=== PATIENT | female | born 1960 | race Caucasian/White ===

== ENCOUNTER 2017-02-07 18:35 | Observation (INO) ==
[2017-02-07] MEDS ORDERED: *HR* HYDROmorphone (PF) 1 MG/ML SYRINGE IVP ONE ×2 (19:56→20:21)
[2017-02-07] MEDS ORDERED: Ondansetron 4 MG/2 ML VIAL IVP ONE (19:56)
[2017-02-07] MEDS ORDERED: Lidocaine/EPI 1:100k 1% 20 ML VIAL INFILT ONE (19:56)
--- NOTE | 2017-02-07 20:22 | Emergency Department Note ---
Disposition Clinical Impression: Abscess of labia majora, Cellulitis of labia majora Disposition: Admitted As Inpatient Condition: Good Referrals: Angela Truong MD [Primary Care Provider] - Forms: ED Satisfaction Letter Skin/Abscess/FB HPI Chief complaint: ED Skin/Abscess/Foreign Body Stated complaint: "Cyst on my privates" Time Seen by Provider: 02/07/17 18:47 Source: patient Limitations: no limitations Nursing Notes Reviewed: Yes Vital Signs Reviewed: Yes Pt Subjective Complaint: abscess/boil Onset (ago): day(s) (3) Location: genitals (right labia) Severity: severe Quality: dull Consistency: constant Improves with: none Worsens with: palpation, movement Context: none Associated symptoms: Reports: denies other symptoms Treatments prior to arrival: none Home Medications Medication Instructions Recorded Confirmed Albuterol Sulfate [Proair Hfa] 2 puff IH Q4H PRN 05/20/15 09/28/16 Atorvastatin [Lipitor] 40 mg PO HS 05/20/15 09/28/16 CloNIDine HCl 0.2 mg PO QPM 05/20/15 09/28/16 Ergocalciferol (VITAMIN D2) 50,000 unit PO TU 05/20/15 09/28/16 [Drisdol (50,000 Unit)] Furosemide [Lasix] 40 mg PO BID 05/20/15 09/28/16 Insulin ASPART [NovoLOG] 18 - 22 units SQ TID 05/20/15 09/28/16 Insulin Glargine,Hum.rec.anlog 90 units SQ QPM 05/20/15 09/28/16 [Lantus Solostar] Loratadine [Claritin] 10 mg PO QPM 05/20/15 09/28/16 Pregabalin [Lyrica] 150 mg PO TID 05/20/15 09/28/16 Sodium Bicarbonate 325 mg PO QID 05/20/15 09/28/16 TraMADol [Ultram] 100 mg PO QID PRN 05/20/15 09/28/16 Docusate [Colace] 100 mg PO QID PRN 11/09/15 09/28/16 Omeprazole [PriLOSEC] 20 mg PO DAILY 04/28/16 09/28/16 Beclomethasone Diprop 80mcg [QVAR 2 puff IH BID 07/13/16 09/28/16 80 mcg] Previous Rx's Medication Instructions Recorded Albuterol Sulfate [Albuterol 2 puff IH Q6HR #1 inhaler 07/18/16 Inhaler] Ciprofloxacin [Cipro] 500 mg PO BID 21 Days 09/28/16 Ciprofloxacin HCl/Dexameth 4 drop BOTH EARS BID 7 Days 11/20/16 [Ciprodex Otic Suspension] Allergies Allergy/AdvReac Type Severity Reaction Status Date / Time iodine Allergy See Verified 09/23/16 16:51 Comments latex Allergy See Verified 09/23/16 16:51 Comments povidone-iodine Allergy See Verified 09/23/16 16:51 [From Betadine] Comments soap [From Betadine] Allergy See Verified 09/23/16 16:51 Comments trimethoprim [From Bactrim] Allergy Difficulty Verified 09/23/16 16:51 Breathing Benzonatate AdvReac Blurry Verified 09/23/16 16:51 Vision sulfacetamide AdvReac Palpitation Verified 09/23/16 16:51 s sulfamethoxazole AdvReac Palpitation Verified 09/23/16 16:51 s terbinafine [From Lamisil] AdvReac Itching Verified 09/23/16 16:51 shrimp AdvReac Vomiting Uncoded 09/23/16 16:51 All systems ED: reviewed and negative except as stated. Constitutional: Denies: fever, chills Past Medical History - Past Medical History Source: patient, old records reviewed, nursing notes reviewed Medical history: Reports: asthma, diabetes, GERD, hyperlipidemia, renal disease Surgical history: Reports: cholecystectomy, other Psychiatric history: Reports: no psych history, other BEHAVIORAL HEALTH COUNSELOR history: Reports: no BEHAVIORAL HEALTH COUNSELOR history - Social History Smoking Status: Current every day smoker Smokeless Tobacco Status: No Alcohol use: Reports: none Drug use: Reports: none Physical Exam - General Limitations: no limitations General appearance: alert, in no apparent distress - Head Head exam: atraumatic, normocephalic, normal inspection - Eye Eye exam: Present: normal appearance, PERRL, EOMI - ENT ENT exam: normal exam, normal oropharynx, mucous membranes moist - Neck Neck exam: Present: normal inspection, full ROM, trachea midline - Chest Chest inspection: Present: normal inspection, symmetric chest wall rise - Respiratory Respiratory exam: Present: normal lung sounds bilaterally - Cardiovascular Cardiovascular exam: Present: regular rate, normal rhythm, normal heart sounds - Abdominal Exam Abdominal exam: Present: soft, Non-Tender. Absent: tenderness, distention, guarding, rebound, rigidity - Female External Exam: Present: other (abscess right labia majora) - Neurological Exam Neurological exam: Present: alert, oriented X3 - Psychiatric Psychiatric exam: Present: normal affect, normal mood Course Vital Signs Temperature 98.7 F 02/07/17 18:38 Pulse Rate 105 02/07/17 18:38 Respiratory Rate 18 02/07/17 18:38 Blood Pressure 122/70 02/07/17 18:38 O2 Sat by Pulse Oximetry 97 02/07/17 18:38 Temperature 98.7 F 02/07/17 18:38 Pulse Rate 100 02/07/17 19:22 Respiratory Rate 18 02/07/17 19:22 Blood Pressure 135/69 02/07/17 19:22 O2 Sat by Pulse Oximetry 94 02/07/17 19:22 Oxygen Delivery Oxygen Delivery Room Air Procedures - Abscess I/D Consent obtained: verbal consent Site: other (labia) Side (if applicable): right Sedation/analgesia: other (dilaudid 2mg IV) Local Anesthetic: lidocaine 1%, with epi Technique: incised with #11 blade Amount of fluid: 3 (blood no pus) Irrigation: No Complications: bleeding Skin/Abscess/Foreign Body - MDM Narrative Medical decision making narrative: I spoke with the patient daughter and the hospitalist with her risk factors including - Differential Diagnosis Likely: cellulitis, contact dermatitis - Medical Records Medical records reviewed: Yes I reviewed the patient's medical records. - Lab Data Lab results reviewed: Yes I reviewed the patient's lab results. Result diagrams: 02/07/17 20:37 02/07/17 20:37 Lab Results 02/07/17 02/07/17 Range/Units 20:37 20:37 WBC 10.7 (4.3-11.1) K/mcL RBC 4.49 (3.82-4.97) M/mcL Hgb 11.1 L (11.5-15.4) g/dL Hct 34.6 L (35.3-44.9) % MCV 77.1 L (83.0-100.0) fL MCH 24.7 L (28.0-33.3) pg MCHC 32.1 (31.6-35.5) g/dL RDW 18.8 H (11.5-14.5) % Plt Count 234 (140-400) K/mcL MPV 11.2 (9.4-12.4) fL Immature Gran % 0.8 (0-4) % Seg Neutrophils % 75.4 % Lymphocytes % 12.0 % Monocytes % 7.4 % Eosinophils % 3.8 % Basophils % 0.6 % Neutrophils # 8.0 (1.6-8.9) K/mcL Lymphocytes # 1.3 (0.6-4.6) K/mcL Monocytes # 0.8 (0.0-1.3) K/mcL Eosinophils # 0.4 (0.0-0.6) K/mcL Basophils # 0.1 (0.0-0.2) K/mcL Sodium 139 (136-145) mEq/L Potassium 4.1 (3.5-4.5) mEq/L Chloride 109 (98-109) mEq/L Carbon Dioxide 19 (19-29) mEq/L BUN 44 H (7-20) mg/dL Creatinine 3.84 H (0.57-1.11) mg/dL Est GFR ( Amer) 15 L (> 60) Est GFR (Non-Af Amer) 12 L (> 60) BUN/Creatinine Ratio 11 (6-26) Glucose 70 (70-99) mg/dL Calculated Osmolality 298 (280-300) Calcium 10.3 (8.6-10.8) mg/dL
[2017-02-07 20:44] LABS: Basophils # 0.1 K/mcL (0.0-0.2); Basophils % 0.6 %; Eosinophils # 0.4 K/mcL (0.0-0.6); Eosinophils % 3.8 %; Hematocrit 34.6 % (35.3-44.9); Hemoglobin 11.1 g/dL (11.5-15.4); Immature Granulocytes % 0.8 % (0-4); Lymphocytes # 1.3 K/mcL (0.6-4.6); Mean Corpuscular HGB Conc 32.1 g/dL (31.6-35.5); Mean Corpuscular Hemoglobin 24.7 pg (28.0-33.3); Mean Corpuscular Volume 77.1 fL (83.0-100.0); Mean Platelet Volume 11.2 fL (9.4-12.4); Monocytes # 0.8 K/mcL (0.0-1.3); Monocytes % 7.4 %; Platelet Count 234 K/mcL (140-400); Red Blood Count 4.49 M/mcL (3.82-4.97); Red Cell Distribution Width 18.8 % (11.5-14.5); Segmented Neutrophils % 75.4 %
[2017-02-07] MEDS ORDERED: Piperacillin/Tazobactam 3.375 GM in D5% in Water (Mini-Bag+) 100 ML IVPB ONE (20:48)
[2017-02-07] MEDS ORDERED: Vancomycin 1,250 MG in D5% in Water 250 ML IVPB ONE (20:49)
[2017-02-07 20:57] LABS: Calcium 10.3 mg/dL (8.6-10.8); Potassium 4.1 mEq/L (3.5-4.5)
[2017-02-07] MEDS ORDERED: *HR* Meperidine 50 MG/ML SYRINGE IVP ONE (21:28)
[2017-02-07] MEDS ORDERED: *HR* OxyCODONE Immed Rel 5 MG TABLET PO PRN (23:29)
[2017-02-07] MEDS ORDERED: Naloxone 0.4 MG/ML INJ IVP PRN (23:29)
[2017-02-07] MEDS ORDERED: *HR* Dextrose 50 % in Water (Syg) 50 ML SYRINGE IVP PRN (23:31)
[2017-02-07] MEDS ORDERED: Dextrose Gel 15 GM PO PRN ×2 (23:31)
[2017-02-07] MEDS ORDERED: D5% in Water 1,000 ML IVC PRN (23:31)
[2017-02-08] MEDS: Meropenem 1,000 MG in 0.9 % Sodium Chloride Mini Bag 100 ML IVPB SCH ×4 (00:38→23:48)
[2017-02-08] MEDS: Pregabalin 75 MG CAPSULE PO SCH ×3 (00:39→20:15)
[2017-02-08] MEDS: *HR* Morphine 2 MG/ML SYRINGE IVP PRN ×3 (00:40→21:35)
[2017-02-08] MEDS ORDERED: Ipratropium/Albuterol Neb 3 ML IH PRN (00:46)
[2017-02-08] MEDS: traMADol 50 MG TABLET PO PRN ×4 (00:52→23:48)
[2017-02-08 01:28] LABS: Basophils # 0.1 K/mcL (0.0-0.2); Basophils % 0.5 %; Eosinophils # 0.5 K/mcL (0.0-0.6); Eosinophils % 4.6 %; Hematocrit 32.5 % (35.3-44.9); Hemoglobin 10.3 g/dL (11.5-15.4); Immature Granulocytes % 0.7 % (0-4); Lymphocytes # 1.4 K/mcL (0.6-4.6); Lymphocytes % 13.9 %; Mean Corpuscular HGB Conc 31.7 g/dL (31.6-35.5); Mean Corpuscular Hemoglobin 24.8 pg (28.0-33.3); Mean Corpuscular Volume 78.1 fL (83.0-100.0); Mean Platelet Volume 11.7 fL (9.4-12.4); Monocytes # 0.7 K/mcL (0.0-1.3); Monocytes % 6.8 %; Neutrophils # 7.6 K/mcL (1.6-8.9); Platelet Count 219 K/mcL (140-400); Red Blood Count 4.16 M/mcL (3.82-4.97); Red Cell Distribution Width 18.9 % (11.5-14.5); Segmented Neutrophils % 73.5 %
[2017-02-08] MEDS ORDERED: Albuterol 2.5 MG/3 ML NEBULIZER IH PRN (01:35)
[2017-02-08 01:39] LABS: Hemoglobin A1C 8.2 %
[2017-02-08 01:42] LABS: Calcium 9.9 mg/dL (8.6-10.8); Potassium 4.5 mEq/L (3.5-4.5)
--- NOTE | 2017-02-08 01:44 | Internal Med History&Physical ---
Date of Encounter: 02/08/17 Time of Encounter: 01:00 Assessment and Plan (1) Cellulitis of labia majora Current visit: Yes Status: Acute h/o- multiple and recurrent skin infections and abscesses, h/o- MRSA and MDR- Pseudomonas abscess; start IV Meropenem and Zyvox for now; failed attempt at I& D in the ER, aspirated only sanguineous fluid, could not send it for culture; will consult Surgery for complete incision and drainage, possibly in OR; pain control with PRN Tramadol and IV Morphine; (2) Abscess of skin or subcutaneous tissue Current visit: Yes Status: Acute plan as above; Qualifiers: Site of cutaneous abscess: other site Qualified Code(s): L02.818 - Cutaneous abscess of other sites (3) Diabetes Current visit: Yes Status: Chronic Blood glucose on BMP noted to be 70. Accucheck blood glucose monitoring with basal bolus insulin regimen; will decrease home dose of long acting insulin for now, given her borderline low blood sugar in ER; diabetic diet; check HbA1C; Qualifiers: Diabetes mellitus type: type 2 Diabetes mellitus complication status: with kidney complications Diabetes mellitus complication detail: with chronic kidney disease Diabetes mellitus care home insulin use: with assistant terminal manager use Chronic kidney disease stage: stage 5, not on chronic dialysis Qualified Code( s): E11.22 - Type 2 diabetes mellitus with diabetic chronic kidney disease; N18.5 - Chronic kidney disease, stage 5; Z79.4 - custodial (current) use of insulin (4) Asthma Current visit: Yes Status: Chronic Not in acute exacerbation. Continue when necessary albuterol along with inhaled steroids. Supplemental oxygen as needed. Qualifiers: Asthma severity: mild intermittent Asthma complication type: uncomplicated Qualified Code(s): J45.20 - Mild intermittent asthma, uncomplicated (5) Tobacco abuse Current visit: Yes Status: Chronic Patient is trying to quit at this time. Refuses nicotine transdermal patch. (6) Chronic kidney disease (CKD), stage V Current visit: Yes Status: Chronic Serum creatinine noted to be at baseline. Follows with nephrology as outpatient. (7) Secondary hyperparathyroidism (of renal origin) Current visit: Yes Status: Chronic (8) Anemia in CKD (chronic kidney disease) Current visit: Yes Status: Chronic Internal Medicine - H&P: HPI Chief complaint: Right groin pain Admitted From: Emergency Dept Plans for Post Hospital Care: Home History of present illness: Ms. Oseguera is a 56 year old female with h/o- DM and multiple skin infections and abscesses requiring drainage, several amputations, presents with c/o- right- sided groin and labial pain for 5-6 days. She denies any trauma or falls. Patient noticed 3 cyst-like swellings on her right labia, which have been progressively increasing in size associated with extreme pain and tenderness, surrounding redness and warmth, subjective fevers and nausea. Pain is 10/10, excruciating, constant at rest and with movement. She did have multiple abscesses requiring incision and drainage in the past, that grew resistant bacteria. No chest pain, shortness of breath, diarrhea. Past Med Surg Social Fam HX - Past Medical History Medical history: asthma, diabetes, GERD, hyperlipidemia, renal disease Psychiatric history: no psych history, other - Past Surgical History Surgical History: (3), cholecystectomy, orthopedic, other (right BKA, left foot correction surgeries for Charcot foot), other (B/L oophorectomy) - Social History Smoking Status: Current every day smoker (intermittent cessation; currently smokes 1/2 PPD) Smokeless Tobacco Status: No Alcohol use: none Drug use: none Occupational status: disabled Current living situation: Home, With Family Activity Level: Uses cane/walker Recent Out of Country Travel Within the Last 8 Weeks: No Exposure or Possible Exposure to Illness During Travel: No - Family History Father Living Status: Hx Family Cardiac Disorders: Yes Hx Family Cancer: Yes (pancreatic) Hx Family Endocrine Disorder: Yes Mother Living Status: Hx Family Cardiac Disorders: Yes Hx Family Endocrine Disorder: Yes Hx Family Neuromuscular Disorders: Yes (stroke) Hx Family Neurologic Disorders: Yes Internal Medicine - H&P: Meds Albuterol Sulfate [Proair Hfa] 2 puff IH Q4H PRN 05/20/15 [History] Atorvastatin [Lipitor] 40 mg PO HS 05/20/15 [History] Ergocalciferol (VITAMIN D2) [Drisdol (50,000 Unit)] 50,000 unit PO TU 05/20/15 [ History] Furosemide [Lasix] 40 mg PO BID 05/20/15 [History] Insulin ASPART [NovoLOG] 18 - 22 units SQ TID 05/20/15 [History] Insulin Glargine,Hum.rec.anlog [Lantus Solostar] 90 units SQ QPM 05/20/15 [ History] Loratadine [Claritin] 10 mg PO QPM 05/20/15 [History] Pregabalin [Lyrica] 150 mg PO TID 05/20/15 [History] Sodium Bicarbonate 325 mg PO QID 05/20/15 [History] TraMADol [Ultram] 100 mg PO QID PRN 05/20/15 [History] Docusate [Colace] 100 mg PO QID PRN 11/09/15 [History] Omeprazole [PriLOSEC] 20 mg PO DAILY 04/28/16 [History] Beclomethasone Diprop 80mcg [QVAR 80 mcg] 2 puff IH BID 07/13/16 [History] cloNIDine HCl [Clonidine HCl] 0.2 mg PO QPM 02/07/17 [History] Allergies iodine Allergy (Verified 09/23/16 16:51) See Comments Patient states this peels her skin. latex Allergy (Verified 09/23/16 16:51) See Comments Patient states this peels her skin. povidone-iodine [From Betadine] Allergy (Verified 09/23/16 16:51) See Comments Patient states this peels her skin. soap [From Betadine] Allergy (Verified 09/23/16 16:51) See Comments Patient states this peels her skin. trimethoprim [From Bactrim] Allergy (Verified 09/23/16 16:51) Difficulty Breathing Benzonatate Adverse Reaction (Verified 09/23/16 16:51) Blurry Vision sulfacetamide Adverse Reaction (Verified 09/23/16 16:51) Palpitations sulfamethoxazole Adverse Reaction (Verified 09/23/16 16:51) Palpitations terbinafine [From Lamisil] Adverse Reaction (Verified 09/23/16 16:51) Itching shrimp Adverse Reaction (Uncoded 09/23/16 16:51) Vomiting All Systems PM: A 10-system review of systems was performed and is negative for pertinent findings except as documented above in the HPI. - Constitutional Constitutional: fever(s) - EENT Eyes: no change in vision, no discharge, no pain, no photophobia Ears: no ear discharge, no ear pain, no tinnitus Nose, mouth and throat: no dysphagia, no nasal discharge, no neck pain, no sore throat - Cardiovascular Cardiovascular ROS IM: no chest pain, no diaphoresis, no dyspnea, no lightheadedness, no palpitations, no syncope - Respiratory Respiratory: no cough, no dyspnea, no wheezing, no excessive phlegm production - Gastrointestinal Gastrointestinal: nausea - Genitourinary Genitourinary: genital lesions (Pain, redness, swelling), no change in urinary stream, no dysuria, no flank pain, no hematuria - Musculoskeletal Musculoskeletal ROS IM: no numbness, no tingling - Integumentary Integumentary IM: new lesions, sores, no rash, no unusual bruising - Neurological Neurological ROS: no confusion, no convulsions, no focal weakness, no numbness, no tingling, no tremor(s) - Hematologic/Lymphatic Hematologic/Lymphatic: no easy bruising - Constitutional Vitals: Temp Pulse Resp BP Pulse Ox 98.2 F 104 16 149/73 94 02/07/17 23:11 02/07/17 23:11 02/08/17 01:27 02/07/17 23:11 02/08/17 01:27 General appearance: Present: mild distress, A&O X 3, answers questions appropriately - Respiratory Respiratory exam: Present: CTAB. Absent: accessory muscle use, rales, rhonchi, wheezes - Cardiovascular Cardiovascular exam: Present: RRR, +S1, +S2, tachycardia. Absent: diastolic murmur, gallop, rubs, systolic murmur - GI/Abdominal GI/Abdominal exam: Present: normal bowel sounds, soft, no peritoneal signs. Absent: distended, tenderness - External exam: Present: swelling (right-sided labial erythema, extreme tenderness, induration) Specululm exam: Present: erythema - Extremities Exam Extremities exam: Present: warm, radial pulses palpable and symetrical. Absent : calf tenderness, cyanotic, pedal edema Additional comments: s/p right BKA - Neurological Exam Neurological exam: Present: CN II-XII intact, oriented X3, no focal deficits. Absent: pronater drift, facial droop, speech deficit Internal Med - H&P Results - Labs CBC & Chem 7: 02/08/17 01:16 02/07/17 20:37 Labs: Short CBC 02/08/17 Range/Units 01:16 WBC 10.3 (4.3-11.1) K/mcL Hgb 10.3 L (11.5-15.4) g/dL Hct 32.5 L (35.3-44.9) % Plt Count 219 (140-400) K/mcL Neutrophils # 7.6 (1.6-8.9) K/mcL
[2017-02-08] MEDS ORDERED: Insulin DETEMIR 100 UNIT/ML X5UNITS SQ SCH ×2 (09:00→11:11)
[2017-02-08] MEDS: Furosemide 40 MG TABLET PO SCH ×2 (09:43→20:15)
--- NOTE | 2017-02-08 10:10 | Nephrology Consult Note ---
Date of Encounter: 02/08/17 Time of Encounter: 09:55 Assessment and Plan (1) Chronic kidney disease (CKD), stage V Current Visit: Yes Status: Chronic CKD stage V based upon the estimated GFR, and slightly worse than previously measured. GFR trending down to 10 from 11 and 12. Fortunately she did not affirm uremic complaints and biochemically, she does not have severe hyperkalemia, metabolic acidosis, fluid overload. Therefore I do not recommend starting HD at this time. However, if her renal function declines further and/or uremic symptoms develop, then would initiate HD. Renal dosing of the Lyrica is recommended: will start the weaning process bid decreasing to BID. Would not recommend any higher dosing of 75mg total per day. Follow a renal protective/conservative strategy: no urgent HD indicications ( she did not affirm any uremic symptoms). Will follow with you. (2) Abscess of skin or subcutaneous tissue Current Visit: Yes Status: Acute As per primary Qualifiers: Site of cutaneous abscess: other site Qualified Code(s): L02.818 - Cutaneous abscess of other sites (3) Secondary hyperparathyroidism (of renal origin) Current Visit: Yes Status: Chronic Continue home Rx (4) Anemia in CKD (chronic kidney disease) Current Visit: Yes Status: Chronic Goal Hgb is 10-11. Will consider adding DEAN if indicated (5) Hyponatremia Current Visit: Yes Status: Acute Minimal at about 135. Will monitor (6) Renal cysts, acquired, bilateral Current Visit: Yes Status: Chronic recommend outpt follow up. Perhaps after she starts HD someday, then would use IV contrast to ensure that the hyperdense renal cysts are not consistent [facility] History of Present Illness - Reason for Consult Consult date: 02/08/17 Chronic Kidney Disease, hyponatremia Requesting physician: Deb Marquez - Chief Complaint CKD stage V - History of Present Illness phani Oseguera is a very pleasant 56 y/o WF lady with a pmh of CKD stage V (not yet on dialysis), T2DM, frequent wounds s/p multiple amputations, obesity, HTN, neuropathy and et al who presented with a new labile skin abscess. She is followed by my colleague Dr. Farr for her CKD. She was accompanied by her daughter who provided the majority of the history. The developed this wound and sought medical attention. The pt did not affirm N/V/D/F/C, dysuria, diminished appetite, confusion, but did affirm fatigue. We talked about her high dose of Lyrica. She does not take NSAIDs. Past Med Surg Social Fam HX - Past Medical History Medical history: asthma, diabetes, GERD, hyperlipidemia, renal disease Psychiatric history: no psych history, other - Past Surgical History Surgical History: (3), cholecystectomy, orthopedic, other (right BKA, left foot correction surgeries for Charcot foot), other (B/L oophorectomy) - Social History Smoking Status: Current every day smoker (intermittent cessation; currently smokes 1/2 PPD) Smokeless Tobacco Status: No Alcohol use: none Drug use: none - Family History Father Living Status: Hx Family Cardiac Disorders: Yes Hx Family Cancer: Yes (pancreatic) Hx Family Endocrine Disorder: Yes Mother Living Status: Hx Family Cardiac Disorders: Yes Hx Family Endocrine Disorder: Yes Hx Family Neuromuscular Disorders: Yes (stroke) Hx Family Neurologic Disorders: Yes Medications and Allergies Albuterol Sulfate [Proair Hfa] 2 puff IH Q4H PRN 05/20/15 [History] Atorvastatin [Lipitor] 40 mg PO HS 05/20/15 [History] Ergocalciferol (VITAMIN D2) [Drisdol (50,000 Unit)] 50,000 unit PO TU 05/20/15 [ History] Furosemide [Lasix] 40 mg PO BID 05/20/15 [History] Insulin ASPART [NovoLOG] 18 - 22 units SQ TID 05/20/15 [History] Insulin Glargine,Hum.rec.anlog [Lantus Solostar] 90 units SQ QPM 05/20/15 [ History] Loratadine [Claritin] 10 mg PO QPM 05/20/15 [History] Pregabalin [Lyrica] 150 mg PO TID 05/20/15 [History] Sodium Bicarbonate 325 mg PO QID 05/20/15 [History] TraMADol [Ultram] 100 mg PO QID PRN 05/20/15 [History] Docusate [Colace] 100 mg PO QID PRN 11/09/15 [History] Omeprazole [PriLOSEC] 20 mg PO DAILY 04/28/16 [History] Beclomethasone Diprop 80mcg [QVAR 80 mcg] 2 puff IH BID 07/13/16 [History] cloNIDine HCl [Clonidine HCl] 0.2 mg PO QPM 02/07/17 [History] Allergies iodine Allergy (Verified 09/23/16 16:51) See Comments Patient states this peels her skin. latex Allergy (Verified 09/23/16 16:51) See Comments Patient states this peels her skin. povidone-iodine [From Betadine] Allergy (Verified 09/23/16 16:51) See Comments Patient states this peels her skin. soap [From Betadine] Allergy (Verified 09/23/16 16:51) See Comments Patient states this peels her skin. trimethoprim [From Bactrim] Allergy (Verified 09/23/16 16:51) Difficulty Breathing Benzonatate Adverse Reaction (Verified 09/23/16 16:51) Blurry Vision sulfacetamide Adverse Reaction (Verified 09/23/16 16:51) Palpitations sulfamethoxazole Adverse Reaction (Verified 09/23/16 16:51) Palpitations terbinafine [From Lamisil] Adverse Reaction (Verified 09/23/16 16:51) Itching shrimp Adverse Reaction (Uncoded 09/23/16 16:51) Vomiting Review of Systems All Systems: reviewed and no additional remarkable complaints except as stated Exam - Vital Signs Vital signs: Initial Vital Signs Temp Pulse Resp BP Pulse Ox 98.7 F 105 18 122/70 97 02/07/17 18:38 02/07/17 18:38 02/07/17 18:38 02/07/17 18:38 02/07/17 18:38 Vital Signs - Last 8 Hours Temp Pulse Resp BP Pulse Ox 02/08/17 07:30 99.0 F 95 16 111/69 95 02/08/17 03:12 98.2 F 96 24 105/67 94 Intake and Output 02/07/17 02/08/17 02/08/17 23:59 07:59 15:59 Intake Total 400 / 400 Balance 400 / 400 Intake: IV Fluids 400 / 400 Zyvox Premix 600mg/300mL 300 / 300 600 mg In 300 ml @ 150 mls/hr IVPB Q12HR [facility] Rx# :[id number] Merrem 1,000 MG In 0.9 % 100 / 100 Sodium Chloride (Mini-Bag +) 100 ML @ 200 mls/hr IVPB Q8HR [facility] Rx#: [id number] Other: Blood Glucose* 262 - General Appearance General appearance: well-developed, well-nourished, chronically ill EENT: ATNC, PERRL, mucous membranes moist Neck: supple Respiratory: clear Cardiology: regular rate, regular rhythm, normal S1, normal S2 - Dialysis Access Dialysis Vascular Access: Arteriovenous Fistula (left forearm) thrill: Yes bruit: Yes Gastrointestinal: normoactive bowel sounds, no tenderness Integumentary: warm and dry Neurologic: no focal deficit, no asterixis Additional Comments: multiple finger amputations and BKA Psychiatric: cooperative Results - Lab Results 02/08/17 01:16 02/08/17 13:43 Most recent lab results Calcium 9.9 mg/dL (8.6-10.8) 02/08/17 01:16 I reviewed the above auto generated data Consult Discharge Plan - Plan Referrals: Angela Truong MD [Primary Care Provider] - 02/17/17 10:45 am (Please address February 21 appointment at this appointment )
[2017-02-08] MEDS: Insulin LISPRO 300 UNITS/3 ML VIAL SQ SCH ×4 (10:25→21:39)
[2017-02-08] MEDS: Beclomethasone 80mcg MDI IH SCH ×2 (11:58→21:25)
--- NOTE | 2017-02-08 13:22 | OB/GYN Consult Note ---
Date of Encounter: 02/08/17 Time of Encounter: 13:20 Assessment and Plan (1) Cellulitis of labia majora Current Visit: Yes Status: Acute IV antibiotic per hospitalist. History of Present Illness Consult date: 02/08/17 Requesting physician: Cassidy Diaz Reason for consult: other (labial infection) Chief complaint: Complains of cyst on labia History of present illness: Pt states she has a history of cysts in her groin (MRSA). States last she started to have discomfort in her right groin labia area where she noticed swelling. Swelling and pain increased to the point she required an evaluation in ED today. ED lanced right labia with only serosanginous fluid returned Past Med Surg Social Fam HX - Past Medical History Medical history: asthma, diabetes, GERD, hyperlipidemia, renal disease Psychiatric history: no psych history, other - Past Surgical History Surgical History: (3), cholecystectomy, orthopedic, other (right BKA, left foot correction surgeries for Charcot foot), other (B/L oophorectomy) - Social History Smoking Status: Current every day smoker (intermittent cessation; currently smokes 1/2 PPD) Smokeless Tobacco Status: No Alcohol use: none Drug use: none - Family History Father Living Status: Hx Family Cardiac Disorders: Yes Hx Family Cancer: Yes (pancreatic) Hx Family Endocrine Disorder: Yes Mother Living Status: Hx Family Cardiac Disorders: Yes Hx Family Endocrine Disorder: Yes Hx Family Neuromuscular Disorders: Yes (stroke) Hx Family Neurologic Disorders: Yes Medications and Allergies Albuterol Sulfate [Proair Hfa] 2 puff IH Q4H PRN 05/20/15 [History] Atorvastatin [Lipitor] 40 mg PO HS 05/20/15 [History] Ergocalciferol (VITAMIN D2) [Drisdol (50,000 Unit)] 50,000 unit PO TU 05/20/15 [ History] Furosemide [Lasix] 40 mg PO BID 05/20/15 [History] Insulin ASPART [NovoLOG] 18 - 22 units SQ TID 05/20/15 [History] Insulin Glargine,Hum.rec.anlog [Lantus Solostar] 90 units SQ QPM 05/20/15 [ History] Loratadine [Claritin] 10 mg PO QPM 05/20/15 [History] Pregabalin [Lyrica] 150 mg PO TID 05/20/15 [History] Sodium Bicarbonate 325 mg PO QID 05/20/15 [History] TraMADol [Ultram] 100 mg PO QID PRN 05/20/15 [History] Docusate [Colace] 100 mg PO QID PRN 11/09/15 [History] Omeprazole [PriLOSEC] 20 mg PO DAILY 04/28/16 [History] Beclomethasone Diprop 80mcg [QVAR 80 mcg] 2 puff IH BID 07/13/16 [History] cloNIDine HCl [Clonidine HCl] 0.2 mg PO QPM 02/07/17 [History] Allergies iodine Allergy (Verified 09/23/16 16:51) See Comments Patient states this peels her skin. latex Allergy (Verified 09/23/16 16:51) See Comments Patient states this peels her skin. povidone-iodine [From Betadine] Allergy (Verified 09/23/16 16:51) See Comments Patient states this peels her skin. soap [From Betadine] Allergy (Verified 09/23/16 16:51) See Comments Patient states this peels her skin. trimethoprim [From Bactrim] Allergy (Verified 09/23/16 16:51) Difficulty Breathing Benzonatate Adverse Reaction (Verified 09/23/16 16:51) Blurry Vision sulfacetamide Adverse Reaction (Verified 09/23/16 16:51) Palpitations sulfamethoxazole Adverse Reaction (Verified 09/23/16 16:51) Palpitations terbinafine [From Lamisil] Adverse Reaction (Verified 09/23/16 16:51) Itching shrimp Adverse Reaction (Uncoded 09/23/16 16:51) Vomiting Review of Systems Genitourinary Female: genital lesions (Cyst on right labia), no difficulty urinating, no difficulty voiding, no dysuria, no vaginal discharge Menstruation: amenorrhea (has mirena, placed 2.5 years ago (Dr Jonelle ROSENBERG)) Integumentary: other (swelling and pain to right labia) Exam - Vital Signs Vital signs: Initial Vital Signs Temp Pulse Resp BP Pulse Ox 98.7 F 105 18 122/70 97 02/07/17 18:38 02/07/17 18:38 02/07/17 18:38 02/07/17 18:38 02/07/17 18:38 - Constitutional Constitutional: no acute distress, obese - Cardiovascular Cardiovascular exam: RRR, +S1, +S2 - Comments Comments: RIght labia and right side of mons with swelling noted, pink in color, very firm , painful and warm to touch. Cellulitic in appearance Results Result Diagrams: 02/08/17 01:16 02/08/17 13:43 Abnormal lab results Hgb 10.3 g/dL (11.5-15.4) L 02/08/17 01:16 Hct 32.5 % (35.3-44.9) L 02/08/17 01:16 MCV 78.1 fL (83.0-100.0) L 02/08/17 01:16 MCH 24.8 pg (28.0-33.3) L 02/08/17 01:16 RDW 18.9 % (11.5-14.5) H 02/08/17 01:16 Sodium 135 mEq/L (136-145) L 02/08/17 01:16 BUN 44 mg/dL (7-20) H 02/08/17 01:16 Creatinine 4.17 mg/dL (0.57-1.11) H 02/08/17 01:16 Est GFR ( Amer) 13 (> 60) L 02/08/17 01:16 Est GFR (Non-Af Amer) 11 (> 60) L 02/08/17 01:16 Glucose 298 mg/dL (70-99) H 02/08/17 01:16 Hemoglobin A1c 8.2 % (-5.6) H 02/08/17 01:16 Calculated Osmolality 302 (280-300) H 02/08/17 01:16 All other labs normal. Consult Discharge Plan - Plan Referrals: Angela Truong MD [Primary Care Provider] - 02/17/17 10:45 am (Please address February 21 appointment at this appointment )
[2017-02-08 14:09] LABS: Calcium 9.7 mg/dL (8.6-10.8); Potassium 4.8 mEq/L (3.5-4.5)
[2017-02-08] MEDS: Loratadine 10 MG TABLET PO SCH (17:48)
[2017-02-08] MEDS ORDERED: cloNIDine HCl 0.1 MG TABLET PO SCH (18:00)
[2017-02-08] MEDS: Insulin DETEMIR 100 UNIT/ML X5UNITS SQ SCH (21:38)
[2017-02-08] MEDS: Nystatin Cream 15 GM TUBE TP SCH (21:46)
[2017-02-09] MEDS: *HR* Morphine 2 MG/ML SYRINGE IVP PRN (05:41)
[2017-02-09] MEDS: Acetaminophen 325 MG TABLET PO PRN ×3 (06:28→20:40)
[2017-02-09 06:46] LABS: Immature Granulocytes % 1.1 % (0-4)
[2017-02-09 06:48] LABS: Basophils % 0.5 %; Eosinophils # 0.3 K/mcL (0.0-0.6); Eosinophils % 4.6 %; Hematocrit 36.4 % (35.3-44.9); Hemoglobin 11.4 g/dL (11.5-15.4); Immature Platelets 8.2 % (1.1-6.1); Lymphocytes % 8.7 %; Mean Corpuscular HGB Conc 31.3 g/dL (31.6-35.5); Mean Corpuscular Hemoglobin 24.2 pg (28.0-33.3); Mean Corpuscular Volume 77.1 fL (83.0-100.0); Mean Platelet Volume 11.9 fL (9.4-12.4); Monocytes # 0.5 K/mcL (0.0-1.3); Monocytes % 6.9 %; Neutrophils # 5.8 K/mcL (1.6-8.9); Platelet Count 217 K/mcL (140-400); Red Blood Count 4.72 M/mcL (3.82-4.97); Red Cell Distribution Width 19.1 % (11.5-14.5); Segmented Neutrophils % 78.2 %
[2017-02-09 07:18] LABS: Lymphocytes # 0.6 K/mcL (0.6-4.6)
[2017-02-09 07:20] LABS: Platelet Estimate Normal (Normal)
[2017-02-09 07:26] LABS: Calcium 10.2 mg/dL (8.6-10.8); Phosphorous 6.8 mg/dL (2.3-4.7); Potassium 4.4 mEq/L (3.5-4.5)
--- NOTE | 2017-02-09 08:16 | Nephrology Progress Note ---
Date of Encounter: 02/09/17 Time of Encounter: 08:16 - Assessment and Plan (1) Chronic kidney disease (CKD), stage V Current Visit: Yes Status: Chronic Patient with known history fo CKD stage V based on estimated GFR. GFR trending downwards from previous labs at 12. BUN 43, Cr 4.51, GFR 10 this morning. Patient on home dose of Lyrica 150mg tid. Decreased to Lyrica 150mg bid yesterday. Continue with Lyrica 150mg bid for the next couple days. Ultimately to decrease to max dose of Lyrica for her CKD at 75mg qd per delivery director recommendations. Continue following renal protective strategy. Avoid nephrotoxic agents, if needed, dose renally. No urgent hemodialysis at this time. No uremic symptoms. Continue to monitor labs. May need to initiate dialysis if patients renal fucntion continues to decline and patient develops uremic symptoms. (2) Abscess of skin or subcutaneous tissue Current Visit: Yes Status: Acute Right labial abscess. On Linezolid 600mg q12h and meropenem 1000mg q8h. GFR 10, estimated body loss 3.5% with right bka. Known history of CKD stage 5. Recommend renal dosing of meropenem, spoke to hospitalist after holding AM dose. CrCl 10-25, decrease dosing by 50% and dose q12h. If CrCl <10, decrease dosing 50% and dose q24h. Recommend caution with Linezolid, though no dosing changes unless requiring hemodialysis Qualifiers: Site of cutaneous abscess: other site Qualified Code(s): L02.818 - Cutaneous abscess of other sites (3) Secondary hyperparathyroidism (of renal origin) Current Visit: Yes Status: Chronic Continue home medication for chronic disease management. (4) Anemia in CKD (chronic kidney disease) Current Visit: Yes Status: Chronic Goal Hb 10-11 for this patient. Consider adding DEAN if indicated. (5) Hyponatremia Current Visit: Yes Status: Acute Sodium 140 this morning. Resolved. (6) Renal cysts, acquired, bilateral Current Visit: Yes Status: Chronic CT abdomen/pelvis revealed bilateral symmetric perinephric stranding, multiple hyper and hypodense masses throughout the iain cortices bilaterally representing cyst and proteinacious cysts. Recommend outpatient follow up. If patient requires dialysis, may consider IV contrast to ensure hyperdense renal cysts are not consistent with RCC. Subjective Principal diagnosis: CKD Stage 5 Interval history: Ms. Ana Rosa is a 56 year old female with history of CKD stage 5, diabetes on intermediate frame tender insulin and neuropathy, multipla amputations including right below knee amputation, multiple skin infections and abscessess, hyperlipidemia, asthma , and gerd who presented to the ED with complaint of groin pain and was admitted for Right labial pain and abscess. Patient's gfr baseline is about 11- 12, has left forearm AV fistula that is deep. Patient reports doing "okay" overnight. Reports increased upper extremity swelling and continued groin pain. Patient denies fevers, chills, sweats, changes in vision or hearing, lightheadedness, dizziness, confusion, headaches, nausea, vomiting, chest pain, palpitations, shortness of breath, abdominal pain , changes in bowels or bladder, dysuria, hematuria, decreased urine output, weakness, or loss of sensation. Upon entering room, asked nurse to hold 1000mg meropenem prior to order changes. Objective - Vital Signs Vital signs: Vital Signs Temp Pulse Resp BP Pulse Ox 02/09/17 03:05 98.9 F 98 15 138/81 95 02/08/17 22:45 98.0 F 101 17 165/77 93 02/08/17 21:25 16 95 02/08/17 19:10 97 02/08/17 18:55 97.7 F 91 18 136/70 97 02/08/17 15:52 98.4 F 93 18 123/73 98 02/08/17 11:58 18 99 02/08/17 11:40 98.0 F 78 18 135/79 100 Intake and Output 02/08/17 02/09/17 02/09/17 23:59 07:59 15:59 Intake Total 400 / 400 Balance 400 / 400 Intake: IV Fluids 400 / 400 Zyvox Premix 600mg/300mL 300 / 300 600 mg In 300 ml @ 150 mls/hr IVPB Q12HR [facility] Rx# :[id number] Merrem 1,000 MG In 0.9 % 100 / 100 Sodium Chloride (Mini-Bag +) 100 ML @ 200 mls/hr IVPB Q8HR [facility] Rx#: [id number] Other: Blood Glucose* 251 - General Appearance General appearance: Present: well-developed, well-nourished, obese, chronically ill EENT: Present: PERRL, mucous membranes moist Neck: Present: no JVD, no thyromegaly, no carotid bruit, supple Respiratory: Present: wheezing Cardiology: Present: no murmurs, no edema, regular rate, regular rhythm, normal S1, normal S2 Dialysis Vascular Access: Arteriovenous Fistula (left forearm) thrill: Yes bruit: Yes Gastrointestinal: Present: normoactive bowel sounds, no tenderness, no guarding Integumentary: Present: no rash, warm and dry Neurologic: Present: no focal deficit, alert and oriented x3, strength 5/5, CN 3 -12 intact Musculoskeletal: Present: no deformities, no erythema, no cyanosis, no clubbing Additional Comments: 1+ edema bilateral upper extremities, Right below the knee amputation, multiple distal segments of digits amputation Psychiatric: Present: mood/affect appropriate, cooperative - Lab 02/09/17 06:11 02/09/17 06:11 Most recent lab results Calcium 10.2 mg/dL (8.6-10.8) 02/09/17 06:11 Phosphorus 6.8 mg/dL (2.3-4.7) H 02/09/17 06:11 Magnesium 2.0 mg/dL (1.6-2.6) 02/09/17 06:11 Consult Discharge Plan - Plan Referrals: Angela Truong MD [Primary Care Provider] - 02/17/17 10:45 am (Please address February 21 appointment at this appointment )
[2017-02-09] MEDS: Pregabalin 75 MG CAPSULE PO SCH ×2 (08:52→20:40)
[2017-02-09] MEDS: traMADol 50 MG TABLET PO PRN ×2 (08:52→18:19)
[2017-02-09] MEDS: Furosemide 40 MG TABLET PO SCH ×2 (08:52→20:41)
[2017-02-09] MEDS: Insulin LISPRO 300 UNITS/3 ML VIAL SQ SCH ×4 (08:56→20:47)
[2017-02-09] MEDS: Meropenem 1,000 MG in 0.9 % Sodium Chloride Mini Bag 100 ML IVPB SCH (08:56)
[2017-02-09] MEDS: Insulin DETEMIR 100 UNIT/ML X5UNITS SQ SCH ×2 (08:57→21:37)
[2017-02-09] MEDS: Nystatin Cream 15 GM TUBE TP SCH ×2 (08:59→21:38)
[2017-02-09] MEDS: Beclomethasone 80mcg MDI IH SCH ×2 (10:16→21:14)
[2017-02-09] MEDS ORDERED: Insulin DETEMIR 100 UNIT/ML X5UNITS SQ ONE (10:56)
--- NOTE | 2017-02-09 17:26 | Internal Med Progress Note ---
Date of Encounter: 02/09/17 Time of Encounter: 13:30 - Assessment and plan (1) Cellulitis of labia majora Current Visit: Yes Status: Acute Assessment and plan: Patient with history of MRSA and MDR pseudomonas skin infection in the past. Now presents with swelling and associated pain in the pubic area. CT of the abdomen and pelvis shows subcutaneous edema/inflammation of the mons pubis with relative asymmetric thickening of the right labia majora compared to the left. There is no formed fluid collection or abscess. Given history of MRSA and MDR pseudomonas, patient is at high risk for these infections. Continue IV Zyvox and meropenem, renally dose. Clinically slowly improving. (2) Chronic kidney disease (CKD), stage V Current Visit: Yes Status: Chronic Assessment and plan: Appreciate nephrology input. Avoid nephrotoxic agents as possible. Continue to monitor. (3) Diabetes Current Visit: Yes Status: Chronic Assessment and plan: Patient uses Lantus 90 units at bedtime. Accu-Cheks in the 200s. We will increase Levemir to 70 twice a day. Qualifiers: Diabetes mellitus type: type 2 Diabetes mellitus complication status: with kidney complications Diabetes mellitus complication detail: with chronic kidney disease Diabetes mellitus halfway insulin use: with halfway use Chronic kidney disease stage: stage 5, not on chronic dialysis Qualified Code( s): E11.22 - Type 2 diabetes mellitus with diabetic chronic kidney disease; N18.5 - Chronic kidney disease, stage 5; Z79.4 - USP (current) use of insulin (4) S/P BKA (below knee amputation) Current Visit: No Status: Chronic Qualifiers: Laterality: right Qualified Code(s): Z89.511 - Acquired absence of right leg below knee - Subjective Interval history: Patient complains of moderate to severe pain in pelvic area but pain is well- controlled with medications. - Constitutional Vitals: Temp Pulse Resp BP Pulse Ox 97.9 F 94 20 145/84 97 02/09/17 15:23 02/09/17 15:23 02/09/17 15:23 02/09/17 15:23 02/09/17 15:23 General appearance: Present: cooperative, A&O X 3, pleasant, no acute distress, answers questions appropriately - Neck Neck exam general surgery: Present: supple, trachea midline. Absent: lymphadenopathy - Respiratory Respiratory exam: Present: CTAB - Cardiovascular Cardiovascular exam: Present: RRR - GI/Abdominal GI/Abdominal exam: Present: normal bowel sounds, soft. Absent: distended, tenderness - Extremities Exam Extremities exam: Present: pedal edema Additional comments: RBKA - Neurological Exam Neurological exam: Present: alert, oriented X3. Absent: facial droop, speech deficit Internal Medicine: Result - Labs CBC & Chem 7: 02/09/17 06:11 02/09/17 06:11 Labs: Short CBC 02/09/17 Range/Units 06:11 WBC 7.4 (4.3-11.1) K/mcL Hgb 11.4 L (11.5-15.4) g/dL Hct 36.4 (35.3-44.9) % Plt Count 217 (140-400) K/mcL Neutrophils # 5.8 (1.6-8.9) K/mcL BMP 02/09/17 06:11 Sodium 140 Potassium 4.4 Chloride 110 H Carbon Dioxide 19 BUN 43 H Creatinine 4.51 H Glucose 147 H Calcium 10.2 Consult Discharge Plan - Plan Referrals: Angela Truong MD [Primary Care Provider] - 02/17/17 10:45 am (Please address February 21 appointment at this appointment )
[2017-02-09] MEDS: Loratadine 10 MG TABLET PO SCH (17:45)
[2017-02-09] MEDS: Meropenem 500 MG in 0.9 % Sodium Chloride Mini Bag 100 ML IVPB SCH (21:35)
[2017-02-10] MEDS: traMADol 50 MG TABLET PO PRN ×2 (01:44→22:04)
[2017-02-10 06:13] LABS: Basophils % 0.8 %; Eosinophils # 0.4 K/mcL (0.0-0.6); Eosinophils % 6.9 %; Hematocrit 35.5 % (35.3-44.9); Immature Granulocytes % 1.4 % (0-4); Lymphocytes # 0.9 K/mcL (0.6-4.6); Lymphocytes % 17.5 %; Mean Corpuscular Hemoglobin 24.2 pg (28.0-33.3); Mean Platelet Volume 11.8 fL (9.4-12.4); Monocytes # 0.5 K/mcL (0.0-1.3); Monocytes % 9.8 %; Neutrophils # 3.3 K/mcL (1.6-8.9); Platelet Count 212 K/mcL (140-400); Red Blood Count 4.55 M/mcL (3.82-4.97); Red Cell Distribution Width 18.8 % (11.5-14.5); Segmented Neutrophils % 63.6 %
[2017-02-10 06:32] LABS: Calcium 10.4 mg/dL (8.6-10.8); Magnesium 1.6 mg/dL (1.6-2.6)
--- NOTE | 2017-02-10 06:55 | Nephrology Progress Note ---
Date of Encounter: 02/10/17 Time of Encounter: 06:55 - Assessment and Plan (1) Chronic kidney disease (CKD), stage V Current Visit: Yes Status: Chronic Patient with known history fo CKD stage V based on estimated GFR. GFR trending downwards from previous labs at 12. BUN 42, Cr 4.21, GFR 11 this morning. Back to baseline from yesterday. Patient on home dose of Lyrica 150mg tid. Decreased to Lyrica 150mg bid yesterday. Continue with Lyrica 150mg bid through tomorrow then decreased to once a day dosing. Ultimately to decrease to max dose of Lyrica for her CKD at 75mg qd per cable puller recommendations. Continue following renal protective strategy. Avoid nephrotoxic agents, if needed, dose renally. No urgent hemodialysis at this time. No uremic symptoms. Continue to monitor labs. May need to initiate dialysis if patients renal function declines and patient develops uremic symptoms. (2) Abscess of skin or subcutaneous tissue Current Visit: Yes Status: Acute Right labial abscess. On Linezolid 600mg q12h and meropenem 500mg q12h GFR 11, estimated body loss 3.5% with right bka. Known history of CKD stage 5. Continue following renal dosing of medications Continue renal protective strategy, avoid nephrotoxins. Continue monitoring labs. Qualifiers: Site of cutaneous abscess: other site Qualified Code(s): L02.818 - Cutaneous abscess of other sites (3) Secondary hyperparathyroidism (of renal origin) Current Visit: Yes Status: Chronic Continue home medication for chronic disease management. (4) Anemia in CKD (chronic kidney disease) Current Visit: Yes Status: Chronic Goal Hb 10-11 for this patient. Consider adding DEAN if indicated. (5) Hyponatremia Current Visit: Yes Status: Resolved Sodium 141 this morning. Resolved. (6) Renal cysts, acquired, bilateral Current Visit: Yes Status: Chronic CT abdomen/pelvis revealed bilateral symmetric perinephric stranding, multiple hyper and hypodense masses throughout the iain cortices bilaterally representing cyst and proteinacious cysts. Recommend outpatient follow up. If patient requires dialysis, may consider IV contrast to ensure hyperdense renal cysts are not consistent with RCC. Subjective Principal diagnosis: CKD Stage 5 Interval history: Ms. Oseguera is a 56 year old female with history of CKD stage 5, diabetes on correction insulin and neuropathy, multiple amputations including right below the knee amputation, multiple skin infections and abcessess, hyperlipidemia, asthma, and gerd who presented to the ED with complaint of groin pain and was admitted for right labial pain and abscess. Patient's gft baseline is about 11- 12, has left forearm AV fistulat that is deep. Patient reports doing well overnight without new complaints. Reports decreased upper extremity swelling from yesterday and decreased groin pain. Patient denies fevers, chills, sweats, changes in bowels or bladder, dysuria, hematuria , decreased urine output, weakness, or loss of sensation. GFR up to 11 from 10 yesterday. Objective - Vital Signs Vital signs: Vital Signs Temp Pulse Resp BP Pulse Ox 02/10/17 04:31 97.9 F 82 16 143/83 99 02/09/17 23:35 98.4 F 94 15 163/89 95 02/09/17 21:15 16 98 02/09/17 21:05 98 02/09/17 18:37 98.6 F 96 15 177/94 98 02/09/17 15:23 97.9 F 94 20 145/84 97 02/09/17 11:43 97.8 F 96 18 164/82 95 02/09/17 10:16 18 96 02/09/17 09:08 96 02/09/17 08:03 98.4 F 96 20 165/91 96 Intake and Output 02/09/17 02/09/17 02/10/17 15:59 23:59 07:59 Intake Total 1000 / 1000 700 / 700 400 / 400 Output Total 900 / 900 350 / 350 Balance 1000 / 1000 -200 / -200 50 / 50 Intake: IV Fluids 400 / 400 300 / 300 Zyvox Premix 600mg/300mL 300 / 300 300 / 300 600 mg In 300 ml @ 150 mls/hr IVPB Q12HR [facility] Rx# :[id number] Merrem 1,000 MG In 0.9 % 100 / 100 Sodium Chloride (Mini-Bag +) 100 ML @ 200 mls/hr IVPB Q8HR [facility] Rx#: [id number] Oral 600 / 600 400 / 400 400 / 400 Output: Urine 900 / 900 350 / 350 Other: Meal Lunch Percent of Meal Consumed 100% # Voids 1 Weight 89 kg Blood Glucose* 177 324 Patient Weight 02/10/17 23:59 Weight 89 kg - General Appearance General appearance: Present: well-developed, well-nourished, obese, chronically ill EENT: Present: PERRL, mucous membranes moist Neck: Present: no JVD, no carotid bruit, supple Respiratory: Present: wheezing Cardiology: Present: no murmurs, no rub, regular rate, regular rhythm, normal S1 , normal S2 Additional Comments: minimal bilateral upper extremity pitting edema, improved. Dialysis Vascular Access: Arteriovenous Fistula (left forearm) thrill: Yes bruit: Yes Gastrointestinal: Present: normoactive bowel sounds, no tenderness, no guarding Integumentary: Present: no rash, warm and dry Neurologic: Present: no focal deficit, no asterixis, alert and oriented x3, strength 5/5, CN 3-12 intact Musculoskeletal: Present: no deformities, no erythema, no cyanosis, no clubbing Additional Comments: minimal upper extremity edema bilaterally, improved. Right below the knee amputations, multiple distal segments of digits amputation Psychiatric: Present: mood/affect appropriate, cooperative - Lab 02/10/17 05:25 02/10/17 05:25 Most recent lab results Calcium 10.4 mg/dL (8.6-10.8) 02/10/17 05:25 Phosphorus 6.8 mg/dL (2.3-4.7) H 02/09/17 06:11 Magnesium 1.6 mg/dL (1.6-2.6) 02/10/17 05:25 Consult Discharge Plan - Plan Referrals: Angela Truong MD [Primary Care Provider] - 02/17/17 10:45 am (Please address February 21 appointment at this appointment )
[2017-02-10] MEDS: Insulin LISPRO 300 UNITS/3 ML VIAL SQ SCH ×4 (08:03→22:05)
[2017-02-10] MEDS: Furosemide 40 MG TABLET PO SCH ×2 (08:15→21:51)
[2017-02-10] MEDS: Pregabalin 75 MG CAPSULE PO SCH ×2 (08:15→21:51)
[2017-02-10] MEDS: Meropenem 500 MG in 0.9 % Sodium Chloride Mini Bag 100 ML IVPB SCH ×2 (08:15→20:41)
[2017-02-10] MEDS: Nystatin Cream 15 GM TUBE TP SCH ×2 (08:17→21:51)
[2017-02-10] MEDS: Insulin DETEMIR 100 UNIT/ML X5UNITS SQ SCH ×2 (08:29→21:51)
[2017-02-10] MEDS: Beclomethasone 80mcg MDI IH SCH ×2 (11:26→20:24)
[2017-02-10] MEDS: Loratadine 10 MG TABLET PO SCH (17:25)
--- NOTE | 2017-02-10 18:38 | Internal Med Progress Note ---
Date of Encounter: 02/10/17 Time of Encounter: 18:37 - Assessment and plan (1) Cellulitis of labia majora Current Visit: Yes Status: Acute Assessment and plan: Patient with history of MRSA and MDR pseudomonas skin infection in the past. Now presents with swelling and associated pain in the pubic area. CT of the abdomen and pelvis shows subcutaneous edema/inflammation of the mons pubis with relative asymmetric thickening of the right labia majora compared to the left. There is no formed fluid collection or abscess. Given history of MRSA and MDR pseudomonas, patient is at high risk for these infections. Continue IV Zyvox and meropenem, renally dose. Clinically slowly improving. (2) Chronic kidney disease (CKD), stage V Current Visit: Yes Status: Chronic Assessment and plan: Appreciate nephrology input. Avoid nephrotoxic agents as possible. Continue to monitor. (3) Diabetes Current Visit: Yes Status: Chronic Assessment and plan: Patient uses Lantus 90 units at bedtime. fasting glucose is 147. continue Levemir to 70 twice a day. sliding scale insulin. diabetic diet. Qualifiers: Diabetes mellitus type: type 2 Diabetes mellitus complication status: with kidney complications Diabetes mellitus complication detail: with chronic kidney disease Diabetes mellitus long term care administrator insulin use: with residential use Chronic kidney disease stage: stage 5, not on chronic dialysis Qualified Code( s): E11.22 - Type 2 diabetes mellitus with diabetic chronic kidney disease; N18.5 - Chronic kidney disease, stage 5; Z79.4 - joint terminal attack controller (current) use of insulin (4) S/P BKA (below knee amputation) Current Visit: No Status: Chronic Qualifiers: Laterality: right Qualified Code(s): Z89.511 - Acquired absence of right leg below knee - Subjective Interval history: Patient complains of pain at pubic area that is well-controlled with medications. - Constitutional Vitals: Temp Pulse Resp BP Pulse Ox 99.3 F 88 16 162/86 97 02/10/17 15:24 02/10/17 15:24 02/10/17 15:24 02/10/17 15:54 02/10/17 15:24 General appearance: Present: cooperative, A&O X 3, pleasant, no acute distress, answers questions appropriately - Respiratory Respiratory exam: Present: CTAB - Cardiovascular Cardiovascular exam: Present: RRR - GI/Abdominal GI/Abdominal exam: Present: normal bowel sounds, soft. Absent: distended, tenderness - Extremities Exam Extremities exam: Present: pedal edema - Neurological Exam Neurological exam: Present: alert, oriented X3. Absent: facial droop, speech deficit - Skin Skin exam: Present: rash (erythema and swelling at pubic area) Internal Medicine: Result - Labs CBC & Chem 7: 02/10/17 05:25 02/10/17 05:25 Labs: Short CBC 02/10/17 Range/Units 05:25 WBC 5.1 (4.3-11.1) K/mcL Hgb 11.0 L (11.5-15.4) g/dL Hct 35.5 (35.3-44.9) % Plt Count 212 (140-400) K/mcL Neutrophils # 3.3 (1.6-8.9) K/mcL BMP 02/10/17 05:25 Sodium 141 Potassium 4.0 Chloride 109 Carbon Dioxide 21 BUN 42 H Creatinine 4.21 H Glucose 122 H Calcium 10.4 Consult Discharge Plan - Plan Referrals: Angela Truong MD [Primary Care Provider] - 02/17/17 10:45 am (Please address February 21 appointment at this appointment )
[2017-02-10] MEDS ORDERED: Ondansetron 4 MG/2 ML VIAL IVP ONE (20:20)
[2017-02-11] MEDS: *HR* OxyCODONE Immed Rel 5 MG TABLET PO PRN ×2 (00:55→23:17)
[2017-02-11] MEDS: Beclomethasone 80mcg MDI IH SCH ×2 (08:21→20:11)
[2017-02-11] MEDS: Insulin LISPRO 300 UNITS/3 ML VIAL SQ SCH ×4 (09:01→20:46)
[2017-02-11] MEDS: Insulin DETEMIR 100 UNIT/ML X5UNITS SQ SCH ×2 (09:01→20:46)
[2017-02-11] MEDS: Furosemide 40 MG TABLET PO SCH ×2 (09:02→20:45)
[2017-02-11] MEDS: Pregabalin 75 MG CAPSULE PO SCH (09:02)
[2017-02-11] MEDS: Meropenem 500 MG in 0.9 % Sodium Chloride Mini Bag 100 ML IVPB SCH ×2 (09:02→20:44)
[2017-02-11] MEDS: Nystatin Cream 15 GM TUBE TP SCH ×2 (09:02→20:45)
[2017-02-11] MEDS: traMADol 50 MG TABLET PO PRN (09:28)
--- NOTE | 2017-02-11 11:34 | Nephrology Progress Note ---
Date of Encounter: 02/11/17 Time of Encounter: 11:32 - Assessment and Plan (1) Cellulitis of labia majora Current Visit: Yes Status: Acute On antibiotics. Per primary team. (2) Anemia in CKD (chronic kidney disease) Current Visit: Yes Status: Chronic Follow hemoglobin. (3) Chronic kidney disease (CKD), stage V Current Visit: Yes Status: Chronic Creatinine stable. Not on dialysis. Monitor for uremia. Fistula in place. (4) Diabetes Current Visit: Yes Status: Chronic Per primary team. 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 Subjective Principal diagnosis: CKD Stage 5 Interval history: Patient without new complaint. Objective - Vital Signs Vital signs: Vital Signs Temp Pulse Resp BP Pulse Ox 02/11/17 08:26 16 91 02/11/17 06:57 97.6 F 91 18 176/78 93 02/11/17 02:00 130/86 02/11/17 01:11 98.4 F 87 16 96 02/10/17 23:30 132/62 02/10/17 20:24 16 96 02/10/17 20:15 98.2 F 85 16 96 02/10/17 19:15 98.1 F 66 14 189/88 100 02/10/17 15:54 162/86 02/10/17 15:24 99.3 F 88 16 97 Intake and Output 02/10/17 02/11/17 02/11/17 23:59 07:59 15:59 Intake Total 640 / 640 120 / 120 Balance 640 / 640 120 / 120 Intake: IV Fluids 400 / 400 Zyvox Premix 600mg/300mL 300 / 300 600 mg In 300 ml @ 150 mls/hr IVPB Q12HR [facility] Rx# :[id number] Merrem 500 MG In 0.9 % 100 / 100 Sodium Chloride (Mini-Bag +) 100 ML @ 200 mls/hr IVPB Q12H [facility] Rx#: [id number] Oral 240 / 240 120 / 120 Other: Meal Dinner Breakfast Percent of Meal Consumed 100% 75% Blood Glucose* 233 155 - General Appearance General appearance: Present: well-developed, well-nourished, obese EENT: Present: ATNC Neck: Present: supple Cardiology: Present: regular rate Neurologic: Present: alert and oriented x3 Psychiatric: Present: mood/affect appropriate - Lab 02/10/17 05:25 02/10/17 05:25 Most recent lab results Calcium 10.4 mg/dL (8.6-10.8) 02/10/17 05:25 Phosphorus 6.8 mg/dL (2.3-4.7) H 02/09/17 06:11 Magnesium 1.6 mg/dL (1.6-2.6) 02/10/17 05:25 Consult Discharge Plan - Plan Referrals: Angela Truong MD [Primary Care Provider] - 02/17/17 10:45 am (Please address February 21 appointment at this appointment )
--- NOTE | 2017-02-11 12:22 | Internal Med Progress Note ---
Date of Encounter: 02/11/17 Time of Encounter: 11:45 - Assessment and plan (1) Cellulitis of labia majora Current Visit: Yes Status: Acute Assessment and plan: Patient with history of MRSA and MDR pseudomonas skin infection in the past. Now presents with swelling and associated pain in the pubic area. CT of the abdomen and pelvis shows subcutaneous edema/inflammation of the mons pubis with relative asymmetric thickening of the right labia majora compared to the left. There is no formed fluid collection or abscess. Given history of MRSA and MDR pseudomonas, patient is at high risk for these infections. Continue IV Zyvox and meropenem, renally dose. Clinically slowly improving. (2) Chronic kidney disease (CKD), stage V Current Visit: Yes Status: Chronic Assessment and plan: Appreciate nephrology input. Avoid nephrotoxic agents as possible. Continue to monitor. (3) Diabetes Current Visit: Yes Status: Chronic Assessment and plan: Patient uses Lantus 90 units at bedtime. fasting glucose is 147. continue Levemir to 70 twice a day. sliding scale insulin. diabetic diet. 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 - Constitutional Vitals: Temp Pulse Resp BP Pulse Ox 98.1 F 85 16 125/60 95 02/11/17 12:08 02/11/17 12:08 02/11/17 12:08 02/11/17 12:08 02/11/17 12:08 General appearance: Present: cooperative, A&O X 3, pleasant, no acute distress, answers questions appropriately - Respiratory Respiratory exam: Present: CTAB - Cardiovascular Cardiovascular exam: Present: RRR - GI/Abdominal GI/Abdominal exam: Present: normal bowel sounds, soft. Absent: distended, tenderness - Extremities Exam Extremities exam: Present: pedal edema Additional comments: R BKA. - Neurological Exam Neurological exam: Present: alert, oriented X3. Absent: facial droop, speech deficit - Skin Skin exam: Present: erythema (Fading erythema with minimal swelling at right labial majora.) Internal Medicine: Result - Labs CBC & Chem 7: 02/10/17 05:25 02/10/17 05:25 - Impressions Impressions Foot X-Ray 02/10/17 19:41 IMPRESSION: 1. No acute osseous abnormality. 2. Midfoot changes compatible Charcot arthropathy. Midfoot postsurgical changes stable from 09/23/2016. D/ / Lloyd Negro MD / Lloyd Negro MD Interpreting Provider: Lloyd Negro MD Consult Discharge Plan - Plan Referrals: Angela Truong MD [Primary Care Provider] - 02/17/17 10:45 am (Please address February 21 appointment at this appointment )
[2017-02-11] MEDS: Pregabalin 50 MG CAPSULE PO SCH ×2 (13:54→20:45)
[2017-02-11] MEDS: Linezolid 600 MG TABLET PO SCH (17:17)
[2017-02-11] MEDS: Loratadine 10 MG TABLET PO SCH (17:17)
[2017-02-11] MEDS ORDERED: Ondansetron 4 MG/2 ML VIAL IVP PRN (17:40)
[2017-02-11] MEDS: Ondansetron 4 MG/2 ML VIAL IVP PRN (20:44)
[2017-02-12] MEDS: Ondansetron 4 MG/2 ML VIAL IVP PRN (03:12)
[2017-02-12] MEDS: traMADol 50 MG TABLET PO PRN ×4 (03:13→21:20)
[2017-02-12] MEDS: Linezolid 600 MG TABLET PO SCH ×2 (06:25→17:24)
[2017-02-12] MEDS: Insulin LISPRO 300 UNITS/3 ML VIAL SQ SCH ×4 (07:37→21:03)
[2017-02-12] MEDS: Beclomethasone 80mcg MDI IH SCH ×2 (08:05→19:53)
[2017-02-12] MEDS: Meropenem 500 MG in 0.9 % Sodium Chloride Mini Bag 100 ML IVPB SCH ×2 (08:27→21:01)
[2017-02-12] MEDS: Insulin DETEMIR 100 UNIT/ML X5UNITS SQ SCH ×2 (08:28→21:03)
[2017-02-12] MEDS: Pregabalin 50 MG CAPSULE PO SCH ×3 (08:28→21:02)
[2017-02-12] MEDS: Furosemide 40 MG TABLET PO SCH ×2 (08:28→21:03)
[2017-02-12] MEDS: Nystatin Cream 15 GM TUBE TP SCH ×2 (08:40→21:02)
[2017-02-12 10:20] LABS: Basophils # 0.1 K/mcL (0.0-0.2); Basophils % 0.6 %; Eosinophils # 0.5 K/mcL (0.0-0.6); Eosinophils % 5.3 %; Hematocrit 35.9 % (35.3-44.9); Hemoglobin 11.3 g/dL (11.5-15.4); Immature Granulocytes % 1.2 % (0-4); Lymphocytes # 1.1 K/mcL (0.6-4.6); Lymphocytes % 12.9 %; Mean Corpuscular HGB Conc 31.5 g/dL (31.6-35.5); Mean Corpuscular Hemoglobin 24.3 pg (28.0-33.3); Mean Corpuscular Volume 77.2 fL (83.0-100.0); Monocytes # 0.6 K/mcL (0.0-1.3); Monocytes % 6.9 %; Neutrophils # 6.1 K/mcL (1.6-8.9); Platelet Count 204 K/mcL (140-400); Red Blood Count 4.65 M/mcL (3.82-4.97); Red Cell Distribution Width 18.5 % (11.5-14.5); Segmented Neutrophils % 73.1 %
[2017-02-12 10:32] LABS: Calcium 9.9 mg/dL (8.6-10.8); Potassium 3.8 mEq/L (3.5-4.5)
--- NOTE | 2017-02-12 14:09 | Nephrology Progress Note ---
Date of Encounter: 02/12/17 Time of Encounter: 14:06 - Assessment and Plan (1) Cellulitis of labia majora Current Visit: Yes Status: Acute On antibiotics. Per primary team. (2) Anemia in CKD (chronic kidney disease) Current Visit: Yes Status: Chronic Follow hemoglobin. Hemoglobin is stable. (3) Chronic kidney disease (CKD), stage V Current Visit: Yes Status: Chronic Creatinine stable. Not on dialysis. Monitor for uremia. Fistula in place. (4) Diabetes Current Visit: Yes Status: Chronic Per primary team. Qualifiers: Diabetes mellitus type: type 2 Diabetes mellitus complication status: with kidney complications Diabetes mellitus complication detail: with chronic kidney disease Diabetes mellitus snf insulin use: with snf use Chronic kidney disease stage: stage 5, not on chronic dialysis Qualified Code( s): E11.22 - Type 2 diabetes mellitus with diabetic chronic kidney disease; N18.5 - Chronic kidney disease, stage 5; Z79.4 - residential (current) use of insulin (5) Neuropathy Current Visit: Yes Status: Acute Continue lyrica. Changed to tid dosing yesterday with symptomatic improvement per patient. Subjective Principal diagnosis: CKD Stage 5 Interval history: Patient without new complaint. She feels better now that her lyrica is dosed three times a day. She anticipates discharge Monday. Review of systems is otherwise stable. Objective - Vital Signs Vital signs: Vital Signs Temp Pulse Resp BP Pulse Ox 02/12/17 11:11 98.0 F 87 18 155/81 94 02/12/17 08:06 16 94 02/12/17 06:39 97.7 F 94 16 149/80 94 02/11/17 22:59 98.2 F 85 16 131/67 96 02/11/17 20:11 16 95 02/11/17 18:36 98.3 F 80 16 140/60 96 02/11/17 15:39 98.0 F 83 18 160/63 94 Intake and Output 02/11/17 02/12/17 02/12/17 23:59 07:59 15:59 Intake Total 340 / 340 480 / 480 Balance 340 / 340 480 / 480 Intake: IV Fluids 100 / 100 Merrem 500 MG In 0.9 % 100 / 100 Sodium Chloride (Mini-Bag +) 100 ML @ 200 mls/hr IVPB Q12H [facility] Rx#: [id number] Oral 240 / 240 480 / 480 Other: Meal Dinner Lunch Percent of Meal Consumed 100% 100% Blood Glucose* 269 112 147 - General Appearance General appearance: Present: well-developed, well-nourished EENT: Present: ATNC Neck: Present: supple Additional Comments: respirations are unlabored. Cardiology: Present: regular rate Integumentary: Present: warm and dry Neurologic: Present: alert and oriented x3 Psychiatric: Present: mood/affect appropriate - Lab 02/12/17 10:07 02/12/17 10:07 Most recent lab results Calcium 9.9 mg/dL (8.6-10.8) 02/12/17 10:07 Phosphorus 6.8 mg/dL (2.3-4.7) H 02/09/17 06:11 Magnesium 1.6 mg/dL (1.6-2.6) 02/10/17 05:25 Consult Discharge Plan - Plan Referrals: Angela Truong MD [Primary Care Provider] - 02/17/17 10:45 am (Please address February 21 appointment at this appointment )
[2017-02-12] MEDS: Loratadine 10 MG TABLET PO SCH (17:24)
--- NOTE | 2017-02-12 17:45 | Internal Med Progress Note ---
Date of Encounter: 02/12/17 Time of Encounter: 12:00 - Assessment and plan (1) Cellulitis of labia majora Current Visit: Yes Status: Acute Assessment and plan: Patient with history of MRSA and MDR pseudomonas skin infection in the past. Now presents with swelling and associated pain in the pubic area. CT of the abdomen and pelvis shows subcutaneous edema/inflammation of the mons pubis with relative asymmetric thickening of the right labia majora compared to the left. There is no formed fluid collection or abscess. Given history of MRSA and MDR pseudomonas, patient is at high risk for these infections. Continue IV Zyvox and meropenem, renally dose. Clinically slowly improving. may discharge home tomorrow after arranging IV antibiotics at home. (2) Chronic kidney disease (CKD), stage V Current Visit: Yes Status: Chronic Assessment and plan: Appreciate nephrology input. Avoid nephrotoxic agents as possible. Continue to monitor. (3) Diabetes Current Visit: Yes Status: Chronic Assessment and plan: Patient uses Lantus 90 units at bedtime. fasting glucose is 112. continue Levemir to 70 twice a day. sliding scale insulin. diabetic diet. 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 - Constitutional Vitals: Temp Pulse Resp BP Pulse Ox 98.0 F 85 18 161/64 95 02/12/17 15:41 02/12/17 15:41 02/12/17 15:41 02/12/17 15:41 02/12/17 15:41 General appearance: Present: cooperative, A&O X 3, pleasant, no acute distress, answers questions appropriately - Respiratory Respiratory exam: Present: CTAB - Cardiovascular Cardiovascular exam: Present: RRR - GI/Abdominal GI/Abdominal exam: Present: normal bowel sounds, soft. Absent: distended, tenderness - External exam: Present: erythema (pubic and right labial majora induration and erythema has decreased in size ) - Extremities Exam Additional comments: R BKA - Neurological Exam Neurological exam: Present: alert, oriented X3. Absent: facial droop, speech deficit Internal Medicine: Result - Labs CBC & Chem 7: 02/12/17 10:07 02/12/17 10:07 Labs: Short CBC 02/12/17 Range/Units 10:07 WBC 8.4 D (4.3-11.1) K/mcL Hgb 11.3 L (11.5-15.4) g/dL Hct 35.9 (35.3-44.9) % Plt Count 204 (140-400) K/mcL Neutrophils # 6.1 (1.6-8.9) K/mcL BMP 02/12/17 10:07 Sodium 141 Potassium 3.8 Chloride 108 Carbon Dioxide 23 BUN 41 H Creatinine 3.92 H Glucose 168 H Calcium 9.9 Consult Discharge Plan - Plan Referrals: Angela Truong MD [Primary Care Provider] - 02/17/17 10:45 am (Please address February 21 appointment at this appointment )
[2017-02-13] MEDS: Ondansetron 4 MG/2 ML VIAL IVP PRN (04:36)
[2017-02-13] MEDS: Linezolid 600 MG TABLET PO SCH ×2 (05:33→16:50)
[2017-02-13 06:29] LABS: Basophils # 0.1 K/mcL (0.0-0.2); Basophils % 0.7 %; Eosinophils # 0.4 K/mcL (0.0-0.6); Hematocrit 33.6 % (35.3-44.9); Hemoglobin 10.6 g/dL (11.5-15.4); Lymphocytes # 1.2 K/mcL (0.6-4.6); Mean Corpuscular HGB Conc 31.5 g/dL (31.6-35.5); Mean Corpuscular Hemoglobin 24.7 pg (28.0-33.3); Mean Corpuscular Volume 78.1 fL (83.0-100.0); Mean Platelet Volume 11.2 fL (9.4-12.4); Monocytes # 0.7 K/mcL (0.0-1.3); Monocytes % 7.3 %; Neutrophils # 6.4 K/mcL (1.6-8.9); Platelet Count 193 K/mcL (140-400); Red Cell Distribution Width 18.6 % (11.5-14.5)
[2017-02-13 06:42] LABS: Calcium 10.2 mg/dL (8.6-10.8); Potassium 3.7 mEq/L (3.5-4.5)
[2017-02-13] MEDS: Pregabalin 50 MG CAPSULE PO SCH ×2 (08:05→16:00)
[2017-02-13] MEDS: Furosemide 40 MG TABLET PO SCH (08:06)
[2017-02-13] MEDS: Insulin LISPRO 300 UNITS/3 ML VIAL SQ SCH ×3 (08:14→16:15)
[2017-02-13] MEDS: Nystatin Cream 15 GM TUBE TP SCH (08:16)
--- NOTE | 2017-02-13 08:40 | Nephrology Progress Note ---
Date of Encounter: 02/13/17 Time of Encounter: 08:40 - Assessment and Plan (1) Cellulitis of labia majora Current Visit: Yes Status: Acute Continue per Hospitalist plan. On Linezolid and Meropenem, appropriately dosed with CKD stage 5. (2) Anemia in CKD (chronic kidney disease) Current Visit: Yes Status: Chronic Hb 10.6, within goal of 10-11. Continue to monitor. (3) Chronic kidney disease (CKD), stage V Current Visit: Yes Status: Chronic Patient with known history fo CKD stage V based on estimated GFR. GFR trending downwards from previous labs at 12. BUN 44, Cr 3.67, GFR 13. Back to baseline/improving Patient on home dose of Lyrica 150mg tid. Continue to wean down Lyrica, currently at 100mg tid. Ultimately to decrease to max dose of Lyrica for her CKD at 75mg qd per tractor trailer mechanic recommendations. Continue following renal protective strategy. Avoid nephrotoxic agents, if needed, dose renally. No urgent hemodialysis at this time. No uremic symptoms. Continue to monitor labs. May need to initiate dialysis if patients renal function declines and patient develops uremic symptoms. Left forearm av fistula in place. (4) Diabetes Current Visit: Yes Status: Chronic Continue to monitor. Continue per Hospitalist plan. Qualifiers: Diabetes mellitus type: type 2 Diabetes mellitus complication status: with kidney complications Diabetes mellitus complication detail: with chronic kidney disease Diabetes mellitus penitentiary insulin use: with penitentiary use Chronic kidney disease stage: stage 5, not on chronic dialysis Qualified Code( s): E11.22 - Type 2 diabetes mellitus with diabetic chronic kidney disease; N18.5 - Chronic kidney disease, stage 5; Z79.4 - watermelon inspector (current) use of insulin (5) Neuropathy Current Visit: Yes Status: Acute History of neuropathy secondary to long standing uncontrolled diabetes prior. Continue with Lyrica 100mg tid, ultimately to decrease to 75mg qd per tractor trailer mechanic recommendations. (6) Renal cysts, acquired, bilateral Current Visit: Yes Status: Chronic CT abdomen/pelvis revealed bilateral symmetric perinephric stranding, multiple hyper and hypodense masses throughout the iain cortices bilaterally representing cyst and proteinacious cysts. Recommend outpatient follow up. If patient requires dialysis, may consider IV contrast to ensure hyperdense renal cysts are not consistent with RCC. (7) Hyperphosphatemia Current Visit: Yes Status: Acute Hyperphosphatemia in the context of CKD stage 5. Start Renvela tid with meals. Subjective Principal diagnosis: CKD Stage 5 Interval history: Ms. 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 Patient's gft baseline is about 11- 12, has left forearm AV fistula that is deep. Patient reports doing well overnight without new complaints. Reports decreased groin pain. Patient denies fevers, chills, sweats, changes in bowels or bladder , dysuria, hematuria, decreased urine output, weakness, or loss of sensation. GFR 13 from 12 yesterday. Objective - Vital Signs Vital signs: Vital Signs Temp Pulse Resp BP Pulse Ox 02/13/17 08:15 97.7 F 83 16 158/98 95 02/13/17 03:32 97.5 F L 77 14 120/82 95 02/12/17 23:20 98.0 F 83 12 122/82 96 02/12/17 19:59 16 95 02/12/17 18:38 98.0 F 83 15 138/58 95 02/12/17 15:41 98.0 F 85 18 161/64 95 02/12/17 14:34 94 02/12/17 11:11 98.0 F 87 18 155/81 94 Intake and Output 02/12/17 02/13/17 02/13/17 23:59 07:59 15:59 Intake Total 240 / 240 0 / 0 Output Total 450 / 450 Balance -210 / -210 0 / 0 Intake: Oral 240 / 240 0 / 0 Output: Urine 450 / 450 Other: Meal Dinner Percent of Meal Consumed 100% Stool Size Moderate Smear Stool Consistency loose loose soft Stool Characteristics Normal for Patient Stool Color Brown Brown # Voids 1 1 # Bowel Movements 1 1 Blood Glucose* 316 176 - General Appearance General appearance: Present: well-developed, well-nourished, appears started age , obese, chronically ill EENT: Present: PERRL, mucous membranes moist Neck: Present: no JVD, no carotid bruit, supple Respiratory: Present: course breath sounds Cardiology: Present: no murmurs, no rub, no edema, regular rate, regular rhythm , normal S1, normal S2 Dialysis Vascular Access: Arteriovenous Fistula (left forearm) thrill: Yes bruit: Yes Gastrointestinal: Present: normoactive bowel sounds, no tenderness, no guarding Integumentary: Present: no rash, warm and dry Neurologic: Present: no focal deficit, no asterixis, alert and oriented x3, strength 5/5, CN 3-12 intact Musculoskeletal: Present: no deformities, no erythema, no cyanosis, no clubbing Additional Comments: Right below the knee amputations, multiple distal segments of digits amputation. Minimal upper extremity edema left forearm. Psychiatric: Present: mood/affect appropriate, cooperative - Lab 02/13/17 06:14 02/13/17 06:14 Most recent lab results Calcium 10.2 mg/dL (8.6-10.8) 02/13/17 06:14 Phosphorus 6.8 mg/dL (2.3-4.7) H 02/09/17 06:11 Magnesium 1.6 mg/dL (1.6-2.6) 02/10/17 05:25 Consult Discharge Plan - Plan Referrals: Angela Truong MD [Primary Care Provider] - 02/17/17 10:45 am (Please address February 21 appointment at this appointment )
[2017-02-13] MEDS: Meropenem 500 MG in 0.9 % Sodium Chloride Mini Bag 100 ML IVPB SCH ×2 (09:16→18:54)
[2017-02-13] MEDS: traMADol 50 MG TABLET PO PRN (09:16)
[2017-02-13] MEDS: Insulin DETEMIR 100 UNIT/ML X5UNITS SQ SCH (09:31)
[2017-02-13] MEDS: Beclomethasone 80mcg MDI IH SCH (11:33)
[2017-02-13] MEDS: *HR* OxyCODONE Immed Rel 5 MG TABLET PO PRN (16:51)
[2017-02-13] MEDS: Loratadine 10 MG TABLET PO SCH (16:51)
--- NOTE | 2017-02-13 16:54 | Discharge Summary ---
Date of Encounter: 02/13/17 Time of Encounter: 16:52 - Discharge Diagnosis (1) Cellulitis of labia majora Priority: Primary Status: Acute (2) Chronic kidney disease (CKD), stage V Priority: Secondary Status: Chronic (3) Diabetes Priority: Secondary Status: Chronic Qualifiers: Diabetes mellitus type: type 2 Diabetes mellitus complication status: with kidney complications Diabetes mellitus complication detail: with chronic kidney disease Diabetes mellitus intermission coordinator insulin use: with intermission coordinator use Chronic kidney disease stage: stage 5, not on chronic dialysis Qualified Code( s): E11.22 - Type 2 diabetes mellitus with diabetic chronic kidney disease; N18.5 - Chronic kidney disease, stage 5; Z79.4 - oil 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 (current) use of insulin (4) S/P BKA (below knee amputation) Priority: Secondary Status: Chronic Qualifiers: Laterality: right Qualified Code(s): Z89.511 - Acquired absence of right leg below knee - Discharge Medications Prescriptions: Meropenem [Merrem] 500 mg IV Q12HR #9 vial Linezolid [Zyvox] 600 mg PO BID #9 tablet OxyCODONE Immed Rel [Roxicodone 5 MG] 5 mg PO BID PRN #14 tablet PRN Reason: moderate to severe pain Pregabalin [Lyrica] 100 mg PO TID #120 capsule Sevelamer [Renvela] 800 mg PO TIDWM #90 tablet Home Medications: Albuterol Sulfate [Proair Hfa] 2 puff IH Q4H PRN 05/20/15 [History] Atorvastatin [Lipitor] 40 mg PO HS 05/20/15 [History] Ergocalciferol (VITAMIN D2) [Drisdol (50,000 Unit)] 50,000 unit PO TU 05/20/15 [ History] Furosemide [Lasix] 40 mg PO BID 05/20/15 [History] Insulin ASPART [NovoLOG] 18 - 22 units SQ TID 05/20/15 [History] Insulin Glargine,Hum.rec.anlog [Lantus Solostar] 90 units SQ QPM 05/20/15 [ History] Loratadine [Claritin] 10 mg PO QPM 05/20/15 [History] Sodium Bicarbonate 325 mg PO QID 05/20/15 [History] Docusate [Colace] 100 mg PO QID PRN 11/09/15 [History] Omeprazole [PriLOSEC] 20 mg PO DAILY 04/28/16 [History] Beclomethasone Diprop 80mcg [QVAR 80 mcg] 2 puff IH BID 07/13/16 [History] cloNIDine HCl [Clonidine HCl] 0.2 mg PO QPM 02/07/17 [History] Linezolid [Zyvox] 600 mg PO BID #9 tablet 02/13/17 [Rx] Meropenem [Merrem] 500 mg IV Q12HR #9 vial 02/13/17 [Rx] Nystatin Cream [Mycostatin Cream] 1 appl TP BID tube 02/13/17 [Rx] OxyCODONE Immed Rel [Roxicodone 5 MG] 5 mg PO BID PRN #14 tablet 02/13/17 [Rx] Pregabalin [Lyrica] 100 mg PO TID #120 capsule 02/13/17 [Rx] Sevelamer [Renvela] 800 mg PO TIDWM #90 tablet 02/13/17 [Rx] Allergies/Adverse Reactions: Allergies iodine Allergy (Verified 09/23/16 16:51) See Comments Patient states this peels her skin. latex Allergy (Verified 09/23/16 16:51) See Comments Patient states this peels her skin. povidone-iodine [From Betadine] Allergy (Verified 09/23/16 16:51) See Comments Patient states this peels her skin. soap [From Betadine] Allergy (Verified 09/23/16 16:51) See Comments Patient states this peels her skin. trimethoprim [From Bactrim] Allergy (Verified 09/23/16 16:51) Difficulty Breathing Benzonatate Adverse Reaction (Verified 09/23/16 16:51) Blurry Vision sulfacetamide Adverse Reaction (Verified 09/23/16 16:51) Palpitations sulfamethoxazole Adverse Reaction (Verified 09/23/16 16:51) Palpitations terbinafine [From Lamisil] Adverse Reaction (Verified 09/23/16 16:51) Itching shrimp Adverse Reaction (Uncoded 09/23/16 16:51) Vomiting Date of admission: 02/07/17 21:28 Primary care physician: Angela Truong Consults: 02/08/17 07:11 Consult to AIRFRAME AND POWER PLANT MECHANIC [CONS] Routine Consulting Provider: ROCK CLIMBING INSTRUCTOR [place] Reason for Consult: Right labial abscess Call Completed: Yes 02/08/17 09:51 Consult to Nephrology [CONS] Routine Consulting Provider: Kidney Yamini/ALTON/WILFRID/MAYRA Reason for Consult: acute on CKD 4 Call Completed: Yes 02/10/17 11:56 Consult to PICC team [Consult to Invasive Line Access Team] [CONS] Routine Reason for Consult: Will need IV ATB x ~ 7 days after discharge. Patient states she is a hard stick Line Type: EPIV 02/10/17 13:16 Consult to Operations Support Analyst [CONS] Routine Reason for SW Consult: Patient to go home on 7 days of IV ATB - Patient Status Disposition: Home Health Service Condition: Good Functional capacity at discharge: wheelchair bound Overall status at discharge: patient is progressing back to baseline - Discharge Instructions Instructions: Cellulitis (DC), Diabetes Mellitus Type 2 in Adults (DC) Follow Up With: Angela Truong MD [Primary Care Provider] - 02/17/17 10:45 am (Please address February 21 appointment at this appointment ) Additional Instructions: check blood sugars before meals and at bedtime check blood sugars daily. follow up with your primary care doctor for diabetes and weight loss program - Diet and Activity Activity: resume usual activities as tolerated Diet: diabetic diet, low fat, low cholesterol, low salt diet Interval History: patient has no complains. she is eager to go home. Hospital course: Ms. Oseguera is a 56 year old female with past medical history of CKD V, DM, R BKA and prior MRSA and MDR pseudomonas skin infections. Now, she presents with swelling and associated pain in the pubic and right labia majora area. CT of the abdomen and pelvis shows subcutaneous edema/inflammation of the mons pubis with relative asymmetric thickening of the right labia majora compared to the left. There is no formed fluid collection or abscess. Given history of MRSA and MDR pseudomonas in skin infection, she was started on IV Zyvox and meropenem to treat her cellulitis. She improved clinically and IV meropenem and oral Zyvox were arranged at home to complete a 10-day course. PLAN: follow up in the nephrology clinic. f/u with primary care doctor as scheduled. - Time Spent with Patient Total time spent providing and/or coordinating discharge services: - Constitutional Vitals: Temp Pulse Resp BP Pulse Ox 98.1 F 89 18 183/76 95 02/13/17 12:09 02/13/17 12:09 02/13/17 12:09 02/13/17 12:09 02/13/17 12:09 General appearance: Present: cooperative, A&O X 3, pleasant, no acute distress, answers questions appropriately - Respiratory Respiratory exam: Present: CTAB - Cardiovascular Cardiovascular exam: Present: RRR - GI/Abdominal GI/Abdominal exam: Present: normal bowel sounds, soft. Absent: distended, tenderness - External exam: Present: swelling (no erythema. minimal swelling and induration at labia majora.) - Neurological Exam Neurological exam: Present: alert, oriented X3. Absent: facial droop, speech deficit
--- NOTE | 2017-02-13 17:01 | Physician Discharge Referral ---
Home Health/Hosp Referral Info Transfer to: Home Health Attending Provider: cee Provider in Charge Post Discharge: PCP - Diagnosis (1) Cellulitis of labia majora Status: Acute (2) Chronic kidney disease (CKD), stage V Status: Chronic (3) Diabetes Status: Chronic (4) S/P BKA (below knee amputation) Status: Chronic - Respiratory Orders Smoking Cessation: Smoking cessation has been advised. For more information, call the [place] Tobacco Quit Line at 8-949-IMRE-NOW. - Diet/Nutrition Diet/Nutrition Orders: No Added Salt (CHRIS), Cardiac, No Concentrated Sweets - Activity Activity Orders: Chair - Services Needed Following services are medically necessary services: Nursing, Home Infusion - Transfer Medications Prescriptions: Meropenem [Merrem] 500 mg IV Q12HR #9 vial Linezolid [Zyvox] 600 mg PO BID #9 tablet OxyCODONE Immed Rel [Roxicodone 5 MG] 5 mg PO BID PRN #14 tablet PRN Reason: moderate to severe pain Pregabalin [Lyrica] 100 mg PO TID #120 capsule Sevelamer [Renvela] 800 mg PO TIDWM #90 tablet Home Medications: Albuterol Sulfate [Proair Hfa] 2 puff IH Q4H PRN 05/20/15 [History] Atorvastatin [Lipitor] 40 mg PO HS 05/20/15 [History] Ergocalciferol (VITAMIN D2) [Drisdol (50,000 Unit)] 50,000 unit PO TU 05/20/15 [ History] Furosemide [Lasix] 40 mg PO BID 05/20/15 [History] Insulin ASPART [NovoLOG] 18 - 22 units SQ TID 05/20/15 [History] Insulin Glargine,Hum.rec.anlog [Lantus Solostar] 90 units SQ QPM 05/20/15 [ History] Loratadine [Claritin] 10 mg PO QPM 05/20/15 [History] Sodium Bicarbonate 325 mg PO QID 05/20/15 [History] Docusate [Colace] 100 mg PO QID PRN 11/09/15 [History] Omeprazole [PriLOSEC] 20 mg PO DAILY 04/28/16 [History] Beclomethasone Diprop 80mcg [QVAR 80 mcg] 2 puff IH BID 07/13/16 [History] cloNIDine HCl [Clonidine HCl] 0.2 mg PO QPM 02/07/17 [History] Linezolid [Zyvox] 600 mg PO BID #9 tablet 02/13/17 [Rx] Meropenem [Merrem] 500 mg IV Q12HR #9 vial 02/13/17 [Rx] Nystatin Cream [Mycostatin Cream] 1 appl TP BID tube 02/13/17 [Rx] OxyCODONE Immed Rel [Roxicodone 5 MG] 5 mg PO BID PRN #14 tablet 02/13/17 [Rx] Pregabalin [Lyrica] 100 mg PO TID #120 capsule 02/13/17 [Rx] Sevelamer [Renvela] 800 mg PO TIDWM #90 tablet 02/13/17 [Rx] Allergies/Adverse Reactions: Allergies iodine Allergy (Verified 09/23/16 16:51) See Comments Patient states this peels her skin. latex Allergy (Verified 09/23/16 16:51) See Comments Patient states this peels her skin. povidone-iodine [From Betadine] Allergy (Verified 09/23/16 16:51) See Comments Patient states this peels her skin. soap [From Betadine] Allergy (Verified 09/23/16 16:51) See Comments Patient states this peels her skin. trimethoprim [From Bactrim] Allergy (Verified 09/23/16 16:51) Difficulty Breathing Benzonatate Adverse Reaction (Verified 09/23/16 16:51) Blurry Vision sulfacetamide Adverse Reaction (Verified 09/23/16 16:51) Palpitations sulfamethoxazole Adverse Reaction (Verified 09/23/16 16:51) Palpitations terbinafine [From Lamisil] Adverse Reaction (Verified 09/23/16 16:51) Itching shrimp Adverse Reaction (Uncoded 09/23/16 16:51) Vomiting Certification: Further, I certify that my clinical findings support that this patient is homebound (i.e. absences from home require considerable and taxing effort and are for medical reasons or amish services or infrequently or short duration when for other reasons) because: Homebound Reason: Patient requires assistance of a person or device to safely leave home, Leaving home requires considerable and taxing effort due to condition Attestation: My signature below is to certify that this patient is under my care and that I, or nurse practitioner, or a physician's anesthesiologist assistant working with me, has a face-to -face encounter with this patient.
[2017-02-13] MEDS: cloNIDine HCl 0.1 MG TABLET PO SCH ×2 (19:09→19:17)
[2017-02-13 19:32] VITALS: BP 160/80
== END 2017-02-13 21:00 | disposition home health service (06) ==
LOC: EMEROO 18:35 → 3BNU 18:35 → SUATTDRO 23:29
PROVIDERS: ADMIT Internal Medicine; ATTEND Internal Medicine

== ENCOUNTER 2018-02-22 07:05 | Inpatient (IN) ==
[2018-02-22] MEDS ORDERED: *HR* FentaNYL (PF) 100 MCG/2 ML VIAL IVP ONE (07:13)
[2018-02-22] MEDS ORDERED: Aspirin 325 MG TABLET PO ONE (07:13)
[2018-02-22] MEDS ORDERED: methylPREDNISolone 125 MG/2 ML VIAL IVP ONE (07:13)
[2018-02-22] MEDS ORDERED: Ipratropium/Albuterol Neb 3 ML IH ONE (07:13)
--- NOTE | 2018-02-22 07:14 | Emergency Department Note ---
Disposition Clinical Impression: Chest pain Qualifiers: Chest pain type: unspecified Qualified Code(s): R07.9 - Chest pain, unspecified Dyspnea Qualifiers: Dyspnea type: unspecified Qualified Code(s): R06.00 - Dyspnea, unspecified Disposition: Admitted As Inpatient Condition: Good Referrals: Angela Truong MD [Primary Care Provider] - Forms: ED Satisfaction Letter Time of Disposition: 08:42 Chest Pain HPI - General Chief Complaint: ED Chest Pain Stated Complaint: chest pain Time Seen by Provider: 02/22/18 07:12 Source: patient Mode of arrival: ambulatory Limitations: no limitations Vital Signs Reviewed: Yes Nursing Notes Reviewed: Yes - History of Present Illness HPI Narrative: Patient is a 57-year-old female with past medical history of diabetes, smoking history, COPD. She presents today due to chest discomfort. She states that she usually wears oxygen as needed, she did not realize that her oxygen machine quit working. Last night, she started having chest discomfort midsternal that radiates up to her neck, described as a pressure, rated 10 out of 10. No radiation anywhere else. Associated with dyspnea. Denies any associated nausea, vomiting, fevers, productive cough, abdominal pain, dysuria, hematuria. She does state that the pain gets worse when she moves, worse with deep inspiration. Denies any previous history of MS or cardiac stents. No recent stress test or heart. She did not take any aspirin or nitroglycerin prior to arrival. Severity scale (1-10): 9 - Related Data Home Medications Medication Instructions Recorded Confirmed Albuterol Sulfate [Proair Hfa] 2 puff IH Q4H PRN 05/20/15 02/22/18 Atorvastatin [Lipitor] 40 mg PO HS 05/20/15 02/22/18 Insulin Glargine,Hum.rec.anlog 90 units SQ QPM 05/20/15 02/22/18 [Lantus Solostar] Sodium Bicarbonate 325 mg PO QID 05/20/15 02/22/18 Docusate [Colace] 100 mg PO QID PRN 11/09/15 02/22/18 Omeprazole [PriLOSEC] 20 mg PO DAILY 04/28/16 02/22/18 Beclomethasone Diprop 80mcg [QVAR 2 puff IH BID 07/13/16 02/22/18 80 mcg] cloNIDine HCl [Clonidine HCl] 0.2 mg PO QPM 02/07/17 02/22/18 Acetaminophen [Tylenol] 650 mg PO DAILY PRN 02/22/18 02/22/18 Ergocalciferol (VITAMIN D2) 50,000 unit PO TU 02/22/18 02/22/18 [Vitamin D2] Furosemide [Lasix] 40 mg PO BID 02/22/18 02/22/18 Insulin ASPART [Novolog] 18 - 22 unit SQ TIDWM 02/22/18 02/22/18 Tramadol HCl [Ultram] 100 mg PO QID PRN 02/22/18 02/22/18 Previous Rx's Medication Instructions Recorded Pregabalin [Lyrica] 100 mg PO TID #120 capsule 02/13/17 Sevelamer [Renvela] 800 mg PO TIDWM #90 tablet 02/13/17 Allergies Allergy/AdvReac Type Severity Reaction Status Date / Time iodine Allergy See Verified 02/22/18 09:06 Comments latex Allergy See Verified 02/22/18 09:06 Comments povidone-iodine Allergy See Verified 02/22/18 09:06 [From Betadine] Comments soap [From Betadine] Allergy See Verified 02/22/18 09:06 Comments trimethoprim [From Bactrim] Allergy Difficulty Verified 02/22/18 09:06 Breathing Benzonatate AdvReac Blurry Verified 02/22/18 09:06 Vision sulfacetamide AdvReac Palpitation Verified 02/22/18 09:06 s sulfamethoxazole AdvReac Palpitation Verified 02/22/18 09:06 s terbinafine [From Lamisil] AdvReac Itching Verified 02/22/18 09:06 shrimp AdvReac Vomiting Uncoded 02/22/18 09:06 All systems ED: reviewed and negative except as stated. Constitutional: Denies: fever Cardiovascular: Reports: chest pain. Denies: palpitations Respiratory: Reports: dyspnea. Denies: cough Gastrointestinal: Denies: abdominal pain, nausea, vomiting, diarrhea Genitourinary: Denies: urgency, dysuria Neurological: Denies: headache, weakness, numbness, paresthesias Chest Pain PMH - Past Medical History Medical history: Reports: asthma, diabetes, GERD, hyperlipidemia, renal disease Surgical history: Reports: , cholecystectomy, orthopedic, other, other Psychiatric history: Reports: no psych history, other BAKERY ASSOCIATE history: Reports: no BAKERY ASSOCIATE history - Social History Smoking Status: Current every day smoker Alcohol use: Reports: none Drug use: Reports: none Physical Exam - General Limitations: no limitations General appearance: alert, in no apparent distress - Head Head exam: atraumatic, normocephalic, normal inspection - Eye Eye exam: Present: normal appearance, PERRL, EOMI - ENT ENT exam: normal exam, normal oropharynx, mucous membranes moist - Neck Neck exam: Present: normal inspection, full ROM, trachea midline - Chest Chest inspection: Present: normal inspection, symmetric chest wall rise. Absent : tenderness - Respiratory Respiratory exam: Present: wheezes (wheezes bilateral LL) - Cardiovascular Cardiovascular exam: Present: regular rate, normal rhythm, normal heart sounds - Abdominal Exam Abdominal exam: Present: soft, Non-Tender. Absent: tenderness, distention, guarding, rebound, rigidity - Extremities Exam Extremities exam: Present: full ROM, other (Multiple amputations of digits of bilateral hands, right [id number] amputation.). Absent: tenderness, pedal edema - Neurological Exam Neurological exam: Present: alert, oriented X3 - Psychiatric Psychiatric exam: Present: normal affect, normal mood - Skin Skin exam: Present: warm, dry, intact, normal color Course Course Narrative: Patient mildly hypertensive on presentation, likely secondary to pain. Otherwise, patient satting 97% on room air. The rest of the physical exam showed heart regular rate and rhythm, abdomen soft and nontender, lung exam shows wheezes in bilateral lower lobes. Currently concern for ACS versus COPD exacerbation. We will give the patient aspirin, nitroglycerin trial. Also obtain basic blood work, troponin, chest x-ray. We will give the patient Solu- Medrol and DuoNeb as well. EKG shows mild ST depression in V2, V3, V4, V5. No acute ST elevation. T-wave inversion in lead 3. These are new from previous EKG on 12/22/2014. 08:40 patient was reassessed. She is still having some mild chest discomfort. She did have some improvement after nitroglycerin but states that her pain is returning. Troponin negative. EKG did show some nonspecific ST changes that are new from previous EKGs. Chest x-ray showed atelectasis. Patient satting 92- 93% on usual 2L NC after breathing treatments, increased to 3L and now in mid to upper 90s. Will consult cardiology and admitted for further chest pain workup and increased oxygen requirements. Creatinine is also elevated above her usual baseline. The patient will need nephrology consult once admitted. 09:10 patient has early been accepted by Dr. Negro, hospitalist. Cardiology has called me back, I spoke with Dr. Whalen, discussed case, presentation, lab results, mild continued chest discomfort. He did recommend that if patient had no other contraindications to starting heparin. Hospitalist has already started heparin at this time. Will place official cardio consult. Vital Signs Temperature 98.3 F 02/22/18 07:10 Pulse Rate 98 02/22/18 07:10 Respiratory Rate 20 02/22/18 07:10 Blood Pressure 161/70 02/22/18 07:10 O2 Sat by Pulse Oximetry 97 02/22/18 07:10 Temperature 98.3 F 02/22/18 07:10 Pulse Rate 110 02/22/18 08:42 Respiratory Rate 94 02/22/18 08:42 Blood Pressure 134/68 02/22/18 08:42 O2 Sat by Pulse Oximetry 95 02/22/18 08:42 Oxygen Delivery Oxygen Delivery Nasal Cannula Chest Pain - MDM Narrative Medical decision making narrative: Patient mildly hypertensive on presentation, likely secondary to pain. Otherwise, patient satting 97% on room air. The rest of the physical exam showed heart regular rate and rhythm, abdomen soft and nontender, lung exam shows wheezes in bilateral lower lobes. Currently concern for ACS versus COPD exacerbation. We will give the patient aspirin, nitroglycerin trial. Also obtain basic blood work, troponin, chest x-ray. We will give the patient Solu- Medrol and DuoNeb as well. EKG shows mild ST depression in V2, V3, V4, V5. No acute ST elevation. T-wave inversion in lead 3. These are new from previous EKG on 12/22/2014. 08:40 patient was reassessed. She is still having some mild chest discomfort. She did have some improvement after nitroglycerin but states that her pain is returning. Troponin negative. EKG did show some nonspecific ST changes that are new from previous EKGs. Chest x-ray showed atelectasis. Patient satting 92- 93% on usual 2L NC after breathing treatments, increased to 3L and now in mid to upper 90s. Will consult cardiology and admitted for further chest pain workup and increased oxygen requirements. Creatinine is also elevated above her usual baseline. The patient will need nephrology consult once admitted. 09:10 patient has early been accepted by Dr. Negro, hospitalist. Cardiology has called me back, I spoke with Dr. Whalen, discussed case, presentation, lab results, mild continued chest discomfort. He did recommend that if patient had no other contraindications to starting heparin. Hospitalist has already started heparin at this time. Will place official cardio consult. - Medical Records Medical records reviewed: Yes I reviewed the patient's medical records. - Lab Data Lab results reviewed: Yes I reviewed the patient's lab results. Result diagrams: 02/22/18 07:33 02/22/18 07:33 Lab Results 02/22/18 02/22/18 02/22/18 Range/Units 07:33 07:33 07:33 WBC 11.2 H (4.3-11.1) K/mcL RBC 3.98 (3.82-4.97) M/mcL Hgb 11.1 L (11.5-15.4) g/dL Hct 34.3 L (35.3-44.9) % MCV 86.2 (83.0-100.0) fL MCH 27.9 L (28.0-33.3) pg MCHC 32.4 (31.6-35.5) g/dL RDW 16.0 H (11.5-14.5) % Plt Count 214 (140-400) K/mcL MPV 11.6 (9.4-12.4) fL Immature Gran % 0.8 (0-4) % Seg Neutrophils % 79.4 % Lymphocytes % 9.0 % Monocytes % 6.2 % Eosinophils % 4.0 % Basophils % 0.6 % Neutrophils # 8.9 (1.6-8.9) K/mcL Lymphocytes # 1.0 (0.6-4.6) K/mcL Monocytes # 0.7 (0.0-1.3) K/mcL Eosinophils # 0.5 (0.0-0.6) K/mcL Basophils # 0.1 (0.0-0.2) K/mcL Sodium 138 (136-145) mEq/L Potassium 4.1 (3.5-5.1) mEq/L Chloride 107 (98-107) mEq/L Carbon Dioxide 18 L (23-29) mEq/L BUN 58 H (6-20) mg/dL Creatinine 5.30 H (0.60-1.20) mg/dL Est GFR ( Amer) 10 L (> 60) Est GFR (Non-Af Amer) 8 L (> 60) BUN/Creatinine Ratio 11 (6-26) Glucose 299 H (70-105) mg/dL Calculated Osmolality 313 H (280-300) Lactic Acid (0.5-2.2) mmol/L Calcium 9.0 (8.6-10.3) mg/dL Troponin I 0.03 (< 0.04) ng/mL B-Natriuretic Peptide 63 (Less than 100) pg/mL 02/22/18 Range/Units 07:38 WBC (4.3-11.1) K/mcL RBC (3.82-4.97) M/mcL Hgb (11.5-15.4) g/dL Hct (35.3-44.9) % MCV (83.0-100.0) fL MCH (28.0-33.3) pg MCHC (31.6-35.5) g/dL RDW (11.5-14.5) % Plt Count (140-400) K/mcL MPV (9.4-12.4) fL Immature Gran % (0-4) % Seg Neutrophils % % Lymphocytes % % Monocytes % % Eosinophils % % Basophils % % Neutrophils # (1.6-8.9) K/mcL Lymphocytes # (0.6-4.6) K/mcL Monocytes # (0.0-1.3) K/mcL Eosinophils # (0.0-0.6) K/mcL Basophils # (0.0-0.2) K/mcL Sodium (136-145) mEq/L Potassium (3.5-5.1) mEq/L Chloride (98-107) mEq/L Carbon Dioxide (23-29) mEq/L BUN (6-20) mg/dL Creatinine (0.60-1.20) mg/dL Est GFR ( Amer) (> 60) Est GFR (Non-Af Amer) (> 60) BUN/Creatinine Ratio (6-26) Glucose (70-105) mg/dL Calculated Osmolality (280-300) Lactic Acid 1.9 (0.5-2.2) mmol/L Calcium (8.6-10.3) mg/dL Troponin I (< 0.04) ng/mL B-Natriuretic Peptide (Less than 100) pg/mL - Radiology Data Radiology results reviewed: Yes I reviewed the patient's radiology results. Chest X-Ray 02/22/18 07:12 IMPRESSION: 1. No lines or tubes. 2. Mild pulmonary edema. 3. Left base opacity, favor atelectasis over infection. D/ / 02/22/2018 07:42:03 Marry Mendez MD / Gisell Greene Interpreting Provider: Marry Mendez MD - EKG Data EKG attestation: Yes I reviewed and interpreted this EKG. EKG results narrative: 02/22/18 at 17:12. NSR. Rate 96. AK 170. QRS 135. QTC 455. Normal axis. EKG shows mild ST depression in V2, V3, V4, V5. No acute ST elevation. T-wave inversion in lead 3. Heart Score - Score History: Moderately Suspicious EKG: Non Specific repolarisation Disturbance Age: 45-65 Risk Factors: 1-2 risk factors Troponin: Less than normal limit HEART Score Total: 4 S.B.A.R. - S.B.A.R. Situation: Demographics, MOA Background: Presenting Complaint, Relevant PMH, Meds, & Allergies Assessment: Vital Signs, Course and respsone to treatment, Exam Concerns, Patient/Family Expectation, Pertinant Lab Results Recommendation: Barrier(s) to disposition, Recommendation based on pending studies, treatments, or consults S.B.A.R. Report Given to: Dr. Negro
[2018-02-22] MEDS ORDERED: Nitroglycerin 0.4 MG TAB.SUBL SL PRN (07:23)
--- NOTE | 2018-02-22 07:23 | Emergency Department Note ---
Disposition Clinical Impression: Chest pain, Dyspnea Disposition: Admitted As Inpatient Condition: Good General Adult HPI - General Chief complaint: ED Chest Pain Stated complaint: chest pain Time Seen by Provider: 02/22/18 07:12 Source: patient Mode of arrival: ambulatory Limitations: no limitations Nursing Notes Reviewed: Yes Vital Signs Reviewed: Yes - History of Present Illness HPI Narrative: This documentation is done with the assistance of Dragon dictation. Despite efforts made to ensure accuracy, there may be inaccuracies in construction trades teacher or spelling and typographical errors. I examined this patient and my medical decision-making was reviewed with the Resident Physician. I agree with the documented findings, disposition and treatment plan as described except to the extent set forth below. Patient seen and evaluated on arrival with EMS and Dr. CHAUDHRY, I agree with his evaluation and management plan, supervise care the patient's stay. Pain Scale: 9 - Related Data Home Medications Medication Instructions Recorded Confirmed Albuterol Sulfate [Proair Hfa] 2 puff IH Q4H PRN 05/20/15 02/22/18 Atorvastatin [Lipitor] 40 mg PO HS 05/20/15 02/22/18 Insulin Glargine,Hum.rec.anlog 90 units SQ QPM 05/20/15 02/22/18 [Lantus Solostar] Sodium Bicarbonate 325 mg PO QID 05/20/15 02/22/18 Docusate [Colace] 100 mg PO QID PRN 11/09/15 02/22/18 Omeprazole [PriLOSEC] 20 mg PO DAILY 04/28/16 02/22/18 Beclomethasone Diprop 80mcg [QVAR 2 puff IH BID 07/13/16 02/22/18 80 mcg] cloNIDine HCl [Clonidine HCl] 0.2 mg PO QPM 02/07/17 02/22/18 Acetaminophen [Tylenol] 650 mg PO DAILY PRN 02/22/18 02/22/18 Ergocalciferol (VITAMIN D2) 50,000 unit PO TU 02/22/18 02/22/18 [Vitamin D2] Furosemide [Lasix] 40 mg PO BID 02/22/18 02/22/18 Insulin ASPART [Novolog] 18 - 22 unit SQ TIDWM 02/22/18 02/22/18 Tramadol HCl [Ultram] 100 mg PO QID PRN 02/22/18 02/22/18 Previous Rx's Medication Instructions Recorded Pregabalin [Lyrica] 100 mg PO TID #120 capsule 02/13/17 Sevelamer [Renvela] 800 mg PO TIDWM #90 tablet 02/13/17 Allergies Allergy/AdvReac Type Severity Reaction Status Date / Time iodine Allergy See Verified 02/22/18 09:06 Comments latex Allergy See Verified 02/22/18 09:06 Comments povidone-iodine Allergy See Verified 02/22/18 09:06 [From Betadine] Comments soap [From Betadine] Allergy See Verified 02/22/18 09:06 Comments trimethoprim [From Bactrim] Allergy Difficulty Verified 02/22/18 09:06 Breathing Benzonatate AdvReac Blurry Verified 02/22/18 09:06 Vision sulfacetamide AdvReac Palpitation Verified 02/22/18 09:06 s sulfamethoxazole AdvReac Palpitation Verified 02/22/18 09:06 s terbinafine [From Lamisil] AdvReac Itching Verified 02/22/18 09:06 shrimp AdvReac Vomiting Uncoded 02/22/18 09:06 Past Medical History - Past Medical History Medical history: Reports: asthma, diabetes, GERD, hyperlipidemia, renal disease Surgical history: Reports: , cholecystectomy, orthopedic, other, other Psychiatric history: Reports: no psych history, other SLASHER RUNNER history: Reports: no SLASHER RUNNER history - Social History Smoking Status: Current every day smoker Smokeless Tobacco Status: No Alcohol use: Reports: none Drug use: Reports: none Physical Exam - General Limitations: no limitations General appearance: alert, in no apparent distress Course Vital Signs Temperature 98.3 F 02/22/18 07:10 Pulse Rate 98 02/22/18 07:10 Respiratory Rate 20 02/22/18 07:10 Blood Pressure 161/70 02/22/18 07:10 O2 Sat by Pulse Oximetry 97 02/22/18 07:10 Temperature 98.3 F 02/22/18 07:10 Pulse Rate 101 02/22/18 10:00 Respiratory Rate 19 02/22/18 10:00 Blood Pressure 102/54 02/22/18 10:00 O2 Sat by Pulse Oximetry 92 02/22/18 10:00 Oxygen Delivery Oxygen Delivery Nasal Cannula Medical Decision Making - [facility] Narrative Medical decision making narrative: Patient presents with EMS today and having some chest discomfort that has been going on since chest or she seems to think continuous. Attention in the center of the chest going up to her neck. She denies any cardiac history is in the past. She has been out of her oxygen has history of COPD. She does have some wheezing. We will give her breathing treatments EKG she did not get nitroglycerin or aspirin by medics so we will administer a trial and then cardiac workup and reassess. Most likely she will need admission. Chest X-Ray 02/22/18 07:12 IMPRESSION: 1. No lines or tubes. 2. Mild pulmonary edema. 3. Left base opacity, favor atelectasis over infection. D/ / 02/22/2018 07:42:03 Marry Mendez MD / Gisell Greene Interpreting Provider: Marry Mendez MD - Lab Data Result diagrams: 02/22/18 07:33 02/22/18 07:33 Lab Results 02/22/18 02/22/18 02/22/18 Range/Units 07:33 07:33 07:33 WBC 11.2 H (4.3-11.1) K/mcL RBC 3.98 (3.82-4.97) M/mcL Hgb 11.1 L (11.5-15.4) g/dL Hct 34.3 L (35.3-44.9) % MCV 86.2 (83.0-100.0) fL MCH 27.9 L (28.0-33.3) pg MCHC 32.4 (31.6-35.5) g/dL RDW 16.0 H (11.5-14.5) % Plt Count 214 (140-400) K/mcL MPV 11.6 (9.4-12.4) fL Immature Gran % 0.8 (0-4) % Seg Neutrophils % 79.4 % Lymphocytes % 9.0 % Monocytes % 6.2 % Eosinophils % 4.0 % Basophils % 0.6 % Neutrophils # 8.9 (1.6-8.9) K/mcL Lymphocytes # 1.0 (0.6-4.6) K/mcL Monocytes # 0.7 (0.0-1.3) K/mcL Eosinophils # 0.5 (0.0-0.6) K/mcL Basophils # 0.1 (0.0-0.2) K/mcL Sodium 138 (136-145) mEq/L Potassium 4.1 (3.5-5.1) mEq/L Chloride 107 (98-107) mEq/L Carbon Dioxide 18 L (23-29) mEq/L BUN 58 H (6-20) mg/dL Creatinine 5.30 H (0.60-1.20) mg/dL Est GFR ( Amer) 10 L (> 60) Est GFR (Non-Af Amer) 8 L (> 60) BUN/Creatinine Ratio 11 (6-26) Glucose 299 H (70-105) mg/dL Calculated Osmolality 313 H (280-300) Lactic Acid (0.5-2.2) mmol/L Calcium 9.0 (8.6-10.3) mg/dL Troponin I 0.03 (< 0.04) ng/mL B-Natriuretic Peptide 63 (Less than 100) pg/mL 02/22/18 Range/Units 07:38 WBC (4.3-11.1) K/mcL RBC (3.82-4.97) M/mcL Hgb (11.5-15.4) g/dL Hct (35.3-44.9) % MCV (83.0-100.0) fL MCH (28.0-33.3) pg MCHC (31.6-35.5) g/dL RDW (11.5-14.5) % Plt Count (140-400) K/mcL MPV (9.4-12.4) fL Immature Gran % (0-4) % Seg Neutrophils % % Lymphocytes % % Monocytes % % Eosinophils % % Basophils % % Neutrophils # (1.6-8.9) K/mcL Lymphocytes # (0.6-4.6) K/mcL Monocytes # (0.0-1.3) K/mcL Eosinophils # (0.0-0.6) K/mcL Basophils # (0.0-0.2) K/mcL Sodium (136-145) mEq/L Potassium (3.5-5.1) mEq/L Chloride (98-107) mEq/L Carbon Dioxide (23-29) mEq/L BUN (6-20) mg/dL Creatinine (0.60-1.20) mg/dL Est GFR ( Amer) (> 60) Est GFR (Non-Af Amer) (> 60) BUN/Creatinine Ratio (6-26) Glucose (70-105) mg/dL Calculated Osmolality (280-300) Lactic Acid 1.9 (0.5-2.2) mmol/L Calcium (8.6-10.3) mg/dL Troponin I (< 0.04) ng/mL B-Natriuretic Peptide (Less than 100) pg/mL
[2018-02-22 08:05] LABS: Basophils # 0.1 K/mcL (0.0-0.2); Basophils % 0.6 %; Eosinophils # 0.5 K/mcL (0.0-0.6); Hematocrit 34.3 % (35.3-44.9); Hemoglobin 11.1 g/dL (11.5-15.4); Immature Granulocytes % 0.8 % (0-4); Mean Corpuscular HGB Conc 32.4 g/dL (31.6-35.5); Mean Corpuscular Hemoglobin 27.9 pg (28.0-33.3); Mean Corpuscular Volume 86.2 fL (83.0-100.0); Mean Platelet Volume 11.6 fL (9.4-12.4); Monocytes # 0.7 K/mcL (0.0-1.3); Monocytes % 6.2 %; Neutrophils # 8.9 K/mcL (1.6-8.9); Platelet Count 214 K/mcL (140-400); Red Blood Count 3.98 M/mcL (3.82-4.97); Segmented Neutrophils % 79.4 %
[2018-02-22 08:19] LABS: Potassium 4.1 mEq/L (3.5-5.1)
[2018-02-22 08:20] LABS: Troponin I 0.03 ng/mL (< 0.04)
[2018-02-22] MEDS ORDERED: Acetaminophen 325 MG TABLET PO PRN (08:59)
[2018-02-22] MEDS ORDERED: *HR* Promethazine 25 MG/ML VIAL IVP PRN (08:59)
[2018-02-22] MEDS ORDERED: Ondansetron 4 MG/2 ML VIAL IVP PRN (08:59)
[2018-02-22] MEDS ORDERED: Naloxone 0.4 MG/ML INJ IVP PRN (08:59)
[2018-02-22] MEDS ORDERED: Furosemide 40 MG/4 ML VIAL IVP ONE (09:41)
[2018-02-22] MEDS ORDERED: 0.9 % Sodium Chloride 250 ML IVC PRN (10:55)
[2018-02-22] MEDS ORDERED: 0.9 % Sodium Chloride 1,000 ML PRIME SCH (11:00)
[2018-02-22 11:18] LABS: Hepatitis B Surface Antigen Nonreactive (Nonreactive)
[2018-02-22] MEDS: Ipratropium/Albuterol Neb 3 ML IH SCH ×3 (11:33→20:37)
[2018-02-22] MEDS ORDERED: Dextrose Gel 15 GM/37.5 ML TUBE PO PRN ×2 (11:40)
[2018-02-22] MEDS ORDERED: *HR* Dextrose 50 % in Water (Syg) 50 ML SYRINGE IVP PRN (11:40)
[2018-02-22] MEDS ORDERED: D5% in Water 1,000 ML IVC PRN (11:40)
--- NOTE | 2018-02-22 12:06 | Internal Med History&Physical ---
Date of Encounter: 02/22/18 Time of Encounter: 09:00 Internal Medicine - H&P: HPI Chief complaint: Chest discomfort and SOB Admitted From: Emergency Dept Plans for Post Hospital Care: Home History of present illness: Ms. 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 She does feel some chest discomfort at sub sternal region and non- radiating. She denied of a chest pain however she just feels like tightness in the chest. Patient does mention that for CK D stage fishes following with Dr. Farr sql developer hose planning on doing outpatient hemodialysis soon. Patient does have AV fistula placed in already. She denied of any fever, chills, cough and N/V. Past Med Surg Social Fam HX - Past Medical History Medical history: asthma, diabetes, GERD, hyperlipidemia, renal disease Additional medical history: chronic back pain. neuropathy Psychiatric history: no psych history, other - Past Surgical History Surgical History: , cholecystectomy, orthopedic, other, other Additional surgical history: aputation to r leg. mass removed from ovaries. bilateral oophrectomy - Social History Smoking Status: Current every day smoker Smokeless Tobacco Status: No Alcohol use: none Drug use: none - Family History Father Living Status: Hx Family Cardiac Disorders: Yes Hx Family Cancer: Yes (pancreatic) Hx Family Endocrine Disorder: Yes Mother Living Status: Hx Family Cardiac Disorders: Yes Hx Family Endocrine Disorder: Yes Hx Family Neuromuscular Disorders: Yes (stroke) Hx Family Neurologic Disorders: Yes Internal Medicine - H&P: Meds Albuterol Sulfate [Proair Hfa] 2 puff IH Q4H PRN 05/20/15 [History] Atorvastatin [Lipitor] 40 mg PO HS 05/20/15 [History] Insulin Glargine,Hum.rec.anlog [Lantus Solostar] 90 units SQ QPM 05/20/15 [ History] Sodium Bicarbonate 325 mg PO QID 05/20/15 [History] Docusate [Colace] 100 mg PO QID PRN 11/09/15 [History] Omeprazole [PriLOSEC] 20 mg PO DAILY 04/28/16 [History] Beclomethasone Diprop 80mcg [QVAR 80 mcg] 2 puff IH BID 07/13/16 [History] cloNIDine HCl [Clonidine HCl] 0.2 mg PO QPM 02/07/17 [History] Pregabalin [Lyrica] 100 mg PO TID #120 capsule 02/13/17 [Rx] Sevelamer [Renvela] 800 mg PO TIDWM #90 tablet 02/13/17 [Rx] Acetaminophen [Tylenol] 650 mg PO DAILY PRN 02/22/18 [History] Ergocalciferol (VITAMIN D2) [Vitamin D2] 50,000 unit PO TU 02/22/18 [History] Furosemide [Lasix] 40 mg PO BID 02/22/18 [History] Insulin ASPART [Novolog] 18 - 22 unit SQ TIDWM 02/22/18 [History] Tramadol HCl [Ultram] 100 mg PO QID PRN 02/22/18 [History] 3 Allergy/AdvReac Type Severity Reaction Status Date / Time iodine Allergy See Verified 02/22/18 09:06 Comments latex Allergy See Verified 02/22/18 09:06 Comments povidone-iodine Allergy See Verified 02/22/18 09:06 [From Betadine] Comments soap [From Betadine] Allergy See Verified 02/22/18 09:06 Comments trimethoprim [From Bactrim] Allergy Difficulty Verified 02/22/18 09:06 Breathing Benzonatate AdvReac Blurry Verified 02/22/18 09:06 Vision sulfacetamide AdvReac Palpitation Verified 02/22/18 09:06 s sulfamethoxazole AdvReac Palpitation Verified 02/22/18 09:06 s terbinafine [From Lamisil] AdvReac Itching Verified 02/22/18 09:06 shrimp AdvReac Vomiting Uncoded 02/22/18 09:06 All Systems PM: A 10-system review of systems was performed and is negative for pertinent findings except as documented above in the HPI. Review of systems: All the systems are reviewed everything is benign except the systems and symptoms I mentioned in the history of present illness - Constitutional Vitals: Temp Pulse Resp BP Pulse Ox 97.4 F L 106 16 130/67 99 02/22/18 11:15 02/22/18 11:15 02/22/18 11:33 02/22/18 11:15 02/22/18 11:33 General appearance: Present: A&O X 3, no acute distress, answers questions appropriately - Head Head exam: Present: atraumatic, normal inspection - Neck Neck exam general surgery: Present: supple - Respiratory Respiratory exam: Present: decreased breath sounds, rales (++), wheezes (mild). Absent: respiratory distress, rhonchi - Cardiovascular Cardiovascular exam: Present: RRR, +S1, +S2. Absent: tachycardia - GI/Abdominal GI/Abdominal exam: Present: normal bowel sounds, soft. Absent: rebound, rigid, tenderness - Extremities Exam Extremities exam: Present: pedal edema (1+). Absent: calf tenderness, tenderness Additional comments: Rt AKA Mild erythema over Left leg noticed with few scratch lewis - Back Exam Back exam: Absent: CVA tenderness (L), CVA tenderness (R) - Neurological Exam Neurological exam: Present: alert, oriented X3 - Psychiatric Psychiatric exam: Present: normal affect, normal mood - Skin Skin exam: Present: rash Internal Med - H&P Results - Labs CBC & Chem 7: 02/22/18 07:33 02/22/18 07:33 - Assessment and plan (1) Chest pain Current Visit: Yes Status: Acute Assessment and plan: Admit the patient into tele atypical chest pain.. more like volume overload chest pressure However her EKG showed non specific ST changes no ST elevation so will place pt on night monitor ER already consulted cardiology Does not look like she need heparin gtt will defer this decision to Card started on ASA and Nitro PRN will get 2 D Echo possible stress test in AM Qualifiers: Chest pain type: unspecified Qualified Code(s): R07.9 - Chest pain, unspecified (2) Volume overload Current Visit: Yes Status: Acute Assessment and plan: Her chest discomfort mostly due to volume overload reviewed her CXR showed mild pulmonary edema to due to volume overload Gave Lasix 40mg IV x 1 dose Nephro consulted for HD Qualifiers: Hypervolemia type: unspecified Qualified Code(s): E87.70 - Fluid overload, unspecified (3) SAVANNAH (acute kidney injury) Current Visit: Yes Status: Acute Assessment and plan: Possible HD today Nephro on board (4) CKD (chronic kidney disease) stage 5, GFR less than 15 ml/min Current Visit: Yes Status: Acute Assessment and plan: Does need HD Nephro consulted (5) COPD (chronic obstructive pulmonary disease) Current Visit: Yes Status: Acute Assessment and plan: Mild exacerbation due to Volume overload cont Duoneb Cont INH steroids No need of systemic steroids Does use 2 lit O2 at home, now requiring 3 lit Qualifiers: COPD type: COPD with acute exacerbation Qualified Code(s): J44.1 - Chronic obstructive pulmonary disease with (acute) exacerbation (6) Acute and chronic respiratory failure with hypoxia Current Visit: Yes Status: Acute (7) Left leg cellulitis Current Visit: Yes Status: Acute Assessment and plan: She does have mild cellulites of left leg had h/o MRSA in the past will start her on Vanco for now (8) Tobacco abuse Current Visit: No Status: Chronic Assessment and plan: Counseled to quit smoking placed on nicotine patch - Time Spent With Patient Total time spent is greater than 50% in coordination of care (as documented) at patient's floor/unit and/or counseling patient:
[2018-02-22] MEDS: Insulin LISPRO 300 UNITS/3 ML VIAL SQ SCH ×4 (12:23→21:37)
--- NOTE | 2018-02-22 12:37 | Nephrology Consult Note ---
Date of Encounter: 02/22/18 Time of Encounter: 12:35 Assessment and Plan (1) CKD (chronic kidney disease) stage 5, GFR less than 15 ml/min Current Visit: Yes Status: Acute Patient has chronic kidney disease stage V with slight worsening. She does not have uremic symptoms, but she does have dyspnea of unclear etiology. The original plan was to perform ultrafiltration to see if there is truly a volume component. Unfortunately the dialysis nurses were unable to cannulate her fistula. We will hold on dialysis until tomorrow after her fistulogram. She will be reevaluated tomorrow to see if she needs dialysis or ultrafiltration. Avoid nephrotoxic agents and adjust medications for renal function. (2) Chest pain Current Visit: Yes Status: Acute Unclear etiology. Agree with cardiology evaluation. She is at high risk of coronary events. Qualifiers: Chest pain type: unspecified Qualified Code(s): R07.9 - Chest pain, unspecified (3) Dyspnea Current Visit: Yes Status: Acute She has very minimal edema and mild pulmonary edema. This could possibly be a anginal equivalent. We will reevaluate tomorrow to see if she needs volume removal. Qualifiers: Dyspnea type: unspecified Qualified Code(s): R06.00 - Dyspnea, unspecified History of Present Illness - Reason for Consult Consult date: 02/22/18 Chronic Kidney Disease - Chief Complaint CKD - History of Present Illness Ms. Oseguera is a 57 yo woman with a history of CKD Stage 4/[address] Stephen of [facility]. The patient has been in her usual state of health until the day prior to admission when she began to experience episodes of chest discomfort and shortness of breath. She states that this morning she notes her blood pressure was high and had worsening of her chest discomfort and shortness of breath that lasted until she came into the ER. At the time my evaluation she is feeling a little bit better with less dyspnea and less chest pain. The patient denies uremic symptoms prior to hospitalization and she denies uremic symptoms at this time. She has not noticed increased swelling. Other than the day prior to admission she has not noticed any shortness of breath. Past Med Surg Social Fam HX - Past Medical History Medical history: asthma, diabetes, GERD, hyperlipidemia, renal disease Additional medical history: chronic back pain. neuropathy Psychiatric history: no psych history, other - Past Surgical History Surgical History: , cholecystectomy, orthopedic, other, other Additional surgical history: aputation to r leg. mass removed from ovaries. bilateral oophrectomy - Social History Smoking Status: Current every day smoker Smokeless Tobacco Status: No Alcohol use: none Drug use: none - Family History Father Living Status: Hx Family Cardiac Disorders: Yes Hx Family Cancer: Yes (pancreatic) Hx Family Endocrine Disorder: Yes Mother Living Status: Hx Family Cardiac Disorders: Yes Hx Family Endocrine Disorder: Yes Hx Family Neuromuscular Disorders: Yes (stroke) Hx Family Neurologic Disorders: Yes Medications and Allergies Albuterol Sulfate [Proair Hfa] 2 puff IH Q4H PRN 05/20/15 [History] Atorvastatin [Lipitor] 40 mg PO HS 05/20/15 [History] Insulin Glargine,Hum.rec.anlog [Lantus Solostar] 90 units SQ QPM 05/20/15 [ History] Sodium Bicarbonate 325 mg PO QID 05/20/15 [History] Docusate [Colace] 100 mg PO QID PRN 11/09/15 [History] Omeprazole [PriLOSEC] 20 mg PO DAILY 04/28/16 [History] Beclomethasone Diprop 80mcg [QVAR 80 mcg] 2 puff IH BID 07/13/16 [History] cloNIDine HCl [Clonidine HCl] 0.2 mg PO QPM 02/07/17 [History] Pregabalin [Lyrica] 100 mg PO TID #120 capsule 02/13/17 [Rx] Sevelamer [Renvela] 800 mg PO TIDWM #90 tablet 02/13/17 [Rx] Acetaminophen [Tylenol] 650 mg PO DAILY PRN 02/22/18 [History] Ergocalciferol (VITAMIN D2) [Vitamin D2] 50,000 unit PO TU 02/22/18 [History] Furosemide [Lasix] 40 mg PO BID 02/22/18 [History] Insulin ASPART [Novolog] 18 - 22 unit SQ TIDWM 02/22/18 [History] Tramadol HCl [Ultram] 100 mg PO QID PRN 02/22/18 [History] 3 Allergy/AdvReac Type Severity Reaction Status Date / Time iodine Allergy See Verified 02/22/18 09:06 Comments latex Allergy See Verified 02/22/18 09:06 Comments povidone-iodine Allergy See Verified 02/22/18 09:06 [From Betadine] Comments soap [From Betadine] Allergy See Verified 02/22/18 09:06 Comments trimethoprim [From Bactrim] Allergy Difficulty Verified 02/22/18 09:06 Breathing Benzonatate AdvReac Blurry Verified 02/22/18 09:06 Vision sulfacetamide AdvReac Palpitation Verified 02/22/18 09:06 s sulfamethoxazole AdvReac Palpitation Verified 02/22/18 09:06 s terbinafine [From Lamisil] AdvReac Itching Verified 02/22/18 09:06 shrimp AdvReac Vomiting Uncoded 02/22/18 09:06 Review of Systems All Systems: reviewed and no additional remarkable complaints except as stated ( as per hpi) Exam - Vital Signs Vital signs: Initial Vital Signs Temp Pulse Resp BP Pulse Ox 98.3 F 98 20 161/70 97 02/22/18 07:10 02/22/18 07:10 02/22/18 07:10 02/22/18 07:10 02/22/18 07:10 Vital Signs - Last 8 Hours Temp Pulse Resp BP Pulse Ox 02/22/18 11:33 16 99 02/22/18 11:15 97.4 F L 106 18 130/67 93 Intake and Output 02/21/18 02/22/18 02/22/18 23:59 07:59 15:59 Output Total 1000 / 1000 Balance -1000 / -1000 Output: Urine 1000 / 1000 Other: Blood Glucose* 521 - General Appearance General appearance: well-developed, well-nourished, chronically ill EENT: ATNC Neck: supple Respiratory: rales (faint rales in bases. ) Cardiology: edema (trace edema in left leg.) Additional Comments: tachycardic - Dialysis Access Dialysis Vascular Access: Arteriovenous Fistula thrill: Yes bruit: Yes Gastrointestinal: no tenderness Integumentary: warm and dry Neurologic: alert and oriented x3 Musculoskeletal: no cyanosis Psychiatric: mood/affect appropriate Results - Lab Results 02/22/18 07:33 02/22/18 07:33 Most recent lab results Calcium 9.0 mg/dL (8.6-10.3) 02/22/18 07:33 Consult Discharge Plan - Plan Referrals: Angela Truong MD [Primary Care Provider] -
[2018-02-22 12:42] LABS: Estimated Average Glucose 169 mg/dl; Hemoglobin A1C 7.5 %
[2018-02-22] MEDS ORDERED: 0.9 % Sodium Chloride 2,000 ML ONE (14:31)
[2018-02-22 15:41] LABS: INR 1.1; Prothrombin Time 11.6 Seconds (9.4-12.1)
[2018-02-22] MEDS: Nicotine 21 MG PATCH.TD24 TD SCH (16:27)
[2018-02-22] MEDS: Pregabalin 50 MG CAPSULE PO SCH ×2 (16:29→21:36)
[2018-02-22] MEDS: cloNIDine HCl 0.1 MG TABLET PO SCH (16:29)
[2018-02-22] MEDS: *HR* Heparin 5,000 UNIT/ML VIAL SQ SCH (16:30)
[2018-02-22] MEDS: *HR* HYDROcodone/Acet 5/325 mg TABLET PO PRN (16:41)
[2018-02-22] MEDS ORDERED: methylPREDNISolone 4 MG TABLET PO ONE (19:00)
[2018-02-22] MEDS ORDERED: Beclomethasone 80mcg MDI IH SCH (21:00)
[2018-02-22] MEDS: Insulin DETEMIR 100 UNIT/ML X5UNITS SQ SCH (21:36)
[2018-02-23] MEDS: Ipratropium/Albuterol Neb 3 ML IH SCH ×7 (00:49→23:44)
[2018-02-23] MEDS: *HR* HYDROcodone/Acet 5/325 mg TABLET PO PRN ×3 (04:38→18:35)
[2018-02-23] MEDS ORDERED: methylPREDNISolone 4 MG TABLET PO ONE ×2 (05:00→18:18)
[2018-02-23 05:04] LABS: Basophils % 0.1 %; Hematocrit 33.8 % (35.3-44.9); Hemoglobin 10.5 g/dL (11.5-15.4); Immature Granulocytes % 0.9 % (0-4); Lymphocytes # 0.6 K/mcL (0.6-4.6); Lymphocytes % 3.9 %; Mean Corpuscular HGB Conc 31.1 g/dL (31.6-35.5); Mean Corpuscular Hemoglobin 26.9 pg (28.0-33.3); Mean Corpuscular Volume 86.7 fL (83.0-100.0); Mean Platelet Volume 11.9 fL (9.4-12.4); Monocytes # 0.5 K/mcL (0.0-1.3); Monocytes % 3.3 %; Neutrophils # 13.3 K/mcL (1.6-8.9); Platelet Count 230 K/mcL (140-400); Red Cell Distribution Width 16.1 % (11.5-14.5); Segmented Neutrophils % 91.8 %
[2018-02-23 05:24] LABS: Calcium 9.1 mg/dL (8.6-10.3); Chol/HDL Ratio 3.9 (0-4.9); Magnesium 2.1 mg/dL (1.6-2.6); Potassium 4.8 mEq/L (3.5-5.1)
[2018-02-23] MEDS: *HR* Heparin 5,000 UNIT/ML VIAL SQ SCH ×2 (06:08→18:36)
[2018-02-23] MEDS ORDERED: Regadenoson 0.4 MG/5 ML SYRINGE IVP ONE (06:14)
[2018-02-23] MEDS ORDERED: 0.9 % Sodium Chloride 500 ML ONE ×2 (07:12→07:38)
[2018-02-23] MEDS ORDERED: Heparin 1,000 UNITS/500 mL 500 ML ONE (07:12)
[2018-02-23] MEDS ORDERED: *HR* Midazolam HCl 2 MG/2 ML VIAL IVP ONE ×2 (07:21→08:22)
[2018-02-23] MEDS ORDERED: *HR* FentaNYL (PF) 100 MCG/2 ML VIAL IVP ONE ×2 (07:21→08:21)
[2018-02-23] MEDS ORDERED: *HR* Midazolam HCl 2 MG/2 ML VIAL ONE (08:21)
[2018-02-23] MEDS ORDERED: *HR* FentaNYL (PF) 100 MCG/2 ML VIAL ONE (08:22)
--- NOTE | 2018-02-23 08:58 | IR Procedure Note ---
Date of procedure: 02/23/18 Consent Obtained: Written consent Timeout: Correct patient and procedure verified, Correct site verified, Time out performed, Skin prep completed Local anesthetic: Lidocaine 1% Indications: Renal insuffiency, poorly functioning fistula Procedure Performed: Fistulagram, angioplasty Was there an wardrobe assistant present: No Site/Technique: Several juxta-renal anastomotic stenoses. Results/Findings: Angioplasty with 6mm balloon. Improved flow. Estimated blood loss (cc): 10 Complications: None; Tolerated procedure well Post Procedure Treatment Plan: Monitoring in pts room. Ok to use fistula. Specimen: N/a
[2018-02-23] MEDS ORDERED: 0.9 % Sodium Chloride 250 ML IVC PRN (09:46)
[2018-02-23] MEDS ORDERED: 0.9 % Sodium Chloride 1,000 ML PRIME SCH (10:00)
[2018-02-23] MEDS: Insulin LISPRO 300 UNITS/3 ML VIAL SQ SCH ×7 (10:33→21:12)
[2018-02-23] MEDS: Nicotine 21 MG PATCH.TD24 TD SCH (10:35)
[2018-02-23] MEDS: Beclomethasone 80mcg MDI IH SCH ×2 (11:14→20:07)
[2018-02-23] MEDS: Pregabalin 50 MG CAPSULE PO SCH ×3 (11:49→21:12)
[2018-02-23] MEDS: Insulin DETEMIR 100 UNIT/ML X5UNITS SQ SCH ×2 (11:57→21:12)
--- NOTE | 2018-02-23 11:59 | Internal Med Progress Note ---
<Wilder Bender - Last Filed: 02/23/18 13:16> Date of Encounter: 02/23/18 Time of Encounter: 11:58 - Assessment and plan (1) Acute and chronic respiratory failure with hypoxia Current Visit: Yes Status: Acute Assessment and plan: Acute on chronic respiratory failure secondary to COPD and Volume overload. Presented with complaint of dyspnea and chest discomfort. Patient has had to use 5L nasal cannula rather than her usual 2-3 L. CXR revealed mild pulmonary edema, and left base opacity -1400mL past 24 hours Continue with lasix and dialysis as scheduled. (2) Volume overload Current Visit: Yes Status: Acute Assessment and plan: CXR revealed mild pulmonary edema likely due to volume overload. Continue with lasix and dialysis scheduled. -1400mL past 24 hours Nephrology on board for dialysis. Qualifiers: Hypervolemia type: unspecified Qualified Code(s): E87.70 - Fluid overload, unspecified (3) Left leg cellulitis Current Visit: Yes Status: Acute Assessment and plan: Mild left leg cellulitis Previously MRSA positive. Contact precautions -Continue Vancomycin d2. (4) CKD (chronic kidney disease) stage 5, GFR less than 15 ml/min Current Visit: Yes Status: Acute Assessment and plan: Known history of CKD stage 5, see plan in assesments above. (5) COPD (chronic obstructive pulmonary disease) Current Visit: Yes Status: Acute Assessment and plan: Know history of COPD Worsening shortness of breath may be secondary mild COPD exacerbation vs fluid overload Continue with Duonebs Continue with inhaled steroid Baseline 2-3L oxygen at home. Qualifiers: COPD type: COPD with acute exacerbation Qualified Code(s): J44.1 - Chronic obstructive pulmonary disease with (acute) exacerbation (6) Chest pain Current Visit: Yes Status: Acute Assessment and plan: Complaint of chest pain without radiation. EKG with nonspecific ST changes, no ST elevations Heparin drip was not needed. -Continue with asprin -Continue with nitro as needed -Continue with tele. Echo pending. Stress Test revealed: pharmacologic stress ekg was non-diagnostic for ischemia due to submaximal hr. EF 66%. Small sized, moderate intensity, reversible apical lateral defect consistent with ischemia. Cardio on board, continue following recommendations. Qualifiers: Chest pain type: unspecified Qualified Code(s): R07.9 - Chest pain, unspecified (7) Tobacco abuse Current Visit: No Status: Chronic Assessment and plan: Counseled to quit smoking Nicotine patch available. (8) Acute renal failure Current Visit: Yes Status: Acute Assessment and plan: Acute on CKD stage 5, on dialysis. Nephrology on board for dialysis. Qualifiers: Acute renal failure type: unspecified Qualified Code(s): N17.9 - Acute kidney failure, unspecified - Time Spent With Patient Total time spent is greater than 50% in coordination of care (as documented) at patient's floor/unit and/or counseling patient: - Subjective Interval history: Patient reports still feeling short of breath and labored. Also has some mild midsternal chest pain without radiation. Patient will undergo dialysis later today. Patient denies fevers, chills, sweats, nausea, vomiting, abdominal pain , changes in bowels or bladder, or weakness. - Constitutional Vitals: Temp Pulse Resp BP Pulse Ox 97.6 F 100 18 132/74 96 02/23/18 11:40 02/23/18 11:40 02/23/18 11:40 02/23/18 11:40 02/23/18 11:40 General appearance: Present: A&O X 3, no acute distress, answers questions appropriately - Head Head exam: Present: atraumatic, normal inspection, normocephalic - Eye Eye exam: Present: EOMI, normal appearance - ENT ENT exam: Present: mucous membranes moist, normal exam - Neck Neck exam general surgery: Present: full ROM, normal inspection, supple, trachea midline - Respiratory Respiratory exam: Present: wheezes (throughout, minimally labored.). Absent: rales, respiratory distress, rhonchi - Cardiovascular Cardiovascular exam: Present: RRR, +S1, +S2 - GI/Abdominal GI/Abdominal exam: Present: normal bowel sounds, soft. Absent: distended, tenderness - Extremities Exam Extremities exam: Present: full ROM, pedal edema (1+ pitting), warm, radial pulses palpable and symmetrical. Absent: tenderness Additional comments: Right above the knee amputation Mild erythema of left lower leg. AV fistula with good bruit. - Skin Skin exam: Present: dry, intact, normal color, warm Additional comments: except as noted above for Left lower leg erythema Internal Medicine: Result - Labs CBC & Chem 7: 02/23/18 04:36 02/23/18 04:36 Labs: Short CBC 02/23/18 Range/Units 04:36 WBC 14.5 H (4.3-11.1) K/mcL Hgb 10.5 L (11.5-15.4) g/dL Hct 33.8 L (35.3-44.9) % Plt Count 230 (140-400) K/mcL Neutrophils # 13.3 H (1.6-8.9) K/mcL BMP 02/23/18 04:36 Sodium 135 L Potassium 4.8 Chloride 104 Carbon Dioxide 15 L BUN 72 H Creatinine 6.54 H Glucose 416 H Calcium 9.1 Cardiac Enzymes 02/22/18 02/22/18 Range/Units 13:16 19:33 Troponin I < 0.03 < 0.03 (< 0.04) ng/mL - ABG Interpretation ABG results: PT/INR, D-dimer PT 11.6 Seconds (9.4-12.1) 02/22/18 15:10 Consult Discharge Plan - Plan Referrals: Angela Truong MD [Primary Care Provider] - <Giovanny Moran - Last Filed: 02/23/18 18:27> Date of Encounter: 02/23/18 - Assessment and plan (1) Acute and chronic respiratory failure with hypoxia Current Visit: Yes Status: Acute (2) Volume overload Current Visit: Yes Status: Acute Qualifiers: Hypervolemia type: unspecified Qualified Code(s): E87.70 - Fluid overload, unspecified (3) Tobacco abuse Current Visit: No Status: Chronic (4) Chest pain Current Visit: Yes Status: Acute Qualifiers: Chest pain type: chest pain due to myocardial ischemia Ischemic chest pain type: unstable angina pectoris Qualified Code(s): I20.0 - Unstable angina (5) CKD (chronic kidney disease) stage 5, GFR less than 15 ml/min Current Visit: Yes Status: Acute (6) COPD (chronic obstructive pulmonary disease) Current Visit: Yes Status: Acute Qualifiers: COPD type: COPD with acute exacerbation Qualified Code(s): J44.1 - Chronic obstructive pulmonary disease with (acute) exacerbation (7) Left leg cellulitis Current Visit: Yes Status: Acute (8) Acute renal failure Current Visit: Yes Status: Acute Qualifiers: Acute renal failure type: unspecified Qualified Code(s): N17.9 - Acute kidney failure, unspecified - Time Spent With Patient Total time spent is greater than 50% in coordination of care (as documented) at patient's floor/unit and/or counseling patient: - Constitutional Vitals: Temp Pulse Resp BP Pulse Ox 97.6 F 100 18 132/74 96 02/23/18 11:40 02/23/18 11:40 02/23/18 11:40 02/23/18 11:40 02/23/18 11:40 Internal Medicine: Result - Labs CBC & Chem 7: 02/23/18 04:36 02/23/18 04:36 Labs: Short CBC 02/23/18 Range/Units 04:36 WBC 14.5 H (4.3-11.1) K/mcL Hgb 10.5 L (11.5-15.4) g/dL Hct 33.8 L (35.3-44.9) % Plt Count 230 (140-400) K/mcL Neutrophils # 13.3 H (1.6-8.9) K/mcL BMP 02/23/18 04:36 Sodium 135 L Potassium 4.8 Chloride 104 Carbon Dioxide 15 L BUN 72 H Creatinine 6.54 H Glucose 416 H Calcium 9.1 Cardiac Enzymes 02/22/18 Range/Units 19:33 Troponin I < 0.03 (< 0.04) ng/mL - ABG Interpretation ABG results: PT/INR, D-dimer PT 11.6 Seconds (9.4-12.1) 02/22/18 15:10 - Attending Attestation I examined this patient and my medical decision-making was reviewed with the Resident Physician on 02/23/18. I agree with the documented findings, disposition and treatment plan as described except to the extent set forth below. Ms Oseguera is currently admitted for volume overload and dialysis start. She remains moderate to high risk due to potential for worsening clinical status. Ms Oseguera had stress today. She is gone to dialysis area. No fever or chills. No GI issues. Daughters at bedside and updated. Exam alert Comfortable Mucus membranes dry Heart distant No wheeze abd soft Some erythema on stump I/P 1 Volume overload 2. Chest pain 3. Cellulitis Further diagnoses and plan as above.
[2018-02-23] MEDS ORDERED: 0.9 % Sodium Chloride 2,000 ML ONE (13:01)
--- NOTE | 2018-02-23 13:59 | Cardiology Consult Note ---
<Darshana Rachel - Last Filed: 02/23/18 14:16> Date of Encounter: 02/23/18 Time of Encounter: 13:00 Assessment and Plan (1) Chest pain Current Visit: Yes Status: Acute Per cardiology: -Reports chest pain with position change and deep inspiration. -ECG with SR, RBBB. -Troponins negative x3. -Stress test with small area of ischemia. ' -ON statin. -Ideally would recommend LHC, however patient is being newly started on dialysis. Patient reports was never previously on HD (states had fistula placed 2 years ago, however never had HD treatment). Educated patient on risk of worsening renal function with LHC due to contrast media, patient reports she does not want to end up on HD permanently and would prefer medical management. -Will start ASA, BB. -Will check echocardiogram. Qualifiers: Chest pain type: unspecified Qualified Code(s): R07.9 - Chest pain, unspecified (2) Abnormal stress test Current Visit: Yes Status: Acute Per cardiology: -Stress test with small, moderate intensity apical, lateral perfusion defect, representing ischemia -See plan as above. Discussion w patient/family: The assessment and plan as outlined above was discussed with the patient and/or family members who expressed understanding and agreement. All questions were answered. Thank you for involving us in the care of your patient. Please call with any questions. Discussed and reviewed with . History of Present Illness Consult date: 02/22/18 Requesting physician: Luciano Park Consult reason: abnormal ECG Chief complaint: shortness of breath History of present illness: Ms. Oseguera is a 57 year old female with a relevant past medical history of peripheral neuropathy, GERD, HTN, anemia, DVT, CKD not previously on HD, multiple finger amputations, right BKA who presented to [facility] with complaints of worsening shortness of breath and chest pressure. Patient reports mid sternal chest pressure that is worse with deep inspiration and position change. Patient reports symptom improvement since admission. Past Med Surg Social Fam HX - Past Medical History Attestation: Yes The following information was validated with the patient. Source: patient, old records reviewed Medical history: asthma, diabetes, GERD, hyperlipidemia, renal disease Additional medical history: chronic back pain. neuropathy Psychiatric history: no psych history, other - Past Surgical History Surgical History: , cholecystectomy, orthopedic, other, other Additional surgical history: aputation to r leg. mass removed from ovaries. bilateral oophrectomy - Social History Smoking Status: Current every day smoker Smokeless Tobacco Status: No Alcohol use: none Drug use: none - Family History Father Living Status: Hx Family Cardiac Disorders: Yes Hx Family Cancer: Yes (pancreatic) Hx Family Endocrine Disorder: Yes Mother Living Status: Hx Family Cardiac Disorders: Yes Hx Family Endocrine Disorder: Yes Hx Family Neuromuscular Disorders: Yes (stroke) Hx Family Neurologic Disorders: Yes Medications and Allergies Albuterol Sulfate [Proair Hfa] 2 puff IH Q4H PRN 05/20/15 [History] Atorvastatin [Lipitor] 40 mg PO HS 05/20/15 [History] Insulin Glargine,Hum.rec.anlog [Lantus Solostar] 90 units SQ QPM 05/20/15 [ History] Sodium Bicarbonate 325 mg PO QID 05/20/15 [History] Docusate [Colace] 100 mg PO QID PRN 11/09/15 [History] Omeprazole [PriLOSEC] 20 mg PO DAILY 04/28/16 [History] Beclomethasone Diprop 80mcg [QVAR 80 mcg] 2 puff IH BID 07/13/16 [History] cloNIDine HCl [Clonidine HCl] 0.2 mg PO QPM 02/07/17 [History] Pregabalin [Lyrica] 100 mg PO TID #120 capsule 02/13/17 [Rx] Sevelamer [Renvela] 800 mg PO TIDWM #90 tablet 02/13/17 [Rx] Acetaminophen [Tylenol] 650 mg PO DAILY PRN 02/22/18 [History] Ergocalciferol (VITAMIN D2) [Vitamin D2] 50,000 unit PO TU 02/22/18 [History] Furosemide [Lasix] 40 mg PO BID 02/22/18 [History] Insulin ASPART [Novolog] 18 - 22 unit SQ TIDWM 02/22/18 [History] Tramadol HCl [Ultram] 100 mg PO QID PRN 02/22/18 [History] 3 Allergy/AdvReac Type Severity Reaction Status Date / Time iodine Allergy See Verified 02/22/18 09:06 Comments latex Allergy See Verified 02/22/18 09:06 Comments povidone-iodine Allergy See Verified 02/22/18 09:06 [From Betadine] Comments soap [From Betadine] Allergy See Verified 02/22/18 09:06 Comments trimethoprim [From Bactrim] Allergy Difficulty Verified 02/22/18 09:06 Breathing Benzonatate AdvReac Blurry Verified 02/22/18 09:06 Vision sulfacetamide AdvReac Palpitation Verified 02/22/18 09:06 s sulfamethoxazole AdvReac Palpitation Verified 02/22/18 09:06 s terbinafine [From Lamisil] AdvReac Itching Verified 02/22/18 09:06 shrimp AdvReac Vomiting Uncoded 02/22/18 09:06 All Systems Review: The remainder of the systems were reviewed and are negative - Cardiovascular Cardiovascular: as per HPI, chest pain at rest, dyspnea on exertion Physical Examination Vital Signs, Last 4 Hours Temp Pulse Resp BP Pulse Ox 02/23/18 11:40 97.6 F 100 18 132/74 96 General: Conversant, No Apparent Distress HEENT: Atraumatic, Normocephaly, Mucus Membranes Moist Neck: No JVD, Normal carotid pulses Cardiac: Reg Rate and Rhythm, Normal S1 and S2, Other (Systolic murmur noted. ) Lungs: Normal Breath Sounds, No Wheeze, Rales, Rhonchi Neuro: Alert and responsive, No focal deficits noted Abdomen: Soft, Non-Tender Skin: No rashes noted on visualized skin Musculoskeletal: No Chest Wall Tenderness Extremities: No Clubbing, No Cyanosis, Normal Pulses, Other (Right BKA, left lower extremity with mild pedal edema.) Results 02/23/18 04:36 02/23/18 04:36 Lab Results Active Medications Acetaminophen (Tylenol) 650 mg PO Q6HR PRN PRN Reason: Mild Pain/Fever Stop: 08/24/18 09:00 Hydrocodone Bitart/Acetaminophen ([place] 5-325 Mg) 1 tab PO Q6HR PRN PRN Reason: Moderate Pain Stop: 08/24/18 09:00 Last Admin: 02/23/18 11:58 Dose: 1 tab Albuterol Sulfate (Albuterol Inhaler) 2 puff IH Q4HR SHAKILA Stop: 08/24/18 16:01 Last Admin: 02/23/18 07:37 Dose: Not Given Albuterol/Ipratropium (Duoneb) 3 ml IH [id number] SHAKILA Stop: 08/24/18 12:01 Last Admin: 02/23/18 11:15 Dose: Not Given Atorvastatin Calcium (Lipitor) 40 mg PO HS [facility] Stop: 08/24/18 21:01 Last Admin: 02/22/18 21:36 Dose: 40 mg Beclomethasone Dipropionate (Qvar 80 Mcg) 2 puff IH BIDR SHAKILA PRN Reason: Protocol Stop: 08/24/18 21:01 Last Admin: 02/23/18 11:14 Dose: Not Given Clonidine HCl (Clonidine Hcl) 0.2 mg PO QPM SHAKILA Stop: 08/24/18 18:01 Last Admin: 02/22/18 16:29 Dose: 0.2 mg Dextrose/Water (Dextrose 50% (Syg)) 25 ml IVP AD PRN PRN Reason: Hypoglycemia Stop: 08/24/18 11:41 Docusate Sodium (Colace) 100 mg PO BID PRN PRN Reason: Constipation Stop: 08/24/18 09:01 Ergocalciferol (Drisdol (50,000 Unit)) 50,000 unit PO TU [facility] Stop: 08/29/18 11:42 Glucagon (Glucagen) 1 mg IM ONCE PRN PRN Reason: Hypoglycemia Stop: 08/24/18 11:41 Glucose (Gluctose) 15 gm PO ONCE PRN PRN Reason: Hypoglycemia Stop: 08/24/18 11:41 Glucose (Gluctose) 30 gm PO ONCE PRN PRN Reason: Hypoglycemia Stop: 08/24/18 11:41 Heparin Sodium (Porcine) (Heparin) 5,000 unit SQ Q12HR [facility] Stop: 08/24/18 18:01 Last Admin: 02/23/18 06:08 Dose: 5,000 unit Dextrose (Dextrose 5%) 1,000 mls @ 100 mls/hr IVC .Q10H PRN PRN Reason: HYPOGLYCEMIA Stop: 08/24/18 11:41 Sodium Chloride (0.9 % Sodium Chloride) 250 mls @ 937.5 mls/hr IVC .Q16M PRN PRN Reason: Hypotension Stop: 08/25/18 09:47 Sodium Chloride (0.9 % Sodium Chloride) 1,000 mls @ 0 mls/hr PRIME .Q0M SHAKILA PRN Reason: As Directed Stop: 08/25/18 10:01 Vancomycin HCl 1,500 mg/ (Sodium Chloride) 250 mls @ 167 mls/hr IVPB RPHPROT SHAKILA PRN Reason: Protocol Stop: 08/25/18 11:01 Insulin Detemir (Levemir) 40 unit SQ BID [facility] Stop: 08/24/18 21:01 Last Admin: 02/23/18 11:57 Dose: 40 unit Insulin Human Lispro (Humalog) 15 units SQ TIDWM [facility] Stop: 08/24/18 12:01 Last Admin: 02/23/18 11:59 Dose: Not Given Insulin Human Lispro (Humalog) 0 units SQ HS [facility] PRN Reason: Protocol Stop: 08/24/18 21:01 Last Admin: 02/22/18 21:37 Dose: 8 unit Insulin Human Lispro (Humalog) 0 units SQ TIDAC [facility] PRN Reason: Protocol Stop: 08/24/18 16:31 Last Admin: 02/23/18 11:59 Dose: Not Given Naloxone HCl (Narcan) 0.4 mg IVP Q2MIN PRN PRN Reason: SEE COMMENTS Stop: 08/24/18 09:00 Nicotine (Nicoderm) 21 mg TD DAILY [facility] PRN Reason: Protocol Stop: 08/24/18 12:31 Last Admin: 02/23/18 10:35 Dose: Not Given Nitroglycerin (Nitroglycerin) 0.4 mg SL Q5MIN PRN PRN Reason: Chest Pain Stop: 08/24/18 07:24 Last Admin: 02/22/18 07:41 Dose: 0.4 mg Omeprazole (Prilosec) 20 mg PO DAILY [facility] Stop: 08/25/18 09:01 Last Admin: 02/23/18 11:58 Dose: 20 mg Ondansetron HCl (Zofran) 4 mg IVP Q8HR PRN PRN Reason: Nausea And Vomiting Stop: 08/24/18 09:00 Pregabalin (Lyrica) 100 mg PO TID [facility] Stop: 08/24/18 15:01 Last Admin: 02/23/18 14:06 Dose: 100 mg Promethazine HCl (Phenergan) 12.5 mg IVP Q6HR PRN PRN Reason: Nausea And Vomiting Stop: 08/24/18 09:00 Sevelamer HCl (Renvela) 800 mg PO TIDWM [facility] Stop: 08/24/18 12:01 Last Admin: 02/23/18 11:58 Dose: 800 mg Sodium Bicarbonate (Sodium Bicarbonate) 325 mg PO QID [facility] Stop: 08/24/18 13:01 Last Admin: 02/23/18 11:58 Dose: 325 mg Laboratory Tests 02/22/18 02/22/18 02/22/18 07:33 13:16 19:33 WBC Hgb Creatinine Troponin I 0.03 < 0.03 < 0.03 02/23/18 02/23/18 04:36 04:36 WBC 14.5 H Hgb 10.5 L Creatinine 6.54 H Troponin I - Imaging and Cardiology Chest Xray: report reviewed Stress Test: report reviewed Echo: pending - EKG Interpretation EKG results cardiology: personally reviewed (ECG with SR, HR 96, RBBB noted.), other (Telemetry reviewed with average HR previous 12 hours noted to be 95, SR. PACs noted.) Consult Discharge Plan - Plan Referrals: Angela Truong MD [Primary Care Provider] - <Clay Banerjee - Last Filed: 02/25/18 16:02> Date of Encounter: 02/23/18 Time of Encounter: 16:40 - Attending Attestation I have personally performed a face to face evaluation on this patient. I have reviewed and agree with the care plan. History and Exam by me shows: CC: Chest presssure Pt reports sudden onset of mid epigastric chest pressure, tightness, occurred at rest, 4/10 at most severe, lasted three to five minutes, not associated with nausea, diaphoresis or shortness of breath, resolved spontaneously. She reports similar episodes, occured at rest, however not a severe and only lasted for up to a minute. She denies chest pain, pressure, tightness, palpitations or shortness of breath with activity, at very low levels of exertion. She is currently pain free at time of exam. ROS: reviewed, as above. PE: Agree with findings as documented. IMP: 1. Chest Pain: Chest pain has resolved, no reoccurrence since admit, atypical for anginal pain, has ruled out for ACS. 2. Abnormal stress test, with small moderately intensity apical, lateral perfusion defect, consistent with ischemia. Discussed options for medical tx versus LHC possible, pt is avoiding any contrast study at this point to potentially avoid permanent dialysis, declines, LHC/possible, will maximize medical management, follow closely as outpatient. Reviewed indications for immediate evaluation including chest pain lasting more than two minutes not relieved with single sublingual ntg. Will arrange for outpatient cardiac follow up. Assessment and Plan Discussion w patient/family: The assessment and plan as outlined above was discussed with the patient and/or family members who expressed understanding and agreement. All questions were answered. Thank you for involving us in the care of your patient. Please call with any questions. History of Present Illness History of present illness: Ms. Oseguera is a 57 year old female All Systems Review: The remainder of the systems were reviewed and are negative Physical Examination Vital Signs, Last 4 Hours Temp Pulse Resp BP Pulse Ox 02/25/18 15:15 97.5 F L 93 22 126/82 96 02/25/18 12:29 91 145/97 Results 02/25/18 07:51 02/25/18 07:51 Lab Results 02/25/18 02/25/18 02/25/18 07:51 07:51 12:42 WBC 11.3 H Hgb 9.8 L Hct 31.1 L Plt Count 219 Sodium 136 Potassium 4.7 Chloride 105 Carbon Dioxide 19 L BUN 84 H Creatinine 6.00 H Glucose 225 H Calcium 8.7 Troponin I < 0.03
--- NOTE | 2018-02-23 15:27 | Electrocardiograph Report ---
[employer] Test Date: 2018-02-22 Pat Name: Maggy Oseguera Department: 104 Room: 2NE26 Gender: F Manager Training: JOSE MARTIN MUNROEB: 1960 Requested By: Luciano Park Order Number: [id number] Reading MD: Jorge Suarez Measurements Intervals [place] Rate: 96 P: 49 CA: 170 QRS: 76 QRSD: 135 T: -2 QT: 401 QTc: 455 Interpretive Statements SINUS RHYTHM RBBB POSSIBLE INFERIOR MYOCARDIAL INFARCTION [30 ms Q WAVE IN II/aVF], PROBABLY OLD INTERPRETATION BASED ON A DEFAULT AGE OF 40 YEARS Electronically Signed On 02-23-2018 15:26:01 EDT by Jorge Suarez
--- NOTE | 2018-02-23 16:40 | Nephrology Progress Note ---
Date of Encounter: 02/24/18 Time of Encounter: 14:00 - Assessment and Plan (1) CKD (chronic kidney disease) stage 5, GFR less than 15 ml/min Current Visit: Yes Status: Acute New ESRD, will initiate HD today after successful angioplasty of new AVF Will need at least 2-3 consecutive HD sessions prior to discharge Will need outpatient HD placement as well (2) Chest pain Current Visit: Yes Status: Acute Per cardiology but recommend to proceed with LHC as pt will need intermediate HD at this time and cardiac risk is great. Will discuss with patient and cardio team Will still need prophylasix to protect [employer]IST[employer] with HD done after LHC for clearance Qualifiers: Chest pain type: chest pain due to myocardial ischemia Ischemic chest pain type: unstable angina pectoris Qualified Code(s): I20.0 - Unstable angina (3) Volume overload Current Visit: Yes Status: Acute Should improve with UF once HD started Fluid restriction advised UOp noted at 1000cc in the past 24hrs which is great Qualifiers: Hypervolemia type: unspecified Qualified Code(s): E87.70 - Fluid overload, unspecified Subjective Interval history: Interim events noted, pt seen and examined with daughter at bedside, well known to me from long time managment of her CKD stage 5 outpatient. s/p fistulogram with successful angioplasty. Objective - Vital Signs Vital signs: Vital Signs Temp Pulse Resp BP Pulse Ox 02/23/18 11:40 97.6 F 100 18 132/74 96 02/23/18 08:35 96 25 126/69 94 02/23/18 08:30 97 16 126/65 93 02/23/18 08:25 96 19 138/73 94 02/23/18 08:22 98 18 135/68 93 02/23/18 08:16 97 8 132/73 92 02/23/18 08:12 97 8 142/73 93 02/23/18 08:06 99 8 141/77 95 02/23/18 08:00 98 8 143/72 95 02/23/18 07:56 100 8 138/73 94 02/23/18 07:51 99 10 144/74 96 02/23/18 07:37 98 8 164/88 02/23/18 05:00 97.5 F L 103 24 138/85 92 02/23/18 04:00 97.6 F 73 20 118/66 99 02/23/18 03:46 16 93 02/23/18 00:49 16 93 02/23/18 00:00 97.8 F 101 19 140/74 94 02/22/18 21:00 92 02/22/18 20:37 20 93 02/22/18 20:00 98.1 F 88 20 122/74 92 Intake and Output 02/23/18 02/23/18 02/23/18 07:59 15:59 23:59 Intake Total 120 / 120 240 / 240 Output Total 900 / 900 Balance -780 / -780 240 / 240 Intake: Oral 120 / 120 240 / 240 Output: Urine 300 / 300 Catheter 600 / 600 Other: Meal Lunch Percent of Meal Consumed 100% Weight 97.4 kg Blood Glucose* 402 390 Patient Weight 02/23/18 23:59 Weight 97.4 kg - General Appearance General appearance: Present: chronically ill (NAD) EENT: Present: ATNC, mucous membranes moist Neck: Present: no JVD, supple Additional Comments: Decreased BS bases bilat Cardiology: Present: edema (with wrapping, R BKA), normal S1, normal S2 Dialysis Vascular Access: Arteriovenous Fistula thrill: Yes bruit: Yes Gastrointestinal: Present: no tenderness, no guarding, obese Integumentary: Present: warm and dry Neurologic: Present: no focal deficit Musculoskeletal: Present: no deformities (except several finger amputations) Psychiatric: Present: mood/affect appropriate, cooperative - Lab 02/24/18 04:56 02/24/18 06:03 Most recent lab results Calcium 9.1 mg/dL (8.6-10.3) 02/23/18 04:36 Magnesium 2.1 mg/dL (1.6-2.6) 02/23/18 04:36 Consult Discharge Plan - Plan Referrals: Angela Truong MD [Primary Care Provider] -
[2018-02-23] MEDS ORDERED: levoFLOXacin 500 MG TABLET PO ONE (18:02)
[2018-02-23] MEDS: cloNIDine HCl 0.1 MG TABLET PO SCH (18:35)
[2018-02-23] MEDS: traMADol 50 MG TABLET PO PRN (22:25)
[2018-02-24] MEDS: *HR* HYDROcodone/Acet 5/325 mg TABLET PO PRN ×2 (01:12→13:03)
[2018-02-24] MEDS: Ipratropium/Albuterol Neb 3 ML IH SCH ×5 (04:22→19:44)
[2018-02-24 05:13] LABS: Hematocrit 28.8 % (35.3-44.9); Hemoglobin 9.3 g/dL (11.5-15.4); Immature Granulocytes % 1.4 % (0-4); Lymphocytes # 0.5 K/mcL (0.6-4.6); Lymphocytes % 4.2 %; Mean Corpuscular HGB Conc 32.3 g/dL (31.6-35.5); Mean Corpuscular Hemoglobin 28.2 pg (28.0-33.3); Mean Corpuscular Volume 87.3 fL (83.0-100.0); Mean Platelet Volume 11.7 fL (9.4-12.4); Monocytes # 0.5 K/mcL (0.0-1.3); Monocytes % 4.2 %; Neutrophils # 11.4 K/mcL (1.6-8.9); Nucleated Red Blood Cells 0.2 /100 WBC (0); Platelet Count 207 K/mcL (140-400); Red Cell Distribution Width 15.9 % (11.5-14.5); Segmented Neutrophils % 90.2 %
[2018-02-24] MEDS: *HR* Heparin 5,000 UNIT/ML VIAL SQ SCH ×2 (05:46→17:26)
[2018-02-24 06:37] LABS: Calcium 8.7 mg/dL (8.6-10.3); Potassium 5.3 mEq/L (3.5-5.1)
[2018-02-24] MEDS: Beclomethasone 80mcg MDI IH SCH ×2 (07:34→19:45)
[2018-02-24] MEDS: Pregabalin 50 MG CAPSULE PO SCH ×3 (08:15→23:53)
[2018-02-24] MEDS: traMADol 50 MG TABLET PO PRN ×3 (08:15→23:53)
[2018-02-24] MEDS: Nicotine 21 MG PATCH.TD24 TD SCH (08:16)
[2018-02-24] MEDS: Insulin LISPRO 300 UNITS/3 ML VIAL SQ SCH ×7 (08:18→21:26)
[2018-02-24] MEDS: Insulin DETEMIR 100 UNIT/ML X5UNITS SQ SCH ×2 (08:20→21:26)
--- NOTE | 2018-02-24 09:32 | Internal Med Progress Note ---
<Wilder Bender - Last Filed: 02/24/18 14:07> Date of Encounter: 02/24/18 Time of Encounter: 09:30 - Assessment and plan (1) Chest pain Current Visit: Yes Status: Acute Assessment and plan: Complaint of chest pain without radiation. No chest pain overnight or this morning. EKG with nonspecific ST changes, no ST elevations Heparin drip was not needed. Stress Test revealed: pharmacologic stress ekg was non-diagnostic for ischemia due to submaximal hr. EF 66%. Small sized, moderate intensity, reversible apical lateral defect consistent with ischemia. Cardio on board, continue following recommendations. Cardiology recommended LHC, however, with risk of worsening renal function due to contrast media, the patient declined LHC at this time and prefers medical management. Nephrology will hold off on dialysis till Monday for reattempt. -Continue with aspirin -Continue with nitro as needed -Continue with tele. -Start metoprolol -Echo pending. Qualifiers: Chest pain type: chest pain due to myocardial ischemia Ischemic chest pain type: unstable angina pectoris Qualified Code(s): I20.0 - Unstable angina (2) Acute and chronic respiratory failure with hypoxia Current Visit: Yes Status: Acute Assessment and plan: Acute on chronic respiratory failure secondary to COPD and Volume overload. Presented with complaint of dyspnea and chest discomfort. Patient has had to use 5L nasal cannula rather than her usual 2-3 L. CXR revealed mild pulmonary edema, and left base opacity -700mL past 24 hours Continue with lasix and dialysis as scheduled. (3) Volume overload Current Visit: Yes Status: Acute Assessment and plan: CXR revealed mild pulmonary edema likely due to volume overload. Continue with lasix and dialysis scheduled. -700mL past 24 hours Nephrology on board for dialysis. Unable to obtain access at dialysis through AV fistula, will attempt again today. Na 131, K 5.3, Cr 5.98 Qualifiers: Hypervolemia type: unspecified Qualified Code(s): E87.70 - Fluid overload, unspecified (4) Left leg cellulitis Current Visit: Yes Status: Acute Assessment and plan: Mild left leg cellulitis, no current erythema, improved. Previously MRSA positive. Contact precautions -Received one dose Levofloxacin, due to renal function dosing is q48-72h. -May consider Vancomycin if appears to worsen. If administering, give after dialysis. Currently no vancomycin ordered. - (5) CKD (chronic kidney disease) stage 5, GFR less than 15 ml/min Current Visit: Yes Status: Acute Assessment and plan: Known history of CKD stage 5, see plan in assessments above. (6) COPD (chronic obstructive pulmonary disease) Current Visit: Yes Status: Acute Assessment and plan: Know history of COPD Worsening shortness of breath may be secondary mild COPD exacerbation vs fluid overload Continue with Duonebs Continue with inhaled steroid Baseline 2-3L oxygen at home. Qualifiers: COPD type: COPD with acute exacerbation Qualified Code(s): J44.1 - Chronic obstructive pulmonary disease with (acute) exacerbation (7) Tobacco abuse Current Visit: No Status: Chronic Assessment and plan: Counseled to quit smoking Nicotine patch available. (8) Acute renal failure Current Visit: Yes Status: Acute Assessment and plan: Acute on CKD stage 5, on dialysis. Nephrology on board for dialysis. Will hold off until monday and reattempt. Qualifiers: Acute renal failure type: unspecified Qualified Code(s): N17.9 - Acute kidney failure, unspecified - Time Spent With Patient Total time spent is greater than 50% in coordination of care (as documented) at patient's floor/unit and/or counseling patient: - Subjective Interval history: Patient reports she feels her breathing is at baseline and improved from yesterday. Patient was planned to undergo dialysis yesterday, however they were unsuccessful accessing her left forearm fistula. Patient reports her left arm feels a little more swollen. Discussed Nuclear stress results with patient and plan of care with aspirin and metoprolol. Patient denies any chest pain or tightness. Denies fevers, chills, sweats, nausea, vomiting, abdominal pain, changes in bowels or bladder, or weakness. - Constitutional Vitals: Temp Pulse Resp BP Pulse Ox 98 F 90 17 136/76 94 02/24/18 07:12 02/24/18 07:12 02/24/18 07:38 02/24/18 07:12 02/24/18 08:40 General appearance: Present: A&O X 3, no acute distress, obese, answers questions appropriately - Head Head exam: Present: atraumatic, normal inspection, normocephalic - Eye Eye exam: Present: EOMI, normal appearance - ENT ENT exam: Present: mucous membranes moist, normal exam - Neck Neck exam general surgery: Present: full ROM, normal inspection - Respiratory Respiratory exam: Present: CTAB. Absent: rales, respiratory distress, rhonchi, wheezes Additional comments: coarse breath sounds. - Cardiovascular Cardiovascular exam: Present: RRR, +S1, +S2 - GI/Abdominal GI/Abdominal exam: Present: normal bowel sounds, soft. Absent: distended, tenderness - Extremities Exam Extremities exam: Present: pedal edema (1+ edema bilateral lower extremities, left AKA, multiple scab/healing areas over bilateral lower extremities without drainage or infection. Left leg erythema improved, normal apearance other than scabs.), warm, radial pulses palpable and symmetrical Additional comments: left forearm AV fistula, multiple distal digits amputated. - Skin Skin exam: Present: dry, intact, normal color, warm Additional comments: except as noted above Internal Medicine: Result - Labs CBC & Chem 7: 02/24/18 04:56 02/24/18 06:03 Labs: Short CBC 02/24/18 Range/Units 04:56 WBC 12.7 H (4.3-11.1) K/mcL Hgb 9.3 L (11.5-15.4) g/dL Hct 28.8 L (35.3-44.9) % Plt Count 207 (140-400) K/mcL Neutrophils # 11.4 H (1.6-8.9) K/mcL BMP 02/24/18 06:03 Sodium 131 L Potassium 5.3 H Chloride 103 Carbon Dioxide 19 L BUN 76 H Creatinine 5.98 H Glucose 404 H Calcium 8.7 - ABG Interpretation ABG results: PT/INR, D-dimer PT 11.6 Seconds (9.4-12.1) 02/22/18 15:10 - Impressions Impressions AV Shunt Angiogram 02/23/18 00:00 IMPRESSION: Juxta anastomotic venous stenosis within the left upper extremity forearm fistula, status post angioplasty with improved exam and flow. D/ / Jerald Lilly MD / Jerald Lilly MD Interpreting Provider: Jerald Lilly MD Guidance Needle Placement Ultrasound 02/23/18 00:00 IMPRESSION: Juxta anastomotic venous stenosis within the left upper extremity forearm fistula, status post angioplasty with improved exam and flow. D/ / Jerald Lilly MD / Jerald Lilly MD Interpreting Provider: Jerald Lilly MD Permanent Dialysis Access 02/23/18 00:00 IMPRESSION: Juxta anastomotic venous stenosis within the left upper extremity forearm fistula, status post angioplasty with improved exam and flow. D/ / Jerald Lilly MD / Jerald Lilly MD Interpreting Provider: Jerald Lilly MD Consult Discharge Plan - Plan Referrals: Angela Truong MD [Primary Care Provider] - <Giovanny Moran - Last Filed: 02/24/18 16:53> Date of Encounter: 02/24/18 - Assessment and plan (1) Acute and chronic respiratory failure with hypoxia Current Visit: Yes Status: Acute (2) Chest pain Current Visit: Yes Status: Acute Qualifiers: Chest pain type: chest pain due to myocardial ischemia Ischemic chest pain type: unstable angina pectoris Qualified Code(s): I20.0 - Unstable angina (3) Diabetes Current Visit: No Status: Chronic Assessment and plan: Glucose markedly elevated today but she did receive some steroids. Will adjust insulin. Qualifiers: Diabetes mellitus type: type 2 Diabetes mellitus custodial insulin use: with custodial use Diabetes mellitus complication status: with hyperglycemia Qualified Code(s): E11.65 - Type 2 diabetes mellitus with hyperglycemia; Z79.4 - residential (current) use of insulin (4) Tobacco abuse Current Visit: No Status: Chronic (5) CKD (chronic kidney disease) stage 5, GFR less than 15 ml/min Current Visit: Yes Status: Acute (6) Volume overload Current Visit: Yes Status: Acute Qualifiers: Hypervolemia type: other Qualified Code(s): E87.79 - Other fluid overload (7) COPD (chronic obstructive pulmonary disease) Current Visit: Yes Status: Acute Qualifiers: COPD type: COPD with acute exacerbation Qualified Code(s): J44.1 - Chronic obstructive pulmonary disease with (acute) exacerbation (8) Left leg cellulitis Current Visit: Yes Status: Resolved (9) Acute renal failure Current Visit: Yes Status: Acute Qualifiers: Acute renal failure type: unspecified Qualified Code(s): N17.9 - Acute kidney failure, unspecified (10) Anemia in CKD (chronic kidney disease) Current Visit: No Status: Chronic Qualifiers: Chronic kidney disease stage: stage 5, not on chronic dialysis Qualified Code(s): N18.5 - Chronic kidney disease, stage 5; D63.1 - Anemia in chronic kidney disease - Time Spent With Patient Total time spent is greater than 50% in coordination of care (as documented) at patient's floor/unit and/or counseling patient: - Constitutional Vitals: Temp Pulse Resp BP Pulse Ox 98 F 90 18 154/85 99 02/24/18 15:29 02/24/18 15:29 02/24/18 15:29 02/24/18 15:29 02/24/18 15:29 Internal Medicine: Result - Labs CBC & Chem 7: 02/24/18 04:56 02/24/18 06:03 Labs: Short CBC 02/24/18 Range/Units 04:56 WBC 12.7 H (4.3-11.1) K/mcL Hgb 9.3 L (11.5-15.4) g/dL Hct 28.8 L (35.3-44.9) % Plt Count 207 (140-400) K/mcL Neutrophils # 11.4 H (1.6-8.9) K/mcL BMP 02/24/18 06:03 Sodium 131 L Potassium 5.3 H Chloride 103 Carbon Dioxide 19 L BUN 76 H Creatinine 5.98 H Glucose 404 H Calcium 8.7 - ABG Interpretation ABG results: PT/INR, D-dimer PT 11.6 Seconds (9.4-12.1) 02/22/18 15:10 - Impressions Impressions AV Shunt Angiogram 02/23/18 00:00 IMPRESSION: Juxta anastomotic venous stenosis within the left upper extremity forearm fistula, status post angioplasty with improved exam and flow. D/ / Jerald Lilly MD / Jerald Lilly MD Interpreting Provider: Jerald Lilly MD Guidance Needle Placement Ultrasound 02/23/18 00:00 IMPRESSION: Juxta anastomotic venous stenosis within the left upper extremity forearm fistula, status post angioplasty with improved exam and flow. D/ / Jerald Lilly MD / Jerald Lilly MD Interpreting Provider: Jerald Lilly MD Permanent Dialysis Access 02/23/18 00:00 IMPRESSION: Juxta anastomotic venous stenosis within the left upper extremity forearm fistula, status post angioplasty with improved exam and flow. D/ / Jerald Lilly MD / Jerald Lilly MD Interpreting Provider: Jerald Lilly MD - Attending Attestation I examined this patient and my medical decision-making was reviewed with the Resident Physician on 02/24/18. I agree with the documented findings, disposition and treatment plan as described except to the extent set forth below. Ms Oseguera is currently admitted for chest pain and renal failure. She remains moderate to high risk due to potential for worsening clinical status. Ms Oseguera is eating lunch. She is feeling OK at this time. No fever or chills. Breathing OK. No CP now. Does not want to have LHC. Dialysis not able to be completed yesterday. To attempt again Monday with permacath if needed. Exam alert Comfortable Mucus membranes dry Heart distant No wheeze abd soft R stump less red Edema present in LUE near fistula. I/P 1. [place] - stress test positive. Pt does not want LHC at this time. To have echo. 2. Renal failure per nephrology 3. Cellulitis - does not appear to be an issue today Further diagnoses and plan as above.
--- NOTE | 2018-02-24 11:25 | Nephrology Progress Note ---
Date of Encounter: 02/24/18 Time of Encounter: 12:00 - Assessment and Plan (1) CKD (chronic kidney disease) stage 5, GFR less than 15 ml/min Current Visit: Yes Status: Acute New ESRD, but has not received one adequate HD session due to cannulation and pressure issues even after successfuk fistulogram with angiplasty. Suspect AVF simply did not develop adequately yet, will hold off today and re-try on monday but if not successful, will place permcath and refer back to her vascular surgeon for possible surgical intervention on discharge. UOP great at 1000cc in the past 24hrs and today which helps to avoid any further volume overload. Will still need outpatient HD placement next week Potassium slightly elevated at 5.3 but does not pose any danger at this time, renal diet advised (2) Chest pain Current Visit: Yes Status: Acute Per cardiology but recommend to proceed with LHC as pt will need custodial HD at this time and cardiac risk is great. Will discuss with patient and cardio team Will still need prophylasix to protect [employer] with HD done after LHC for clearance Qualifiers: Chest pain type: chest pain due to myocardial ischemia Ischemic chest pain type: unstable angina pectoris Qualified Code(s): I20.0 - Unstable angina (3) Volume overload Current Visit: Yes Status: Acute Await HD when able to cannulate and/or place permcath Fluid restriction advised UOp noted at 1000cc in the past 24hrs which is great Qualifiers: Hypervolemia type: other Qualified Code(s): E87.79 - Other fluid overload (4) Dialysis AV fistula malfunction Current Visit: Yes Status: Acute Qualifiers: Encounter type: initial encounter Qualified Code(s): T82.590A - Other mechanical complication of surgically created arteriovenous fistula, initial encounter Subjective Interval history: Interim events noted, pt seen and examined unable to dialyze adequately yesterday due to persistent cannulation and high pressure issues while on the HD machine Objective - Vital Signs Vital signs: Vital Signs Temp Pulse Resp BP Pulse Ox 02/24/18 08:40 94 02/24/18 07:38 17 96 02/24/18 07:12 98 F 90 17 136/76 96 02/24/18 04:05 91 15 142/78 94 02/23/18 23:45 16 98 02/23/18 21:00 98.6 F 94 14 164/87 100 02/23/18 20:08 18 100 02/23/18 18:30 97.2 F L 18 147/71 02/23/18 18:00 147/72 02/23/18 16:30 149/79 02/23/18 16:15 143/73 02/23/18 16:00 97.1 F L 18 146/74 02/23/18 11:40 97.6 F 100 18 132/74 96 Intake and Output 02/23/18 02/24/18 02/24/18 23:59 07:59 15:59 Intake Total 600 / 600 355 / 355 120 / 120 Output Total 273 / 273 1000 / 1000 Balance 327 / 327 -645 / -645 120 / 120 Intake: Oral 0 / 0 355 / 355 120 / 120 Intake, Rinseback and Flushes 600 / 600 Output: Urine 0 / 0 1000 / 1000 Total Dialysis (HD) Output 273 / 273 Other: Meal Breakfast Percent of Meal Consumed 100% Weight 97.1 kg Blood Glucose* 391 371 322 Hemodialysis Net Fluid Removed 273 (mL) Patient Weight 02/24/18 23:59 Weight 97.1 kg - General Appearance General appearance: Present: chronically ill (NAD) EENT: Present: ATNC, mucous membranes moist Neck: Present: no JVD, supple Respiratory: Present: clear (ant bilat) Cardiology: Present: edema (R BKA), normal S1, normal S2 Dialysis Vascular Access: Arteriovenous Fistula thrill: Yes bruit: Yes Additional Comments: edema present Gastrointestinal: Present: no tenderness, no guarding, obese Integumentary: Present: warm and dry Neurologic: Present: no focal deficit Musculoskeletal: Present: deformities (everal finger amputations) Psychiatric: Present: mood/affect appropriate, cooperative - Lab 02/25/18 07:51 02/25/18 07:51 Most recent lab results Calcium 8.7 mg/dL (8.6-10.3) 02/24/18 06:03 Magnesium 2.1 mg/dL (1.6-2.6) 02/23/18 04:36 Consult Discharge Plan - Plan Referrals: Angela Truong MD [Primary Care Provider] -
[2018-02-24] MEDS: Aspirin Enteric Coated 81 MG Tablet PO SCH (13:03)
--- NOTE | 2018-02-24 13:31 | Cardiology Progress Note ---
Date of Encounter: 02/24/18 Time of Encounter: 12:00 Assessment and Plan (1) Chest pain Current Visit: Yes Status: Acute Per cardiology: -Reported chest pain with position change and deep inspiration. -Denies current chest pain. -ECG with SR, RBBB. -Troponins negative x3. -Stress test with small area of ischemia. ' -On ASA, statin, BB. -TTE pending. -Recommend LHC due to abnormal stress test. -Discussed with patient regarding nephrology's recommendation to proceed with LHC due to HD most likely permanent. However, patient prefers to follow as outpatient and then decide about LHC. -Discussed with , if no significant findings on TTE ok to follow up as outpatient. If no significant findings on TTE cardiology will sign off and will arrange outpatient follow up. Qualifiers: Chest pain type: chest pain due to myocardial ischemia Ischemic chest pain type: unstable angina pectoris Qualified Code(s): I20.0 - Unstable angina (2) Abnormal stress test Current Visit: Yes Status: Acute Per cardiology: -Stress test with small, moderate intensity apical, lateral perfusion defect, representing ischemia -See plan as above. Discussion w patient/family: The assessment and plan as outlined above was discussed with the patient who expressed understanding and agreement. All questions were answered. Thank you for involving us in the care of your patient. Please call with any questions. Discussed and reviewed with . Subjective Principal diagnosis: volume overload Interval history: Patient denies chest pain today. Objective Vital Signs, Last 4 Hours Temp Pulse Resp BP Pulse Ox 02/24/18 12:24 16 100 02/24/18 11:20 98.2 F 92 18 152/81 100 General: Conversant, No Apparent Distress HEENT: Atraumatic, Normocephaly, Mucus Membranes Moist Neck: No JVD, Normal carotid pulses Cardiac: Reg Rate and Rhythm, Normal S1 and S2, No Murmur Lungs: Normal Breath Sounds, No Wheeze, Rales, Rhonchi Neuro: Alert and responsive, No focal deficits noted Abdomen: Soft, Non-Tender Skin: No rashes noted on visualized skin Musculoskeletal: No Chest Wall Tenderness Extremities: No Clubbing, No Cyanosis, No Edema, Normal Pulses, Other (Right BKA. Multiple finger amputations. ) Results 02/24/18 04:56 02/24/18 06:03 Lab Results Impressions AV Shunt Angiogram 02/23/18 00:00 IMPRESSION: Juxta anastomotic venous stenosis within the left upper extremity forearm fistula, status post angioplasty with improved exam and flow. D/ / Jerald Lilly MD / Jerald Lilly MD Interpreting Provider: Jerald Lilly MD Guidance Needle Placement Ultrasound 02/23/18 00:00 IMPRESSION: Juxta anastomotic venous stenosis within the left upper extremity forearm fistula, status post angioplasty with improved exam and flow. D/ / Jerald Lilly MD / Jerald Lilly MD Interpreting Provider: Jerald Lilly MD Permanent Dialysis Access 02/23/18 00:00 IMPRESSION: Juxta anastomotic venous stenosis within the left upper extremity forearm fistula, status post angioplasty with improved exam and flow. D/ / Jerald Lilly MD / Jerald Lilly MD Interpreting Provider: Jerald Lilly MD Active Medications Acetaminophen (Tylenol) 650 mg PO Q6HR PRN PRN Reason: Mild Pain/Fever Stop: 08/24/18 09:00 Hydrocodone Bitart/Acetaminophen (Barker 5-325 Mg) 1 tab PO Q6HR PRN PRN Reason: Moderate Pain Stop: 08/24/18 09:00 Last Admin: 02/24/18 13:03 Dose: 1 tab Albuterol Sulfate (Albuterol Inhaler) 2 puff IH Q4HR SHAKILA Stop: 08/24/18 16:01 Last Admin: 02/23/18 07:37 Dose: Not Given Albuterol/Ipratropium (Duoneb) 3 ml IH [id number] SHAKILA Stop: 08/24/18 12:01 Last Admin: 02/24/18 12:24 Dose: 3 ml Aspirin (Aspirin Ec) 81 mg PO DAILY SHAKILA Stop: 08/26/18 09:31 Last Admin: 02/24/18 13:03 Dose: 81 mg Atorvastatin Calcium (Lipitor) 40 mg PO HS SHAKILA Stop: 08/24/18 21:01 Last Admin: 02/23/18 21:12 Dose: 40 mg Beclomethasone Dipropionate (Qvar 80 Mcg) 2 puff IH BIDR SHAKILA PRN Reason: Protocol Stop: 08/24/18 21:01 Last Admin: 02/24/18 07:34 Dose: 2 puff Clonidine HCl (Clonidine Hcl) 0.2 mg PO QPM SHAKILA Stop: 08/24/18 18:01 Last Admin: 02/23/18 18:35 Dose: 0.2 mg Dextrose/Water (Dextrose 50% (Syg)) 25 ml IVP AD PRN PRN Reason: Hypoglycemia Stop: 08/24/18 11:41 Docusate Sodium (Colace) 100 mg PO BID PRN PRN Reason: Constipation Stop: 08/24/18 09:01 Last Admin: 02/24/18 08:15 Dose: 100 mg Ergocalciferol (Drisdol (50,000 Unit)) 50,000 unit PO TU [facility] Stop: 08/29/18 11:42 Glucagon (Glucagen) 1 mg IM ONCE PRN PRN Reason: Hypoglycemia Stop: 08/24/18 11:41 Glucose (Gluctose) 15 gm PO ONCE PRN PRN Reason: Hypoglycemia Stop: 08/24/18 11:41 Glucose (Gluctose) 30 gm PO ONCE PRN PRN Reason: Hypoglycemia Stop: 08/24/18 11:41 Heparin Sodium (Porcine) (Heparin) 5,000 unit SQ Q12HR SHAKILA Stop: 08/24/18 18:01 Last Admin: 02/24/18 05:46 Dose: 5,000 unit Dextrose (Dextrose 5%) 1,000 mls @ 100 mls/hr IVC .Q10H PRN PRN Reason: HYPOGLYCEMIA Stop: 08/24/18 11:41 Sodium Chloride (0.9 % Sodium Chloride) 250 mls @ 937.5 mls/hr IVC .Q16M PRN PRN Reason: Hypotension Stop: 08/25/18 09:47 Sodium Chloride (0.9 % Sodium Chloride) 1,000 mls @ 0 mls/hr PRIME .Q0M SHAKILA PRN Reason: As Directed Stop: 08/25/18 10:01 Insulin Detemir (Levemir) 40 unit SQ BID [facility] Stop: 08/24/18 21:01 Last Admin: 02/24/18 08:20 Dose: 40 unit Insulin Human Lispro (Humalog) 15 units SQ TIDWM [facility] Stop: 08/24/18 12:01 Last Admin: 02/24/18 13:04 Dose: 15 units Insulin Human Lispro (Humalog) 0 units SQ HS [facility] PRN Reason: Protocol Stop: 08/24/18 21:01 Last Admin: 02/23/18 21:12 Dose: 7 unit Insulin Human Lispro (Humalog) 0 units SQ TIDAC [facility] PRN Reason: Protocol Stop: 08/24/18 16:31 Last Admin: 02/24/18 13:06 Dose: 12 units Metoprolol Tartrate (Lopressor) 12.5 mg PO BID [facility] Stop: 08/26/18 09:31 Last Admin: 02/24/18 13:03 Dose: 12.5 mg Naloxone HCl (Narcan) 0.4 mg IVP Q2MIN PRN PRN Reason: SEE COMMENTS Stop: 08/24/18 09:00 Nicotine (Nicoderm) 21 mg TD DAILY [facility] PRN Reason: Protocol Stop: 08/24/18 12:31 Last Admin: 02/24/18 08:16 Dose: Not Given Nitroglycerin (Nitroglycerin) 0.4 mg SL Q5MIN PRN PRN Reason: Chest Pain Stop: 08/24/18 07:24 Last Admin: 02/22/18 07:41 Dose: 0.4 mg Omeprazole (Prilosec) 20 mg PO DAILY [facility] Stop: 08/25/18 09:01 Last Admin: 02/24/18 08:15 Dose: 20 mg Ondansetron HCl (Zofran) 4 mg IVP Q8HR PRN PRN Reason: Nausea And Vomiting Stop: 08/24/18 09:00 Pregabalin (Lyrica) 100 mg PO TID [facility] Stop: 08/24/18 15:01 Last Admin: 02/24/18 08:15 Dose: 100 mg Promethazine HCl (Phenergan) 12.5 mg IVP Q6HR PRN PRN Reason: Nausea And Vomiting Stop: 08/24/18 09:00 Sevelamer HCl (Renvela) 800 mg PO TIDWM SHAKILA Stop: 08/24/18 12:01 Last Admin: 02/24/18 13:03 Dose: 800 mg Sodium Bicarbonate (Sodium Bicarbonate) 325 mg PO QID SHAKILA Stop: 08/24/18 13:01 Last Admin: 02/24/18 13:03 Dose: 325 mg Tramadol HCl (Ultram) 100 mg PO QID PRN PRN Reason: Pain Stop: 02/26/18 22:14 Last Admin: 02/24/18 08:15 Dose: 100 mg Laboratory Tests 02/22/18 02/22/18 02/22/18 07:33 13:16 19:33 WBC Hgb Potassium Creatinine Troponin I 0.03 < 0.03 < 0.03 02/24/18 02/24/18 04:56 06:03 WBC 12.7 H Hgb 9.3 L Potassium 5.3 H Creatinine 5.98 H Troponin I - Imaging and Cardiology Chest Xray: report reviewed Stress Test: report reviewed Echo: pending - EKG Interpretation EKG results cardiology: other (Telemetry reviewed with average HR previous 12 hours noted to be 91, SR. PVC and PACs noted.) Consult Discharge Plan - Plan Referrals: Angela Truong MD [Primary Care Provider] -
[2018-02-24] MEDS: cloNIDine HCl 0.1 MG TABLET PO SCH (17:25)
[2018-02-24] MEDS: Artificial Tears SOLN 15 ML BOTTLE BOTH EYES PRN (23:55)
[2018-02-25] MEDS: Ipratropium/Albuterol Neb 3 ML IH SCH ×7 (00:31→23:11)
[2018-02-25] MEDS: *HR* Heparin 5,000 UNIT/ML VIAL SQ SCH ×2 (06:32→18:28)
[2018-02-25] MEDS: Artificial Tears SOLN 15 ML BOTTLE BOTH EYES PRN ×2 (06:36→21:15)
[2018-02-25] MEDS: Beclomethasone 80mcg MDI IH SCH ×2 (07:40→19:59)
[2018-02-25 08:24] LABS: Eosinophils % 0.7 %; Hematocrit 31.1 % (35.3-44.9); Hemoglobin 9.8 g/dL (11.5-15.4); Immature Granulocytes % 0.8 % (0-4); Lymphocytes % 13.6 %; Mean Corpuscular HGB Conc 31.5 g/dL (31.6-35.5); Mean Corpuscular Hemoglobin 27.8 pg (28.0-33.3); Mean Corpuscular Volume 88.1 fL (83.0-100.0); Mean Platelet Volume 11.8 fL (9.4-12.4); Monocytes % 6.7 %; Platelet Count 219 K/mcL (140-400); Red Blood Count 3.53 M/mcL (3.82-4.97); Red Cell Distribution Width 16.4 % (11.5-14.5)
[2018-02-25 08:25] LABS: Basophils % 0.2 %; Eosinophils # 0.1 K/mcL (0.0-0.6); Lymphocytes # 1.5 K/mcL (0.6-4.6); Monocytes # 0.8 K/mcL (0.0-1.3); Neutrophils # 8.8 K/mcL (1.6-8.9)
[2018-02-25 08:34] LABS: Calcium 8.7 mg/dL (8.6-10.3); Potassium 4.7 mEq/L (3.5-5.1)
[2018-02-25] MEDS: traMADol 50 MG TABLET PO PRN ×3 (08:40→21:13)
[2018-02-25] MEDS: Aspirin Enteric Coated 81 MG Tablet PO SCH (08:41)
[2018-02-25] MEDS: Nicotine 21 MG PATCH.TD24 TD SCH (08:42)
[2018-02-25] MEDS: Insulin LISPRO 300 UNITS/3 ML VIAL SQ SCH ×7 (08:42→21:15)
[2018-02-25] MEDS: Insulin DETEMIR 100 UNIT/ML X5UNITS SQ SCH ×2 (08:54→21:14)
[2018-02-25] MEDS: Pregabalin 50 MG CAPSULE PO SCH ×3 (08:54→21:13)
--- NOTE | 2018-02-25 11:47 | Nephrology Progress Note ---
Date of Encounter: 02/25/18 Time of Encounter: 12:00 - Assessment and Plan (1) CKD (chronic kidney disease) stage 5, GFR less than 15 ml/min Current Visit: Yes Status: Acute New ESRD, but has not received one adequate HD session due to cannulation and pressure issues even after successful fistulogram with angioplasty. Suspect AVF simply did not develop adequately yet, will hold off today and re-try on monday but if not successful, will place permcath and consult her vascular surgeon, Dr Antoine for possible surgical intervention if needed. UOP great at 1000cc in the past 24hrs and today which helps to avoid any further volume overload. Will still need outpatient HD placement next week Potassium normalized, Coninue renal diet (2) Chest pain Current Visit: Yes Status: Acute Per cardiology but recommend to proceed with LHC as pt will need buttermaker HD at this time and cardiac risk is great. Will discuss with patient and cardio team Will still need prophylasix to protect residual renal function with HD done after LHC for clearance Qualifiers: Chest pain type: chest pain due to myocardial ischemia Ischemic chest pain type: unstable angina pectoris Qualified Code(s): I20.0 - Unstable angina (3) Volume overload Current Visit: Yes Status: Acute Await HD when able to cannulate and/or place permcath Fluid restriction advised UOpPnoted at 2800cc in the past 24hrs which is great Qualifiers: Hypervolemia type: other Qualified Code(s): E87.79 - Other fluid overload (4) Dialysis AV fistula malfunction Current Visit: Yes Status: Acute As above Qualifiers: Encounter type: initial encounter Qualified Code(s): T82.590A - Other mechanical complication of surgically created arteriovenous fistula, initial encounter Subjective Principal diagnosis: volume overload Interval history: Pt seen and examined Objective - Vital Signs Vital signs: Vital Signs Temp Pulse Resp BP Pulse Ox 02/25/18 10:21 97.8 F 102 22 152/89 98 02/25/18 09:19 96 02/25/18 07:40 24 99 02/25/18 07:01 98.3 F 85 18 155/84 97 02/25/18 04:03 98.1 F 86 18 141/84 97 02/25/18 00:32 18 97 02/24/18 20:55 90 18 150/84 96 02/24/18 19:44 18 98 02/24/18 15:29 98 F 90 18 154/85 99 02/24/18 15:26 16 98 02/24/18 12:24 16 100 Intake and Output 02/24/18 02/25/18 02/25/18 23:59 07:59 15:59 Intake Total 390 / 390 655 / 655 120 / 120 Output Total 800 / 800 0 / 0 0 / 0 Balance -410 / -410 655 / 655 120 / 120 Intake: Oral 390 / 390 655 / 655 120 / 120 Output: Urine 800 / 800 0 / 0 0 / 0 Other: Meal Dinner Breakfast Percent of Meal Consumed 85% 100% # Voids 0 0 Weight 100.2 kg Blood Glucose* 288 248 235 - Lab 02/25/18 07:51 02/25/18 07:51 Most recent lab results Calcium 8.7 mg/dL (8.6-10.3) 02/25/18 07:51 Magnesium 2.1 mg/dL (1.6-2.6) 02/23/18 04:36 Consult Discharge Plan - Plan Referrals: Angela Truong MD [Primary Care Provider] -
--- NOTE | 2018-02-25 11:56 | Internal Med Progress Note ---
<Wilder Bender - Last Filed: 02/25/18 13:59> Date of Encounter: 02/25/18 Time of Encounter: 11:56 - Assessment and plan (1) Chest pain Current Visit: Yes Status: Acute Assessment and plan: Complaint of chest pain without radiation. No chest pain overnight. Wokeup this morning and had constant heavy substernal chest pressure. Repeat CXR 02/25/18 revealed worsening pulmonary edema and bilateral effusions. Suspect this is the cause of this episode of chest pain. Will lightly diuresis with 20mg lasix, if tolerates then a second 20mg IV lasix tonight. EKG with nonspecific ST changes, no ST elevations. Repeat EKG without new changes. Heparin drip not needed. Stress Test revealed: pharmacologic stress ekg was non-diagnostic for ischemia due to submaximal hr. EF 66%. Small sized, moderate intensity, reversible apical lateral defect consistent with ischemia. Cardio on board, continue following recommendations. Echo: EF 60%, indeterminate diastolic dysfunctioin, mild aortic stenosis, mitral valve not well visualized, severe dense mitral annular calcification with mobility with the valve, possible moderate mitral stenosis, mild tricuspid regurg, mild pulm htn. Cardiology recommended LHC, however, with risk of worsening renal function due to contrast media, the patient declined LHC at this time and prefers medical management. Echo completed, will follow up with Cardio as outpatient to decide LHC per patient's decision. Nephrology will hold off on dialysis till Monday for reattempt. -Continue with aspirin -Continue with nitro as needed -Lipitor 40mg qd -Continue with tele. -Continue metoprolol, increased to 25 bid due to consistently elevated bp. Qualifiers: Chest pain type: chest pain due to myocardial ischemia Ischemic chest pain type: unstable angina pectoris Qualified Code(s): I20.0 - Unstable angina (2) Acute and chronic respiratory failure with hypoxia Current Visit: Yes Status: Acute Assessment and plan: Acute on chronic respiratory failure secondary to COPD and Volume overload. Presented with complaint of dyspnea and chest discomfort. Patient has had to use 5L nasal cannula rather than her usual 2-3 L. CXR revealed mild pulmonary edema, and left base opacity Repeat CXR 02/25/18 revealed worsening pulmonary edema and bilateral effusions. -1340mL past 24 hours Continue with one time lasix 20mg IV, reassess Consider second 20mg IV dose of lasix if renal function tolerates and improvement in symptoms. Dialysis as scheduled. (3) Volume overload Current Visit: Yes Status: Acute Assessment and plan: CXR with pulmonary edema and pleural effusions likely due to volume overload. Continue with lasix and dialysis scheduled. -1340mL past 24 hours Nephrology on board for dialysis. Unable to obtain access at dialysis through AV fistula, will attempt tomorrow. Na 136, K 4.7, Cr 6.00 Qualifiers: Hypervolemia type: other Qualified Code(s): E87.79 - Other fluid overload (4) Left leg cellulitis Current Visit: Yes Status: Resolved Assessment and plan: Mild left leg cellulitis, no current erythema, improved. Previously MRSA positive. Contact precautions -Received one dose Levofloxacin, due to renal function dosing is q48-72h. -May consider Vancomycin if appears to worsen. If administering, give after dialysis. Currently no vancomycin ordered. (5) CKD (chronic kidney disease) stage 5, GFR less than 15 ml/min Current Visit: Yes Status: Acute Assessment and plan: Known history of CKD stage 5, see plan in assessments above. (6) COPD (chronic obstructive pulmonary disease) Current Visit: Yes Status: Acute Assessment and plan: Know history of COPD Worsening shortness of breath may be secondary mild COPD exacerbation vs fluid overload Continue with Duonebs Continue with inhaled steroid Baseline 2-3L oxygen at home. Qualifiers: COPD type: COPD with acute exacerbation Qualified Code(s): J44.1 - Chronic obstructive pulmonary disease with (acute) exacerbation (7) Anemia in CKD (chronic kidney disease) Current Visit: No Status: Chronic Assessment and plan: Hb 9.8 Qualifiers: Chronic kidney disease stage: stage 5, not on chronic dialysis Qualified Code(s): N18.5 - Chronic kidney disease, stage 5; D63.1 - Anemia in chronic kidney disease; Z99.2 - Dependence on renal dialysis (8) Diabetes Current Visit: No Status: Chronic Assessment and plan: Glucose markedly elevated today but she did receive some steroids. Insulin sliding scale and Detemir 45 units bid. Glucose 225 this morning. Qualifiers: Diabetes mellitus type: type 2 Diabetes mellitus alf insulin use: with joint terminal attack controller use Diabetes mellitus complication status: with hyperglycemia Qualified Code(s): E11.65 - Type 2 diabetes mellitus with hyperglycemia; Z79.4 - FDC (current) use of insulin (9) Tobacco abuse Current Visit: No Status: Chronic Assessment and plan: Counseled to quit smoking Nicotine patch available. (10) Acute renal failure Current Visit: Yes Status: Acute Assessment and plan: Acute on CKD stage 5, on dialysis. Nephrology on board for dialysis. Will hold off until monday and reattempt. Qualifiers: Acute renal failure type: unspecified Qualified Code(s): N17.9 - Acute kidney failure, unspecified - Time Spent With Patient Total time spent is greater than 50% in coordination of care (as documented) at patient's floor/unit and/or counseling patient: - Subjective Interval history: Patient reports she has been having chest pain, substernal and heavy, all morning since waking up. Patient reports she is a little short of breath due to this and taking a deep breath tends to worsen it. Patient has not had dialysis since admission because of problems accessing her left forearm fistula. Denies fevers, chills, sweats, nausea, vomiting, abdominal pain, changes in bowels or bladder, or weakness. - Constitutional Vitals: Temp Pulse Resp BP Pulse Ox 97.8 F 102 22 152/89 98 02/25/18 10:21 02/25/18 10:21 02/25/18 10:21 02/25/18 10:21 02/25/18 10:21 General appearance: Present: A&O X 3, pleasant, no acute distress, obese, answers questions appropriately - Head Head exam: Present: atraumatic, normal inspection, normocephalic - Eye Eye exam: Present: EOMI, normal appearance - ENT ENT exam: Present: mucous membranes moist, normal exam - Neck Neck exam general surgery: Present: full ROM, normal inspection, supple, trachea midline - Respiratory Respiratory exam: Present: rales, rhonchi. Absent: respiratory distress - Cardiovascular Cardiovascular exam: Present: RRR, +S1, +S2 - GI/Abdominal GI/Abdominal exam: Present: normal bowel sounds, soft. Absent: distended, tenderness - Extremities Exam Extremities exam: Present: full ROM, warm, radial pulses palpable and symmetrical Additional comments: 1+ pitting edema bilateral lower extremities, left AKA, multiple healing areas over bilateral lower extremities without drainage or infection. Leg erythema resolved. Multiple distal digits amputated. Left forearm AV fistula. - Skin Skin exam: Present: dry, intact, normal color, warm. Absent: erythema, rash Internal Medicine: Result - Labs CBC & Chem 7: 02/25/18 07:51 02/25/18 07:51 Labs: Short CBC 02/25/18 Range/Units 07:51 WBC 11.3 H (4.3-11.1) K/mcL Hgb 9.8 L (11.5-15.4) g/dL Hct 31.1 L (35.3-44.9) % Plt Count 219 (140-400) K/mcL Neutrophils # 8.8 (1.6-8.9) K/mcL BMP 02/25/18 07:51 Sodium 136 Potassium 4.7 Chloride 105 Carbon Dioxide 19 L BUN 84 H Creatinine 6.00 H Glucose 225 H Calcium 8.7 - ABG Interpretation ABG results: PT/INR, D-dimer PT 11.6 Seconds (9.4-12.1) 02/22/18 15:10 Consult Discharge Plan - Plan Referrals: Angela Truong MD [Primary Care Provider] - <Giovanny Moran A - Last Filed: 02/25/18 16:51> Date of Encounter: 02/25/18 - Assessment and plan (1) Chest pain Current Visit: Yes Status: Acute Qualifiers: Chest pain type: chest pain due to myocardial ischemia Ischemic chest pain type: unstable angina pectoris Qualified Code(s): I20.0 - Unstable angina (2) Diabetes Current Visit: No Status: Chronic Qualifiers: Diabetes mellitus type: type 2 Diabetes mellitus joint terminal attack controller insulin use: with joint terminal attack controller use Diabetes mellitus complication status: with hyperglycemia Qualified Code(s): E11.65 - Type 2 diabetes mellitus with hyperglycemia; Z79.4 - termite helper (current) use of insulin (3) Tobacco abuse Current Visit: No Status: Chronic (4) Anemia in CKD (chronic kidney disease) Current Visit: No Status: Chronic Qualifiers: Chronic kidney disease stage: on chronic dialysis Qualified Code(s): N18.6 - End stage renal disease; D63.1 - Anemia in chronic kidney disease; Z99.2 - Dependence on renal dialysis (5) CKD (chronic kidney disease) stage 5, GFR less than 15 ml/min Current Visit: Yes Status: Acute (6) Volume overload Current Visit: Yes Status: Acute Qualifiers: Hypervolemia type: other Qualified Code(s): E87.79 - Other fluid overload (7) COPD (chronic obstructive pulmonary disease) Current Visit: Yes Status: Acute Qualifiers: COPD type: COPD with acute exacerbation Qualified Code(s): J44.1 - Chronic obstructive pulmonary disease with (acute) exacerbation (8) Acute and chronic respiratory failure with hypoxia Current Visit: Yes Status: Acute (9) Left leg cellulitis Current Visit: Yes Status: Resolved (10) Acute renal failure Current Visit: Yes Status: Acute Qualifiers: Acute renal failure type: unspecified Qualified Code(s): N17.9 - Acute kidney failure, unspecified - Time Spent With Patient Total time spent is greater than 50% in coordination of care (as documented) at patient's floor/unit and/or counseling patient: - Constitutional Vitals: Temp Pulse Resp BP Pulse Ox 97.5 F L 93 22 126/82 96 02/25/18 15:15 02/25/18 15:15 02/25/18 15:15 02/25/18 15:15 02/25/18 15:15 Internal Medicine: Result - Labs CBC & Chem 7: 02/25/18 07:51 02/25/18 07:51 Labs: Short CBC 02/25/18 Range/Units 07:51 WBC 11.3 H (4.3-11.1) K/mcL Hgb 9.8 L (11.5-15.4) g/dL Hct 31.1 L (35.3-44.9) % Plt Count 219 (140-400) K/mcL Neutrophils # 8.8 (1.6-8.9) K/mcL BMP 02/25/18 07:51 Sodium 136 Potassium 4.7 Chloride 105 Carbon Dioxide 19 L BUN 84 H Creatinine 6.00 H Glucose 225 H Calcium 8.7 Cardiac Enzymes 02/25/18 Range/Units 12:42 Troponin I < 0.03 (< 0.04) ng/mL - ABG Interpretation ABG results: PT/INR, D-dimer PT 11.6 Seconds (9.4-12.1) 02/22/18 15:10 - Impressions Impressions Echocardiogram 02/24/18 08:24 Impressions: LVEF 60%. Indeterminate diastolic function. Normal right ventricular structure and function. Mild aortic stenosis. Mitral valve and submitral valve apparatus not well visualized. There is severe dense mitral annular calcification that may extend into the valve area, appears to demonstrate mobility with valve excursion. Possible moderate mitral stenosis, MG 6 mmHg at 94 bpm. Normal PHT and MVA by PHT. Mild tricuspid regurgitation. Mild pulmonary hypertension. Recommend clinical correlation. Consider WILLIAM for better visualization if appropriate. Left Ventricular Wall Motion: Rest Echo Findings All wall segments showed normal motion. Findings: Study Quality * Technically challenging due to body habitus. ECG Findings * Normal sinus rhythm. Left Ventricle * LVEF 60%. * Normal LV chamber size, wall thickness and function. * Indeterminate diastolic function. Right Ventricle * Normal right ventricular structure and function. Left Atrium * Normal left atrial size. Right Atrium * Normal right atrial size. Aortic Valve * No aortic regurgitation. * Mild aortic stenosis. * Aortic valve not well visualized. Mitral Valve * No mitral regurgitation. * Mitral valve not well visualized. * Severe mitral annular calcification * Possible moderate mitral stenosis, MG 6 mmHg at 94 bpm. Normal PHT and MVA by PHT. Tricuspid Valve * Tricuspid valve not well visualized. * Mild tricuspid regurgitation. * Estimated RA pressure is 3 mmHg. * Estimated RVSP is 42 mmHg. * Mild pulmonary hypertension. Pulmonic Valve * Pulmonic valve is not well visualized. * No pulmonic stenosis. * No pulmonic regurgitation. Pulmonary Artery * Pulmonary artery not well visualized. Aorta * Not well visualized. Pericardium * There is no pericardial effusion present. Interatrial Septum * No evidence of PFO by color Doppler. IVC * Normal IVC dimensions and inspiratory collapse. Chest X-Ray 02/25/18 12:11 IMPRESSION: Interval worsening of pulmonary edema and bilateral effusions. D/ / Dean Haddad MD / Dean Haddad MD Interpreting Provider: Dean Haddad MD - Attending Attestation I examined this patient and my medical decision-making was reviewed with the Resident Physician on 02/25/18. I agree with the documented findings, disposition and treatment plan as described except to the extent set forth below. Ms Oseguera is currently in observation for chest pain and renal failure. She remains moderate to high risk. Ms Oseguera is having more chest heaviness. Started on topical nitro. No fever or chills. CXR shows more fluid. No GI issues. Exam alert Mild distress Mucus membranes dry Heart distant Lungs with rales Abd soft I/P 1. [place] 2. Pulmonary edema - trying lasix Further diagnoses and plan as above.
[2018-02-25] MEDS: *HR* HYDROcodone/Acet 5/325 mg TABLET PO PRN (12:04)
[2018-02-25] MEDS ORDERED: Nitroglycerin 1 INCH/GM PACKET TP STA (12:12)
[2018-02-25] MEDS ORDERED: Nitroglycerin 1 INCH/GM PACKET ONE (12:15)
--- NOTE | 2018-02-25 13:08 | Event Note ---
Date of Encounter: 02/25/18 Time of Encounter: 13:06 - Cardiology Event Note TTE with LVEF 60%. Indeterminate diastolic function. Mild aortic stenosis. Mitral valve and submitral valve apparatus not well visualized. There is severe dense mitral annular calcification that may extend into the valve area, appears to demonstrate mobility with valve excursion. Possible moderate mitral stenosis, MG 6 mmHg at 94 bpm. Normal PHT and MVA by PHT. Mild tricuspid regurgitation. Mild pulmonary hypertension. All wall segments showed normal motion. Discussed and reviewed TTE findings with who recommends outpatient follow up and possible WILLIAM and/or LHC. Cardiololgy will sign off. Will arrange outpatient follow up.
[2018-02-25] MEDS ORDERED: Furosemide 20 MG/2 ML VIAL IVP ONE ×2 (13:36→20:00)
--- NOTE | 2018-02-25 16:57 | Vascular/Endovasc Consult Note ---
Date of Encounter: 02/25/18 Time of Encounter: 16:15 Assessment and Plan (1) COPD (chronic obstructive pulmonary disease) Current Visit: Yes Status: Chronic The patient has chronic COPD and uses oxygen at home. Qualifiers: COPD type: COPD with acute exacerbation Qualified Code(s): J44.1 - Chronic obstructive pulmonary disease with (acute) exacerbation (2) Dialysis AV fistula malfunction Current Visit: Yes Status: Acute Patient has a patent AV fistula. She is now approximately 2 days status post balloon intervention of areas of stenosis of the forearm cephalic vein. Physical examination reveals no abnormalities. I would recommend another attempt at vascular access and if this is unsuccessful then placement of a permanent hemodialysis catheter will be necessary. Qualifiers: Encounter type: initial encounter Qualified Code(s): T82.590A - Other mechanical complication of surgically created arteriovenous fistula, initial encounter - History of Present Illness Consult date: 02/25/18 Requesting physician: Sienna Stephen Consult reason: Left AV fistula malfunction Chief complaint: Shortness of breath History of present illness: Ms. Oseguera is a 57 year old female Admitted in late January for severe shortness of breath. The patient was admitted for further evaluation and treatment. She was attempted to be initiated on dialysis therapy late last week. There was difficulty obtaining access. The patient eventually went on to have a fistulogram which demonstrated by report areas of stenoses. These were balloon angioplastied with a 6 mm diameter balloon. According to the information available the stenoses were resolved. There was no finding reported of central vein stenosis. However, following the angioplasty attempts at placing needles in the dialysis unit were still unsuccessful as the needles were placed and the pressure caused the needles to become dislodged. The patient has no complaints to suggest venous hypertension. She denied any chronic swelling or pain in the left upper extremity prior to the attempt at vascular access or the fistulogram. She has had some swelling of the forearm after that manipulation. The patient has multiple chronic ongoing medical concerns including severe diabetes and cardiac disease and COPD. She is status post multiple finger amputations and lower extremity amputation. The left AV fistula was created approximately 22 years ago and is a arterial venous fistula of the radial artery to the cephalic vein. Past Med Surg Social Fam HX - Past Medical History Medical history: asthma, diabetes, GERD, hyperlipidemia, renal disease Additional medical history: chronic back pain. neuropathy Psychiatric history: no psych history, other - Past Surgical History Surgical History: , cholecystectomy, orthopedic, other, other Additional surgical history: aputation to r leg. mass removed from ovaries. bilateral oophrectomy - Social History Smoking Status: Current every day smoker Smokeless Tobacco Status: No Alcohol use: none Drug use: none - Family History Father Living Status: Hx Family Cardiac Disorders: Yes Hx Family Cancer: Yes (pancreatic) Hx Family Endocrine Disorder: Yes Mother Living Status: Hx Family Cardiac Disorders: Yes Hx Family Endocrine Disorder: Yes Hx Family Neuromuscular Disorders: Yes (stroke) Hx Family Neurologic Disorders: Yes Medications and Allergies Albuterol Sulfate [Proair Hfa] 2 puff IH Q4H PRN 05/20/15 [History] Atorvastatin [Lipitor] 40 mg PO HS 05/20/15 [History] Insulin Glargine,Hum.rec.anlog [Lantus Solostar] 90 units SQ QPM 05/20/15 [ History] Sodium Bicarbonate 325 mg PO QID 05/20/15 [History] Docusate [Colace] 100 mg PO QID PRN 11/09/15 [History] Omeprazole [PriLOSEC] 20 mg PO DAILY 04/28/16 [History] Beclomethasone Diprop 80mcg [QVAR 80 mcg] 2 puff IH BID 07/13/16 [History] cloNIDine HCl [Clonidine HCl] 0.2 mg PO QPM 02/07/17 [History] Pregabalin [Lyrica] 100 mg PO TID #120 capsule 02/13/17 [Rx] Sevelamer [Renvela] 800 mg PO TIDWM #90 tablet 02/13/17 [Rx] Acetaminophen [Tylenol] 650 mg PO DAILY PRN 02/22/18 [History] Ergocalciferol (VITAMIN D2) [Vitamin D2] 50,000 unit PO TU 02/22/18 [History] Furosemide [Lasix] 40 mg PO BID 02/22/18 [History] Insulin ASPART [Novolog] 18 - 22 unit SQ TIDWM 02/22/18 [History] Tramadol HCl [Ultram] 100 mg PO QID PRN 02/22/18 [History] 3 Allergy/AdvReac Type Severity Reaction Status Date / Time iodine Allergy See Verified 02/22/18 09:06 Comments latex Allergy See Verified 02/22/18 09:06 Comments povidone-iodine Allergy See Verified 02/22/18 09:06 [From Betadine] Comments soap [From Betadine] Allergy See Verified 02/22/18 09:06 Comments trimethoprim [From Bactrim] Allergy Difficulty Verified 02/22/18 09:06 Breathing Benzonatate AdvReac Blurry Verified 02/22/18 09:06 Vision sulfacetamide AdvReac Palpitation Verified 02/22/18 09:06 s sulfamethoxazole AdvReac Palpitation Verified 02/22/18 09:06 s terbinafine [From Lamisil] AdvReac Itching Verified 02/22/18 09:06 shrimp AdvReac Vomiting Uncoded 02/22/18 09:06 All Systems Review: The remainder of the systems were reviewed and are negative Exam Vital Signs, Last 4 Hours Temp Pulse Resp BP Pulse Ox 02/25/18 15:15 97.5 F L 93 22 126/82 96 General: Present: Conversant, No Apparent Distress HEENT: Present: Atraumatic Neck: Absent: JVD Cardiac: Present: Reg Rate and Rhythm Lungs: Present: Normal Breath Sounds Neuro: Present: Alert and responsive Vascular: Present: Pulse, normal, Other (Patient has an easily palpable thrill over the left forearm AV fistula. There is a bruit present over the forearm and upper arm and shoulder regions of the cephalic vein. There is no finding of distended veins around the shoulder or chest. There is no edema of the left upper extremity.) Skin: Present: No rashes noted on visualized skin Consult Discharge Plan - Plan Referrals: Angela Truong MD [Primary Care Provider] -
[2018-02-25] MEDS: cloNIDine HCl 0.1 MG TABLET PO SCH (18:27)
[2018-02-25] MEDS: Nitroglycerin 1 INCH/GM PACKET TP SCH (18:31)
[2018-02-26] MEDS: Ipratropium/Albuterol Neb 3 ML IH SCH ×6 (03:28→23:29)
[2018-02-26 05:12] LABS: Basophils % 0.2 %; Eosinophils # 0.2 K/mcL (0.0-0.6); Eosinophils % 1.9 %; Hematocrit 33.8 % (35.3-44.9); Hemoglobin 10.6 g/dL (11.5-15.4); Immature Granulocytes % 0.6 % (0-4); Lymphocytes # 1.9 K/mcL (0.6-4.6); Lymphocytes % 14.8 %; Mean Corpuscular HGB Conc 31.4 g/dL (31.6-35.5); Mean Corpuscular Hemoglobin 27.7 pg (28.0-33.3); Mean Corpuscular Volume 88.5 fL (83.0-100.0); Mean Platelet Volume 11.8 fL (9.4-12.4); Monocytes # 0.9 K/mcL (0.0-1.3); Monocytes % 7.1 %; Neutrophils # 9.5 K/mcL (1.6-8.9); Nucleated Red Blood Cells 0.2 /100 WBC (0); Platelet Count 247 K/mcL (140-400); Red Blood Count 3.82 M/mcL (3.82-4.97); Red Cell Distribution Width 16.7 % (11.5-14.5); Segmented Neutrophils % 75.4 %
[2018-02-26] MEDS: *HR* Heparin 5,000 UNIT/ML VIAL SQ SCH ×2 (05:26→18:38)
[2018-02-26] MEDS: Nitroglycerin 1 INCH/GM PACKET TP SCH (05:27)
[2018-02-26 05:55] LABS: Calcium 8.8 mg/dL (8.6-10.3)
[2018-02-26] MEDS: Beclomethasone 80mcg MDI IH SCH ×2 (07:50→20:03)
[2018-02-26] MEDS ORDERED: 0.9 % Sodium Chloride 250 ML IVC PRN (09:02)
[2018-02-26] MEDS: Insulin LISPRO 300 UNITS/3 ML VIAL SQ SCH ×7 (09:22→21:26)
[2018-02-26] MEDS: Aspirin Enteric Coated 81 MG Tablet PO SCH (09:32)
[2018-02-26] MEDS: Pregabalin 50 MG CAPSULE PO SCH ×3 (09:32→21:27)
[2018-02-26] MEDS: Nicotine 21 MG PATCH.TD24 TD SCH (09:32)
[2018-02-26] MEDS: traMADol 50 MG TABLET PO PRN ×2 (09:34→17:03)
--- NOTE | 2018-02-26 10:25 | Internal Med Progress Note ---
<Sukhjinder Love - Last Filed: 02/26/18 14:43> Date of Encounter: 02/26/18 Time of Encounter: 09:05 - Assessment and plan (1) Chest pain Current Visit: Yes Status: Acute Assessment and plan: Complaint of chest pain without radiation. Notes it is better than at admission. Repeat CXR 02/25/18 revealed worsening pulmonary edema and bilateral effusions. EKG with nonspecific ST changes, no ST elevations. Repeat EKG without new changes. Symptoms likely 2/2 to fluid overload. Diuresed IV lasix yesterday. Plan for hemodialysis today. Heparin drip not needed. Stress Test revealed: pharmacologic stress ekg was non-diagnostic for ischemia due to submaximal hr. EF 66%. Small sized, moderate intensity, reversible apical lateral defect consistent with ischemia. Cardio on board, continue following recommendations. Echo: EF 60%, indeterminate diastolic dysfunctioin, mild aortic stenosis, mitral valve not well visualized, severe dense mitral annular calcification with mobility with the valve, possible moderate mitral stenosis, mild tricuspid regurg, mild pulm htn. Cardiology recommended LHC, initially patient declined. Per nursing, once patient talked to nephrology about needing HD, she was also open to completing LHC. Plan for consecutive HD treatments with plan to complete LHC later this week. Continue aspirin, nitro as needed, statin (Lipitor 40mg daily), beta linsey ( metoprolol 25mg bid). Qualifiers: Chest pain type: chest pain due to myocardial ischemia Ischemic chest pain type: unstable angina pectoris Qualified Code(s): I20.0 - Unstable angina (2) Acute and chronic respiratory failure with hypoxia Current Visit: Yes Status: Acute Assessment and plan: Acute on chronic respiratory failure secondary to COPD and Volume overload. Presented with complaint of dyspnea and chest discomfort. Patient had to use 5L nasal cannula rather than her usual 2-3 L. CXR revealed mild pulmonary edema, and left base opacity Repeat CXR 02/25/18 revealed worsening pulmonary edema and bilateral effusions. IV lasix given yesterday. Dialysis scheduled today. (3) Diabetes Current Visit: No Status: Chronic Assessment and plan: Glucose markedly elevated, of note she did receive some steroids. Insulin sliding scale and Detemir 45 units bid. Glucose 159 this morning. Qualifiers: Diabetes mellitus type: type 2 Diabetes mellitus correction insulin use: with correction use Diabetes mellitus complication status: with hyperglycemia Qualified Code(s): E11.65 - Type 2 diabetes mellitus with hyperglycemia; Z79.4 - group home (current) use of insulin (4) Tobacco abuse Current Visit: No Status: Chronic Assessment and plan: Counseled to quit smoking Nicotine patch available. (5) Anemia in CKD (chronic kidney disease) Current Visit: No Status: Chronic Assessment and plan: Hb 10.6 Qualifiers: Chronic kidney disease stage: on chronic dialysis Qualified Code(s): N18.6 - End stage renal disease; D63.1 - Anemia in chronic kidney disease; Z99.2 - Dependence on renal dialysis (6) CKD (chronic kidney disease) stage 5, GFR less than 15 ml/min Current Visit: Yes Status: Acute Assessment and plan: Known history of CKD stage 5, see plan in assessments above. (7) Volume overload Current Visit: Yes Status: Acute Assessment and plan: CXR with pulmonary edema and pleural effusions likely due to volume overload. Continue with lasix and dialysis scheduled. Nephrology on board for dialysis. See complete plan as above. Qualifiers: Hypervolemia type: other Qualified Code(s): E87.79 - Other fluid overload (8) COPD (chronic obstructive pulmonary disease) Current Visit: Yes Status: Chronic Assessment and plan: Know history of COPD Worsening shortness of breath may be secondary mild COPD exacerbation vs fluid overload Continue with Duonebs Continue with inhaled steroid Baseline 2-3L oxygen at home. Qualifiers: COPD type: COPD with acute exacerbation Qualified Code(s): J44.1 - Chronic obstructive pulmonary disease with (acute) exacerbation (9) Left leg cellulitis Current Visit: Yes Status: Resolved Assessment and plan: Mild left leg cellulitis, no current erythema, improved. Previously MRSA positive. -Received one dose Levofloxacin (10) Acute renal failure Current Visit: Yes Status: Acute Assessment and plan: Acute on CKD stage 5, on dialysis. Nephrology on board for dialysis. Qualifiers: Acute renal failure type: unspecified Qualified Code(s): N17.9 - Acute kidney failure, unspecified - Time Spent With Patient Total time spent is greater than 50% in coordination of care (as documented) at patient's floor/unit and/or counseling patient: - Subjective Interval history: Patient notes continued chest pressure, "like a balloon" blown up in the chest and squeezing sensation in the neck. Patient notes breathing overall may be slightly improved. Potassium elevated today at 6, plan is for dialysis today ( either by fistula or by catheter placement). Currently on 4L via nasal cannula. - Constitutional Vitals: Temp Pulse Resp BP Pulse Ox 97.9 F 87 22 113/80 91 02/26/18 06:45 02/26/18 06:45 02/26/18 06:45 02/26/18 06:45 02/26/18 06:45 General appearance: Present: cooperative, A&O X 3, pleasant, no acute distress, obese, answers questions appropriately - Head Head exam: Present: normal inspection, normocephalic - Eye Eye exam: Present: EOMI, normal appearance, sclera anicteric - ENT ENT exam: Present: mucous membranes moist - Neck Neck exam general surgery: Present: full ROM, normal inspection, supple - Respiratory Respiratory exam: Present: decreased breath sounds. Absent: respiratory distress - Cardiovascular Cardiovascular exam: Present: RRR, +S1, +S2 - GI/Abdominal GI/Abdominal exam: Present: normal bowel sounds, soft. Absent: guarding, tenderness - Extremities Exam Extremities exam: Present: full ROM, warm. Absent: tenderness Additional comments: 1+ pitting edema bilateral lower extremities, left AKA. - Neurological Exam Neurological exam: Present: alert, no focal deficits. Absent: facial droop, speech deficit - Skin Skin exam: Present: dry, intact, warm. Absent: rash Internal Medicine: Result - Labs CBC & Chem 7: 02/26/18 04:28 02/26/18 04:28 Labs: Short CBC 02/26/18 Range/Units 04:28 WBC 12.6 H (4.3-11.1) K/mcL Hgb 10.6 L (11.5-15.4) g/dL Hct 33.8 L (35.3-44.9) % Plt Count 247 (140-400) K/mcL Neutrophils # 9.5 H (1.6-8.9) K/mcL BMP 02/26/18 04:28 Sodium 131 L Potassium 6.0 H D Chloride 100 Carbon Dioxide 17 L BUN 100 H Creatinine 6.77 H Glucose 184 H Calcium 8.8 Cardiac Enzymes 02/25/18 Range/Units 12:42 Troponin I < 0.03 (< 0.04) ng/mL - ABG Interpretation ABG results: PT/INR, D-dimer PT 11.6 Seconds (9.4-12.1) 02/22/18 15:10 - Impressions Impressions Echocardiogram 02/24/18 08:24 Impressions: LVEF 60%. Indeterminate diastolic function. Normal right ventricular structure and function. Mild aortic stenosis. Mitral valve and submitral valve apparatus not well visualized. There is severe dense mitral annular calcification that may extend into the valve area, appears to demonstrate mobility with valve excursion. Possible moderate mitral stenosis, MG 6 mmHg at 94 bpm. Normal PHT and MVA by PHT. Mild tricuspid regurgitation. Mild pulmonary hypertension. Recommend clinical correlation. Consider WILLIAM for better visualization if appropriate. Left Ventricular Wall Motion: Rest Echo Findings All wall segments showed normal motion. Findings: Study Quality * Technically challenging due to body habitus. ECG Findings * Normal sinus rhythm. Left Ventricle * LVEF 60%. * Normal LV chamber size, wall thickness and function. * Indeterminate diastolic function. Right Ventricle * Normal right ventricular structure and function. Left Atrium * Normal left atrial size. Right Atrium * Normal right atrial size. Aortic Valve * No aortic regurgitation. * Mild aortic stenosis. * Aortic valve not well visualized. Mitral Valve * No mitral regurgitation. * Mitral valve not well visualized. * Severe mitral annular calcification * Possible moderate mitral stenosis, MG 6 mmHg at 94 bpm. Normal PHT and MVA by PHT. Tricuspid Valve * Tricuspid valve not well visualized. * Mild tricuspid regurgitation. * Estimated RA pressure is 3 mmHg. * Estimated RVSP is 42 mmHg. * Mild pulmonary hypertension. Pulmonic Valve * Pulmonic valve is not well visualized. * No pulmonic stenosis. * No pulmonic regurgitation. Pulmonary Artery * Pulmonary artery not well visualized. Aorta * Not well visualized. Pericardium * There is no pericardial effusion present. Interatrial Septum * No evidence of PFO by color Doppler. IVC * Normal IVC dimensions and inspiratory collapse. Chest X-Ray 02/25/18 12:11 IMPRESSION: Interval worsening of pulmonary edema and bilateral effusions. D/ / Dean Haddad MD / Dean Haddad MD Interpreting Provider: Dean Haddad MD Consult Discharge Plan - Plan Referrals: Angela Truong MD [Primary Care Provider] - <Giovanny Moran - Last Filed: 02/26/18 18:05> Date of Encounter: 02/26/18 - Assessment and plan (1) Chest pain Current Visit: Yes Status: Acute Qualifiers: Chest pain type: chest pain due to myocardial ischemia Ischemic chest pain type: unstable angina pectoris Qualified Code(s): I20.0 - Unstable angina (2) Diabetes Current Visit: No Status: Chronic Qualifiers: Diabetes mellitus type: type 2 Diabetes mellitus correction insulin use: with correction use Diabetes mellitus complication status: with hyperglycemia Qualified Code(s): E11.65 - Type 2 diabetes mellitus with hyperglycemia; 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 of 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 (3) Tobacco abuse Current Visit: No Status: Chronic (4) Anemia in CKD (chronic kidney disease) Current Visit: No Status: Chronic Qualifiers: Chronic kidney disease stage: on chronic dialysis Qualified Code(s): N18.6 - End stage renal disease; D63.1 - Anemia in chronic kidney disease; Z99.2 - Dependence on renal dialysis (5) Volume overload Current Visit: Yes Status: Acute Qualifiers: Hypervolemia type: other Qualified Code(s): E87.79 - Other fluid overload (6) COPD (chronic obstructive pulmonary disease) Current Visit: Yes Status: Chronic Qualifiers: COPD type: COPD with acute exacerbation Qualified Code(s): J44.1 - Chronic obstructive pulmonary disease with (acute) exacerbation (7) Acute and chronic respiratory failure with hypoxia Current Visit: Yes Status: Acute (8) Left leg cellulitis Current Visit: Yes Status: Resolved (9) Acute renal failure Current Visit: Yes Status: Acute Qualifiers: Acute renal failure type: unspecified Qualified Code(s): N17.9 - Acute kidney failure, unspecified - Time Spent With Patient Total time spent is greater than 50% in coordination of care (as documented) at patient's floor/unit and/or counseling patient: - Constitutional Vitals: Temp Pulse Resp BP Pulse Ox 98.5 F 100 18 142/89 90 02/26/18 16:07 02/26/18 16:07 02/26/18 16:07 02/26/18 16:07 02/26/18 16:07 Internal Medicine: Result - Labs CBC & Chem 7: 02/26/18 04:28 02/26/18 04:28 Labs: Short CBC 02/26/18 Range/Units 04:28 WBC 12.6 H (4.3-11.1) K/mcL Hgb 10.6 L (11.5-15.4) g/dL Hct 33.8 L (35.3-44.9) % Plt Count 247 (140-400) K/mcL Neutrophils # 9.5 H (1.6-8.9) K/mcL BMP 02/26/18 04:28 Sodium 131 L Potassium 6.0 H D Chloride 100 Carbon Dioxide 17 L BUN 100 H Creatinine 6.77 H Glucose 184 H Calcium 8.8 - ABG Interpretation ABG results: PT/INR, D-dimer PT 11.6 Seconds (9.4-12.1) 02/22/18 15:10 - Attending Attestation I examined this patient and my medical decision-making was reviewed with the Resident Physician on 02/26/18. I agree with the documented findings, disposition and treatment plan as described except to the extent set forth below. Ms Oseguera is currently admitted for renal failure and chest pain. She remains moderate to high risk due to potential for worsening clinical status. Ms Oseguera is doing OK. No fever or chills. She is in dialysis now. She is agreeable to [facility]. Exam alert Comfortable Mucus membranes dry Heart not tachy No wheeze I/P 1. [place] 2. CAD Further diagnoses and plan as above
[2018-02-26] MEDS: Insulin DETEMIR 100 UNIT/ML X5UNITS SQ SCH (12:27)
[2018-02-26] MEDS: Isosorbide MONOnitrate (24 HR) 30 MG TAB.ER.24H PO SCH (17:00)
--- NOTE | 2018-02-26 17:25 | Electrocardiograph Report ---
[place] [id number] Test Date: 2018-02-25 Pat Name: Maggy Oseguera Department: 111 Room: [id number] Gender: F [employer] Machine: : [id number] Requested By: Wilder Bender Order Number: [id number] Reading MD: Gladys Martins Measurements Intervals [place] Rate: 91 P: 31 LA: 165 QRS: 43 QRSD: 140 T: -5 QT: 373 QTc: 421 Interpretive Statements SINUS RHYTHM RIGHT BUNDLE BRANCH BLOCK Electronically Signed On 02-26-2018 17:23:22 EDT by Gladys Martins
--- NOTE | 2018-02-26 18:24 | Nephrology Progress Note ---
Date of Encounter: 02/26/18 Time of Encounter: 12:00 - Assessment and Plan (1) CKD (chronic kidney disease) stage 5, GFR less than 15 ml/min Current Visit: Yes Status: Acute New ESRD, will try cannulation of AVF today and if unsuccessful after 2 days of rest, will place permcath and dialyze. Plan to dilyze again tomorrow if succesful today. Discussed outpatient HD placement with social work manager Potassium elevated at 6.0, Continue renal diet and will dialyze with low k bath (2) Chest pain Current Visit: Yes Status: Acute Pt now open to [facility] now, will have cardio plan for this Will still need prophylasix to protect residual renal function with HD done after C for clearance Qualifiers: Chest pain type: chest pain due to myocardial ischemia Ischemic chest pain type: unstable angina pectoris Qualified Code(s): I20.0 - Unstable angina (3) Volume overload Current Visit: Yes Status: Acute Await HD when able to cannulate and/or place permcath for UF Fluid restriction advised Qualifiers: Hypervolemia type: other Qualified Code(s): E87.79 - Other fluid overload (4) Dialysis AV fistula malfunction Current Visit: Yes Status: Acute As above Qualifiers: Encounter type: initial encounter Qualified Code(s): T82.590A - Other mechanical complication of surgically created arteriovenous fistula, initial encounter Subjective Principal diagnosis: volume overload Interval history: Pt seen and examined with daughter at bedside, does not feel good today. had chest pain yesterday Objective - Vital Signs Vital signs: Vital Signs Temp Pulse Resp BP Pulse Ox 02/26/18 16:07 98.5 F 100 18 142/89 90 02/26/18 15:10 98.5 F 17 155/68 02/26/18 14:55 133/78 02/26/18 14:40 143/77 02/26/18 14:25 151/63 02/26/18 14:10 152/78 02/26/18 13:55 142/74 02/26/18 13:40 146/72 02/26/18 13:25 136/59 02/26/18 13:10 159/77 02/26/18 12:55 97.9 F 17 162/85 02/26/18 11:34 18 91 02/26/18 11:06 98.5 F 94 20 143/89 92 02/26/18 07:50 18 91 02/26/18 06:45 97.9 F 87 22 113/80 91 02/26/18 04:15 97.7 F 78 18 130/87 94 02/25/18 23:11 16 94 02/25/18 19:59 17 126/82 97 02/25/18 19:43 97.9 F 91 18 126/75 97 Intake and Output 02/26/18 02/26/18 02/26/18 07:59 15:59 23:59 Intake Total 0 / 0 600 / 600 Output Total 400 / 400 2600 / 2600 Balance -400 / -400 -1999 / -1999 Intake: Oral 0 / 0 0 / 0 Intake, Rinseback and Flushes 600 / 600 Output: Urine 400 / 400 0 / 0 Total Dialysis (HD) Output 2600 / 2600 Other: Meal npo Percent of Meal Consumed 0% # Voids 0 Blood Glucose* 159 139 115 Hemodialysis Net Fluid Removed 2000 (mL) - Lab 02/26/18 04:28 02/26/18 04:28 Most recent lab results Calcium 8.8 mg/dL (8.6-10.3) 02/26/18 04:28 Magnesium 2.1 mg/dL (1.6-2.6) 02/23/18 04:36 Consult Discharge Plan - Plan Referrals: Angela Truong MD [Primary Care Provider] -
[2018-02-26] MEDS: cloNIDine HCl 0.1 MG TABLET PO SCH ×2 (18:39→21:27)
[2018-02-27] MEDS: Ipratropium/Albuterol Neb 3 ML IH SCH ×6 (03:31→23:10)
[2018-02-27 05:25] LABS: Hematocrit 30.8 % (35.3-44.9); Hemoglobin 9.7 g/dL (11.5-15.4); Mean Corpuscular HGB Conc 31.5 g/dL (31.6-35.5); Mean Corpuscular Hemoglobin 26.7 pg (28.0-33.3); Mean Corpuscular Volume 84.8 fL (83.0-100.0); Mean Platelet Volume 11.6 fL (9.4-12.4); Platelet Count 240 K/mcL (140-400); Red Blood Count 3.63 M/mcL (3.82-4.97)
[2018-02-27 05:44] LABS: Calcium 8.5 mg/dL (8.6-10.3); Potassium 4.9 mEq/L (3.5-5.1)
[2018-02-27] MEDS: *HR* Heparin 5,000 UNIT/ML VIAL SQ SCH ×2 (06:28→17:36)
[2018-02-27] MEDS: Beclomethasone 80mcg MDI IH SCH ×2 (07:48→19:49)
[2018-02-27] MEDS ORDERED: 0.9 % Sodium Chloride 250 ML IVC PRN (08:06)
[2018-02-27] MEDS: Insulin LISPRO 300 UNITS/3 ML VIAL SQ SCH ×7 (09:09→22:21)
[2018-02-27] MEDS: Insulin DETEMIR 100 UNIT/ML X5UNITS SQ SCH ×3 (09:09→22:22)
[2018-02-27] MEDS: Nicotine 21 MG PATCH.TD24 TD SCH (09:10)
[2018-02-27] MEDS: traMADol 50 MG TABLET PO PRN ×3 (09:50→22:22)
[2018-02-27] MEDS: Pregabalin 50 MG CAPSULE PO SCH ×3 (09:51→22:22)
[2018-02-27] MEDS: Aspirin Enteric Coated 81 MG Tablet PO SCH (09:51)
--- NOTE | 2018-02-27 10:46 | Cardiology Progress Note ---
Date of Encounter: 02/27/18 Time of Encounter: 10:43 Assessment and Plan (1) Chest pain Current Visit: Yes Status: Acute Reported constant chest pain/pressure over recent days, worse with position change and deep inspiration. Troponins negative x3. Stress test with small area, moderate intensity apical, lateral perfusion defect , representing ischemia. Recommend LHC due to abnormal stress test and multiple risk factors for CAD--HTN , HLD, tobacco abuse, PVD, DM, obesity. R/B/A discussed. Pt agrees to proceed with LHC as inpt. Continue ASA, Statin, BB. TTE LVEF 60%. Indeterminate diastolic function. Normal RV structure and function. Mild aortic stenosis. Mitral valve and submitral valve apparatus not well visualized. There is severe dense mitral annular calcification that may extend into the valve area, appears to demonstrate mobility with valve excursion. Possible moderate mitral stenosis, MG 6 mmHg at 94 bpm. Normal PHT and MVA by PHT. Mild tricuspid regurgitation. Mild pulmonary hypertension. Discussed with nephrology. Their recommendation is to proceed with LHC due to HD planned to be permanent. Nephrology still recommends minimizing dye exposure and prefers LHC in AM, then dialysis session following. Qualifiers: Chest pain type: chest pain due to myocardial ischemia Ischemic chest pain type: unstable angina pectoris Qualified Code(s): I20.0 - Unstable angina (2) Abnormal stress test Current Visit: Yes Status: Acute Stress test with small, moderate intensity apical, lateral perfusion defect, representing ischemia. Plan for LHC as above. (3) ESRD (end stage renal disease) on dialysis Current Visit: Yes Status: Acute Discussed with nephrology, dialysis just started, but planned to be permanent. Discussion w patient/family: The assessment and plan as outlined above was discussed with the patient and/or family members who expressed understanding and agreement. All questions were answered. Thank you for involving us in the care of your patient. Please call with any questions. I will discuss all the above with Dr. Whalen and make changes as necessary. Subjective Principal diagnosis: volume overload Interval history: Cardiology reconsulted to discuss LHC during inpt stay since dialysis is now planned to be permanent. Pt reports constant chest heaviness over recent days. Objective Vital Signs, Last 4 Hours Temp Pulse Resp BP Pulse Ox 02/27/18 10:02 98.7 F 88 15 114/79 96 02/27/18 07:47 16 96 Vital Signs Temp Pulse Resp BP Pulse Ox 02/27/18 10:02 98.7 F 88 15 114/79 96 02/27/18 07:47 16 96 02/27/18 06:28 97.7 F 89 15 109/79 92 02/27/18 03:00 98.4 F 89 16 106/69 94 02/26/18 23:29 18 02/26/18 20:03 18 92 02/26/18 18:40 127/89 02/26/18 16:07 98.5 F 100 18 142/89 90 02/26/18 15:10 98.5 F 17 155/68 02/26/18 14:55 133/78 02/26/18 14:40 143/77 02/26/18 14:25 151/63 02/26/18 14:10 152/78 02/26/18 13:55 142/74 02/26/18 13:40 146/72 02/26/18 13:25 136/59 02/26/18 13:10 159/77 02/26/18 12:55 97.9 F 17 162/85 02/26/18 11:34 18 91 02/26/18 11:06 98.5 F 94 20 143/89 92 Intake and Output 02/26/18 02/27/18 02/27/18 23:59 07:59 15:59 Intake Total 240 / 240 0 / 0 Output Total 0 / 0 900 / 900 Balance 240 / 240 -900 / -900 Intake: Oral 240 / 240 0 / 0 Output: Urine 0 / 0 900 / 900 Other: Weight 97.7 kg Blood Glucose* 139 209 223 Patient Weight 02/27/18 23:59 Weight 97.7 kg General: Conversant, No Apparent Distress HEENT: Atraumatic, Normocephaly, Mucus Membranes Moist Neck: No JVD, Normal carotid pulses Cardiac: Reg Rate and Rhythm, Normal S1 and S2, No Murmur Lungs: Other (diminished) Neuro: Alert and responsive Abdomen: Soft, Non-Tender Skin: No rashes noted on visualized skin Musculoskeletal: No Chest Wall Tenderness Extremities: Other (multiple finger amputations, right BKA) Results 02/27/18 04:46 02/27/18 04:46 Lab Results 02/27/18 02/27/18 04:46 04:46 WBC 11.5 H Hgb 9.7 L Hct 30.8 L Plt Count 240 Sodium 134 L Potassium 4.9 Chloride 98 Carbon Dioxide 20 L BUN 74 H Creatinine 5.55 H Glucose 204 H Calcium 8.5 L Short CBC 02/27/18 Range/Units 04:46 WBC 11.5 H (4.3-11.1) K/mcL Hgb 9.7 L (11.5-15.4) g/dL Hct 30.8 L (35.3-44.9) % Plt Count 240 (140-400) K/mcL BMP 02/27/18 Range/Units 04:46 Sodium 134 L (136-145) mEq/L Potassium 4.9 (3.5-5.1) mEq/L Chloride 98 (98-107) mEq/L Carbon Dioxide 20 L (23-29) mEq/L BUN 74 H (6-20) mg/dL Creatinine 5.55 H (0.60-1.20) mg/dL Glucose 204 H (70-105) mg/dL Calcium 8.5 L (8.6-10.3) mg/dL Active Medications Acetaminophen (Tylenol) 650 mg PO Q6HR PRN PRN Reason: Mild Pain/Fever Stop: 08/24/18 09:00 Hydrocodone Bitart/Acetaminophen (Ogden 5-325 Mg) 1 tab PO Q6HR PRN PRN Reason: Moderate Pain Stop: 08/24/18 09:00 Last Admin: 02/25/18 12:04 Dose: 1 tab Albuterol/Ipratropium (Duoneb) 3 ml IH [id number] SHAKILA Stop: 08/24/18 12:01 Last Admin: 02/27/18 07:47 Dose: 3 ml Artificial Tears (Akwa Tears) 1 drop BOTH EYES QID PRN; Protocol PRN Reason: Dry Eyes Stop: 08/27/18 09:01 Last Admin: 02/25/18 21:15 Dose: 1 drop Aspirin (Aspirin Ec) 81 mg PO DAILY SHAKILA Stop: 08/26/18 09:31 Last Admin: 02/27/18 09:51 Dose: 81 mg Atorvastatin Calcium (Lipitor) 40 mg PO HS SHAKILA Stop: 08/24/18 21:01 Last Admin: 02/26/18 21:27 Dose: 40 mg Beclomethasone Dipropionate (Qvar 80 Mcg) 2 puff IH BIDR [facility] PRN Reason: Protocol Stop: 08/24/18 21:01 Last Admin: 02/27/18 07:48 Dose: 2 puff Clonidine HCl (Clonidine Hcl) 0.2 mg PO QPM [facility] Stop: 08/24/18 18:01 Last Admin: 02/26/18 21:27 Dose: 0.2 mg Dextrose/Water (Dextrose 50% (Syg)) 25 ml IVP AD PRN PRN Reason: Hypoglycemia Stop: 08/24/18 11:41 Docusate Sodium (Colace) 100 mg PO BID PRN PRN Reason: Constipation Stop: 08/24/18 09:01 Last Admin: 02/24/18 08:15 Dose: 100 mg Ergocalciferol (Drisdol (50,000 Unit)) 50,000 unit PO TU [facility] Stop: 08/29/18 11:42 Glucagon (Glucagen) 1 mg IM ONCE PRN PRN Reason: Hypoglycemia Stop: 08/24/18 11:41 Glucose (Gluctose) 15 gm PO ONCE PRN PRN Reason: Hypoglycemia Stop: 08/24/18 11:41 Glucose (Gluctose) 30 gm PO ONCE PRN PRN Reason: Hypoglycemia Stop: 08/24/18 11:41 Heparin Sodium (Porcine) (Heparin) 5,000 unit SQ Q12HR [facility] Stop: 08/24/18 18:01 Last Admin: 02/27/18 06:28 Dose: 5,000 unit Dextrose (Dextrose 5%) 1,000 mls @ 100 mls/hr IVC .Q10H PRN PRN Reason: HYPOGLYCEMIA Stop: 08/24/18 11:41 Sodium Chloride (0.9 % Sodium Chloride) 250 mls @ 937.5 mls/hr IVC .Q16M PRN PRN Reason: Hypotension Stop: 08/29/18 08:07 Insulin Detemir (Levemir) 45 unit SQ BID [facility] Stop: 08/26/18 21:01 Last Admin: 02/27/18 09:09 Dose: 45 unit Insulin Human Lispro (Humalog) 15 units SQ TIDWM [facility] Stop: 08/24/18 12:01 Last Admin: 02/27/18 09:09 Dose: 15 units Insulin Human Lispro (Humalog) 0 units SQ HS [facility] PRN Reason: Protocol Stop: 08/24/18 21:01 Last Admin: 02/26/18 21:26 Dose: Not Given Insulin Human Lispro (Humalog) 0 units SQ TIDAC [facility] PRN Reason: Protocol Stop: 08/24/18 16:31 Last Admin: 02/27/18 09:09 Dose: 6 units Isosorbide Mononitrate (Imdur) 30 mg PO DAILY [facility] Stop: 08/28/18 09:01 Last Admin: 02/26/18 17:00 Dose: 30 mg Lidocaine/Prilocaine (Emla) 1 gm TP ONCE PRN PRN Reason: Prior to dialysis Stop: 08/29/18 08:06 Last Admin: 02/27/18 10:01 Dose: 1 gm Metoprolol Tartrate (Lopressor) 25 mg PO BID [facility] Stop: 08/27/18 21:01 Last Admin: 02/26/18 21:27 Dose: 25 mg Naloxone HCl (Narcan) 0.4 mg IVP Q2MIN PRN PRN Reason: SEE COMMENTS Stop: 08/24/18 09:00 Nicotine (Nicoderm) 21 mg TD DAILY [facility] PRN Reason: Protocol Stop: 08/24/18 12:31 Last Admin: 02/27/18 09:10 Dose: Not Given Nitroglycerin (Nitroglycerin) 0.4 mg SL Q5MIN PRN PRN Reason: Chest Pain Stop: 08/24/18 07:24 Last Admin: 02/22/18 07:41 Dose: 0.4 mg Omeprazole (Prilosec) 20 mg PO DAILY [facility] Stop: 08/25/18 09:01 Last Admin: 02/27/18 09:51 Dose: 20 mg Ondansetron HCl (Zofran) 4 mg IVP Q8HR PRN PRN Reason: Nausea And Vomiting Stop: 08/24/18 09:00 Pregabalin (Lyrica) 100 mg PO TID [facility] Stop: 08/24/18 15:01 Last Admin: 02/27/18 09:51 Dose: 100 mg Promethazine HCl (Phenergan) 12.5 mg IVP Q6HR PRN PRN Reason: Nausea And Vomiting Stop: 08/24/18 09:00 Sevelamer HCl (Renvela) 800 mg PO TIDWM [facility] Stop: 08/24/18 12:01 Last Admin: 02/27/18 09:51 Dose: 800 mg Sodium Bicarbonate (Sodium Bicarbonate) 325 mg PO QID SHAKILA Stop: 08/24/18 13:01 Last Admin: 02/27/18 09:51 Dose: 325 mg Tramadol HCl (Ultram) 100 mg PO QID PRN PRN Reason: Pain Stop: 08/29/18 09:33 Last Admin: 02/27/18 09:50 Dose: 100 mg - Imaging and Cardiology Stress Test: report reviewed Echo: report reviewed Consult Discharge Plan - Plan Referrals: Angela Truong MD [Primary Care Provider] -
[2018-02-27] MEDS ORDERED: 0.9 % Sodium Chloride 2,000 ML ONE (11:55)
[2018-02-27] MEDS: Isosorbide MONOnitrate (24 HR) 30 MG TAB.ER.24H PO SCH (14:42)
--- NOTE | 2018-02-27 16:39 | Internal Med Progress Note ---
<Sukhjinder Love - Last Filed: 02/27/18 16:36> Date of Encounter: 02/27/18 Time of Encounter: 08:45 - Assessment and plan (1) Chest pain Current Visit: Yes Status: Acute Assessment and plan: Complaint of chest pain without radiation. Notes it is better than at admission. Repeat CXR 02/25/18 revealed worsening pulmonary edema and bilateral effusions. EKG with nonspecific ST changes, no ST elevations. Repeat EKG without new changes. Symptoms likely 2/2 to fluid overload. Diuresed IV lasix Monday. Plan for 3 consective days of hemodialysis (today is 2 of 3). Heparin drip not needed. Stress Test revealed: pharmacologic stress ekg was non-diagnostic for ischemia due to submaximal hr. EF 66%. Small sized, moderate intensity, reversible apical lateral defect consistent with ischemia. Cardio on board, continue following recommendations. Echo: EF 60%, indeterminate diastolic dysfunctioin, mild aortic stenosis, mitral valve not well visualized, severe dense mitral annular calcification with mobility with the valve, possible moderate mitral stenosis, mild tricuspid regurg, mild pulm htn. Cardiology recommended LHC, initially patient declined. Now open to completing LHC. NPO placed for midnight. Plan for LHC tomorrow. Continue aspirin, nitro as needed, statin (Lipitor 40mg daily), beta linsey ( metoprolol 25mg bid). Qualifiers: Chest pain type: chest pain due to myocardial ischemia Ischemic chest pain type: unstable angina pectoris Qualified Code(s): I20.0 - Unstable angina (2) Volume overload Current Visit: Yes Status: Acute Assessment and plan: CXR with pulmonary edema and pleural effusions likely due to volume overload. Continue with lasix and dialysis scheduled. Nephrology on board for dialysis. See complete plan as above. Qualifiers: Hypervolemia type: other Qualified Code(s): E87.79 - Other fluid overload (3) Diabetes Current Visit: No Status: Chronic Assessment and plan: Glucose markedly elevated, of note she did receive some steroids. Insulin sliding scale and Detemir 45 units bid. Glucose 209 this morning. Qualifiers: Diabetes mellitus type: type 2 Diabetes mellitus mcc insulin use: with mcc use Diabetes mellitus complication status: with hyperglycemia Qualified Code(s): E11.65 - Type 2 diabetes mellitus with hyperglycemia; Z79.4 - terminal worker (current) use of insulin (4) Tobacco abuse Current Visit: No Status: Chronic Assessment and plan: Counseled to quit smoking Nicotine patch available. (5) Anemia in CKD (chronic kidney disease) Current Visit: No Status: Chronic Assessment and plan: Hb 9.7 Qualifiers: Chronic kidney disease stage: on chronic dialysis Qualified Code(s): N18.6 - End stage renal disease; D63.1 - Anemia in chronic kidney disease; Z99.2 - Dependence on renal dialysis (6) COPD (chronic obstructive pulmonary disease) Current Visit: Yes Status: Chronic Assessment and plan: Know history of COPD Admitted for worsening shortness of breath may be secondary mild COPD exacerbation vs fluid overload Continue with Duonebs Continue with inhaled steroid Baseline 2-3L oxygen at home. Qualifiers: COPD type: COPD with acute exacerbation Qualified Code(s): J44.1 - Chronic obstructive pulmonary disease with (acute) exacerbation (7) Acute and chronic respiratory failure with hypoxia Current Visit: Yes Status: Acute Assessment and plan: Acute on chronic respiratory failure secondary to COPD and Volume overload- improving Presented with complaint of dyspnea and chest discomfort. Patient had to use 5L nasal cannula rather than her usual 2-3 L. CXR revealed mild pulmonary edema, and left base opacity Repeat CXR 02/25/18 revealed worsening pulmonary edema and bilateral effusions. IV lasix given initially. Dialysis scheduled again today (day 2of3). (8) Left leg cellulitis Current Visit: Yes Status: Resolved Assessment and plan: Mild left leg cellulitis, no current erythema, resolved. Previously MRSA positive. -Received one dose Levofloxacin (9) Acute renal failure Current Visit: Yes Status: Acute Assessment and plan: Acute on CKD stage 5, on dialysis. Day 2 of 3 consecutive dialysis. Nephrology on board for dialysis. Qualifiers: Acute renal failure type: unspecified Qualified Code(s): N17.9 - Acute kidney failure, unspecified - Time Spent With Patient Total time spent is greater than 50% in coordination of care (as documented) at patient's floor/unit and/or counseling patient: - Subjective Interval history: Patient notes continued chest pressure, "like a balloon" blown up in the chest and squeezing sensation in the neck. Patient notes breathing overall may be slightly improved. Potassium improved today after dialysis. Patient notes that there was some issues accessing fistula yesterday was painful and bruised. Currently on 3.5L via nasal cannula. - Constitutional Vitals: Temp Pulse Resp BP Pulse Ox 98.9 F 105 16 137/83 99 02/27/18 14:00 02/27/18 14:40 02/27/18 15:23 02/27/18 14:40 02/27/18 15:23 General appearance: Present: cooperative, A&O X 3, pleasant, no acute distress, obese, answers questions appropriately - Head Head exam: Present: atraumatic, normal inspection, normocephalic - Eye Eye exam: Present: EOMI, normal appearance, sclera anicteric - ENT ENT exam: Present: mucous membranes moist - Neck Neck exam general surgery: Present: full ROM, normal inspection, supple - Respiratory Respiratory exam: Present: decreased breath sounds. Absent: respiratory distress - Cardiovascular Cardiovascular exam: Present: RRR, +S1, +S2 - GI/Abdominal GI/Abdominal exam: Present: normal bowel sounds, soft. Absent: guarding - Extremities Exam Extremities exam: Present: warm. Absent: pedal edema, tenderness Additional comments: Hands: missing multiple digits bilaterally. Left AKA. - Neurological Exam Neurological exam: Present: alert, oriented X3, no focal deficits. Absent: facial droop, speech deficit - Skin Skin exam: Present: dry, intact, warm. Absent: rash Internal Medicine: Result - Labs CBC & Chem 7: 02/27/18 04:46 02/27/18 04:46 Labs: Short CBC 02/27/18 Range/Units 04:46 WBC 11.5 H (4.3-11.1) K/mcL Hgb 9.7 L (11.5-15.4) g/dL Hct 30.8 L (35.3-44.9) % Plt Count 240 (140-400) K/mcL BMP 02/27/18 04:46 Sodium 134 L Potassium 4.9 Chloride 98 Carbon Dioxide 20 L BUN 74 H Creatinine 5.55 H Glucose 204 H Calcium 8.5 L - ABG Interpretation ABG results: PT/INR, D-dimer PT 11.6 Seconds (9.4-12.1) 02/22/18 15:10 Consult Discharge Plan - Plan Referrals: Angela Truong MD [Primary Care Provider] - <Giovanny Moran - Last Filed: 02/27/18 18:39> Date of Encounter: 02/27/18 - Assessment and plan (1) Diabetes Current Visit: No Status: Chronic Qualifiers: Diabetes mellitus type: type 2 Diabetes mellitus mcc insulin use: with middle or intermediate school principal use Diabetes mellitus complication status: with hyperglycemia Qualified Code(s): E11.65 - Type 2 diabetes mellitus with hyperglycemia; Z79.4 - nursing home (current) use of insulin (2) Tobacco abuse Current Visit: No Status: Chronic (3) Anemia in CKD (chronic kidney disease) Current Visit: No Status: Chronic Qualifiers: Chronic kidney disease stage: on chronic dialysis Qualified Code(s): N18.6 - End stage renal disease; D63.1 - Anemia in chronic kidney disease; Z99.2 - Dependence on renal dialysis (4) Chest pain Current Visit: Yes Status: Acute Qualifiers: Chest pain type: chest pain due to myocardial ischemia Ischemic chest pain type: unstable angina pectoris Qualified Code(s): I20.0 - Unstable angina (5) Volume overload Current Visit: Yes Status: Acute Qualifiers: Hypervolemia type: other Qualified Code(s): E87.79 - Other fluid overload (6) COPD (chronic obstructive pulmonary disease) Current Visit: Yes Status: Chronic Qualifiers: COPD type: COPD with acute exacerbation Qualified Code(s): J44.1 - Chronic obstructive pulmonary disease with (acute) exacerbation (7) Acute and chronic respiratory failure with hypoxia Current Visit: Yes Status: Acute (8) Left leg cellulitis Current Visit: Yes Status: Resolved (9) Acute renal failure Current Visit: Yes Status: Acute Qualifiers: Acute renal failure type: unspecified Qualified Code(s): N17.9 - Acute kidney failure, unspecified - Time Spent With Patient Total time spent is greater than 50% in coordination of care (as documented) at patient's floor/unit and/or counseling patient: - Constitutional Vitals: Temp Pulse Resp BP Pulse Ox 97.7 F 99 18 131/72 99 02/27/18 17:24 02/27/18 17:24 02/27/18 17:24 02/27/18 17:24 02/27/18 17:24 Internal Medicine: Result - Labs CBC & Chem 7: 02/27/18 04:46 02/27/18 04:46 Labs: Short CBC 02/27/18 Range/Units 04:46 WBC 11.5 H (4.3-11.1) K/mcL Hgb 9.7 L (11.5-15.4) g/dL Hct 30.8 L (35.3-44.9) % Plt Count 240 (140-400) K/mcL BMP 02/27/18 04:46 Sodium 134 L Potassium 4.9 Chloride 98 Carbon Dioxide 20 L BUN 74 H Creatinine 5.55 H Glucose 204 H Calcium 8.5 L - ABG Interpretation ABG results: PT/INR, D-dimer PT 11.6 Seconds (9.4-12.1) 02/22/18 15:10 - Attending Attestation I examined this patient and my medical decision-making was reviewed with the Resident Physician on 02/27/18. I agree with the documented findings, disposition and treatment plan as described except to the extent set forth below. Ms Oseguera is currently hospitalized for renal failure and [place]. She remains moderate to high risk due to potential for worsening clinical status. Ms Oseguera feels OK. She is tolerating dialysis. She has agreed to [facility] - most likely will be tomorrow. No fever or chills. No other acute issues. Exam alert Comfortable Mucus membranes dry Heart distant No wheeze I/P 1. USA - cath tomorrow 2. ESRD Further diagnoses and plan as above.
--- NOTE | 2018-02-27 19:05 | Nephrology Progress Note ---
Date of Encounter: 02/27/18 Time of Encounter: 12:00 - Assessment and Plan (1) CKD (chronic kidney disease) stage 5, GFR less than 15 ml/min Current Visit: Yes Status: Acute New ESRD, will try cannulation of AVF today and if unsuccessful after 2 days of rest, will place permcath and dialyze. Plan to dilyze again tomorrow if succesful today. Discussed outpatient HD placement with medical social worker Potassium elevated at 6.0, Continue renal diet and will dialyze with low k bath (2) Chest pain Current Visit: Yes Status: Acute Pt now open to [facility] now, will have cardio plan for this Will still need prophylasix to protect residual renal function with HD done after C for clearance Qualifiers: Chest pain type: chest pain due to myocardial ischemia Ischemic chest pain type: unstable angina pectoris Qualified Code(s): I20.0 - Unstable angina (3) Volume overload Current Visit: Yes Status: Acute Await HD when able to cannulate and/or place permcath for UF Fluid restriction advised Qualifiers: Hypervolemia type: other Qualified Code(s): E87.79 - Other fluid overload (4) Dialysis AV fistula malfunction Current Visit: Yes Status: Acute As above Qualifiers: Encounter type: initial encounter Qualified Code(s): T82.590A - Other mechanical complication of surgically created arteriovenous fistula, initial encounter Subjective Principal diagnosis: volume overload Interval history: Pt seen and examined on HD for second treatment after a successful treatment yesterday, doing well but quite tender on AVF arm with ecchymoses noted Objective - Vital Signs Vital signs: Vital Signs Temp Pulse Resp BP Pulse Ox 02/27/18 17:24 97.7 F 99 18 131/72 99 02/27/18 15:23 16 99 02/27/18 14:40 105 137/83 02/27/18 14:00 98.9 F 17 121/59 02/27/18 13:45 116/60 02/27/18 13:30 137/67 02/27/18 13:15 122/66 02/27/18 13:00 128/71 02/27/18 12:45 130/60 02/27/18 12:30 137/72 02/27/18 12:15 132/71 02/27/18 12:00 141/67 02/27/18 11:45 127/63 02/27/18 11:30 144/68 02/27/18 11:15 124/58 02/27/18 11:00 127/62 02/27/18 10:45 98.9 F 15 124/69 02/27/18 10:02 98.7 F 88 15 114/79 96 02/27/18 07:47 16 96 02/27/18 06:28 97.7 F 89 15 109/79 92 02/27/18 03:00 98.4 F 89 16 106/69 94 02/26/18 23:29 18 02/26/18 20:03 18 92 Intake and Output 02/27/18 02/27/18 02/27/18 07:59 15:59 23:59 Intake Total 0 / 0 600 / 600 Output Total 900 / 900 3600 / 3600 Balance -900 / -900 -3000 / -3000 Intake: Oral 0 / 0 0 / 0 Intake, Rinseback and Flushes 600 / 600 Output: Urine 900 / 900 0 / 0 Total Dialysis (HD) Output 3600 / 3600 Other: Weight 97.7 kg Blood Glucose* 209 223 118 Hemodialysis Net Fluid Removed 3000 (mL) Patient Weight 02/27/18 23:59 Weight 97.7 kg - Lab 02/27/18 04:46 02/27/18 04:46 Most recent lab results Calcium 8.5 mg/dL (8.6-10.3) L 02/27/18 04:46 Magnesium 2.1 mg/dL (1.6-2.6) 02/23/18 04:36 Consult Discharge Plan - Plan Referrals: Angela Truong MD [Primary Care Provider] -
[2018-02-28] MEDS: Ipratropium/Albuterol Neb 3 ML IH SCH ×6 (03:36→23:06)
[2018-02-28] MEDS: *HR* Heparin 5,000 UNIT/ML VIAL SQ SCH ×2 (05:03→17:47)
[2018-02-28 05:17] LABS: Hematocrit 28.9 % (35.3-44.9); Hemoglobin 9.2 g/dL (11.5-15.4); Mean Corpuscular HGB Conc 31.8 g/dL (31.6-35.5); Mean Corpuscular Hemoglobin 26.8 pg (28.0-33.3); Mean Corpuscular Volume 84.3 fL (83.0-100.0); Mean Platelet Volume 11.2 fL (9.4-12.4); Platelet Count 243 K/mcL (140-400); Red Blood Count 3.43 M/mcL (3.82-4.97); Red Cell Distribution Width 16.3 % (11.5-14.5)
[2018-02-28 05:41] LABS: Calcium 8.6 mg/dL (8.6-10.3); Potassium 4.3 mEq/L (3.5-5.1)
[2018-02-28] MEDS: Beclomethasone 80mcg MDI IH SCH ×2 (07:34→20:01)
[2018-02-28] MEDS ORDERED: 0.9 % Sodium Chloride 250 ML IVC PRN (07:59)
[2018-02-28] MEDS ORDERED: 0.9 % Sodium Chloride 1,000 ML PRIME SCH (08:00)
[2018-02-28] MEDS: Insulin LISPRO 300 UNITS/3 ML VIAL SQ SCH ×7 (09:12→22:20)
[2018-02-28] MEDS: Aspirin Enteric Coated 81 MG Tablet PO SCH (09:13)
[2018-02-28] MEDS: Pregabalin 50 MG CAPSULE PO SCH ×3 (09:13→22:19)
[2018-02-28] MEDS: Isosorbide MONOnitrate (24 HR) 30 MG TAB.ER.24H PO SCH (09:13)
[2018-02-28] MEDS: Insulin DETEMIR 100 UNIT/ML X5UNITS SQ SCH ×2 (09:14→22:20)
[2018-02-28] MEDS: Nicotine 21 MG PATCH.TD24 TD SCH (09:14)
[2018-02-28] MEDS: traMADol 50 MG TABLET PO PRN ×3 (09:18→22:26)
[2018-02-28] MEDS ORDERED: *HR* Heparin 10,000 UNIT/10 ML VIAL ONE (10:08)
[2018-02-28] MEDS ORDERED: Verapamil 5 MG/2 ML VIAL ONE (10:08)
[2018-02-28] MEDS ORDERED: Nitroglycerin 1,000 MCG/10 ML VIAL IV ONE (10:09)
[2018-02-28] MEDS ORDERED: 0.9 % Sodium Chloride 1,000 ML ONE ×2 (10:09→13:27)
[2018-02-28] MEDS ORDERED: ISOVUE-370 200 ML INFUS..BTL IV ONE (10:09)
[2018-02-28] MEDS ORDERED: Heparin 1,000 UNITS/500 mL 500 ML ONE (10:09)
[2018-02-28] MEDS ORDERED: Ondansetron 4 MG/2 ML VIAL IVP ONE (10:12)
--- NOTE | 2018-02-28 10:28 | Pre-Sedation Evaluation ---
Pre-sedation evaluation - Pre-sedation checklist Date of procedure: 02/23/18 Procedure: access [facility] Recent Vitals: Last Vital Signs Temp 99.1 F 02/28/18 07:16 Pulse 103 02/28/18 07:16 Resp 18 02/28/18 07:37 BP 115/70 02/28/18 07:16 Pulse Ox 94 02/28/18 07:37 H&P (including ROS) documented in medical record: Yes Previous reaction to sedatives/anesthetics: No Dietary Status: NPO after Midnight Dentition: No loose teeth or bridges ASA Classification *see protocol: CLASS II-Mild systemic disease Plan of Care: Pt appropriate candidate for procedure/moderate/conscious sedation , Risks/benefits of procedure/sedation discussed w/ patient/family
[2018-02-28] MEDS ORDERED: *HR* Midazolam HCl 2 MG/2 ML VIAL ONE (10:44)
[2018-02-28] MEDS ORDERED: methylPREDNISolone 125 MG/2 ML VIAL ONE (10:44)
[2018-02-28] MEDS ORDERED: *HR* FentaNYL (PF) 100 MCG/2 ML VIAL ONE (10:44)
--- NOTE | 2018-02-28 11:25 | Invasive Diagnostic Lab Proc ---
Name: Maggy Oseguera Date of Study: 02/28/2018 Date: 1960 Ht: 64.2in Medical Record#: [id number] Age: 57 Wt: 202.83lb Gender: Female BSA: 1.97 Order #: [id number] BMI: 34.63 Physicians Procedure Physician: Lemuel Melendez MD, [facility] Referring MD: Referring MD: Staff Name Position Time In Jelena Joshi RT (R) Monitor 10:47 AM Keeley Mobley RN Billing Checker 10:47 AM Caro Oliver RT (R) Scrub 10:48 AM Indications Indication Abnormal Test - Stress Procedures Performed Procedure L HRT ARTERY/VENTRICLE ANGIO Pre-Procedure Checklist Informed consent is complete signed and on chart. H&P is on chart. ID band is on and ID verified with patient. Patient NPO for procedure The procedure was described for the patient and questions were answered. ECG is on chart. Plan of Care Patient will tolerate the procedure without complications. Adequate level of comfort will be maintained. Hemodynamics will remain stable Patient will recover from procedure without complications. Respiratory function will be maintained. Cardiac rhythm will remain stable. Patient temperature will be maintained. Patient and/or family have verbalized understanding of the procedure. Patient Education Chief Complaint/Reason for Test: Cardiac Cath Developmental Category: Adult (18-64 years) Developmentally Appropriate for Age: Yes Learning Barriers: None Education Needs: Procedure Education Method: Verbal Information Taught: Cardiac Cath Educational Evaluation: Able to repeat information Intravenous Access Time IV Size Location DC'd Fluid/Drip Rate Units RN PICC Line Rt Arm 0.9NaCl ml/hr Allergies BACTRIM, IODINE, SULFA Benzonatate sulfacetamide SULFA BETADINE LATEX iodine Sulfamethoxazole/Trimethopri latex SULFA DRUGS BACTRIM,IODINE soap SULFA (sulfonamide) trimethoprim sulfamethoxazole Vital Signs Time BP (mmHg) HR (bpm) O2 Sat. RR (bpm) LOC 10:49 AM 168 / 80 81 98 % 16 4 = Oriented but drowsy Procedural Medications Time Medication Dose Units Method Given By 10:48 AM Oxygen 4 L/min nasal cannula Keeley Mobley RN 10:48 AM Benadryl 50 mg Intravenous Keeley Mobley RN 10:48 AM Solu-medrol 125 mg Intravenous Keeley Mobley RN 10:49 AM Versed 2 mg Intravenous Keeley Mobley RN 10:49 AM Fentanyl 50 mcg Intravenous Keeley Mobley RN 10:55 AM Lidocaine 2% 0.5 ml Subcutaneous Lemuel Melendez MD, [facility] 10:57 AM Heparin 4000 units Nitroglycerin 200 mcg Verapamil 2.5 mg Intraarterial Lemuel Melendez MD, [facility] ASA Classification: CLASS III- Severe systemic disease (i.e. prior AMI, diabetes with vascular complications, morbid obesity) Gena Score Preprocedure Postprocedure Activity 2- Moves 4 extremities sustained head lift Activity 2- Moves 4 extremities sustained head lift Circulation 2- SBP +/= 20 points of pre-anesthetic level Circulation 2- SBP +/= 20 points of pre-anesthetic level Consciousness 2- Awake and alert oriented x 3 Consciousness 2- Awake and alert oriented x 3 O2 Saturation 2- Able to maintain O2 satruation of 92% on room air O2 Saturation 2- Able to maintain O2 satruation of 92% on room air Respiratory 2- Able to deep breathe and cough well Respiratory 2- Able to deep breathe and cough well Total Score 10 Total Score 10 Contrast Agent: Isovue Diagnostic Contrast: 30 ml Total Contrast: 30 ml Fluoro Dose: 337 mGy Procedure Log Time Note Enter By 10:47 AM Pt arrived to refuse laborer 1 at 10:47 [email or web address] 10:47 AM Jelena Joshi (R) Position: Monitor Time in: 10:47 [email or web address] 10:48 AM Keeley Mobley RN Position: Billing Checker Time in: 10:47 [email or web address] 10:48 AM Caro Oliver RT (R) Position: Scrub Time in: 10:48 [email or web address] 10:48 AM Patient charges- Angio tray pack, Navilyst 3mm J, Pulse Oximetry and ACIST tubing and transducer [email or web address] 10:48 AM Case Delayed No [email or web address] 10:48 AM Hair removed from procedure site in holding area using clippers. Right wrist prepped with Chloraprep by Jelena Joshi RT (R), then patient was draped. Skin intact. [email or web address] 10:48 AM Hair removed from procedure site in holding area using clippers. Right groin prepped with Chloraprep by Caro Gamez RT (R), then patient was draped. Skin intact. [email or web address] 10:48 AM Physician arrived 10:48 [email or web address] 10:48 AM ASA Class CLASS III- Severe systemic disease (i.e. prior AMI, diabetes with vascular complications, morbid obesity) [email or web address] 10:48 AM Meet and heber completed [email or web address] 10:48 AM Sign in performed according to hospital policy. [email or web address] 10:48 AM Procedure start 10:48 [email or web address] 10:48 AM Time: 10:48 Oxygen on at 4 L/min per nasal cannula by Keeley Mobley RN [email or web address] 10:48 AM Time: 10:48 Benadryl 50 mg Intravenous Given by Keeley Mobley RN [email or web address] 10:49 AM Time: 10:48 Solu-medrol 125 mg Intravenous Given by Keeley Mobley RN [email or web address] 10:49 AM Time: 10:49 Versed 2 mg Intravenous Given by Keeley Mobley RN [email or web address] 10:49 AM Time: 10:49 Fentanyl 50 mcg Intravenous Given by Keeley Mobley RN [email or web address] 10:49 AM Time: 10:49 Patient comfortable and pain free: Yes [email or web address] 10:49 AM Time: 10:49LOC: 4 = Oriented but drowsy [email or web address] 10:55 AM Time out performed according to hospital policy [email or web address] 10:55 AM Time: 10:55 0.5 ml Lidocaine 2% to right radial Subcutaneous Given by Lemuel Melendez MD, [facility] [email or web address] 10:56 AM Access obtained by percutaneous puncture. 6Fr 10cm Terumo Glidesheath sheath placed in right Other artery. [id number] [email or web address] 10:57 AM Time: 10:57 Patient given 4,000 units Heparin, 200 mcg Nitroglycerin, and 2.5 mg Verapamil Intraarterial by Lemuel Melendez MD, FAC. This is given to reduce risk of vessel spasm and thrombosis. [email or web address] 10:57 AM 0.035 260cm Navilyst 3mmJ wire [id number] [email or web address] 10:57 AM 5Fr TIG catheter inserted over the wire [facility] [email or web address] 10:58 AM LCA angiography performed in multiple views. [email or web address] 10:59 AM Lesion found in Proximal LAD. Pre Stenosis: 20 Pre KAYLEEN Flow: 3: Complete and Brisk Flow/Perfusion [email or web address] 10:59 AM Lesion found in LMCA. Pre Stenosis: 20 Pre KAYLEEN Flow: 3: Complete and Brisk Flow/Perfusion [email or web address] 11:00 AM Lesion found in Mid Circumflex. Pre Stenosis: 30 Pre KAYLEEN Flow: 3: Complete and Brisk Flow/Perfusion [email or web address] 11:01 AM Catheter selectively placed in left ventricle [email or web address] 11:01 AM RCA angiography performed in multiple views. [email or web address] 11:01 AM Lesion found in Mid RCA. Pre Stenosis: 20 Pre KAYLEEN Flow: 3: Complete and Brisk Flow/Perfusion [email or web address] 11:02 AM Catheter removed [email or web address] 11:03 AM Procedure completed at 11:03 [email or web address] 11:03 AM Coronary Dominance: right [email or web address] 11:03 AM Did you address KAYLEEN flow and Dominance? Yes [email or web address] 11:03 AM Sign out completed: Radiation Dose 337.38 mGy Fluoro Time: 0.7 Isovue 370 - 200ml contrast 30 ml given by Lemuel Melendez MD, [facility]. Complications: NoneCardiac Rehab Consult needed: NoConfirmed administered medications: Yes [email or web address] 11:03 AM Isovue 370 - 200ml,1 Bottle(s) used. [email or web address] 11:04 AM Arterial sheath pulled, Vasc Band closure device used and was Successful S/N. [email or web address] 11:04 AM 10 ml air in Vasc Band. [email or web address] 11:04 AM Estimated Blood Loss: minimal [email or web address] 11:04 AM Post ECG NSR [email or web address] 11:04 AM Post Blood Pressure 119/68 [email or web address] 11:04 AM Information taught Cardiac Cath and Vasc Band [email or web address] 11:04 AM Education needs Procedure, Plan of Care, and Disease Process [email or web address] 11:08 AM Report given to Nolberto MARIEE Pt taken to E Room #26. 11:08 [email or web address] 11:08 AM Delay to floor No [email or web address] 11:08 AM Patient out of room: 11:08 [email or web address] 11:08 AM Family placed in consult room. [email or web address] 11:08 AM Complications: None [email or web address] 11:08 AM Fluoro Time: 0.7 [email or web address] 11:08 AM Isovue 370 - 200ml contrast [address] Melendez. [email or web address] 11:08 AM Radiation Dose 337.38 mGy [email or web address] 11:14 AM Patient out of room: 11:14 [email or web address] Complications Complication None None Hemodynamics Pressures Site Systolic/A Wave Diastolic/V Wave Mean AO 69 52 61 AO 107 41 70 AO 113 90 101 LV 81 26 34 Hemodynamics Pressures Site Systolic/A Wave Diastolic/V Wave Mean LV 95 30 32 Post Procedure Information Blood Pressure: 119/68 mmHg Rhythm: NSR Post procedural instructions were given Closure Device Time Device Success/Fail 02/28/2018 11:08:00 AM Mechanical Compression Yes Site Checks Time Location Status Staff Sheath In? Note 11:09 AM Rt Wrist No bleeding/ No Hematoma Caro Oliver RT (R) Pulses Time Site Pre-Procedure Post-Procedure Note 02/28/2018 11:09:00 AM Bilateral DP & PT Doppler Doppler 02/28/2018 11:09:00 AM Rt Radial 2+ 1+ Updated by Jelena Joshi RT(R) on 02/28/2018 11:15:28 AM electronically signed on 02/28/2018 11:15:56 AM with status of Final
--- NOTE | 2018-02-28 11:52 | Event Note ---
Date of Encounter: 02/28/18 Time of Encounter: 11:50 - Cardiology Event Note Reviewed preliminary [facility] findings with Dr. Melendez: non-obstructive CAD. Atypical chest pain described. No further recommendations from Cardiology as inpatient. Will sign-off, recommend close outpt follow-up with PCP. Discussed and reviewed with Dr. Whalen.
[2018-02-28] MEDS: cloNIDine HCl 0.1 MG TABLET PO SCH (17:47)
[2018-02-28] MEDS: *HR* HYDROcodone/Acet 5/325 mg TABLET PO PRN (17:55)
--- NOTE | 2018-02-28 18:45 | Internal Med Progress Note ---
Date of Encounter: 02/28/18 Time of Encounter: 10:00 - Assessment and plan (1) Acute and chronic respiratory failure with hypoxia Current Visit: Yes Status: Acute Assessment and plan: Acute on chronic respiratory failure secondary to COPD and Volume overload- improving Presented with complaint of dyspnea and chest discomfort. Patient had to use 5L nasal cannula rather than her usual 2-3 L. CXR revealed mild pulmonary edema, and left base opacity Repeat CXR 02/25/18 revealed worsening pulmonary edema and bilateral effusions. IV lasix given initially. Dialysis scheduled again today (day 3of3). Clinically she has improved with dialysis. (2) Chest pain Current Visit: Yes Status: Acute Assessment and plan: Complaint of chest pain without radiation. Notes it is better than at admission. Repeat CXR 02/25/18 revealed worsening pulmonary edema and bilateral effusions. EKG with nonspecific ST changes, no ST elevations. Repeat EKG without new changes. Symptoms likely 2/2 to fluid overload. Diuresed IV lasix Monday. Plan for 3 consective days of hemodialysis (today is 2 of 3). Heparin drip not needed. Stress Test revealed: pharmacologic stress ekg was non-diagnostic for ischemia due to submaximal hr. EF 66%. Small sized, moderate intensity, reversible apical lateral defect consistent with ischemia. Cardio on board, continue following recommendations. Echo: EF 60%, indeterminate diastolic dysfunctioin, mild aortic stenosis, mitral valve not well visualized, severe dense mitral annular calcification with mobility with the valve, possible moderate mitral stenosis, mild tricuspid regurg, mild pulm htn. S/P LHC today. No issues. Continue aspirin, nitro as needed, statin (Lipitor 40mg daily), beta linsey ( metoprolol 25mg bid). Qualifiers: Chest pain type: chest pain due to myocardial ischemia Ischemic chest pain type: unstable angina pectoris Qualified Code(s): I20.0 - Unstable angina (3) Diabetes Current Visit: No Status: Chronic Assessment and plan: Insulin sliding scale and Detemir 45 units bid. Monitoring blood sugar Qualifiers: Diabetes mellitus type: type 2 Diabetes mellitus bed bug exterminator insulin use: with bed bug exterminator use Diabetes mellitus complication status: with hyperglycemia Qualified Code(s): E11.65 - Type 2 diabetes mellitus with hyperglycemia; Z79.4 - bed bug exterminator (current) use of insulin (4) Tobacco abuse Current Visit: No Status: Chronic Assessment and plan: Counseled to quit smoking Nicotine patch available. (5) Anemia in CKD (chronic kidney disease) Current Visit: No Status: Chronic Assessment and plan: Following. Chronic issue Qualifiers: Chronic kidney disease stage: on chronic dialysis Qualified Code(s): N18.6 - End stage renal disease; D63.1 - Anemia in chronic kidney disease; Z99.2 - Dependence on renal dialysis (6) Volume overload Current Visit: Yes Status: Acute Assessment and plan: CXR with pulmonary edema and pleural effusions likely due to volume overload. Continue with lasix and dialysis scheduled. Nephrology on board for dialysis. See complete plan as above. Qualifiers: Hypervolemia type: other Qualified Code(s): E87.79 - Other fluid overload (7) COPD (chronic obstructive pulmonary disease) Current Visit: Yes Status: Chronic Assessment and plan: Know history of COPD Admitted for worsening shortness of breath may be secondary mild COPD exacerbation vs fluid overload Continue with Duonebs Continue with inhaled steroid Baseline 2-3L oxygen at home. Overall has been improving. Qualifiers: COPD type: COPD with acute exacerbation Qualified Code(s): J44.1 - Chronic obstructive pulmonary disease with (acute) exacerbation - Time Spent With Patient Total time spent is greater than 50% in coordination of care (as documented) at patient's floor/unit and/or counseling patient: - Subjective Interval history: Ms Oseguera is currently admitted for unstable angina and start of dialysis. She remains moderate to high risk due to potential for worsening clinical status. Ms Oseguera just returned from [facility]. No stent. Going to dialysis. Denies complaints but still somnolent. Family at bedside. - Constitutional Vitals: Temp Pulse Resp BP Pulse Ox 98.2 F 102 18 146/42 87 02/28/18 16:06 02/28/18 15:00 02/28/18 16:06 02/28/18 16:06 02/28/18 11:33 General appearance: Present: cooperative, A&O X 3, pleasant, obese, answers questions appropriately - Head Head exam: Present: normocephalic - Eye Eye exam: Present: conjuntiva pink - ENT ENT exam: Present: mucous membranes dry - Respiratory Respiratory exam: Present: CTAB. Absent: rales, rhonchi, wheezes - Cardiovascular Cardiovascular exam: Present: RRR. Absent: tachycardia - GI/Abdominal GI/Abdominal exam: Present: soft. Absent: tenderness - Extremities Exam Extremities exam: Present: warm - Neurological Exam Neurological exam: Present: alert - Skin Skin exam: Present: dry, warm Internal Medicine: Result - Labs CBC & Chem 7: 02/28/18 05:04 02/28/18 05:04 Labs: Short CBC 02/28/18 Range/Units 05:04 WBC 11.3 H (4.3-11.1) K/mcL Hgb 9.2 L (11.5-15.4) g/dL Hct 28.9 L (35.3-44.9) % Plt Count 243 (140-400) K/mcL BMP 02/28/18 05:04 Sodium 135 L Potassium 4.3 Chloride 98 Carbon Dioxide 24 BUN 60 H Creatinine 4.92 H Glucose 179 H Calcium 8.6 - ABG Interpretation ABG results: PT/INR, D-dimer PT 11.6 Seconds (9.4-12.1) 02/22/18 15:10 Consult Discharge Plan - Plan Referrals: Angela Truong MD [Primary Care Provider] -
--- NOTE | 2018-02-28 19:01 | Nephrology Progress Note ---
Date of Encounter: 02/28/18 Time of Encounter: 10:00 - Assessment and Plan (1) CKD (chronic kidney disease) stage 5, GFR less than 15 ml/min Current Visit: Yes Status: Acute New ESRD, third treatment today after LHC planned Await placement in outpatient HD (2) Chest pain Current Visit: Yes Status: Acute LHC planned today with HD after for contrast clearnce to preserve residua renal fxn Qualifiers: Chest pain type: chest pain due to myocardial ischemia Ischemic chest pain type: unstable angina pectoris Qualified Code(s): I20.0 - Unstable angina (3) Volume overload Current Visit: Yes Status: Acute Await HD when able to cannulate and/or place permcath for UF Fluid restriction advised Qualifiers: Hypervolemia type: other Qualified Code(s): E87.79 - Other fluid overload (4) Dialysis AV fistula malfunction Current Visit: Yes Status: Acute As above Qualifiers: Encounter type: initial encounter Qualified Code(s): T82.590A - Other mechanical complication of surgically created arteriovenous fistula, initial encounter Subjective Principal diagnosis: volume overload Interval history: Pt seen and examined on route for LHC with daughter present. No complaints. Objective - Vital Signs Vital signs: Vital Signs Temp Pulse Resp BP Pulse Ox 02/28/18 16:06 98.2 F 18 146/42 02/28/18 15:10 155/84 02/28/18 15:00 102 17 127/62 02/28/18 14:55 165/69 02/28/18 14:40 144/65 02/28/18 14:25 148/64 02/28/18 14:10 137/70 02/28/18 13:55 132/66 02/28/18 13:40 148/63 02/28/18 13:25 129/64 02/28/18 13:10 133/68 02/28/18 12:55 146/58 02/28/18 12:40 132/80 02/28/18 12:25 160/69 02/28/18 12:10 97.6 F 18 133/61 02/28/18 11:33 98.0 F 97 18 91/55 87 02/28/18 11:00 68 116/55 02/28/18 07:37 18 94 02/28/18 07:16 99.1 F 103 20 115/70 91 02/28/18 05:04 98.5 F 97 15 107/72 95 02/28/18 03:36 18 92 02/27/18 23:10 17 96 02/27/18 19:49 19 96 02/27/18 19:00 97.9 F 90 16 116/66 96 Intake and Output 02/28/18 02/28/18 02/28/18 07:59 15:59 23:59 Intake Total 240 / 240 600 / 600 Output Total 400 / 400 3600 / 3600 Balance -160 / -160 600 / 600 -3600 / -3600 Intake: Oral 240 / 240 0 / 0 Intake, Rinseback and Flushes 600 / 600 Output: Urine 400 / 400 0 / 0 Total Dialysis (HD) Output 3600 / 3600 Other: Meal NPO Weight 92.1 kg 92.1 kg Blood Glucose* 160 158 Hemodialysis Net Fluid Removed 3600 3000 (mL) Patient Weight 02/28/18 23:59 Weight 92.1 kg - Lab 02/28/18 05:04 02/28/18 05:04 Most recent lab results Calcium 8.6 mg/dL (8.6-10.3) 02/28/18 05:04 Magnesium 2.1 mg/dL (1.6-2.6) 02/23/18 04:36 Consult Discharge Plan - Plan Referrals: Angela Truong MD [Primary Care Provider] -
[2018-03-01] MEDS: Ipratropium/Albuterol Neb 3 ML IH SCH ×3 (03:43→11:00)
[2018-03-01 04:56] LABS: Hematocrit 28.4 % (35.3-44.9); Hemoglobin 8.8 g/dL (11.5-15.4); Mean Corpuscular Hemoglobin 26.7 pg (28.0-33.3); Mean Corpuscular Volume 86.3 fL (83.0-100.0); Mean Platelet Volume 11.9 fL (9.4-12.4); Platelet Count 246 K/mcL (140-400); Red Blood Count 3.29 M/mcL (3.82-4.97); Red Cell Distribution Width 15.8 % (11.5-14.5)
[2018-03-01 05:07] LABS: Calcium 8.1 mg/dL (8.6-10.3); Potassium 5.1 mEq/L (3.5-5.1)
[2018-03-01] MEDS: *HR* Heparin 5,000 UNIT/ML VIAL SQ SCH (06:13)
[2018-03-01 06:47] VITALS: BP 106/34
[2018-03-01] MEDS: Beclomethasone 80mcg MDI IH SCH (07:32)
[2018-03-01] MEDS: Insulin LISPRO 300 UNITS/3 ML VIAL SQ SCH ×4 (08:39→12:43)
[2018-03-01] MEDS: Pregabalin 50 MG CAPSULE PO SCH (08:41)
[2018-03-01] MEDS: Aspirin Enteric Coated 81 MG Tablet PO SCH (08:41)
[2018-03-01] MEDS: Isosorbide MONOnitrate (24 HR) 30 MG TAB.ER.24H PO SCH (08:41)
[2018-03-01] MEDS: traMADol 50 MG TABLET PO PRN (08:41)
[2018-03-01] MEDS: Nicotine 21 MG PATCH.TD24 TD SCH (08:43)
[2018-03-01] MEDS: Insulin DETEMIR 100 UNIT/ML X5UNITS SQ SCH (08:43)
--- NOTE | 2018-03-01 09:31 | Discharge Summary ---
<Sukhjinder Love - Last Filed: 03/01/18 13:22> - NOTES TO OUTPATIENT PROVIDER Notes to Outpatient Provider: Patient admitted for chest pain; started on dialysis, C showed nonobstructive CAD. Date of Encounter: 03/01/18 Time of Encounter: 08:30 - Discharge Diagnosis (1) Chest pain Priority: Primary Status: Acute Qualifiers: Chest pain type: chest pain due to myocardial ischemia Ischemic chest pain type: unstable angina pectoris Qualified Code(s): I20.0 - Unstable angina (2) Acute and chronic respiratory failure with hypoxia Priority: Secondary Status: Acute (3) Volume overload Priority: Secondary Status: Acute Qualifiers: Hypervolemia type: other Qualified Code(s): E87.79 - Other fluid overload (4) Diabetes Priority: Secondary Status: Chronic Qualifiers: Diabetes mellitus type: type 2 Diabetes mellitus terminal carman insulin use: with usp use Diabetes mellitus complication status: with hyperglycemia Qualified Code(s): E11.65 - Type 2 diabetes mellitus with hyperglycemia; Z79.4 - longterm (current) use of insulin (5) Tobacco abuse Priority: Secondary Status: Chronic (6) Anemia in CKD (chronic kidney disease) Priority: Secondary Status: Chronic Qualifiers: Chronic kidney disease stage: on chronic dialysis Qualified Code(s): N18.6 - End stage renal disease; D63.1 - Anemia in chronic kidney disease; Z99.2 - Dependence on renal dialysis (7) COPD (chronic obstructive pulmonary disease) Priority: Secondary Status: Chronic Qualifiers: COPD type: COPD with acute exacerbation Qualified Code(s): J44.1 - Chronic obstructive pulmonary disease with (acute) exacerbation Hospital course: Ms. 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 She presented to [place] ED with a progressively worsening shortness of breath and associated chest pressure/discomfort. Seen by Dr. Farr , director corporate compliance, due to concerns of fluid overload hemodialysis (which was planned to start as outpatient in the near future) was started while inpatient. Patient had AV fistula in place that was accessed for HD. Seen by cardiology, found to have abnormal stress test. Patient completed 3 days of consecutive dialysis and then proceed with LHC on 3rd day. LHC showed non-obstructive CAD, recommended reduction of risk factors and medical management. Patient started on aspirin, lopressor, and continued on a statin. After fluid removal, Ms. Oseguera noted that her chest pressure had greatly reduced. Discharge discussed with: patient - Time Spent with Patient Total time spent providing and/or coordinating discharge services: Greater than 30 minutes (40mins) - Discharge Medications Prescriptions: Aspirin Enteric Coated [Aspirin EC] 81 mg PO DAILY #30 tablet. Metoprolol [Lopressor] 25 mg PO BID #60 tablet Home Medications: Albuterol Sulfate [Proair Hfa] 2 puff IH Q4H PRN 05/20/15 [History] Atorvastatin [Lipitor] 40 mg PO HS 05/20/15 [History] Insulin Glargine,Hum.rec.anlog [Lantus Solostar] 90 units SQ QPM 05/20/15 [ History] Sodium Bicarbonate 325 mg PO QID 05/20/15 [History] Docusate [Colace] 100 mg PO QID PRN 11/09/15 [History] Omeprazole [PriLOSEC] 20 mg PO DAILY 04/28/16 [History] Beclomethasone Diprop 80mcg [QVAR 80 mcg] 2 puff IH BID 07/13/16 [History] cloNIDine HCl [Clonidine HCl] 0.2 mg PO QPM 02/07/17 [History] Pregabalin [Lyrica] 100 mg PO TID #120 capsule 02/13/17 [Rx] Sevelamer [Renvela] 800 mg PO TIDWM #90 tablet 02/13/17 [Rx] Acetaminophen [Tylenol] 650 mg PO DAILY PRN 02/22/18 [History] Ergocalciferol (VITAMIN D2) [Vitamin D2] 50,000 unit PO TU 02/22/18 [History] Insulin ASPART [Novolog] 18 - 22 unit SQ TIDWM 02/22/18 [History] Tramadol HCl [Ultram] 100 mg PO QID PRN 02/22/18 [History] Aspirin Enteric Coated [Aspirin EC] 81 mg PO DAILY #30 tablet. 03/01/18 [Rx] Metoprolol [Lopressor] 25 mg PO BID #60 tablet 03/01/18 [Rx] Allergies/Adverse Reactions: 3 Allergy/AdvReac Type Severity Reaction Status Date / Time iodine Allergy See Verified 02/22/18 09:06 Comments latex Allergy See Verified 02/22/18 09:06 Comments povidone-iodine Allergy See Verified 02/22/18 09:06 [From Betadine] Comments soap [From Betadine] Allergy See Verified 02/22/18 09:06 Comments trimethoprim [From Bactrim] Allergy Difficulty Verified 02/22/18 09:06 Breathing Benzonatate AdvReac Blurry Verified 02/22/18 09:06 Vision sulfacetamide AdvReac Palpitation Verified 02/22/18 09:06 s sulfamethoxazole AdvReac Palpitation Verified 02/22/18 09:06 s terbinafine [From Lamisil] AdvReac Itching Verified 02/22/18 09:06 shrimp AdvReac Vomiting Uncoded 02/22/18 09:06 Date of admission: 02/27/18 18:08 Primary care physician: Angela Truong Consults: 02/28/18 08:00 Consult to Dialysis [CONS] ONCE Discharging clinician: Janene Magallon Anticipated date of discharge: 03/01/18 - Constitutional Vitals: Temp Pulse Resp BP Pulse Ox 97.5 F L 81 18 106/34 97 03/01/18 06:45 03/01/18 06:45 03/01/18 07:32 03/01/18 06:45 03/01/18 07:32 General appearance: Present: cooperative, A&O X 3, pleasant, obese, answers questions appropriately - Head Head exam: Present: atraumatic, normal inspection, normocephalic - Eye Eye exam: Present: EOMI, normal appearance, sclera anicteric - ENT ENT exam: Present: mucous membranes moist - Neck Neck exam general surgery: Present: full ROM, normal inspection - Respiratory Respiratory exam: Present: CTAB. Absent: wheezes - Cardiovascular Cardiovascular exam: Present: RRR, +S1, +S2 - GI/Abdominal GI/Abdominal exam: Present: normal bowel sounds, soft. Absent: tenderness - Extremities Exam Extremities exam: Present: warm. Absent: pedal edema Additional comments: Hands: missing multiple digits bilaterally. Left forearm: bruising, fistula present, tenderness (corrected) right leg: AKA - Neurological Exam Neurological exam: Present: alert, oriented X3, no focal deficits. Absent: facial droop, speech deficit - Skin Skin exam: Present: dry, intact, warm. Absent: rash - Patient Status Disposition: Home, Self-Care Condition: Good Functional capacity at discharge: wheelchair bound (limited mobility at baseline.) Overall status at discharge: patient is progressing back to baseline - Discharge Instructions Instructions: Aspirin/Codeine (By mouth), Metoprolol (By mouth), Chronic Kidney Disease (DC) Follow Up With: Angela Truong MD [Primary Care Provider] - 03/06/18 9:00 am Additional Instructions: Follow up with your Primary Care Physician within the next week. Your dialysis is set up for Monday, Monday, Monday at 4:30pm; please try to arrive by 4pm. Please take your medications daily as directed. Return or seek medical care if you have new or worsening symptoms such as chest pain, dizziness, shortness of breath. - Diet and Activity Activity: increase activity as tolerated, wear oxygen at all times Diet: other (limit of 2 liters of fluid daily.) <Janene Magallon - Last Filed: 03/01/18 16:18> Date of Encounter: 03/01/18 Hospital course: Ms. sOeguera is a 57 year old female - Time Spent with Patient Total time spent providing and/or coordinating discharge services: Date of admission: 02/27/18 18:08 Primary care physician: Angela Truong Consults: 02/28/18 08:00 Consult to Dialysis [CONS] ONCE - Constitutional Vitals: Temp Pulse Resp BP Pulse Ox 97.5 F L 81 20 106/34 95 03/01/18 06:45 03/01/18 06:45 03/01/18 11:02 03/01/18 06:45 03/01/18 11:02 - Attending Attestation I saw and examined this patient independently, and my medical decision making was reviewed with the Resident on 2017. I agree with the documented findings, assessment and treatment plan as described in the progress note or discharge summary.
--- NOTE | 2018-03-01 11:01 | Nephrology Progress Note ---
Date of Encounter: 03/01/18 Time of Encounter: 10:58 - Assessment and Plan (1) ESRD (end stage renal disease) on dialysis Current Visit: Yes Status: Acute Patient may be discharged today-has chair time at [facility] for 4:30 starting tomorrow Renal diet Avoid nephrotoxins if possible (2) Dialysis AV fistula malfunction Current Visit: Yes Status: Resolved Working well now Qualifiers: Encounter type: initial encounter Qualified Code(s): T82.590A - Other mechanical complication of surgically created arteriovenous fistula, initial encounter (3) Volume overload Current Visit: Yes Status: Acute Follow 1.5 liter/day fluid restriction Qualifiers: Hypervolemia type: other Qualified Code(s): E87.79 - Other fluid overload Subjective Principal diagnosis: volume overload Interval history: Patient seen and examined. Slept through exam Objective - Vital Signs Vital signs: Vital Signs Temp Pulse Resp BP Pulse Ox 03/01/18 07:32 18 97 03/01/18 06:45 97.5 F L 81 17 106/34 03/01/18 04:00 97.7 F 84 14 104/38 96 03/01/18 03:43 17 90 02/28/18 23:07 18 94 02/28/18 20:04 93 02/28/18 20:01 21 93 02/28/18 19:40 97.6 F 95 16 101/69 96 02/28/18 16:06 98.2 F 18 146/42 02/28/18 15:10 155/84 02/28/18 15:00 102 17 127/62 02/28/18 14:55 165/69 02/28/18 14:40 144/65 02/28/18 14:25 148/64 02/28/18 14:10 137/70 02/28/18 13:55 132/66 02/28/18 13:40 148/63 02/28/18 13:25 129/64 02/28/18 13:10 133/68 02/28/18 12:55 146/58 02/28/18 12:40 132/80 02/28/18 12:25 160/69 02/28/18 12:10 97.6 F 18 133/61 02/28/18 12:02 97.5 F L 91 15 103/53 93 02/28/18 11:33 98.0 F 97 18 91/55 87 02/28/18 11:00 68 116/55 Intake and Output 02/28/18 03/01/18 03/01/18 23:59 07:59 15:59 Intake Total 240 / 240 320 / 320 Output Total 3600 / 3600 Balance -3360 / -3360 320 / 320 Intake: Oral 240 / 240 320 / 320 Output: Urine 0 / 0 Total Dialysis (HD) Output 3600 / 3600 Other: Meal Breakfast Percent of Meal Consumed 90% Blood Glucose* 311 320 Hemodialysis Net Fluid Removed 3000 (mL) - General Appearance General appearance: Present: obese, chronically ill EENT: Present: ATNC Neck: Present: supple Respiratory: Present: clear Cardiology: Present: no edema, normal S1, normal S2 Dialysis Vascular Access: Arteriovenous Fistula Gastrointestinal: Present: no tenderness, no guarding Integumentary: Present: warm and dry - Lab 03/01/18 04:25 03/01/18 04:25 Most recent lab results Calcium 8.1 mg/dL (8.6-10.3) L 03/01/18 04:25 Magnesium 2.1 mg/dL (1.6-2.6) 02/23/18 04:36 Consult Discharge Plan - Plan Additional Instructions: Follow up with your Primary Care Physician within the next week. Your dialysis is set up for Monday, Monday, Monday at 4:30pm; please try to arrive by 4pm. Please take your medications daily as directed. Return or seek medical care if you have new or worsening symptoms such as chest pain, dizziness, shortness of breath. Referrals: Angela Truong MD [Primary Care Provider] - 03/06/18 9:00 am Prescriptions: Aspirin Enteric Coated [Aspirin EC] 81 mg PO DAILY #30 tablet. Metoprolol [Lopressor] 25 mg PO BID #60 tablet
== END 2018-03-01 15:17 | disposition home or self-care (01) | DRG 252 ==
LOC: EMEROO 07:05 → 2NENU 07:05 → SUATTDRO 10:53 → 2NENU 11:09
PROVIDERS: ADMIT Family Medicine; ATTEND Internal Medicine

== ENCOUNTER 2019-08-27 15:04 | Observation (INO) ==
[2019-08-27] MEDS ORDERED: methylPREDNISolone 125 MG/2 ML VIAL IVP ONE (15:20)
[2019-08-27] MEDS ORDERED: Ipratropium/Albuterol Neb 3 ML IH ONE (15:21)
[2019-08-27 15:41] LABS: Prothrombin Time 11.4 Seconds (9.4-12.1)
[2019-08-27 15:44] LABS: Activated Partial Thrombo Time 46.1 Seconds (26.0-36.0)
[2019-08-27 16:00] LABS: Basophils % 0.3 %; Eosinophils # 0.2 K/mcL (0.0-0.6); Eosinophils % 2.6 %; Hematocrit 39.2 % (35.3-44.9); Hemoglobin 12.5 g/dL (11.5-15.4); Lymphocytes # 0.6 K/mcL (0.6-4.6); Mean Corpuscular HGB Conc 31.9 g/dL (31.6-35.5); Mean Corpuscular Volume 94.2 fL (83.0-100.0); Mean Platelet Volume 11.9 fL (9.4-12.4); Monocytes # 0.4 K/mcL (0.0-1.3); Monocytes % 5.1 %; Neutrophils # 6.5 K/mcL (1.6-8.9); Platelet Count 147 K/mcL (140-400); Red Blood Count 4.16 M/mcL (3.82-4.97); Red Cell Distribution Width 15.2 % (11.5-14.5); White Blood Count 7.8 K/mcL (4.3-11.1)
[2019-08-27] MEDS ORDERED: Albuterol 2.5 MG/3 ML NEBULIZER IH STA (16:17)
[2019-08-27 16:19] LABS: Albumin 3.7 g/dL (3.5-5.7); Albumin/Globulin Ratio 1.3 (1.1-2.2); Bilirubin,Direct 0.2 mg/dL (0.0-0.2); Bilirubin,Indirect 0.1 mg/dL (0.0-1.0); Bilirubin,Total 0.3 mg/dL (0.3-1.0); Calcium 7.8 mg/dL (8.6-10.3); Globulin 2.9 g/dL (2.4-3.5); Total Protein 6.6 g/dL (6.4-8.9); Troponin I 0.04 ng/mL (< 0.04)
[2019-08-27] MEDS ORDERED: Calcium Gluconate 1gm/50mL 1 GM/50 ML BAG IVPB SCH (16:30)
[2019-08-27 17:18] LABS: Phosphorous 9.9 mg/dL (2.7-4.5)
[2019-08-27] MEDS ORDERED: Naloxone 0.4 MG/ML INJ IVP PRN (18:12)
[2019-08-27] MEDS ORDERED: 0.9 % Sodium Chloride 250 ML IVC PRN (18:25)
[2019-08-27] MEDS ORDERED: 0.9 % Sodium Chloride 1,000 ML PRIME SCH (18:30)
[2019-08-27] MEDS ORDERED: *HR* Dextrose 50 % in Water (Syg) 50 ML SYRINGE IVP PRN (18:36)
[2019-08-27] MEDS ORDERED: Dextrose Gel 15 GM/37.5 ML TUBE PO PRN ×2 (18:36)
[2019-08-27] MEDS ORDERED: D5% in Water 1,000 ML IVC PRN (18:36)
[2019-08-27] MEDS ORDERED: Nicotine 7 MG PATCH.TD24 TD SCH (20:00)
[2019-08-27] MEDS ORDERED: Azithromycin 250 MG TABLET PO SCH (20:00)
[2019-08-27 20:07] LABS: Hepatitis B Surface Antibody < 3.10 mIU/mL
[2019-08-27 20:17] LABS: Hepatitis B Surface Antigen Nonreactive (Nonreactive)
[2019-08-27] MEDS ORDERED: Insulin DETEMIR 100 UNIT/ML X5UNITS SQ SCH (21:00)
[2019-08-27] MEDS: Pregabalin 50 MG CAPSULE PO SCH (22:04)
[2019-08-27] MEDS: Ipratropium/Albuterol Neb 3 ML IH SCH (22:12)
[2019-08-28 02:15] LABS: Bilirubin,Urine Negative (Negative); Blood,Urine Trace (Negative); Clarity,Urine Clear (Clear); Color,Urine Yellow (Yellow); Glucose,Urine (UA) 500 mg/dL (Normal); Ketones,Urine Negative (Negative); Leukocyte Esterase,Urine Negative (Negative); Nitrite,Urine Negative (Negative); Protein,Urine >=300 mg/dL (Neg-Trace); Specific Gravity,Urine 1.018 (1.010-1.025); Urobilinogen,Urine Normal (Normal)
[2019-08-28 02:17] LABS: Bacteria,Urine None Seen per hpf (None-Few); Hyaline Casts,Urine None Seen per lpf (None-Few); Squamous Epithelial Cell,Urine Many per lpf (None-Few)
[2019-08-28] MEDS: Ipratropium/Albuterol Neb 3 ML IH SCH ×4 (03:09→15:47)
[2019-08-28] MEDS: *HR* Heparin 5,000 UNIT/ML VIAL SQ SCH ×2 (04:06→18:50)
[2019-08-28 05:18] LABS: Hematocrit 34.3 % (35.3-44.9); Immature Granulocytes % 1.1 % (0-4); Lymphocytes # 0.3 K/mcL (0.6-4.6); Mean Corpuscular HGB Conc 31.5 g/dL (31.6-35.5); Mean Corpuscular Hemoglobin 29.8 pg (28.0-33.3); Mean Corpuscular Volume 94.5 fL (83.0-100.0); Mean Platelet Volume 11.5 fL (9.4-12.4); Monocytes # 0.2 K/mcL (0.0-1.3); Monocytes % 4.1 %; Neutrophils # 3.3 K/mcL (1.6-8.9); Platelet Count 119 K/mcL (140-400); Red Blood Count 3.63 M/mcL (3.82-4.97); Red Cell Distribution Width 14.6 % (11.5-14.5); Segmented Neutrophils % 87.8 %; White Blood Count 3.7 K/mcL (4.3-11.1)
[2019-08-28 05:19] LABS: Hemoglobin 10.8 g/dL (11.5-15.4)
[2019-08-28 05:37] LABS: Calcium 7.8 mg/dL (8.6-10.3); Potassium 5.1 mEq/L (3.5-5.1)
[2019-08-28] MEDS: Insulin LISPRO 300 UNITS/3 ML VIAL SQ SCH ×6 (08:12→16:50)
[2019-08-28] MEDS: Pregabalin 50 MG CAPSULE PO SCH (08:17)
[2019-08-28] MEDS ORDERED: Azithromycin 250 MG TABLET PO SCH (09:00)
[2019-08-28] MEDS ORDERED: Vitamin B Complex/Vit C/Vit E 1 EACH TABLET PO SCH (09:00)
[2019-08-28] MEDS ORDERED: Loratadine 10 MG TABLET PO SCH (09:00)
[2019-08-28] MEDS ORDERED: Aspirin Enteric Coated 81 MG Tablet PO SCH (09:00)
[2019-08-28] MEDS ORDERED: Renal Vitamin 1 CAP CAPSULE PO SCH (09:00)
[2019-08-28] MEDS ORDERED: Nicotine 7 MG PATCH.TD24 TD SCH (09:00)
[2019-08-28] MEDS ORDERED: Pregabalin 50 MG CAPSULE PO SCH (09:00)
[2019-08-28] MEDS ORDERED: cloNIDine HCl 0.1 MG TABLET PO SCH (09:00)
[2019-08-28] MEDS ORDERED: MethylPREDNISolone 40 MG/ML VIAL IVP SCH (09:00)
[2019-08-28] MEDS ORDERED: 0.9 % Sodium Chloride 250 ML IVC PRN (09:24)
[2019-08-28] MEDS ORDERED: Ondansetron 4 MG/2 ML VIAL IVP PRN (16:15)
[2019-08-28] MEDS ORDERED: Acetaminophen 325 MG TABLET PO STA (16:43)
[2019-08-28 18:36] VITALS: BP 160/81
== END 2019-08-28 21:29 | disposition home or self-care (01) ==
LOC: SUATTDRO → 2ANU 15:04 → EMEROOARM 15:04 → SUATTDRO 19:27 → 2ANU 20:05
PROVIDERS: ADMIT Internal Medicine; ATTEND Student in an Organized Health Care Education/Training Program

== ENCOUNTER 2019-11-07 12:57 | Inpatient (IN) ==
[2019-11-07] MEDS ORDERED: Ipratropium/Albuterol Neb 3 ML IH ONE (13:58)
[2019-11-07] MEDS ORDERED: MethylPREDNISolone 40 MG/ML VIAL IVP ONE (14:00)
[2019-11-07 14:20] LABS: Basophils # 0.1 K/mcL (0.0-0.2); Basophils % 0.8 %; Eosinophils # 0.4 K/mcL (0.0-0.6); Hematocrit 34.9 % (35.3-44.9); Hemoglobin 11.3 g/dL (11.5-15.4); Immature Granulocytes % 0.5 % (0-4); Lymphocytes # 0.9 K/mcL (0.6-4.6); Lymphocytes % 11.7 %; Mean Corpuscular HGB Conc 32.4 g/dL (31.6-35.5); Mean Corpuscular Hemoglobin 30.5 pg (28.0-33.3); Mean Corpuscular Volume 94.3 fL (83.0-100.0); Mean Platelet Volume 12.1 fL (9.4-12.4); Monocytes # 0.5 K/mcL (0.0-1.3); Monocytes % 6.7 %; Neutrophils # 5.9 K/mcL (1.6-8.9); Platelet Count 163 K/mcL (140-400); Red Cell Distribution Width 15.7 % (11.5-14.5); Segmented Neutrophils % 75.3 %; White Blood Count 7.8 K/mcL (4.3-11.1)
[2019-11-07 14:43] LABS: Calcium 8.3 mg/dL (8.6-10.3); Potassium 4.3 mEq/L (3.5-5.1)
[2019-11-07 14:51] LABS: Troponin I 0.04 ng/mL (< 0.04)
[2019-11-07] MEDS ORDERED: Naloxone 0.4 MG/ML INJ IVP PRN (16:23)
[2019-11-07] MEDS ORDERED: *HR* Promethazine 25 MG/ML VIAL IVP PRN (16:23)
[2019-11-07] MEDS ORDERED: Dextrose Gel 15 GM/37.5 ML TUBE PO PRN ×2 (16:24)
[2019-11-07] MEDS ORDERED: D5% in Water 1,000 ML IVC PRN (16:24)
[2019-11-07] MEDS ORDERED: *HR* Dextrose 50 % in Water (Syg) 50 ML SYRINGE IVP PRN (16:24)
[2019-11-07 16:52] LABS: Estimated Average Glucose 174 mg/dl
[2019-11-07] MEDS ORDERED: Furosemide 40 MG/4 ML VIAL IVP SCH ×2 (17:47→21:00)
[2019-11-07] MEDS: Azithromycin 500 MG in 0.9 % Sodium Chloride 250 ML IVPB SCH (18:33)
[2019-11-07] MEDS: *HR* Heparin 5,000 UNIT/ML VIAL SQ SCH (18:33)
[2019-11-07] MEDS: Insulin LISPRO 300 UNITS/3 ML VIAL SQ SCH ×2 (18:42→20:27)
[2019-11-07 20:04] LABS: Adenovirus Not Detected (Not Detect); Bordetella Pertussis Not Detected (Not Detect); Chlamydophila pneumoniae Not Detected (Not Detect); Coronavirus 229E Not Detected (Not Detect); Coronavirus HKU1 Not Detected (Not Detect); Coronavirus NL63 Not Detected (Not Detect); Coronavirus OC43 Not Detected (Not Detect); Human Metapneumovirus Not Detected (Not Detect); Human Rhinovirus/Enterovirus DETECTED (Not Detect); Influenza A Subtype 2009 H1 Not Detected (Not Detect); Influenza B Not Detected (Not Detect); Mycoplasma pneumoniae Not Detected (Not Detect); Parainfluenza Virus 1 Not Detected (Not Detect); Parainfluenza Virus 2 Not Detected (Not Detect); Parainfluenza Virus 3 Not Detected (Not Detect); Parainfluenza Virus 4 Not Detected (Not Detect); Respiratory Syncytial Virus Not Detected (Not Detect)
[2019-11-07] MEDS: Budesonide/Formoterol 160/4.5 1 PUFF INH IH SCH (20:13)
[2019-11-07] MEDS: Ipratropium/Albuterol Neb 3 ML IH SCH (20:13)
[2019-11-07] MEDS: Pregabalin 50 MG CAPSULE PO SCH (20:26)
[2019-11-07] MEDS: Insulin DETEMIR 100 UNIT/ML X5UNITS SQ SCH (20:26)
[2019-11-07] MEDS ORDERED: INSULIN GLARGINE HUM REC ANLOG SQ SCH (21:00)
[2019-11-07] MEDS ORDERED: [UNRECOGNIZED DRUG - OTHER] SQ SCH (21:00)
[2019-11-07] MEDS: MethylPREDNISolone 40 MG/ML VIAL IVP SCH (23:35)
[2019-11-08] MEDS: Ipratropium/Albuterol Neb 3 ML IH SCH ×7 (00:02→23:51)
[2019-11-08 04:48] LABS: Basophils % 0.2 %; Eosinophils % 0.2 %; Hematocrit 33.4 % (35.3-44.9); Hemoglobin 10.9 g/dL (11.5-15.4); Immature Granulocytes % 0.8 % (0-4); Lymphocytes # 0.3 K/mcL (0.6-4.6); Lymphocytes % 5.2 %; Mean Corpuscular HGB Conc 32.6 g/dL (31.6-35.5); Mean Corpuscular Volume 94.9 fL (83.0-100.0); Mean Platelet Volume 12.2 fL (9.4-12.4); Monocytes # 0.1 K/mcL (0.0-1.3); Neutrophils # 5.7 K/mcL (1.6-8.9); Nucleated Red Blood Cells 0.3 /100 WBC (0); Platelet Count 158 K/mcL (140-400); Red Blood Count 3.52 M/mcL (3.82-4.97); Red Cell Distribution Width 15.6 % (11.5-14.5); Segmented Neutrophils % 92.6 %; White Blood Count 6.1 K/mcL (4.3-11.1)
[2019-11-08 05:08] LABS: Calcium 8.4 mg/dL (8.6-10.3); Phosphorous 8.5 mg/dL (2.7-4.5); Potassium 6.6 mEq/L (3.5-5.1)
[2019-11-08] MEDS: *HR* Heparin 5,000 UNIT/ML VIAL SQ SCH ×2 (05:27→16:50)
[2019-11-08] MEDS: Budesonide/Formoterol 160/4.5 1 PUFF INH IH SCH ×2 (07:36→19:49)
[2019-11-08] MEDS ORDERED: 0.9 % Sodium Chloride 250 ML IVC PRN (07:48)
[2019-11-08] MEDS ORDERED: Insulin Human Regular 10 UNIT in 0.9 % Sodium Chloride 10 ML IV ONE (07:57)
[2019-11-08] MEDS ORDERED: *HR* Dextrose 50 % in Water (Syg) 50 ML SYRINGE IVP ONE (07:57)
[2019-11-08] MEDS ORDERED: 0.9 % Sodium Chloride 1,000 ML PRIME SCH (08:00)
[2019-11-08] MEDS ORDERED: 0.9 % Sodium Chloride 1,000 ML ONE (08:11)
[2019-11-08] MEDS: Calcium Gluconate 1gm/50mL 1 GM/50 ML BAG IVPB SCH (08:43)
[2019-11-08] MEDS: MethylPREDNISolone 40 MG/ML VIAL IVP SCH ×3 (08:48→23:38)
[2019-11-08] MEDS: Aspirin Enteric Coated 81 MG Tablet PO SCH (08:48)
[2019-11-08] MEDS: Renal Vitamin 1 CAP CAPSULE PO SCH (08:48)
[2019-11-08] MEDS: Pregabalin 50 MG CAPSULE PO SCH (08:48)
[2019-11-08] MEDS: Insulin LISPRO 300 UNITS/3 ML VIAL SQ SCH ×4 (08:49→21:40)
[2019-11-08] MEDS ORDERED: cloNIDine HCl 0.1 MG TABLET PO SCH (09:00)
[2019-11-08 10:44] LABS: Hepatitis B Surface Antibody 4.04 mIU/mL
[2019-11-08 10:55] LABS: Hepatitis B Surface Antigen Nonreactive (Nonreactive)
[2019-11-08] MEDS: Azithromycin 500 MG in 0.9 % Sodium Chloride 250 ML IVPB SCH (16:51)
[2019-11-08] MEDS: cloNIDine HCl 0.1 MG TABLET PO SCH (21:39)
[2019-11-08] MEDS: Insulin DETEMIR 100 UNIT/ML X5UNITS SQ SCH (21:39)
[2019-11-08] MEDS ORDERED: Patient Taking Own Medication 1 EACH PO SCH ×2 (22:00→23:07)
[2019-11-09] MEDS: LYRICA 100 MG PO SCH ×2 (00:21→11:53)
[2019-11-09] MEDS: Ipratropium/Albuterol Neb 3 ML IH SCH ×6 (03:52→23:55)
[2019-11-09] MEDS: *HR* Heparin 5,000 UNIT/ML VIAL SQ SCH ×2 (05:36→17:31)
[2019-11-09 06:58] LABS: Hematocrit 32.8 % (35.3-44.9); Hemoglobin 10.3 g/dL (11.5-15.4); Immature Granulocytes % 0.9 % (0-4); Lymphocytes # 0.3 K/mcL (0.6-4.6); Lymphocytes % 5.7 %; Mean Corpuscular HGB Conc 31.4 g/dL (31.6-35.5); Mean Corpuscular Hemoglobin 29.7 pg (28.0-33.3); Mean Corpuscular Volume 94.5 fL (83.0-100.0); Monocytes # 0.2 K/mcL (0.0-1.3); Monocytes % 3.1 %; Neutrophils # 5.2 K/mcL (1.6-8.9); Platelet Count 177 K/mcL (140-400); Red Blood Count 3.47 M/mcL (3.82-4.97); Red Cell Distribution Width 15.2 % (11.5-14.5); Segmented Neutrophils % 90.3 %; White Blood Count 5.8 K/mcL (4.3-11.1)
[2019-11-09] MEDS: Budesonide/Formoterol 160/4.5 1 PUFF INH IH SCH ×2 (07:23→19:32)
[2019-11-09 07:25] LABS: Calcium 8.2 mg/dL (8.6-10.3); Potassium 5.2 mEq/L (3.5-5.1)
[2019-11-09] MEDS ORDERED: 0.9 % Sodium Chloride 250 ML IVC PRN (07:27)
[2019-11-09] MEDS ORDERED: Insulin Human Regular 20 UNIT in 0.9 % Sodium Chloride 10 ML IV ONE (07:29)
[2019-11-09] MEDS: Renal Vitamin 1 CAP CAPSULE PO SCH (08:11)
[2019-11-09] MEDS: Aspirin Enteric Coated 81 MG Tablet PO SCH (08:11)
[2019-11-09] MEDS: Insulin LISPRO 300 UNITS/3 ML VIAL SQ SCH ×4 (11:51→19:58)
[2019-11-09 14:50] LABS: Potassium 3.5 mEq/L (3.5-5.1)
[2019-11-09] MEDS: Azithromycin 500 MG in 0.9 % Sodium Chloride 250 ML IVPB SCH (17:33)
[2019-11-09] MEDS ORDERED: *HR* Digoxin 0.5 MG/2 ML AMPUL IVP SCH (18:00)
[2019-11-09] MEDS: cloNIDine HCl 0.1 MG TABLET PO SCH (19:56)
[2019-11-09] MEDS: Insulin DETEMIR 100 UNIT/ML X5UNITS SQ SCH (19:57)
[2019-11-09] MEDS ORDERED: LYRICA 100 MG PO SCH (21:00)
[2019-11-10] MEDS: Ipratropium/Albuterol Neb 3 ML IH SCH ×2 (04:06→07:23)
[2019-11-10 04:52] LABS: Basophils % 0.5 %; Eosinophils # 0.2 K/mcL (0.0-0.6); Eosinophils % 2.9 %; Hematocrit 32.7 % (35.3-44.9); Hemoglobin 10.6 g/dL (11.5-15.4); Immature Granulocytes % 0.8 % (0-4); Lymphocytes # 1.4 K/mcL (0.6-4.6); Lymphocytes % 22.8 %; Mean Corpuscular HGB Conc 32.4 g/dL (31.6-35.5); Mean Corpuscular Hemoglobin 30.3 pg (28.0-33.3); Mean Corpuscular Volume 93.4 fL (83.0-100.0); Mean Platelet Volume 11.8 fL (9.4-12.4); Monocytes # 0.4 K/mcL (0.0-1.3); Monocytes % 5.9 %; Neutrophils # 4.2 K/mcL (1.6-8.9); Platelet Count 179 K/mcL (140-400); Red Cell Distribution Width 15.1 % (11.5-14.5); Segmented Neutrophils % 67.1 %; White Blood Count 6.3 K/mcL (4.3-11.1)
[2019-11-10 05:07] LABS: Calcium 8.4 mg/dL (8.6-10.3); Magnesium 2.1 mg/dL (1.6-2.6); Phosphorous 6.2 mg/dL (2.7-4.5); Potassium 3.9 mEq/L (3.5-5.1)
[2019-11-10] MEDS: *HR* Heparin 5,000 UNIT/ML VIAL SQ SCH (05:31)
[2019-11-10 07:20] VITALS: BP 135/64
[2019-11-10] MEDS: Budesonide/Formoterol 160/4.5 1 PUFF INH IH SCH (07:25)
[2019-11-10] MEDS: Renal Vitamin 1 CAP CAPSULE PO SCH (07:52)
[2019-11-10] MEDS: Aspirin Enteric Coated 81 MG Tablet PO SCH (07:53)
[2019-11-10] MEDS: Insulin LISPRO 300 UNITS/3 ML VIAL SQ SCH (07:53)
[2019-11-10] MEDS: LYRICA 100 MG PO SCH (09:41)
== END 2019-11-10 10:55 | disposition home or self-care (01) | DRG 291 ==
LOC: 2ANU 12:57 → EMEROOARM 12:57 → 2ANU 17:43
PROVIDERS: ADMIT Pharmacist; ATTEND Pharmacist

== ENCOUNTER 2020-02-18 05:31 | Inpatient (IN) ==
[2020-02-18 06:31] LABS: Basophils # 0.1 K/mcL (0.0-0.2); Basophils % 0.5 %; Eosinophils # 0.2 K/mcL (0.0-0.6); Eosinophils % 1.8 %; Hematocrit 33.3 % (35.3-44.9); Hemoglobin 10.4 g/dL (11.5-15.4); Immature Granulocytes % 1.6 % (0-4); Lymphocytes # 1.1 K/mcL (0.6-4.6); Lymphocytes % 8.2 %; Mean Corpuscular HGB Conc 31.2 g/dL (31.6-35.5); Mean Corpuscular Hemoglobin 28.3 pg (28.0-33.3); Mean Corpuscular Volume 90.7 fL (83.0-100.0); Mean Platelet Volume 11.9 fL (9.4-12.4); Monocytes # 0.6 K/mcL (0.0-1.3); Monocytes % 4.8 %; Neutrophils # 10.7 K/mcL (1.6-8.9); Platelet Count 243 K/mcL (140-400); Red Blood Count 3.67 M/mcL (3.82-4.97); Red Cell Distribution Width 15.1 % (11.5-14.5); Segmented Neutrophils % 83.1 %; White Blood Count 12.9 K/mcL (4.3-11.1)
[2020-02-18 06:51] LABS: Calcium 8.4 mg/dL (8.6-10.3); Potassium 4.5 mEq/L (3.5-5.1)
[2020-02-18] MEDS ORDERED: Naloxone 0.4 MG/ML INJ IVP PRN (07:17)
[2020-02-18] MEDS ORDERED: Acetaminophen 325 MG TABLET PO PRN (07:17)
[2020-02-18] MEDS ORDERED: *HR* Dextrose 50 % in Water (Syg) 50 ML SYRINGE IVP PRN (07:18)
[2020-02-18] MEDS ORDERED: D5% in Water 1,000 ML IVC PRN (07:18)
[2020-02-18] MEDS ORDERED: Dextrose Gel 15 GM/37.5 ML TUBE PO PRN ×2 (07:18)
[2020-02-18] MEDS ORDERED: Albuterol 2.5 MG/3 ML NEBULIZER IH PRN (07:45)
[2020-02-18] MEDS ORDERED: 0.9 % Sodium Chloride 250 ML IVC PRN (07:53)
[2020-02-18] MEDS ORDERED: 0.9 % Sodium Chloride 1,000 ML PRIME SCH (08:00)
[2020-02-18 08:42] LABS: Hepatitis B Surface Antibody < 3.10 mIU/mL
[2020-02-18 08:53] LABS: Hepatitis B Surface Antigen Nonreactive (Nonreactive)
[2020-02-18] MEDS: Aspirin Enteric Coated 81 MG Tablet PO SCH (09:30)
[2020-02-18] MEDS: Insulin LISPRO 300 UNITS/3 ML VIAL SQ SCH ×7 (09:31→21:02)
[2020-02-18] MEDS: *HR* Heparin 5,000 UNIT/ML VIAL SQ SCH ×2 (13:45→21:02)
[2020-02-18] MEDS ORDERED: Gadolinium Contrast Agent (WT Based) IV PRN (15:52)
[2020-02-18] MEDS ORDERED: Insulin DETEMIR 100 UNIT/ML X5UNITS SQ SCH ×2 (21:00)
[2020-02-18] MEDS: cloNIDine HCL 0.1 MG TABLET PO SCH (21:01)
[2020-02-18] MEDS: Insulin DETEMIR 100 UNIT/ML X5UNITS SQ SCH (21:04)
[2020-02-19 00:58] LABS: Basophils # 0.1 K/mcL (0.0-0.2); Basophils % 0.9 %; Eosinophils # 0.3 K/mcL (0.0-0.6); Eosinophils % 4.2 %; Hematocrit 32.1 % (35.3-44.9); Hemoglobin 9.8 g/dL (11.5-15.4); Immature Granulocytes % 1.5 % (0-4); Lymphocytes # 1.1 K/mcL (0.6-4.6); Lymphocytes % 16.6 %; Mean Corpuscular HGB Conc 30.5 g/dL (31.6-35.5); Mean Corpuscular Hemoglobin 28.1 pg (28.0-33.3); Mean Platelet Volume 11.7 fL (9.4-12.4); Monocytes # 0.4 K/mcL (0.0-1.3); Monocytes % 6.5 %; Neutrophils # 4.6 K/mcL (1.6-8.9); Platelet Count 228 K/mcL (140-400); Red Blood Count 3.49 M/mcL (3.82-4.97); Segmented Neutrophils % 70.3 %; White Blood Count 6.5 K/mcL (4.3-11.1)
[2020-02-19 01:12] LABS: Calcium 8.4 mg/dL (8.6-10.3); Potassium 3.8 mEq/L (3.5-5.1)
[2020-02-19] MEDS: *HR* Heparin 5,000 UNIT/ML VIAL SQ SCH ×3 (05:11→20:00)
[2020-02-19] MEDS ORDERED: *HR* OxyCODONE Immed Rel 5 MG TABLET PO ONE (05:27)
[2020-02-19] MEDS: Insulin LISPRO 300 UNITS/3 ML VIAL SQ SCH ×7 (08:52→20:01)
[2020-02-19] MEDS: Aspirin Enteric Coated 81 MG Tablet PO SCH (08:57)
[2020-02-19] MEDS: Pregabalin 50 MG CAPSULE PO SCH ×3 (11:08→20:00)
[2020-02-19 11:11] LABS: Acinetobacter baumannii by PCR Not Detected (Not Detect); Candida albicans by PCR Not Detected (Not Detect); Candida glabrata by PCR Not Detected (Not Detect); Candida krusei by PCR Not Detected (Not Detect); Candida parapsilosis by PCR Not Detected (Not Detect); Candida tropicalis by PCR Not Detected (Not Detect); Enterobacter cloacae Cmplx PCR Not Detected (Not Detect); Enterobacteriaceae by PCR Not Detected (Not Detect); Enterococcus by PCR Not Detected (Not Detect); Escherichia coli by PCR Not Detected (Not Detect); Klebsiella oxytoca by PCR Not Detected (Not Detect); Klebsiella pneumoniae by PCR Not Detected (Not Detect); Proteus by PCR Not Detected (Not Detect); Pseudomonas aeruginosa by PCR Not Detected (Not Detect); Serratia marcescens by PCR Not Detected (Not Detect); Staphylococcus aureus by PCR Not Detected (Not Detect); Staphylococcus by PCR DETECTED (Not Detect); Streptococcus agalactiae(B)PCR Not Detected (Not Detect); Streptococcus by PCR Not Detected (Not Detect); Streptococcus pneumoniae PCR Not Detected (Not Detect); Streptococcus pyogenes (A) PCR Not Detected (Not Detect); mecA Methicillin-Resist Gene DETECTED (Not Detect)
[2020-02-19] MEDS ORDERED: Ipratropium/Albuterol Neb 3 ML IH PRN (15:29)
[2020-02-19] MEDS ORDERED: Furosemide 40 MG TABLET PO SCH (15:30)
[2020-02-19] MEDS: cloNIDine HCL 0.1 MG TABLET PO SCH (20:00)
[2020-02-19] MEDS: Insulin DETEMIR 100 UNIT/ML X5UNITS SQ SCH (20:00)
[2020-02-20 02:20] LABS: Basophils # 0.1 K/mcL (0.0-0.2); Basophils % 0.9 %; Eosinophils # 0.2 K/mcL (0.0-0.6); Eosinophils % 3.5 %; Hematocrit 33.5 % (35.3-44.9); Hemoglobin 9.7 g/dL (11.5-15.4); Lymphocytes # 1.2 K/mcL (0.6-4.6); Lymphocytes % 17.9 %; Mean Corpuscular Hemoglobin 27.2 pg (28.0-33.3); Mean Corpuscular Volume 93.8 fL (83.0-100.0); Mean Platelet Volume 11.7 fL (9.4-12.4); Monocytes # 0.4 K/mcL (0.0-1.3); Monocytes % 6.3 %; Neutrophils # 4.8 K/mcL (1.6-8.9); Platelet Count 223 K/mcL (140-400); Red Blood Count 3.57 M/mcL (3.82-4.97); Red Cell Distribution Width 14.8 % (11.5-14.5); Segmented Neutrophils % 70.4 %; White Blood Count 6.8 K/mcL (4.3-11.1)
[2020-02-20 02:40] LABS: Calcium 8.3 mg/dL (8.6-10.3)
[2020-02-20] MEDS: *HR* Heparin 5,000 UNIT/ML VIAL SQ SCH ×3 (05:35→20:53)
[2020-02-20] MEDS ORDERED: 0.9 % Sodium Chloride 250 ML IVC PRN (07:21)
[2020-02-20] MEDS: Aspirin Enteric Coated 81 MG Tablet PO SCH (07:57)
[2020-02-20] MEDS: Pregabalin 50 MG CAPSULE PO SCH ×3 (07:57→20:53)
[2020-02-20] MEDS: Loratadine 10 MG TABLET PO SCH (07:57)
[2020-02-20] MEDS: Insulin LISPRO 300 UNITS/3 ML VIAL SQ SCH ×7 (07:58→20:54)
[2020-02-20] MEDS: cloNIDine HCL 0.1 MG TABLET PO SCH (20:53)
[2020-02-20] MEDS: Insulin DETEMIR 100 UNIT/ML X5UNITS SQ SCH (20:54)
[2020-02-21 02:33] LABS: Calcium 8.6 mg/dL (8.6-10.3); Potassium 4.3 mEq/L (3.5-5.1)
[2020-02-21] MEDS: *HR* Heparin 5,000 UNIT/ML VIAL SQ SCH ×2 (05:47→11:28)
[2020-02-21] MEDS: Insulin LISPRO 300 UNITS/3 ML VIAL SQ SCH ×4 (09:06→11:32)
[2020-02-21] MEDS: Aspirin Enteric Coated 81 MG Tablet PO SCH (09:07)
[2020-02-21] MEDS: Loratadine 10 MG TABLET PO SCH (09:07)
[2020-02-21] MEDS: Pregabalin 50 MG CAPSULE PO SCH (09:07)
[2020-02-21 11:42] VITALS: BP 130/71
[2020-02-21] MEDS ORDERED: Aminoglycoside Consult 1 EACH MC ONE (14:59)
== END 2020-02-21 15:00 | disposition home or self-care (01) | DRG 871 ==
LOC: EMEROOARM 05:31 → 2ANU 05:31 → SUATTDRO 07:19 → 2ANU 08:16
PROVIDERS: ADMIT Internal Medicine; ATTEND Internal Medicine

== ENCOUNTER 2020-04-13 14:42 | Inpatient (IN) ==
[2020-04-13 15:42] LABS: Basophils # 0.1 K/mcL (0.0-0.2); Basophils % 0.5 %; Eosinophils # 0.2 K/mcL (0.0-0.6); Eosinophils % 1.5 %; Hematocrit 42.1 % (35.3-44.9); Hemoglobin 12.7 g/dL (11.5-15.4); Immature Granulocytes % 0.5 % (0-4); Lymphocytes # 0.9 K/mcL (0.6-4.6); Lymphocytes % 9.2 %; Mean Corpuscular HGB Conc 30.2 g/dL (31.6-35.5); Mean Corpuscular Hemoglobin 28.1 pg (28.0-33.3); Mean Corpuscular Volume 93.1 fL (83.0-100.0); Mean Platelet Volume 12.3 fL (9.4-12.4); Monocytes # 0.6 K/mcL (0.0-1.3); Monocytes % 5.8 %; Neutrophils # 8.1 K/mcL (1.6-8.9); Platelet Count 164 K/mcL (140-400); Red Blood Count 4.52 M/mcL (3.82-4.97); Red Cell Distribution Width 16.5 % (11.5-14.5); Segmented Neutrophils % 82.5 %; White Blood Count 9.9 K/mcL (4.3-11.1)
[2020-04-13 16:03] LABS: Albumin 3.7 g/dL (3.5-5.7); Albumin/Globulin Ratio 1.4 (1.1-2.2); Bilirubin,Direct 0.1 mg/dL (0.0-0.2); Bilirubin,Indirect 0.3 mg/dL (0.0-1.0); Bilirubin,Total 0.4 mg/dL (0.3-1.0); Globulin 2.6 g/dL (2.4-3.5); Magnesium 2.1 mg/dL (1.6-2.6); Potassium 5.6 mEq/L (3.5-5.1); Total Protein 6.3 g/dL (6.4-8.9); Troponin I 0.03 ng/mL (< 0.04)
[2020-04-13] MEDS ORDERED: *HR* FentaNYL (PF) 100 MCG/2 ML VIAL IVP ONE (16:15)
[2020-04-13] MEDS ORDERED: *HR* Heparin 5,000 UNIT/ML VIAL IVP PRN ×4 (17:06→17:44)
[2020-04-13] MEDS ORDERED: *HR* Heparin 5,000 UNIT/ML VIAL IVP ONE ×2 (17:06→17:44)
[2020-04-13] MEDS ORDERED: Heparin 25,000 UNIT/250 ML D5W 25,000 UNIT/250 ML IV.SOLN IVC SCH ×2 (17:15→17:45)
[2020-04-13] MEDS ORDERED: Isovue-370 500 ML BOTTLE IVP ONE ×2 (17:24→20:02)
[2020-04-13 18:16] LABS: Hematocrit 41.2 % (35.3-44.9); Mean Corpuscular HGB Conc 29.1 g/dL (31.6-35.5); Mean Platelet Volume 12.3 fL (9.4-12.4); Platelet Count 145 K/mcL (140-400); Red Blood Count 4.29 M/mcL (3.82-4.97); Red Cell Distribution Width 16.6 % (11.5-14.5); White Blood Count 9.5 K/mcL (4.3-11.1)
[2020-04-13 18:24] LABS: Heparin anti-factor XA UFH 0.13 IU/mL (0.30-0.70)
[2020-04-13 18:25] LABS: Prothrombin Time 11.4 Seconds (9.4-12.1)
[2020-04-13] MEDS ORDERED: *HR* Dextrose 50 % in Water (Vial) 50 ML VIAL IVP PRN (20:26)
[2020-04-13] MEDS ORDERED: *HR* Labetalol 20 MG/4 ML SYRINGE IVP PRN (20:26)
[2020-04-13] MEDS ORDERED: Dextrose Gel 15 GM/37.5 ML TUBE PO PRN ×2 (20:26)
[2020-04-13] MEDS ORDERED: D5% in Water 1,000 ML IVC PRN (20:26)
[2020-04-13] MEDS: Acetaminophen 325 MG TABLET PO PRN (20:43)
[2020-04-13] MEDS ORDERED: Insulin DETEMIR 100 UNIT/ML X5UNITS SQ SCH (21:00)
[2020-04-13] MEDS: Furosemide 40 MG TABLET PO SCH (21:07)
[2020-04-13] MEDS ORDERED: *HR* OxyCODONE Immed Rel 5 MG TABLET PO ONE (21:52)
[2020-04-13] MEDS: Ipratropium/Albuterol Neb 3 ML IH SCH (22:19)
[2020-04-13] MEDS: Insulin LISPRO 300 UNITS/3 ML VIAL SQ SCH ×2 (22:29→22:32)
[2020-04-13] MEDS: cloNIDine HCL 0.1 MG TABLET PO SCH (22:30)
[2020-04-13] MEDS: Insulin DETEMIR 100 UNIT/ML X5UNITS SQ SCH (22:31)
[2020-04-14] MEDS: hydrALAZINE 25 MG TABLET PO SCH ×4 (02:26→19:58)
[2020-04-14] MEDS: Ipratropium/Albuterol Neb 3 ML IH SCH ×5 (04:14→20:21)
[2020-04-14] MEDS: *HR* Heparin 5,000 UNIT/ML VIAL SQ SCH ×3 (05:50→19:55)
[2020-04-14] MEDS ORDERED: 0.9 % Sodium Chloride 1,000 ML PRIME SCH (07:00)
[2020-04-14] MEDS ORDERED: 0.9 % Sodium Chloride 250 ML IVC PRN (07:00)
[2020-04-14 08:04] LABS: Calcium 7.6 mg/dL (8.6-10.3); Potassium 5.4 mEq/L (3.5-5.1)
[2020-04-14 08:15] LABS: Hematocrit 38.3 % (35.3-44.9); Hemoglobin 11.5 g/dL (11.5-15.4); Mean Corpuscular Volume 93.2 fL (83.0-100.0); Mean Platelet Volume 12.1 fL (9.4-12.4); Platelet Count 146 K/mcL (140-400); Red Blood Count 4.11 M/mcL (3.82-4.97); Red Cell Distribution Width 16.9 % (11.5-14.5); White Blood Count 8.7 K/mcL (4.3-11.1)
[2020-04-14] MEDS: Insulin LISPRO 300 UNITS/3 ML VIAL SQ SCH ×4 (08:18→19:30)
[2020-04-14] MEDS: Aspirin Enteric Coated 81 MG Tablet PO SCH (08:18)
[2020-04-14 08:44] LABS: Hepatitis B Surface Antibody < 3.10 mIU/mL
[2020-04-14 08:55] LABS: Hepatitis B Surface Antigen Nonreactive (Nonreactive)
[2020-04-14] MEDS: predniSONE 20 MG TABLET PO SCH (12:24)
[2020-04-14] MEDS: Cefepime HCl 1,000 MG in Water for inj. (sterile) 10 ML IVP SCH (12:26)
[2020-04-14] MEDS: Azithromycin 500 MG in 0.9 % Sodium Chloride 250 ML IVPB SCH (12:26)
[2020-04-14] MEDS: Budesonide/Formoterol 160/4.5 1 PUFF INH IH SCH ×2 (15:40→20:32)
[2020-04-14] MEDS ORDERED: Vancomycin 1,750 MG/517.5 ML IV.SOLN IVPB ONE (17:00)
[2020-04-14] MEDS: *HR* Promethazine 25 MG/ML VIAL IVP PRN (18:13)
[2020-04-14] MEDS: Acetaminophen 325 MG TABLET PO PRN (18:13)
[2020-04-14] MEDS ORDERED: *HR* Promethazine 25 MG/ML VIAL IVP ONE (19:37)
[2020-04-14] MEDS: Insulin DETEMIR 100 UNIT/ML X5UNITS SQ SCH (19:39)
[2020-04-14] MEDS: cloNIDine HCL 0.1 MG TABLET PO SCH (19:58)
[2020-04-14] MEDS ORDERED: Pregabalin 50 MG CAPSULE PO ONE (21:30)
[2020-04-15] MEDS: hydrALAZINE 25 MG TABLET PO SCH ×4 (00:20→17:06)
[2020-04-15] MEDS: Ipratropium/Albuterol Neb 3 ML IH SCH ×6 (00:24→19:44)
[2020-04-15] MEDS: Acetaminophen 325 MG TABLET PO PRN ×2 (02:47→11:48)
[2020-04-15] MEDS: *HR* Heparin 5,000 UNIT/ML VIAL SQ SCH ×3 (05:20→20:14)
[2020-04-15] MEDS ORDERED: 0.9 % Sodium Chloride 250 ML IVC PRN (07:12)
[2020-04-15] MEDS: Budesonide/Formoterol 160/4.5 1 PUFF INH IH SCH ×2 (07:44→19:44)
[2020-04-15] MEDS: predniSONE 20 MG TABLET PO SCH (07:44)
[2020-04-15] MEDS: Aspirin Enteric Coated 81 MG Tablet PO SCH (07:44)
[2020-04-15] MEDS: Insulin LISPRO 300 UNITS/3 ML VIAL SQ SCH ×4 (07:46→20:14)
[2020-04-15] MEDS: Furosemide 40 MG TABLET PO SCH (07:54)
[2020-04-15 08:55] LABS: Hematocrit 39.9 % (35.3-44.9); Hemoglobin 12.2 g/dL (11.5-15.4); Mean Corpuscular HGB Conc 30.6 g/dL (31.6-35.5); Mean Corpuscular Hemoglobin 28.2 pg (28.0-33.3); Mean Corpuscular Volume 92.4 fL (83.0-100.0); Mean Platelet Volume 12.2 fL (9.4-12.4); Platelet Count 190 K/mcL (140-400); Red Blood Count 4.32 M/mcL (3.82-4.97)
[2020-04-15 09:13] LABS: Calcium 8.3 mg/dL (8.6-10.3); Potassium 4.4 mEq/L (3.5-5.1)
[2020-04-15] MEDS: Cefepime HCl 1,000 MG in Water for inj. (sterile) 10 ML IVP SCH (11:45)
[2020-04-15] MEDS ORDERED: *HR* OxyCODONE Immed Rel 5 MG TABLET PO ONE (14:08)
[2020-04-15] MEDS: Azithromycin 500 MG in 0.9 % Sodium Chloride 250 ML IVPB SCH (14:35)
[2020-04-15] MEDS ORDERED: Insulin Human Regular 5 UNIT in 0.9 % Sodium Chloride 10 ML IV ONE (20:08)
[2020-04-15] MEDS: cloNIDine HCL 0.1 MG TABLET PO SCH (20:13)
[2020-04-15] MEDS: Insulin DETEMIR 100 UNIT/ML X5UNITS SQ SCH (20:14)
[2020-04-16] MEDS ORDERED: Pregabalin 50 MG CAPSULE PO ONE (00:03)
[2020-04-16] MEDS: hydrALAZINE 25 MG TABLET PO SCH ×5 (00:16→23:40)
[2020-04-16 03:09] LABS: Basophils % 0.5 %; Eosinophils # 0.1 K/mcL (0.0-0.6); Eosinophils % 0.7 %; Hematocrit 35.8 % (35.3-44.9); Hemoglobin 10.8 g/dL (11.5-15.4); Immature Granulocytes % 0.5 % (0-4); Lymphocytes # 1.1 K/mcL (0.6-4.6); Lymphocytes % 12.4 %; Mean Corpuscular HGB Conc 30.2 g/dL (31.6-35.5); Mean Corpuscular Hemoglobin 28.5 pg (28.0-33.3); Mean Corpuscular Volume 94.5 fL (83.0-100.0); Mean Platelet Volume 12.1 fL (9.4-12.4); Monocytes # 0.7 K/mcL (0.0-1.3); Monocytes % 8.4 %; Neutrophils # 6.9 K/mcL (1.6-8.9); Platelet Count 168 K/mcL (140-400); Red Blood Count 3.79 M/mcL (3.82-4.97); Red Cell Distribution Width 17.1 % (11.5-14.5); Segmented Neutrophils % 77.5 %; White Blood Count 8.8 K/mcL (4.3-11.1)
[2020-04-16 03:32] LABS: Calcium 7.5 mg/dL (8.6-10.3); Potassium 4.5 mEq/L (3.5-5.1)
[2020-04-16] MEDS: Ipratropium/Albuterol Neb 3 ML IH SCH ×7 (03:41→23:48)
[2020-04-16] MEDS: *HR* Heparin 5,000 UNIT/ML VIAL SQ SCH ×3 (05:20→21:27)
[2020-04-16] MEDS ORDERED: 0.9 % Sodium Chloride 250 ML IVC PRN (07:23)
[2020-04-16] MEDS: Budesonide/Formoterol 160/4.5 1 PUFF INH IH SCH ×2 (07:45→20:02)
[2020-04-16] MEDS: Insulin LISPRO 300 UNITS/3 ML VIAL SQ SCH ×4 (07:59→21:19)
[2020-04-16] MEDS: predniSONE 20 MG TABLET PO SCH (08:07)
[2020-04-16] MEDS: Aspirin Enteric Coated 81 MG Tablet PO SCH (08:07)
[2020-04-16] MEDS: Acetaminophen 325 MG TABLET PO PRN ×2 (11:09→23:40)
[2020-04-16] MEDS: *HR* Promethazine 25 MG/ML VIAL IVP PRN ×2 (11:21→20:19)
[2020-04-16] MEDS ORDERED: Pregabalin 50 MG CAPSULE PO SCH ×2 (12:30→18:00)
[2020-04-16] MEDS: Pregabalin 50 MG CAPSULE PO SCH ×2 (13:11→20:17)
[2020-04-16] MEDS: Cefepime HCl 1,000 MG in Water for inj. (sterile) 10 ML IVP SCH (13:13)
[2020-04-16] MEDS: Azithromycin 500 MG in 0.9 % Sodium Chloride 250 ML IVPB SCH (13:26)
[2020-04-16] MEDS ORDERED: Metoclopramide 10 MG/2 ML VIAL IVP STA ×2 (15:24→15:57)
[2020-04-16] MEDS ORDERED: SUMAtriptan succinate 25 MG TABLET PO ONE (17:27)
[2020-04-16] MEDS: cloNIDine HCL 0.1 MG TABLET PO SCH (20:16)
[2020-04-16] MEDS: Doxycycline 100 MG CAPSULE PO SCH (20:16)
[2020-04-16] MEDS ORDERED: Insulin DETEMIR 100 UNIT/ML X5UNITS SQ SCH (21:00)
[2020-04-16] MEDS ORDERED: Acetaminophen/Butalbital/CaffeineTABLET PO ONE (21:01)
[2020-04-17] MEDS: Ipratropium/Albuterol Neb 3 ML IH SCH ×3 (03:22→11:32)
[2020-04-17 05:19] LABS: Hematocrit 38.7 % (35.3-44.9); Hemoglobin 11.6 g/dL (11.5-15.4); Mean Corpuscular Hemoglobin 27.8 pg (28.0-33.3); Mean Corpuscular Volume 92.8 fL (83.0-100.0); Mean Platelet Volume 12.3 fL (9.4-12.4); Platelet Count 183 K/mcL (140-400); Red Blood Count 4.17 M/mcL (3.82-4.97); Red Cell Distribution Width 16.7 % (11.5-14.5); White Blood Count 8.2 K/mcL (4.3-11.1)
[2020-04-17 05:20] LABS: Basophils # 0.1 K/mcL (0.0-0.2); Basophils % 0.6 %; Eosinophils # 0.1 K/mcL (0.0-0.6); Eosinophils % 1.4 %; Hematocrit 38.5 % (35.3-44.9); Hemoglobin 11.4 g/dL (11.5-15.4); Immature Granulocytes % 0.6 % (0-4); Lymphocytes # 1.8 K/mcL (0.6-4.6); Lymphocytes % 22.4 %; Mean Corpuscular HGB Conc 29.6 g/dL (31.6-35.5); Mean Corpuscular Hemoglobin 27.9 pg (28.0-33.3); Mean Corpuscular Volume 94.4 fL (83.0-100.0); Mean Platelet Volume 12.4 fL (9.4-12.4); Monocytes # 0.7 K/mcL (0.0-1.3); Monocytes % 9.2 %; Neutrophils # 5.2 K/mcL (1.6-8.9); Platelet Count 185 K/mcL (140-400); Red Blood Count 4.08 M/mcL (3.82-4.97); Red Cell Distribution Width 16.6 % (11.5-14.5); Segmented Neutrophils % 65.8 %
[2020-04-17 05:36] LABS: Potassium 4.3 mEq/L (3.5-5.1)
[2020-04-17] MEDS: hydrALAZINE 25 MG TABLET PO SCH (06:18)
[2020-04-17] MEDS: *HR* Heparin 5,000 UNIT/ML VIAL SQ SCH (06:18)
[2020-04-17] MEDS: Acetaminophen 325 MG TABLET PO PRN (06:18)
[2020-04-17 06:53] VITALS: BP 98/49
[2020-04-17] MEDS: Budesonide/Formoterol 160/4.5 1 PUFF INH IH SCH (07:23)
[2020-04-17] MEDS: predniSONE 20 MG TABLET PO SCH (07:56)
[2020-04-17] MEDS: Aspirin Enteric Coated 81 MG Tablet PO SCH (07:56)
[2020-04-17] MEDS: Doxycycline 100 MG CAPSULE PO SCH (07:56)
[2020-04-17] MEDS: Pregabalin 50 MG CAPSULE PO SCH (07:57)
[2020-04-17] MEDS: Insulin LISPRO 300 UNITS/3 ML VIAL SQ SCH (07:58)
[2020-04-17] MEDS ORDERED: levoFLOXacin 750 MG TABLET PO ONE (09:59)
[2020-04-17] MEDS: Furosemide 40 MG TABLET PO SCH (11:12)
== END 2020-04-17 12:30 | disposition home or self-care (01) | DRG 193 ==
LOC: 2ANU 14:42 → EMEROOARM 14:42 → SUATTDRO 20:30 → 2ANU 21:20
PROVIDERS: ADMIT Internal Medicine; ATTEND Internal Medicine

== ENCOUNTER 2020-04-29 13:35 | Observation (INO) ==
[2020-04-29] MEDS ORDERED: *HR* Dextrose 50 % in Water (Vial) 50 ML VIAL ONE (13:59)
[2020-04-29] MEDS ORDERED: *HR* Dextrose 50 % in Water (Vial) 50 ML VIAL IVP ONE (13:59)
[2020-04-29 16:34] LABS: Potassium 4.2 mEq/L (3.5-5.1)
[2020-04-29 20:39] LABS: Basophils # 0.1 K/mcL (0.0-0.2); Eosinophils # 0.3 K/mcL (0.0-0.6); Eosinophils % 3.3 %; Hematocrit 45.8 % (35.3-44.9); Hemoglobin 13.7 g/dL (11.5-15.4); Immature Granulocytes % 0.9 % (0-4); Lymphocytes % 9.5 %; Mean Corpuscular HGB Conc 29.9 g/dL (31.6-35.5); Mean Corpuscular Hemoglobin 28.2 pg (28.0-33.3); Mean Corpuscular Volume 94.4 fL (83.0-100.0); Mean Platelet Volume 12.7 fL (9.4-12.4); Monocytes # 0.7 K/mcL (0.0-1.3); Monocytes % 6.5 %; Neutrophils # 8.2 K/mcL (1.6-8.9); Platelet Count 172 K/mcL (140-400); Red Blood Count 4.85 M/mcL (3.82-4.97); Red Cell Distribution Width 17.2 % (11.5-14.5); Segmented Neutrophils % 78.8 %; White Blood Count 10.4 K/mcL (4.3-11.1)
[2020-04-29 20:49] LABS: Troponin I 0.03 ng/mL (< 0.04)
[2020-04-29] MEDS ORDERED: Piperacillin/Tazobactam 3.375 GM in 0.9 % Sodium Chloride Mini Bag 100 ML IVPB ONE (21:14)
[2020-04-29] MEDS ORDERED: Naloxone 0.4 MG/ML INJ IVP PRN (21:34)
[2020-04-29 23:00] LABS: Adenovirus Not Detected (Not Detect); Bordetella Pertussis Not Detected (Not Detect); Chlamydophila pneumoniae Not Detected (Not Detect); Coronavirus 229E Not Detected (Not Detect); Coronavirus HKU1 Not Detected (Not Detect); Coronavirus NL63 Not Detected (Not Detect); Coronavirus OC43 Not Detected (Not Detect); Human Metapneumovirus Not Detected (Not Detect); Human Rhinovirus/Enterovirus Not Detected (Not Detect); Influenza A Subtype 2009 H1 Not Detected (Not Detect); Influenza B Not Detected (Not Detect); Mycoplasma pneumoniae Not Detected (Not Detect); Parainfluenza Virus 1 Not Detected (Not Detect); Parainfluenza Virus 2 Not Detected (Not Detect); Parainfluenza Virus 3 Not Detected (Not Detect); Parainfluenza Virus 4 Not Detected (Not Detect); Respiratory Syncytial Virus Not Detected (Not Detect)
[2020-04-29] MEDS ORDERED: D5% in Water 1,000 ML IVC PRN (23:53)
[2020-04-29] MEDS ORDERED: *HR* Dextrose 50 % in Water (Vial) 50 ML VIAL IVP PRN (23:53)
[2020-04-29] MEDS ORDERED: Dextrose Gel 15 GM/37.5 ML TUBE PO PRN ×2 (23:53)
[2020-04-30] MEDS ORDERED: Ondansetron ODT 4 MG TAB.RAPDIS SL PRN (02:56)
[2020-04-30] MEDS ORDERED: Ipratropium/Albuterol Neb 3 ML IH PRN (02:56)
[2020-04-30] MEDS ORDERED: levoFLOXacin 500 MG TABLET PO SCH ×2 (03:00→12:00)
[2020-04-30 04:30] LABS: Basophils # 0.1 K/mcL (0.0-0.2); Basophils % 0.6 %; Eosinophils # 0.3 K/mcL (0.0-0.6); Eosinophils % 3.3 %; Immature Granulocytes % 0.5 % (0-4); Lymphocytes # 1.2 K/mcL (0.6-4.6); Mean Corpuscular HGB Conc 30.5 g/dL (31.6-35.5); Mean Corpuscular Hemoglobin 28.5 pg (28.0-33.3); Mean Corpuscular Volume 93.4 fL (83.0-100.0); Mean Platelet Volume 12.4 fL (9.4-12.4); Monocytes # 0.5 K/mcL (0.0-1.3); Monocytes % 5.6 %; Neutrophils # 7.1 K/mcL (1.6-8.9); Platelet Count 160 K/mcL (140-400); Red Blood Count 4.07 M/mcL (3.82-4.97); Red Cell Distribution Width 17.5 % (11.5-14.5); White Blood Count 9.3 K/mcL (4.3-11.1)
[2020-04-30 04:42] LABS: Hemoglobin 11.6 g/dL (11.5-15.4)
[2020-04-30 04:52] LABS: Calcium 7.2 mg/dL (8.6-10.3); Potassium 5.2 mEq/L (3.5-5.1)
[2020-04-30] MEDS: *HR* Heparin 5,000 UNIT/ML VIAL SQ SCH ×3 (05:24→19:47)
[2020-04-30] MEDS: Budesonide/Formoterol 160/4.5 1 PUFF INH IH SCH ×2 (07:32→22:16)
[2020-04-30] MEDS ORDERED: 0.9 % Sodium Chloride 250 ML IVC PRN (07:43)
[2020-04-30] MEDS ORDERED: 0.9 % Sodium Chloride 1,000 ML PRIME SCH (07:45)
[2020-04-30] MEDS: Aspirin Enteric Coated 81 MG Tablet PO SCH (08:17)
[2020-04-30] MEDS: Pregabalin 50 MG CAPSULE PO SCH ×3 (08:17→19:46)
[2020-04-30] MEDS: Loratadine 10 MG TABLET PO SCH (08:17)
[2020-04-30] MEDS: Insulin LISPRO 300 UNITS/3 ML VIAL SQ SCH ×4 (08:20→19:47)
[2020-04-30] MEDS: Renal Vitamin 1 CAP CAPSULE PO SCH (12:30)
[2020-04-30] MEDS ORDERED: Neosporin OINT 1 APPL PACKET TP SCH (14:30)
[2020-04-30] MEDS: Neosporin OINT 15 GM TUBE TP SCH (17:13)
[2020-04-30] MEDS ORDERED: Acetaminophen 325 MG TABLET PO PRN (20:15)
[2020-04-30] MEDS ORDERED: Insulin LISPRO 300 UNITS/3 ML VIAL SQ SCH (21:00)
[2020-04-30] MEDS ORDERED: cloNIDine HCL 0.1 MG TABLET PO SCH (21:00)
[2020-05-01 01:40] LABS: Calcium 7.6 mg/dL (8.6-10.3); Phosphorous 6.6 mg/dL (2.7-4.5); Potassium 4.3 mEq/L (3.5-5.1)
[2020-05-01] MEDS: *HR* Heparin 5,000 UNIT/ML VIAL SQ SCH ×2 (05:37→14:39)
[2020-05-01] MEDS: Budesonide/Formoterol 160/4.5 1 PUFF INH IH SCH (07:19)
[2020-05-01 07:22] VITALS: BP 149/75
[2020-05-01 08:00] LABS: Estimated Average Glucose 217 mg/dl
[2020-05-01] MEDS ORDERED: Furosemide 40 MG TABLET PO SCH (09:03)
[2020-05-01] MEDS: Pregabalin 50 MG CAPSULE PO SCH ×2 (09:12→14:56)
[2020-05-01] MEDS: Aspirin Enteric Coated 81 MG Tablet PO SCH (09:13)
[2020-05-01] MEDS: Loratadine 10 MG TABLET PO SCH (09:13)
[2020-05-01] MEDS: Renal Vitamin 1 CAP CAPSULE PO SCH (09:18)
[2020-05-01] MEDS: Neosporin OINT 15 GM TUBE TP SCH (11:40)
[2020-05-01] MEDS: Insulin LISPRO 300 UNITS/3 ML VIAL SQ SCH (14:39)
== END 2020-05-01 17:32 | disposition home health service (06) ==
LOC: EMEROOARM 13:35 → 3BNU 13:35 → SUATTDRO 23:14 → 3BNU 04-30 00:10
PROVIDERS: ADMIT Family Medicine; ATTEND Internal Medicine

== ENCOUNTER 2020-11-25 11:58 | Inpatient (IN) ==
[2020-11-25] MEDS ORDERED: Piperacillin/Tazobactam 3.375 GM in 0.9 % Sodium Chloride Mini Bag 100 ML IVPB ONE (12:24)
[2020-11-25] MEDS ORDERED: Vancomycin 2,000 MG/520 ML IV.SOLN IVPB ONE (12:24)
[2020-11-25 12:35] LABS: Basophils % 0.2 %; Eosinophils % 0.2 %; Hematocrit 29.6 % (35.3-44.9); Hemoglobin 9.2 g/dL (11.5-15.4); Immature Granulocytes % 0.7 % (0-4); Lymphocytes # 0.4 K/mcL (0.6-4.6); Lymphocytes % 7.3 %; Mean Corpuscular HGB Conc 31.1 g/dL (31.6-35.5); Mean Corpuscular Hemoglobin 28.7 pg (28.0-33.3); Mean Corpuscular Volume 92.2 fL (83.0-100.0); Mean Platelet Volume 11.3 fL (9.4-12.4); Monocytes # 0.3 K/mcL (0.0-1.3); Monocytes % 5.1 %; Neutrophils # 5.1 K/mcL (1.6-8.9); Platelet Count 193 K/mcL (140-400); Red Blood Count 3.21 M/mcL (3.82-4.97); Segmented Neutrophils % 86.5 %; White Blood Count 5.9 K/mcL (4.3-11.1)
[2020-11-25 13:02] LABS: Albumin 3.1 g/dL (3.5-5.7); Bilirubin,Total 0.5 mg/dL (0.3-1.0); Calcium 7.9 mg/dL (8.6-10.3); Globulin 3.1 g/dL (2.4-3.5); Potassium 3.5 mEq/L (3.5-5.1); Total Protein 6.2 g/dL (6.4-8.9); Troponin I 0.08 ng/mL (< 0.04)
[2020-11-25 14:55] LABS: Bilirubin,Urine Negative (Negative); Blood,Urine Small (Negative); Clarity,Urine Clear (Clear); Color,Urine Light-Yellow (Yellow); Glucose,Urine (UA) 500 mg/dL (Normal); Ketones,Urine 40 mg/dL (Negative); Leukocyte Esterase,Urine Negative (Negative); Mucus,Urine Few per lpf (None-Few); Nitrite,Urine Negative (Negative); Protein,Urine >=600 mg/dL (Neg-Trace); RBC,Urine 0-3 per hpf (0-3); Specific Gravity,Urine 1.013 (1.010-1.025); Squamous Epithelial Cell,Urine Few per hpf (None-Few); Urobilinogen,Urine Normal (Normal); WBC,Urine 0-3 per hpf (0-3)
[2020-11-25] MEDS ORDERED: Aspirin 325 MG TABLET PO ONE (15:16)
[2020-11-25] MEDS ORDERED: Naloxone 0.4 MG/ML INJ IVP PRN (17:47)
[2020-11-25] MEDS ORDERED: D5% in Water 1,000 ML IVC PRN (17:52)
[2020-11-25] MEDS ORDERED: *HR* Dextrose 50 % in Water (Vial) 50 ML VIAL IVP PRN (17:52)
[2020-11-25] MEDS ORDERED: Dextrose Gel 15 GM/37.5 ML TUBE PO PRN ×2 (17:52)
[2020-11-25] MEDS ORDERED: Insulin LISPRO 300 UNITS/3 ML VIAL SUBQ SCH ×2 (18:00→21:00)
[2020-11-25] MEDS ORDERED: Perflutren Lipid Microsphere 1.3 ML in 0.9 % Sodium Chloride 8.7 ML IVP PRN (18:25)
[2020-11-25] MEDS ORDERED: Furosemide 40 MG/4 ML VIAL IVP ONE (18:34)
[2020-11-25 18:41] LABS: Estimated Average Glucose 214 mg/dl; Hemoglobin A1C 9.1 %
[2020-11-25 19:18] VITALS: BP 168/77
[2020-11-25] MEDS ORDERED: Acetaminophen 325 MG TABLET PO PRN (21:09)
[2020-11-25] MEDS ORDERED: *HR* Heparin 5,000 UNIT/ML VIAL SQ SCH (22:00)
[2020-11-25] MEDS ORDERED: Piperacillin/Tazobactam 3.375 GM in 0.9 % Sodium Chloride Mini Bag 100 ML IVPB SCH (23:00)
[2020-11-26] MEDS ORDERED: Aspirin 81 MG TAB.CHEW PO SCH (09:00)
== END 2020-11-25 22:39 | disposition short-term general hospital (02) | DRG 637 ==
LOC: 2ANU 11:58 → EMEROOARM 11:58 → 2ANU 18:38
PROVIDERS: ADMIT Internal Medicine; ATTEND Internal Medicine

== ENCOUNTER 2021-05-05 20:41 | Inpatient (IN) ==
[2021-05-05 22:02] LABS: Basophils # 0.1 K/mcL (0.0-0.2); Basophils % 0.6 %; Eosinophils # 0.1 K/mcL (0.0-0.6); Eosinophils % 1.2 %; Hematocrit 36.4 % (35.3-44.9); Hemoglobin 11.1 g/dL (11.5-15.4); Immature Granulocytes % 0.7 % (0-4); Lymphocytes % 10.2 %; Mean Corpuscular HGB Conc 30.5 g/dL (31.6-35.5); Mean Corpuscular Hemoglobin 26.9 pg (28.0-33.3); Mean Corpuscular Volume 88.1 fL (83.0-100.0); Mean Platelet Volume 12.3 fL (9.4-12.4); Monocytes # 0.6 K/mcL (0.0-1.3); Monocytes % 5.6 %; Platelet Count 236 K/mcL (140-400); Red Blood Count 4.13 M/mcL (3.82-4.97); Red Cell Distribution Width 18.1 % (11.5-14.5); Segmented Neutrophils % 81.7 %; White Blood Count 9.8 K/mcL (4.3-11.1)
[2021-05-05] MEDS ORDERED: Calcium Gluconate 1gm/50mL 1 GM/50 ML BAG IVPB ONE ×2 (22:05→22:32)
[2021-05-05 22:40] LABS: Calcium 9.9 mg/dL (8.6-10.3); Magnesium 2.8 mg/dL (1.6-2.6); Phosphorous 12.5 mg/dL (2.7-4.5); Potassium 8.2 mEq/L (3.5-5.1); Troponin I 0.05 ng/mL (< 0.04)
[2021-05-05] MEDS ORDERED: *HR* Dextrose 50 % in Water (Vial) 50 ML VIAL IVP ONE (22:42)
[2021-05-05] MEDS ORDERED: Insulin Human Regular 5 UNIT in 0.9 % Sodium Chloride 10 ML IV ONE (22:42)
[2021-05-05] MEDS ORDERED: Albuterol 2.5 MG/3 ML NEBULIZER IH ONE (22:42)
[2021-05-05] MEDS ORDERED: Furosemide 40 MG/4 ML VIAL IVP ONE (22:56)
[2021-05-05 23:33] LABS: Adenovirus Not Detected (Not Detect); Bordetella Pertussis Not Detected (Not Detect); Chlamydophila pneumoniae Not Detected (Not Detect); Coronavirus 229E Not Detected (Not Detect); Coronavirus HKU1 Not Detected (Not Detect); Coronavirus NL63 Not Detected (Not Detect); Coronavirus OC43 Not Detected (Not Detect); Human Metapneumovirus Not Detected (Not Detect); Human Rhinovirus/Enterovirus Not Detected (Not Detect); Influenza A Subtype 2009 H1 Not Detected (Not Detect); Influenza B Not Detected (Not Detect); Mycoplasma pneumoniae Not Detected (Not Detect); Parainfluenza Virus 1 Not Detected (Not Detect); Parainfluenza Virus 2 Not Detected (Not Detect); Parainfluenza Virus 3 Not Detected (Not Detect); Parainfluenza Virus 4 Not Detected (Not Detect); Respiratory Syncytial Virus Not Detected (Not Detect); SARS-CoV-2 Not Detected (Not Detect)
[2021-05-06] MEDS ORDERED: Ondansetron 4 MG/2 ML VIAL IVP PRN (00:08)
[2021-05-06] MEDS ORDERED: Naloxone 0.4 MG/ML INJ IVP PRN (00:08)
[2021-05-06 01:15] LABS: Calcium 10.2 mg/dL (8.6-10.3); Potassium 7.4 mEq/L (3.5-5.1)
[2021-05-06] MEDS ORDERED: *HR* Dextrose 50 % in Water (Vial) 50 ML VIAL IVP ONE (01:58)
[2021-05-06] MEDS ORDERED: Insulin Human Regular 10 UNIT in 0.9 % Sodium Chloride 10 ML IV ONE (01:58)
[2021-05-06] MEDS ORDERED: Calcium Gluconate 1gm/50mL 1 GM/50 ML BAG IVPB ONE (01:58)
[2021-05-06] MEDS ORDERED: Albuterol 2.5 MG/3 ML NEBULIZER IH ONE (01:58)
[2021-05-06 02:10] LABS: Troponin I 0.05 ng/mL (< 0.04)
[2021-05-06] MEDS ORDERED: Dextrose Gel 15 GM/37.5 ML TUBE PO PRN ×2 (02:16)
[2021-05-06] MEDS ORDERED: D5% in Water 1,000 ML IVC PRN (02:16)
[2021-05-06] MEDS ORDERED: *HR* Dextrose 50 % in Water (Vial) 50 ML VIAL IVP PRN (02:16)
[2021-05-06 02:57] LABS: Hematocrit 32.7 % (35.3-44.9); Hemoglobin 10.1 g/dL (11.5-15.4); Mean Corpuscular HGB Conc 30.9 g/dL (31.6-35.5); Mean Corpuscular Hemoglobin 27.1 pg (28.0-33.3); Mean Corpuscular Volume 87.7 fL (83.0-100.0); Mean Platelet Volume 12.2 fL (9.4-12.4); Platelet Count 241 K/mcL (140-400); Red Blood Count 3.73 M/mcL (3.82-4.97); Red Cell Distribution Width 17.9 % (11.5-14.5); White Blood Count 9.3 K/mcL (4.3-11.1)
[2021-05-06] MEDS: Ipratropium/Albuterol Neb 3 ML IH SCH ×4 (03:26→21:51)
[2021-05-06 03:36] LABS: Calcium 10.1 mg/dL (8.6-10.3); Magnesium 2.9 mg/dL (1.6-2.6); Potassium 7.1 mEq/L (3.5-5.1)
[2021-05-06] MEDS ORDERED: Furosemide 40 MG/4 ML VIAL IVP ONE (04:00)
[2021-05-06] MEDS: Piperacillin/Tazobactam 3.375 GM in 0.9 % Sodium Chloride Mini Bag 100 ML IVPB SCH ×2 (04:41→18:22)
[2021-05-06] MEDS: *HR* Heparin 5,000 UNIT/ML VIAL SQ SCH ×3 (04:42→22:26)
[2021-05-06 06:38] LABS: Potassium 5.8 mEq/L (3.5-5.1)
[2021-05-06 08:16] LABS: Hepatitis B Surface Antibody < 3.10 mIU/mL
[2021-05-06 08:18] LABS: Calcium 9.5 mg/dL (8.6-10.3); Potassium 5.2 mEq/L (3.5-5.1)
[2021-05-06 08:28] LABS: Hepatitis B Surface Antigen Nonreactive (Nonreactive)
[2021-05-06] MEDS: Insulin LISPRO 300 UNITS/3 ML VIAL SUBQ SCH ×4 (08:52→20:19)
[2021-05-06] MEDS ORDERED: 0.9 % Sodium Chloride 250 ML IVC PRN (09:28)
[2021-05-06] MEDS ORDERED: 0.9 % Sodium Chloride 1,000 ML PRIME SCH (09:30)
[2021-05-06 14:56] LABS: Troponin I 0.06 ng/mL (< 0.04)
[2021-05-06 15:04] LABS: Estimated Average Glucose 223 mg/dl; Hemoglobin A1C 9.4 %
[2021-05-06] MEDS: Acetaminophen 325 MG TABLET PO PRN (21:44)
[2021-05-06] MEDS: Pregabalin 50 MG CAPSULE PO SCH (23:30)
[2021-05-07] MEDS: Ipratropium/Albuterol Neb 3 ML IH SCH ×4 (03:26→22:03)
[2021-05-07] MEDS: *HR* Heparin 5,000 UNIT/ML VIAL SQ SCH ×3 (05:00→20:54)
[2021-05-07] MEDS ORDERED: 0.9 % Sodium Chloride 250 ML IVC PRN (08:07)
[2021-05-07] MEDS: Insulin LISPRO 300 UNITS/3 ML VIAL SUBQ SCH ×4 (08:34→19:53)
[2021-05-07] MEDS: Pregabalin 50 MG CAPSULE PO SCH ×3 (08:39→20:03)
[2021-05-07 11:03] LABS: Hematocrit 35.9 % (35.3-44.9); Hemoglobin 11.2 g/dL (11.5-15.4); Mean Corpuscular HGB Conc 31.2 g/dL (31.6-35.5); Mean Corpuscular Hemoglobin 27.5 pg (28.0-33.3); Mean Corpuscular Volume 88.2 fL (83.0-100.0); Mean Platelet Volume 11.7 fL (9.4-12.4); Platelet Count 230 K/mcL (140-400); Red Blood Count 4.07 M/mcL (3.82-4.97); Red Cell Distribution Width 18.2 % (11.5-14.5); White Blood Count 8.5 K/mcL (4.3-11.1)
[2021-05-07 11:28] LABS: Calcium 8.8 mg/dL (8.6-10.3); Potassium 3.3 mEq/L (3.5-5.1)
[2021-05-08] MEDS: Ipratropium/Albuterol Neb 3 ML IH SCH ×3 (04:08→15:30)
[2021-05-08] MEDS: *HR* Heparin 5,000 UNIT/ML VIAL SQ SCH ×2 (05:18→14:49)
[2021-05-08] MEDS: Pregabalin 50 MG CAPSULE PO SCH ×2 (07:25→13:49)
[2021-05-08] MEDS: Insulin LISPRO 300 UNITS/3 ML VIAL SUBQ SCH ×2 (07:54→14:49)
[2021-05-08] MEDS ORDERED: 0.9 % Sodium Chloride 250 ML IVC PRN (08:37)
[2021-05-08] MEDS ORDERED: *HR* Heparin 10,000 UNIT/10 ML VIAL IV PRN (08:37)
[2021-05-08 09:04] LABS: Hematocrit 35.8 % (35.3-44.9); Hemoglobin 10.8 g/dL (11.5-15.4); Mean Corpuscular HGB Conc 30.2 g/dL (31.6-35.5); Mean Corpuscular Hemoglobin 26.9 pg (28.0-33.3); Mean Corpuscular Volume 89.3 fL (83.0-100.0); Mean Platelet Volume 11.7 fL (9.4-12.4); Platelet Count 220 K/mcL (140-400); Red Blood Count 4.01 M/mcL (3.82-4.97); Red Cell Distribution Width 17.8 % (11.5-14.5); White Blood Count 7.2 K/mcL (4.3-11.1)
[2021-05-08 09:23] LABS: Calcium 9.3 mg/dL (8.6-10.3); Potassium 3.7 mEq/L (3.5-5.1)
[2021-05-08] MEDS ORDERED: Furosemide 20 MG TABLET PO SCH (15:00)
[2021-05-08] MEDS ORDERED: NON-FORMULARY MEDICATION 1 EACH EACH (Pregabalin [Lyrica] 100 MG Capsule) PO SCH (15:00)
[2021-05-08] MEDS: Acetaminophen 325 MG TABLET PO PRN (15:22)
[2021-05-08 15:24] VITALS: BP 143/46; PULSE 94; TEMP 97.6
[2021-05-08 15:32] VITALS: O2SAT 95
[2021-05-08] MEDS ORDERED: cloNIDine HCL 0.1 MG TABLET PO SCH (21:00)
[2021-05-09] MEDS ORDERED: Renal Vitamin 1 CAP CAPSULE PO SCH (09:00)
[2021-05-09] MEDS ORDERED: Aspirin Enteric Coated 81 MG Tablet PO SCH (09:00)
== END 2021-05-08 17:27 | disposition short-term general hospital (02) | DRG 166 ==
LOC: EMEROOARM 20:41 → 2NNU 20:41 → SUATTDRO 23:27 → OBSVTOIN 23:27 → 2NNU 05-06 00:15 → 2NENU 05-07 17:07
PROVIDERS: ADMIT Student in an Organized Health Care Education/Training Program; ATTEND Family Medicine

== ENCOUNTER 2021-08-21 12:05 | Inpatient (IN) ==
[2021-08-21 13:38] LABS: Eosinophils % 2.3 %; Mean Corpuscular Volume 90.3 fL (83.0-100.0); Mean Platelet Volume 13.1 fL (9.4-12.4)
[2021-08-21 13:39] LABS: Basophils # 0.1 K/mcL (0.0-0.2); Basophils % 1.2 %; Eosinophils # 0.2 K/mcL (0.0-0.6); Hematocrit 44.5 % (35.3-44.9); Hemoglobin 13.8 g/dL (11.5-15.4); Immature Granulocytes % 0.3 % (0-4); Immature Platelets 10.5 % (1.1-6.1); Lymphocytes # 1.2 K/mcL (0.6-4.6); Monocytes # 0.9 K/mcL (0.0-1.3); Monocytes % 10.7 %; Neutrophils # 6.2 K/mcL (1.6-8.9); Platelet Count 177 K/mcL (140-400); Red Blood Count 4.93 M/mcL (3.82-4.97); Red Cell Distribution Width 16.5 % (11.5-14.5); Segmented Neutrophils % 71.5 %; White Blood Count 8.7 K/mcL (4.3-11.1)
[2021-08-21 13:59] LABS: Albumin 3.7 g/dL (3.5-5.7); Albumin/Globulin Ratio 1.1 (1.1-2.2); Bilirubin,Total 0.7 mg/dL (0.3-1.0); Globulin 3.4 g/dL (2.4-3.5); Potassium 7.2 mEq/L (3.5-5.1); Total Protein 7.1 g/dL (6.4-8.9); Troponin I 0.17 ng/mL (< 0.04)
[2021-08-21] MEDS ORDERED: Calcium Gluconate 1gm/50mL 1 GM/50 ML BAG IVPB ONE (14:02)
[2021-08-21] MEDS ORDERED: *HR* Dextrose 50 % in Water (Syg) 50 ML SYRINGE IVP ONE (14:03)
[2021-08-21] MEDS ORDERED: Insulin Human Regular 3 UNIT in 0.9 % Sodium Chloride 10 ML IV ONE (14:04)
[2021-08-21] MEDS ORDERED: Sodium Bicarbonate 50 MEQ/50 ML VIAL IVP ONE (14:05)
[2021-08-21 14:14] LABS: Influenza A PCR Negative (Negative); Influenza B PCR Negative (Negative); Resp. Syncytial Virus PCR Positive (Negative)
[2021-08-21 14:16] LABS: SARS-CoV-2 by PCR (In House) Negative (Negative)
[2021-08-21] MEDS ORDERED: Ondansetron 4 MG/2 ML VIAL IVP PRN (15:16)
[2021-08-21] MEDS ORDERED: Naloxone 0.4 MG/ML INJ IVP PRN (15:16)
[2021-08-21] MEDS ORDERED: methylPREDNISolone 125 MG/2 ML VIAL IVP ONE (15:46)
[2021-08-21] MEDS ORDERED: D5% in Water 1,000 ML IVC PRN (15:48)
[2021-08-21] MEDS ORDERED: Dextrose Gel 15 GM/37.5 ML TUBE PO PRN ×2 (15:48)
[2021-08-21] MEDS ORDERED: *HR* Dextrose 50 % in Water (Syg) 50 ML SYRINGE IVP PRN (15:48)
[2021-08-21] MEDS ORDERED: GuaiFENesin/Codeine Oral Soln 5 ML UDC PO PRN (15:49)
[2021-08-21] MEDS: Ipratropium/Albuterol Neb 3 ML IH SCH ×3 (15:56→23:58)
[2021-08-21] MEDS ORDERED: 0.9 % Sodium Chloride 250 ML IVC PRN (16:50)
[2021-08-21] MEDS ORDERED: 0.9 % Sodium Chloride 1,000 ML PRIME SCH (17:00)
[2021-08-21 17:50] LABS: Calcium 9.8 mg/dL (8.6-10.3); Potassium 7.1 mEq/L (3.5-5.1)
[2021-08-21] MEDS ORDERED: *HR* Dextrose 50 % in Water (Vial) 50 ML VIAL IVP ONE (17:57)
[2021-08-21] MEDS ORDERED: Insulin Human Regular 7 UNIT in 0.9 % Sodium Chloride 10 ML IV ONE (17:57)
[2021-08-21] MEDS: Insulin LISPRO 300 UNITS/3 ML VIAL SUBQ SCH ×2 (18:34→21:12)
[2021-08-21 18:41] LABS: Hepatitis B Surface Antibody < 3.10 mIU/mL
[2021-08-21 18:52] LABS: Hepatitis B Surface Antigen Nonreactive (Nonreactive)
[2021-08-21] MEDS: SODIUM ZIRCONIUM CYCLOSILICATE 5 GM POWD.PACK PO STA (21:10)
[2021-08-21 21:16] LABS: Calcium 9.5 mg/dL (8.6-10.3); Potassium 4.2 mEq/L (3.5-5.1)
[2021-08-21] MEDS: *HR* Heparin 5,000 UNIT/ML VIAL SQ SCH (21:35)
[2021-08-21] MEDS ORDERED: MethylPREDNISolone 40 MG/ML VIAL IVP SCH (22:00)
[2021-08-22] MEDS: MethylPREDNISolone 40 MG/ML VIAL IVP SCH ×2 (02:43→07:53)
[2021-08-22 03:19] LABS: Eosinophils % 0.2 %; Lymphocytes % 6.9 %; Monocytes % 2.5 %
[2021-08-22 03:21] LABS: Basophils % 0.5 %; Hematocrit 43.7 % (35.3-44.9); Hemoglobin 13.1 g/dL (11.5-15.4); Immature Granulocytes % 0.5 % (0-4); Immature Platelets 9.4 % (1.1-6.1); Lymphocytes # 0.3 K/mcL (0.6-4.6); Mean Corpuscular Hemoglobin 27.2 pg (28.0-33.3); Mean Corpuscular Volume 90.7 fL (83.0-100.0); Mean Platelet Volume 12.5 fL (9.4-12.4); Monocytes # 0.1 K/mcL (0.0-1.3); Neutrophils # 3.6 K/mcL (1.6-8.9); Platelet Count 132 K/mcL (140-400); Red Blood Count 4.82 M/mcL (3.82-4.97); Red Cell Distribution Width 16.5 % (11.5-14.5); Segmented Neutrophils % 89.4 %
[2021-08-22] MEDS: Ipratropium/Albuterol Neb 3 ML IH SCH ×5 (03:28→19:45)
[2021-08-22] MEDS: Pregabalin 50 MG CAPSULE PO SCH ×3 (05:27→23:10)
[2021-08-22] MEDS: *HR* Heparin 5,000 UNIT/ML VIAL SQ SCH ×3 (05:28→23:11)
[2021-08-22 06:36] LABS: Calcium 9.8 mg/dL (8.6-10.3); Magnesium 2.3 mg/dL (1.6-2.6); Phosphorous 9.4 mg/dL (2.7-4.5); Potassium 5.7 mEq/L (3.5-5.1)
[2021-08-22] MEDS: Insulin LISPRO 300 UNITS/3 ML VIAL SUBQ SCH ×4 (07:53→23:17)
[2021-08-22] MEDS: Aspirin Enteric Coated 81 MG Tablet PO SCH (08:55)
[2021-08-22] MEDS: Loratadine 10 MG TABLET PO SCH (08:55)
[2021-08-22] MEDS: Insulin DETEMIR 100 UNIT/ML X5UNITS SUBQ SCH ×2 (08:55→23:18)
[2021-08-22] MEDS ORDERED: Furosemide 20 MG TABLET PO SCH (09:00)
[2021-08-22] MEDS ORDERED: Insulin Human Regular 20 UNIT in 0.9 % Sodium Chloride 10 ML IV ONE (12:10)
[2021-08-22] MEDS ORDERED: SODIUM ZIRCONIUM CYCLOSILICATE 5 GM POWD.PACK PO SCH (12:45)
[2021-08-22] MEDS: SODIUM ZIRCONIUM CYCLOSILICATE 5 GM POWD.PACK PO STA (13:50)
[2021-08-22] MEDS ORDERED: cloNIDine HCL 0.1 MG TABLET PO SCH (21:00)
[2021-08-23] MEDS: Ipratropium/Albuterol Neb 3 ML IH SCH ×7 (00:05→23:02)
[2021-08-23 02:58] LABS: Hematocrit 41.5 % (35.3-44.9); Hemoglobin 12.7 g/dL (11.5-15.4); Mean Corpuscular HGB Conc 30.6 g/dL (31.6-35.5); Mean Corpuscular Hemoglobin 27.4 pg (28.0-33.3); Mean Corpuscular Volume 89.4 fL (83.0-100.0); Mean Platelet Volume 12.8 fL (9.4-12.4); Platelet Count 168 K/mcL (140-400); Red Blood Count 4.64 M/mcL (3.82-4.97); Red Cell Distribution Width 16.7 % (11.5-14.5)
[2021-08-23 02:59] LABS: White Blood Count 10.4 K/mcL (4.3-11.1)
[2021-08-23 03:17] LABS: Calcium 9.8 mg/dL (8.6-10.3); Potassium 5.1 mEq/L (3.5-5.1)
[2021-08-23] MEDS: *HR* Heparin 5,000 UNIT/ML VIAL SQ SCH ×3 (05:46→21:04)
[2021-08-23] MEDS: Pregabalin 50 MG CAPSULE PO SCH ×3 (08:30→21:03)
[2021-08-23] MEDS: Aspirin Enteric Coated 81 MG Tablet PO SCH (08:31)
[2021-08-23] MEDS: Insulin LISPRO 300 UNITS/3 ML VIAL SUBQ SCH ×4 (08:31→20:58)
[2021-08-23] MEDS: Loratadine 10 MG TABLET PO SCH (08:31)
[2021-08-23] MEDS ORDERED: Lidocaine 4% CREAM (LMX) 5 GM TP ONE (11:17)
[2021-08-23] MEDS ORDERED: Saliva Stimulant 44.3ml BOTTLE PO PRN (11:17)
[2021-08-23] MEDS: predniSONE 20 MG TABLET PO SCH ×2 (12:08→12:09)
[2021-08-23] MEDS ORDERED: 0.9 % Sodium Chloride 250 ML IVC PRN (12:48)
[2021-08-23] MEDS ORDERED: 0.9 % Sodium Chloride 1,000 ML PRIME SCH (13:00)
[2021-08-23] MEDS ORDERED: Insulin DETEMIR 100 UNIT/ML X5UNITS SUBQ SCH (21:00)
[2021-08-23] MEDS: cloNIDine HCL 0.1 MG TABLET PO SCH (21:06)
[2021-08-24 01:52] LABS: Hematocrit 44.5 % (35.3-44.9); Hemoglobin 13.4 g/dL (11.5-15.4); Mean Corpuscular HGB Conc 30.1 g/dL (31.6-35.5); Mean Corpuscular Hemoglobin 27.3 pg (28.0-33.3); Mean Corpuscular Volume 90.6 fL (83.0-100.0); Mean Platelet Volume 12.5 fL (9.4-12.4); Platelet Count 154 K/mcL (140-400); Red Blood Count 4.91 M/mcL (3.82-4.97); Red Cell Distribution Width 16.8 % (11.5-14.5); White Blood Count 9.4 K/mcL (4.3-11.1)
[2021-08-24 02:06] LABS: Calcium 9.3 mg/dL (8.6-10.3); Potassium 5.2 mEq/L (3.5-5.1)
[2021-08-24] MEDS: Ipratropium/Albuterol Neb 3 ML IH SCH ×6 (03:50→23:12)
[2021-08-24] MEDS: *HR* Heparin 5,000 UNIT/ML VIAL SQ SCH ×3 (05:49→20:30)
[2021-08-24] MEDS: Pregabalin 50 MG CAPSULE PO SCH ×3 (07:30→20:29)
[2021-08-24] MEDS: Aspirin Enteric Coated 81 MG Tablet PO SCH (07:30)
[2021-08-24] MEDS: predniSONE 20 MG TABLET PO SCH (07:30)
[2021-08-24] MEDS: Loratadine 10 MG TABLET PO SCH (07:31)
[2021-08-24] MEDS: Insulin LISPRO 300 UNITS/3 ML VIAL SUBQ SCH ×4 (07:31→20:30)
[2021-08-24] MEDS ORDERED: Acetaminophen 325 MG TABLET PO PRN (08:09)
[2021-08-24] MEDS ORDERED: 0.9 % Sodium Chloride 250 ML IVC PRN (08:12)
[2021-08-24] MEDS ORDERED: Ampicillin/Sulbactam 1,500 MG in 0.9 % Sodium Chloride Mini Bag 100 ML IVPB SCH (12:00)
[2021-08-24] MEDS: Ampicillin/Sulbactam 1,500 MG in 0.9 % Sodium Chloride Mini Bag 100 ML IVPB SCH (16:07)
[2021-08-24] MEDS: Insulin DETEMIR 100 UNIT/ML X5UNITS SUBQ SCH (20:30)
[2021-08-25] MEDS: Ampicillin/Sulbactam 1,500 MG in 0.9 % Sodium Chloride Mini Bag 100 ML IVPB SCH (02:43)
[2021-08-25] MEDS: Ipratropium/Albuterol Neb 3 ML IH SCH ×6 (03:45→23:35)
[2021-08-25 05:45] LABS: Hematocrit 42.7 % (35.3-44.9); Hemoglobin 12.8 g/dL (11.5-15.4); Mean Corpuscular Volume 90.1 fL (83.0-100.0); Mean Platelet Volume 12.6 fL (9.4-12.4); Platelet Count 148 K/mcL (140-400); Red Blood Count 4.74 M/mcL (3.82-4.97); Red Cell Distribution Width 16.3 % (11.5-14.5); White Blood Count 6.7 K/mcL (4.3-11.1)
[2021-08-25] MEDS: *HR* Heparin 5,000 UNIT/ML VIAL SQ SCH ×3 (05:53→22:35)
[2021-08-25 06:02] LABS: Calcium 9.3 mg/dL (8.6-10.3); Potassium 4.7 mEq/L (3.5-5.1)
[2021-08-25] MEDS: Loratadine 10 MG TABLET PO SCH (08:32)
[2021-08-25] MEDS: Aspirin Enteric Coated 81 MG Tablet PO SCH (08:32)
[2021-08-25] MEDS: Insulin LISPRO 300 UNITS/3 ML VIAL SUBQ SCH ×4 (08:32→21:42)
[2021-08-25] MEDS: Pregabalin 50 MG CAPSULE PO SCH ×3 (08:32→21:28)
[2021-08-25] MEDS: predniSONE 20 MG TABLET PO SCH (08:32)
[2021-08-25] MEDS ORDERED: Furosemide 20 MG TABLET PO SCH (09:00)
[2021-08-25] MEDS: Azithromycin 250 MG TABLET PO SCH (14:32)
[2021-08-25] MEDS: Acetylcysteine 10% 2 ML INHSOL IH SCH ×2 (16:32→23:35)
[2021-08-25] MEDS: Insulin DETEMIR 100 UNIT/ML X5UNITS SUBQ SCH (21:40)
[2021-08-25] MEDS: cloNIDine HCL 0.1 MG TABLET PO SCH (21:41)
[2021-08-26] MEDS: Ipratropium/Albuterol Neb 3 ML IH SCH ×4 (04:02→15:11)
[2021-08-26] MEDS: *HR* Heparin 5,000 UNIT/ML VIAL SQ SCH ×2 (05:57→14:27)
[2021-08-26 06:44] LABS: Calcium 9.7 mg/dL (8.6-10.3); Potassium 5.1 mEq/L (3.5-5.1)
[2021-08-26] MEDS: Acetylcysteine 10% 2 ML INHSOL IH SCH ×2 (07:39→15:11)
[2021-08-26] MEDS ORDERED: 0.9 % Sodium Chloride 1,000 ML PRIME SCH (07:45)
[2021-08-26] MEDS ORDERED: 0.9 % Sodium Chloride 250 ML IVC PRN (07:45)
[2021-08-26] MEDS: Loratadine 10 MG TABLET PO SCH (08:01)
[2021-08-26] MEDS: Pregabalin 50 MG CAPSULE PO SCH ×2 (08:02→14:26)
[2021-08-26] MEDS: predniSONE 20 MG TABLET PO SCH (08:02)
[2021-08-26] MEDS: Aspirin Enteric Coated 81 MG Tablet PO SCH (08:03)
[2021-08-26] MEDS: Insulin LISPRO 300 UNITS/3 ML VIAL SUBQ SCH ×3 (08:04→17:46)
[2021-08-26] MEDS: Azithromycin 250 MG TABLET PO SCH (14:26)
[2021-08-26 18:42] VITALS: BP 126/68; PULSE 95; TEMP 98.2; O2SAT 94
[2021-08-28] MEDS ORDERED: Pregabalin 50 MG CAPSULE PO SCH (18:00)
== END 2021-08-26 20:30 | disposition home health service (06) | DRG 190 ==
LOC: EMEROOARM 12:05 → 2ANU 12:05 → 2NENU 16:30
PROVIDERS: ADMIT Student in an Organized Health Care Education/Training Program; ATTEND Student in an Organized Health Care Education/Training Program

== ENCOUNTER 2021-09-09 14:33 | Inpatient (IN) ==
[2021-09-09 14:57] LABS: Basophils # 0.2 K/mcL (0.0-0.2); Basophils % 1.3 %; Eosinophils # 0.4 K/mcL (0.0-0.6); Eosinophils % 3.6 %; Hematocrit 45.9 % (35.3-44.9); Hemoglobin 13.3 g/dL (11.5-15.4); Immature Granulocytes % 2.2 % (0-4); Lymphocytes # 3.2 K/mcL (0.6-4.6); Lymphocytes % 26.8 %; Mean Corpuscular Hemoglobin 27.2 pg (28.0-33.3); Mean Corpuscular Volume 93.9 fL (83.0-100.0); Mean Platelet Volume 13.3 fL (9.4-12.4); Monocytes # 0.6 K/mcL (0.0-1.3); Monocytes % 5.1 %; Neutrophils # 7.2 K/mcL (1.6-8.9); Nucleated Red Blood Cells 0.3 /100 WBC (0); Platelet Count 176 K/mcL (140-400); Red Blood Count 4.89 M/mcL (3.82-4.97); Red Cell Distribution Width 16.9 % (11.5-14.5); White Blood Count 11.8 K/mcL (4.3-11.1)
[2021-09-09 15:18] LABS: Calcium 9.4 mg/dL (8.6-10.3); Potassium 3.2 mEq/L (3.5-5.1)
[2021-09-09 15:28] LABS: Troponin I 0.21 ng/mL (< 0.04)
[2021-09-09] MEDS ORDERED: 0.9 % Sodium Chloride 250 ML IVC PRN (15:35)
[2021-09-09] MEDS ORDERED: 0.9 % Sodium Chloride 1,000 ML PRIME SCH (15:45)
[2021-09-09] MEDS ORDERED: Potassium Chloride Elixir 20 MEQ/15 ML UDC PO ONE (16:15)
[2021-09-09 16:21] LABS: Influenza A PCR Negative (Negative); Influenza B PCR Negative (Negative); Resp. Syncytial Virus PCR Positive (Negative)
[2021-09-09 16:23] LABS: SARS-CoV-2 by PCR (In House) Negative (Negative)
[2021-09-09] MEDS ORDERED: Naloxone 0.4 MG/ML INJ IVP PRN (17:12)
[2021-09-09] MEDS ORDERED: Mag Hydrox/Al Hydrox/Simeth 30 ML UDC PO PRN (17:12)
[2021-09-09] MEDS ORDERED: Melatonin 3 MG TABLET PO PRN (17:12)
[2021-09-09] MEDS ORDERED: Acetaminophen 325 MG TABLET PO PRN (17:12)
[2021-09-09] MEDS ORDERED: Ondansetron ODT 4 MG TAB.RAPDIS SL PRN (17:12)
[2021-09-09] MEDS ORDERED: Albumin 25% 25gram/100mL 25 GM/100 ML IV.SOLN IVPB ONE (17:13)
[2021-09-09] MEDS ORDERED: Isovue-370 500 ML BOTTLE IVP ONE (17:16)
[2021-09-09] MEDS ORDERED: MethylPREDNISolone 40 MG/ML VIAL IVP ONE ×2 (17:20)
[2021-09-09] MEDS ORDERED: Perflutren Lipid Microsphere 1.3 ML in 0.9 % Sodium Chloride 8.7 ML IVP PRN (17:21)
[2021-09-09] MEDS ORDERED: D5% in Water 1,000 ML IVC PRN (17:47)
[2021-09-09] MEDS ORDERED: *HR* Dextrose 50 % in Water (Syg) 50 ML SYRINGE IVP PRN (17:47)
[2021-09-09] MEDS ORDERED: Dextrose Gel 15 GM/37.5 ML TUBE PO PRN ×2 (17:47)
[2021-09-09 17:57] LABS: Magnesium 2.2 mg/dL (1.6-2.6)
[2021-09-10] MEDS: *HR* OxyCODONE Immed Rel 5 MG TABLET PO PRN ×3 (00:50→23:10)
[2021-09-10] MEDS: Insulin LISPRO 300 UNITS/3 ML VIAL SUBQ SCH ×5 (03:06→22:15)
[2021-09-10] MEDS: *HR* Heparin 5,000 UNIT/ML VIAL SQ SCH ×2 (06:25→18:44)
[2021-09-10] MEDS ORDERED: 0.9 % Sodium Chloride 250 ML IVC PRN (07:29)
[2021-09-10 09:05] LABS: Basophils % 0.3 %; Hemoglobin 12.2 g/dL (11.5-15.4); Mean Corpuscular Hemoglobin 27.2 pg (28.0-33.3)
[2021-09-10 09:06] LABS: Eosinophils % 0.3 %; Hematocrit 41.4 % (35.3-44.9); Immature Granulocytes % 0.4 % (0-4); Immature Platelets 10.8 % (1.1-6.1); Mean Corpuscular HGB Conc 29.5 g/dL (31.6-35.5); Mean Corpuscular Volume 92.2 fL (83.0-100.0); Monocytes # 0.4 K/mcL (0.0-1.3); Monocytes % 4.9 %; Neutrophils # 6.1 K/mcL (1.6-8.9); Platelet Count 124 K/mcL (140-400); Red Blood Count 4.49 M/mcL (3.82-4.97); Red Cell Distribution Width 16.7 % (11.5-14.5); Segmented Neutrophils % 85.1 %; White Blood Count 7.2 K/mcL (4.3-11.1)
[2021-09-10 09:11] LABS: Lymphocytes # 0.7 K/mcL (0.6-4.6)
[2021-09-10 09:32] LABS: Calcium 9.6 mg/dL (8.6-10.3); Potassium 4.2 mEq/L (3.5-5.1); Troponin I 0.26 ng/mL (< 0.04)
[2021-09-10] MEDS: Aspirin Enteric Coated 81 MG Tablet PO SCH (12:14)
[2021-09-11] MEDS: *HR* Heparin 5,000 UNIT/ML VIAL SQ SCH ×2 (02:09→05:29)
[2021-09-11 03:30] LABS: Basophils # 0.1 K/mcL (0.0-0.2); Eosinophils # 0.3 K/mcL (0.0-0.6); Eosinophils % 3.7 %; Hematocrit 36.2 % (35.3-44.9); Hemoglobin 10.8 g/dL (11.5-15.4); Immature Granulocytes % 0.7 % (0-4); Lymphocytes # 1.6 K/mcL (0.6-4.6); Lymphocytes % 21.9 %; Mean Corpuscular HGB Conc 29.8 g/dL (31.6-35.5); Mean Corpuscular Hemoglobin 27.2 pg (28.0-33.3); Mean Corpuscular Volume 91.2 fL (83.0-100.0); Mean Platelet Volume 13.1 fL (9.4-12.4); Monocytes # 0.6 K/mcL (0.0-1.3); Monocytes % 7.9 %; Neutrophils # 4.7 K/mcL (1.6-8.9); Nucleated Red Blood Cells 0.3 /100 WBC (0); Platelet Count 144 K/mcL (140-400); Red Blood Count 3.97 M/mcL (3.82-4.97); Segmented Neutrophils % 64.8 %; White Blood Count 7.2 K/mcL (4.3-11.1)
[2021-09-11 03:49] LABS: Albumin 3.1 g/dL (3.5-5.7); Albumin/Globulin Ratio 1.1 (1.1-2.2); Bilirubin,Total 0.6 mg/dL (0.3-1.0); Calcium 9.6 mg/dL (8.6-10.3); Globulin 2.7 g/dL (2.4-3.5); Potassium 4.1 mEq/L (3.5-5.1); Total Protein 5.8 g/dL (6.4-8.9)
[2021-09-11 07:03] VITALS: PULSE 91; O2SAT 90
[2021-09-11] MEDS: Aspirin Enteric Coated 81 MG Tablet PO SCH (09:11)
[2021-09-11] MEDS: Insulin LISPRO 300 UNITS/3 ML VIAL SUBQ SCH ×2 (09:11→14:09)
[2021-09-11] MEDS ORDERED: 0.9 % Sodium Chloride 250 ML IVC PRN (09:14)
[2021-09-11] MEDS ORDERED: 0.9 % Sodium Chloride 1,000 ML PRIME SCH (09:15)
[2021-09-11] MEDS ORDERED: *HR* Heparin 5,000 UNIT/ML VIAL IVP ONE (10:00)
[2021-09-11] MEDS: *HR* OxyCODONE Immed Rel 5 MG TABLET PO PRN (10:10)
[2021-09-11 12:54] VITALS: BP 147/91; TEMP 97.8
== END 2021-09-11 03:30 | disposition home or self-care (01) | DRG 280 ==
LOC: 2NNU 14:33 → EMEROOARM 14:33 → SUATTDRO 17:12 → 2NNU 21:28
PROVIDERS: ADMIT Family Medicine; ATTEND Family Medicine

== ENCOUNTER 2021-10-23 12:16 | Inpatient (IN) ==
[2021-10-23] MEDS ORDERED: Dextrose Gel 15 GM/37.5 ML TUBE PO PRN ×2 (15:11)
[2021-10-23] MEDS ORDERED: *HR* Dextrose 50 % in Water (Syg) 50 ML SYRINGE IVP PRN (15:11)
[2021-10-23] MEDS ORDERED: D5% in Water 1,000 ML IVC PRN (15:11)
[2021-10-23] MEDS ORDERED: Acetaminophen 325 MG TABLET PO PRN (15:13)
[2021-10-23] MEDS ORDERED: Naloxone 0.4 MG/ML INJ IVP PRN (15:13)
[2021-10-23 15:21] LABS: Basophils # 0.1 K/mcL (0.0-0.2); Basophils % 0.8 %; Eosinophils # 0.1 K/mcL (0.0-0.6); Eosinophils % 2.3 %; Hematocrit 41.4 % (35.3-44.9); Hemoglobin 12.7 g/dL (11.5-15.4); Immature Granulocytes % 0.5 % (0-4); Lymphocytes # 1.1 K/mcL (0.6-4.6); Lymphocytes % 18.6 %; Mean Corpuscular HGB Conc 30.7 g/dL (31.6-35.5); Mean Corpuscular Hemoglobin 27.9 pg (28.0-33.3); Mean Platelet Volume 12.6 fL (9.4-12.4); Monocytes # 0.5 K/mcL (0.0-1.3); Monocytes % 8.3 %; Neutrophils # 4.2 K/mcL (1.6-8.9); Platelet Count 130 K/mcL (140-400); Red Blood Count 4.55 M/mcL (3.82-4.97); Red Cell Distribution Width 19.7 % (11.5-14.5); Segmented Neutrophils % 69.5 %
[2021-10-23 15:38] LABS: Albumin 3.5 g/dL (3.5-5.7); Albumin/Globulin Ratio 1.1 (1.1-2.2); Bilirubin,Direct 0.3 mg/dL (0.0-0.2); Bilirubin,Indirect 0.4 mg/dL (0.0-1.0); Bilirubin,Total 0.7 mg/dL (0.3-1.0); Calcium 9.6 mg/dL (8.6-10.3); Globulin 3.1 g/dL (2.4-3.5); Magnesium 2.3 mg/dL (1.6-2.6); Phosphorous 10.7 mg/dL (2.7-4.5); Potassium 4.9 mEq/L (3.5-5.1); Total Protein 6.6 g/dL (6.4-8.9); Troponin I 0.07 ng/mL (< 0.04)
[2021-10-23] MEDS ORDERED: 0.9 % Sodium Chloride 250 ML IVC PRN (16:02)
[2021-10-23] MEDS ORDERED: Furosemide 40 MG/4 ML VIAL IVP ONE (16:06)
[2021-10-23] MEDS ORDERED: 0.9 % Sodium Chloride 1,000 ML PRIME SCH (16:15)
[2021-10-23 17:59] LABS: INR 1.3; Prothrombin Time 14.6 Seconds (9.4-12.1)
[2021-10-23] MEDS: Albuterol Neb 1.25 MG/3 ML VIAL IH SCH ×2 (18:23→23:17)
[2021-10-23] MEDS: Insulin LISPRO 300 UNITS/3 ML VIAL SUBQ SCH (19:34)
[2021-10-23] MEDS: *HR* Heparin 5,000 UNIT/ML VIAL SQ SCH (19:34)
[2021-10-23 22:11] LABS: Hepatitis B Surface Antibody < 3.10 mIU/mL
[2021-10-23 22:22] LABS: Hepatitis B Surface Antigen Nonreactive (Nonreactive)
[2021-10-23] MEDS: Pregabalin 50 MG CAPSULE PO SCH (23:42)
[2021-10-23] MEDS: Insulin DETEMIR 100 UNIT/ML X5UNITS SUBQ SCH (23:42)
[2021-10-24] MEDS: *HR* Heparin 5,000 UNIT/ML VIAL SQ SCH ×2 (06:17→17:08)
[2021-10-24] MEDS: Aspirin Enteric Coated 81 MG Tablet PO SCH (08:18)
[2021-10-24] MEDS: SODIUM ZIRCONIUM CYCLOSILICATE 5 GM POWD.PACK PO SCH (08:19)
[2021-10-24] MEDS: Renal Vitamin 1 CAP CAPSULE PO SCH (08:19)
[2021-10-24] MEDS: Loratadine 10 MG TABLET PO SCH (08:19)
[2021-10-24] MEDS: Pregabalin 50 MG CAPSULE PO SCH ×3 (08:19→21:12)
[2021-10-24] MEDS: Furosemide 20 MG/2 ML VIAL IVP SCH (08:20)
[2021-10-24] MEDS: Insulin LISPRO 300 UNITS/3 ML VIAL SUBQ SCH ×3 (08:35→17:08)
[2021-10-24] MEDS: Insulin DETEMIR 100 UNIT/ML X5UNITS SUBQ SCH (21:12)
[2021-10-25] MEDS ORDERED: Acetaminophen 325 MG TABLET PO PRN (03:08)
[2021-10-25] MEDS: *HR* Heparin 5,000 UNIT/ML VIAL SQ SCH ×2 (05:19→16:57)
[2021-10-25] MEDS: Aspirin Enteric Coated 81 MG Tablet PO SCH (08:00)
[2021-10-25] MEDS: Insulin LISPRO 300 UNITS/3 ML VIAL SUBQ SCH ×3 (08:00→17:08)
[2021-10-25] MEDS ORDERED: 0.9 % Sodium Chloride 250 ML IVC PRN (08:01)
[2021-10-25] MEDS: Pregabalin 50 MG CAPSULE PO SCH ×3 (08:01→22:49)
[2021-10-25] MEDS: Loratadine 10 MG TABLET PO SCH (08:02)
[2021-10-25] MEDS: SODIUM ZIRCONIUM CYCLOSILICATE 5 GM POWD.PACK PO SCH (08:03)
[2021-10-25] MEDS: Furosemide 20 MG/2 ML VIAL IVP SCH (08:03)
[2021-10-25] MEDS: Renal Vitamin 1 CAP CAPSULE PO SCH (08:08)
[2021-10-25 08:37] LABS: Basophils # 0.1 K/mcL (0.0-0.2); Basophils % 0.9 %; Eosinophils # 0.2 K/mcL (0.0-0.6); Eosinophils % 3.2 %; Hematocrit 42.5 % (35.3-44.9); Hemoglobin 12.6 g/dL (11.5-15.4); Immature Granulocytes % 0.3 % (0-4); Lymphocytes # 1.2 K/mcL (0.6-4.6); Mean Corpuscular HGB Conc 29.6 g/dL (31.6-35.5); Mean Corpuscular Hemoglobin 27.6 pg (28.0-33.3); Mean Platelet Volume 12.4 fL (9.4-12.4); Monocytes # 0.6 K/mcL (0.0-1.3); Monocytes % 8.1 %; Neutrophils # 4.7 K/mcL (1.6-8.9); Platelet Count 125 K/mcL (140-400); Red Blood Count 4.57 M/mcL (3.82-4.97); Red Cell Distribution Width 19.6 % (11.5-14.5); Segmented Neutrophils % 69.5 %; White Blood Count 6.8 K/mcL (4.3-11.1)
[2021-10-25 09:00] LABS: Albumin 3.4 g/dL (3.5-5.7); Albumin/Globulin Ratio 1.1 (1.1-2.2); Bilirubin,Total 0.6 mg/dL (0.3-1.0); Calcium 9.5 mg/dL (8.6-10.3); Globulin 3.1 g/dL (2.4-3.5); Magnesium 2.4 mg/dL (1.6-2.6); Phosphorous 9.5 mg/dL (2.7-4.5); Potassium 5.6 mEq/L (3.5-5.1); Total Protein 6.5 g/dL (6.4-8.9)
[2021-10-25] MEDS: Insulin DETEMIR 100 UNIT/ML X5UNITS SUBQ SCH (22:49)
[2021-10-26] MEDS: *HR* Heparin 5,000 UNIT/ML VIAL SQ SCH (06:17)
[2021-10-26 07:10] VITALS: TEMP 97.8
[2021-10-26] MEDS: Pregabalin 50 MG CAPSULE PO SCH ×2 (07:49→15:48)
[2021-10-26] MEDS: Loratadine 10 MG TABLET PO SCH (07:49)
[2021-10-26] MEDS: Aspirin Enteric Coated 81 MG Tablet PO SCH (07:50)
[2021-10-26] MEDS: SODIUM ZIRCONIUM CYCLOSILICATE 5 GM POWD.PACK PO SCH (07:50)
[2021-10-26] MEDS: Renal Vitamin 1 CAP CAPSULE PO SCH (07:56)
[2021-10-26] MEDS: Insulin LISPRO 300 UNITS/3 ML VIAL SUBQ SCH ×2 (07:57→12:15)
[2021-10-26 09:13] LABS: Hematocrit 42.6 % (35.3-44.9); Hemoglobin 12.7 g/dL (11.5-15.4); Mean Corpuscular HGB Conc 29.8 g/dL (31.6-35.5); Mean Corpuscular Hemoglobin 28.5 pg (28.0-33.3); Mean Corpuscular Volume 95.5 fL (83.0-100.0); Mean Platelet Volume 12.9 fL (9.4-12.4); Platelet Count 115 K/mcL (140-400); Red Blood Count 4.46 M/mcL (3.82-4.97); Red Cell Distribution Width 19.9 % (11.5-14.5); White Blood Count 8.4 K/mcL (4.3-11.1)
[2021-10-26 09:35] LABS: Calcium 9.3 mg/dL (8.6-10.3); Potassium 5.3 mEq/L (3.5-5.1)
[2021-10-26 11:21] VITALS: O2SAT 100
[2021-10-26 15:21] VITALS: BP 99/62; PULSE 98
== END 2021-10-26 16:00 | disposition home or self-care (01) | DRG 291 ==
LOC: EMEROOARM 12:16 → 3NENU 12:16
PROVIDERS: ADMIT Student in an Organized Health Care Education/Training Program; ATTEND Student in an Organized Health Care Education/Training Program

== ENCOUNTER 2021-11-19 19:12 | Inpatient (IN) ==
[2021-11-19 20:52] LABS: Basophils # 0.1 K/mcL (0.0-0.2); Basophils % 0.8 %; Eosinophils # 0.2 K/mcL (0.0-0.6); Eosinophils % 3.6 %; Hematocrit 44.6 % (35.3-44.9); Hemoglobin 13.4 g/dL (11.5-15.4); Immature Granulocytes % 0.5 % (0-4); Immature Platelets 17.5 % (1.1-6.1); Lymphocytes # 1.5 K/mcL (0.6-4.6); Lymphocytes % 23.1 %; Mean Corpuscular Volume 93.1 fL (83.0-100.0); Mean Platelet Volume 13.7 fL (9.4-12.4); Monocytes # 0.8 K/mcL (0.0-1.3); Monocytes % 12.5 %; Nucleated Red Blood Cells 0.5 /100 WBC (0); Platelet Count 117 K/mcL (140-400); Red Blood Count 4.79 M/mcL (3.82-4.97); Red Cell Distribution Width 18.8 % (11.5-14.5); Segmented Neutrophils % 59.5 %; White Blood Count 6.6 K/mcL (4.3-11.1)
[2021-11-19 21:14] LABS: Albumin 3.8 g/dL (3.5-5.7); Albumin/Globulin Ratio 1.4 (1.1-2.2); Bilirubin,Direct 0.4 mg/dL (0.0-0.2); Bilirubin,Indirect 0.5 mg/dL (0.0-1.0); Bilirubin,Total 0.9 mg/dL (0.3-1.0); Calcium 9.9 mg/dL (8.6-10.3); Globulin 2.8 g/dL (2.4-3.5); Potassium 7.6 mEq/L (3.5-5.1); Total Protein 6.6 g/dL (6.4-8.9)
[2021-11-19] MEDS ORDERED: Albuterol 2.5 MG/3 ML NEBULIZER IH ONE (23:15)
[2021-11-19] MEDS ORDERED: Insulin Human Regular 10 UNIT in 0.9 % Sodium Chloride 10 ML IV ONE (23:16)
[2021-11-19] MEDS ORDERED: *HR* Dextrose 50 % in Water (Vial) 50 ML VIAL IVP ONE (23:16)
[2021-11-19] MEDS ORDERED: SODIUM ZIRCONIUM CYCLOSILICATE 5 GM POWD.PACK PO ONE (23:45)
[2021-11-20] MEDS ORDERED: Ondansetron 4 MG/2 ML VIAL IVP ONE (01:43)
[2021-11-20 01:57] LABS: Calcium 9.6 mg/dL (8.6-10.3); Potassium 6.8 mEq/L (3.5-5.1)
[2021-11-20] MEDS ORDERED: Calcium Gluconate 1gm/50mL 1 GM/50 ML BAG IVPB PRN (01:58)
[2021-11-20] MEDS ORDERED: Sodium Bicarbonate 50 MEQ/50 ML VIAL IVP ONE (01:58)
[2021-11-20] MEDS ORDERED: SODIUM ZIRCONIUM CYCLOSILICATE 5 GM POWD.PACK PO ONE ×2 (02:10→23:14)
[2021-11-20] MEDS ORDERED: Furosemide 40 MG/4 ML VIAL IVP ONE (02:12)
[2021-11-20] MEDS ORDERED: Naloxone 0.4 MG/ML INJ IVP PRN (02:40)
[2021-11-20] MEDS ORDERED: Insulin Human Regular 10 UNIT in 0.9 % Sodium Chloride 10 ML IV ONE (03:35)
[2021-11-20] MEDS ORDERED: *HR* Dextrose 50 % in Water (Syg) 50 ML SYRINGE IVP ONE (03:35)
[2021-11-20] MEDS ORDERED: D5% in Water 1,000 ML IVC PRN (04:02)
[2021-11-20] MEDS ORDERED: Dextrose Gel 15 GM/37.5 ML TUBE PO PRN ×2 (04:02)
[2021-11-20] MEDS: *HR* Dextrose 50 % in Water (Syg) 50 ML SYRINGE IVP PRN ×2 (05:39→14:33)
[2021-11-20] MEDS: Insulin LISPRO 300 UNITS/3 ML VIAL SUBQ SCH ×3 (05:42→16:52)
[2021-11-20 05:47] LABS: Hematocrit 42.3 % (35.3-44.9); Hemoglobin 12.8 g/dL (11.5-15.4); Immature Platelets 16.2 % (1.1-6.1); Mean Corpuscular HGB Conc 30.3 g/dL (31.6-35.5); Mean Corpuscular Hemoglobin 27.8 pg (28.0-33.3); Platelet Count 105 K/mcL (140-400); Red Cell Distribution Width 18.9 % (11.5-14.5); White Blood Count 5.5 K/mcL (4.3-11.1)
[2021-11-20 05:51] LABS: ABG Base Excess -4 mEq/L (-2 to 3); ABG HCO3 22 mEq/L (21-27); ABG Oxygen Saturation 94 % (95-98); ABG PCO2 40 mmHg (35-45); ABG PH 7.35 pH Units (7.32-7.45); ABG PO2 73 mmHg (85-104); ABG TCO2 23 mEq/L (20-26)
[2021-11-20 06:05] LABS: Phosphorous 10.4 mg/dL (2.7-4.5)
[2021-11-20 06:11] LABS: Calcium 9.8 mg/dL (8.6-10.3); Potassium 6.8 mEq/L (3.5-5.1)
[2021-11-20] MEDS: *HR* Heparin 5,000 UNIT/ML VIAL SQ SCH ×3 (06:46→20:51)
[2021-11-20] MEDS ORDERED: 0.9 % Sodium Chloride 250 ML IVC PRN (07:57)
[2021-11-20] MEDS ORDERED: 0.9 % Sodium Chloride 1,000 ML PRIME SCH (08:00)
[2021-11-20 10:48] LABS: Hepatitis B Surface Antibody < 3.10 mIU/mL
[2021-11-20 11:00] LABS: Hepatitis B Surface Antigen Nonreactive (Nonreactive)
[2021-11-21] MEDS: Insulin LISPRO 300 UNITS/3 ML VIAL SUBQ SCH ×5 (00:10→22:49)
[2021-11-21] MEDS: *HR* Heparin 5,000 UNIT/ML VIAL SQ SCH ×3 (05:18→21:40)
[2021-11-21 08:40] LABS: Calcium 9.3 mg/dL (8.6-10.3); Potassium 5.6 mEq/L (3.5-5.1)
[2021-11-21] MEDS ORDERED: SODIUM ZIRCONIUM CYCLOSILICATE 5 GM POWD.PACK PO ONE ×2 (12:18→12:30)
[2021-11-22] MEDS: *HR* Heparin 5,000 UNIT/ML VIAL SQ SCH ×3 (05:09→20:00)
[2021-11-22 06:59] LABS: Albumin 3.7 g/dL (3.5-5.7); Calcium 9.9 mg/dL (8.6-10.3); Phosphorous 7.1 mg/dL (2.7-4.5); Potassium 5.2 mEq/L (3.5-5.1)
[2021-11-22] MEDS ORDERED: 0.9 % Sodium Chloride 250 ML IVC PRN (07:32)
[2021-11-22] MEDS ORDERED: 0.9 % Sodium Chloride 1,000 ML PRIME SCH (07:45)
[2021-11-22] MEDS: Insulin LISPRO 300 UNITS/3 ML VIAL SUBQ SCH ×4 (08:03→19:58)
[2021-11-22] MEDS: Acetaminophen 325 MG TABLET PO PRN ×2 (08:54→18:31)
[2021-11-22 09:50] LABS: Estimated Average Glucose 183 mg/dl
[2021-11-22] MEDS: Nystatin POWDER 30 GM BOTTLE TP SCH (18:24)
[2021-11-22] MEDS: Ondansetron 4 MG/2 ML VIAL IVP PRN (18:34)
[2021-11-22] MEDS: Pregabalin 50 MG CAPSULE PO SCH (19:59)
[2021-11-23 01:31] LABS: Calcium 9.7 mg/dL (8.6-10.3); Magnesium 2.3 mg/dL (1.6-2.6); Phosphorous 5.1 mg/dL (2.7-4.5); Potassium 4.3 mEq/L (3.5-5.1)
[2021-11-23] MEDS: *HR* Heparin 5,000 UNIT/ML VIAL SQ SCH ×3 (06:10→21:41)
[2021-11-23] MEDS: Nystatin POWDER 30 GM BOTTLE TP SCH ×2 (07:55→14:09)
[2021-11-23] MEDS: Insulin LISPRO 300 UNITS/3 ML VIAL SUBQ SCH ×4 (07:56→20:31)
[2021-11-23] MEDS: Pregabalin 50 MG CAPSULE PO SCH ×3 (07:56→21:41)
[2021-11-23] MEDS ORDERED: 0.9 % Sodium Chloride 250 ML IVC PRN (08:27)
[2021-11-23] MEDS ORDERED: Fluconazole 150 MG TABLET PO ONE (19:37)
[2021-11-23] MEDS: Ketoconazole 2% CRM 15 GM TUBE TP SCH (21:54)
[2021-11-24 01:17] LABS: Calcium 9.4 mg/dL (8.6-10.3); Phosphorous 3.9 mg/dL (2.7-4.5); Potassium 3.9 mEq/L (3.5-5.1)
[2021-11-24] MEDS: *HR* Heparin 5,000 UNIT/ML VIAL SQ SCH ×3 (05:23→21:50)
[2021-11-24] MEDS: Pregabalin 50 MG CAPSULE PO SCH ×3 (08:41→21:50)
[2021-11-24] MEDS: Aspirin Enteric Coated 81 MG Tablet PO SCH (08:41)
[2021-11-24] MEDS: Ketoconazole 2% CRM 15 GM TUBE TP SCH ×2 (08:42→21:51)
[2021-11-24] MEDS: Insulin LISPRO 300 UNITS/3 ML VIAL SUBQ SCH ×4 (08:42→21:35)
[2021-11-24] MEDS: Ondansetron 4 MG/2 ML VIAL IVP PRN ×2 (15:48→23:25)
[2021-11-25 02:10] LABS: Calcium 9.8 mg/dL (8.6-10.3); Magnesium 2.4 mg/dL (1.6-2.6); Potassium 4.3 mEq/L (3.5-5.1)
[2021-11-25] MEDS: *HR* Heparin 5,000 UNIT/ML VIAL SQ SCH ×2 (04:37→14:23)
[2021-11-25 07:13] VITALS: PULSE 94; O2SAT 99
[2021-11-25] MEDS ORDERED: 0.9 % Sodium Chloride 250 ML IVC PRN (08:18)
[2021-11-25] MEDS: Ondansetron 4 MG/2 ML VIAL IVP PRN (08:18)
[2021-11-25] MEDS: Insulin LISPRO 300 UNITS/3 ML VIAL SUBQ SCH ×3 (08:19→16:23)
[2021-11-25] MEDS: Ketoconazole 2% CRM 15 GM TUBE TP SCH (08:19)
[2021-11-25] MEDS: Pregabalin 50 MG CAPSULE PO SCH ×2 (08:20→14:23)
[2021-11-25] MEDS: Aspirin Enteric Coated 81 MG Tablet PO SCH (08:20)
[2021-11-25 15:43] LABS: Adenovirus Not Detected (Not Detect); Bordetella Pertussis Not Detected (Not Detect); Chlamydophila pneumoniae Not Detected (Not Detect); Coronavirus 229E Not Detected (Not Detect); Coronavirus HKU1 Not Detected (Not Detect); Coronavirus NL63 Not Detected (Not Detect); Coronavirus OC43 Not Detected (Not Detect); Human Metapneumovirus Not Detected (Not Detect); Human Rhinovirus/Enterovirus Not Detected (Not Detect); Influenza A Subtype 2009 H1 Not Detected (Not Detect); Influenza B Not Detected (Not Detect); Mycoplasma pneumoniae Not Detected (Not Detect); Parainfluenza Virus 1 Not Detected (Not Detect); Parainfluenza Virus 2 Not Detected (Not Detect); Parainfluenza Virus 3 Not Detected (Not Detect); Parainfluenza Virus 4 Not Detected (Not Detect); Respiratory Syncytial Virus Not Detected (Not Detect); SARS-CoV-2 Not Detected (Not Detect)
[2021-11-25 17:07] VITALS: TEMP 97.9
[2021-11-25 17:20] VITALS: BP 127/65
== END 2021-11-25 17:07 | disposition other institution (70) | DRG 640 ==
LOC: EMEROOARM 19:12 → 2ANU 19:12 → SUATTDRO 11-20 09:03
PROVIDERS: ADMIT Internal Medicine; ATTEND Internal Medicine

== ENCOUNTER 2021-12-28 15:14 | Inpatient (IN) ==
[2021-12-28] MEDS ORDERED: Melatonin 3 MG TABLET PO PRN (21:26)
[2021-12-28] MEDS ORDERED: Naloxone 0.4 MG/ML INJ IVP PRN (21:26)
[2021-12-28 22:56] LABS: Calcium 10.5 mg/dL (8.6-10.3); Potassium 6.9 mEq/L (3.5-5.1)
[2021-12-28] MEDS ORDERED: Insulin Human Regular 10 UNIT in 0.9 % Sodium Chloride 10 ML IV ONE (23:05)
[2021-12-28] MEDS ORDERED: Calcium Gluconate 1gm/50mL 1 GM/50 ML BAG IVPB ONE (23:06)
[2021-12-28] MEDS ORDERED: Albuterol 2.5 MG/3 ML NEBULIZER IH ONE (23:10)
[2021-12-28] MEDS ORDERED: Sodium Bicarbonate 50 MEQ/50 ML VIAL IVP ONE (23:15)
[2021-12-28] MEDS ORDERED: *HR* Dextrose 50 % in Water (Syg) 50 ML SYRINGE IVP ONE (23:15)
[2021-12-29] MEDS: SODIUM ZIRCONIUM CYCLOSILICATE 5 GM POWD.PACK PO SCH ×2 (00:08→07:48)
[2021-12-29] MEDS ORDERED: *HR* Dextrose 50 % in Water (Syg) 50 ML SYRINGE IVP PRN (02:38)
[2021-12-29] MEDS ORDERED: Dextrose 4 GM Chewable Tablets PO PRN ×2 (02:38)
[2021-12-29] MEDS ORDERED: D5% in Water 1,000 ML IVC PRN (02:38)
[2021-12-29 05:07] LABS: Hemoglobin 11.9 g/dL (11.5-15.4); Red Cell Distribution Width 18.9 % (11.5-14.5)
[2021-12-29 05:09] LABS: Hematocrit 40.7 % (35.3-44.9); Immature Platelets 12.8 % (1.1-6.1); Mean Corpuscular HGB Conc 29.2 g/dL (31.6-35.5); Mean Corpuscular Hemoglobin 27.5 pg (28.0-33.3); Red Blood Count 4.33 M/mcL (3.82-4.97); White Blood Count 8.5 K/mcL (4.3-11.1)
[2021-12-29 05:13] LABS: Platelet Count 93 K/mcL (140-400)
[2021-12-29 05:45] LABS: Calcium 10.1 mg/dL (8.6-10.3); Potassium 6.9 mEq/L (3.5-5.1)
[2021-12-29] MEDS ORDERED: Insulin Human Regular 10 UNIT in 0.9 % Sodium Chloride 10 ML IV ONE (06:47)
[2021-12-29] MEDS ORDERED: *HR* Dextrose 50 % in Water (Syg) 50 ML SYRINGE IVP ONE (07:00)
[2021-12-29] MEDS ORDERED: 0.9 % Sodium Chloride 250 ML IVC PRN (07:31)
[2021-12-29] MEDS ORDERED: 0.9 % Sodium Chloride 1,000 ML PRIME SCH (07:45)
[2021-12-29] MEDS: Insulin LISPRO 300 UNITS/3 ML VIAL SUBQ SCH ×4 (08:07→22:12)
[2021-12-29] MEDS: Ethyl Chloride Spray Bottle (104 SPRAY/BOTTLE) TP PRN (09:25)
[2021-12-29 11:01] LABS: Hepatitis B Surface Antibody < 3.10 mIU/mL
[2021-12-29 11:12] LABS: Hepatitis B Surface Antigen Nonreactive (Nonreactive)
[2021-12-29] MEDS: Pregabalin 50 MG CAPSULE PO SCH (22:12)
[2021-12-30 01:30] LABS: Basophils % 0.7 %; Hematocrit 37.8 % (35.3-44.9); Hemoglobin 11.4 g/dL (11.5-15.4); Immature Granulocytes % 0.5 % (0-4); Mean Corpuscular HGB Conc 30.2 g/dL (31.6-35.5); Mean Corpuscular Hemoglobin 27.5 pg (28.0-33.3); Mean Corpuscular Volume 91.1 fL (83.0-100.0); Red Blood Count 4.15 M/mcL (3.82-4.97); Red Cell Distribution Width 18.5 % (11.5-14.5)
[2021-12-30 01:32] LABS: Eosinophils # 0.2 K/mcL (0.0-0.6); Immature Platelets 16.2 % (1.1-6.1); Lymphocytes # 0.6 K/mcL (0.6-4.6); Lymphocytes % 9.8 %; Mean Platelet Volume 14.2 fL (9.4-12.4); Monocytes # 0.8 K/mcL (0.0-1.3); Monocytes % 13.5 %; Neutrophils # 4.4 K/mcL (1.6-8.9); Segmented Neutrophils % 72.5 %
[2021-12-30 01:37] LABS: Platelet Count 87 K/mcL (140-400)
[2021-12-30 01:43] LABS: Calcium 9.5 mg/dL (8.6-10.3); Magnesium 2.3 mg/dL (1.6-2.6); Phosphorous 5.6 mg/dL (2.7-4.5); Potassium 4.9 mEq/L (3.5-5.1)
[2021-12-30] MEDS ORDERED: 0.9 % Sodium Chloride 250 ML IVC PRN (07:27)
[2021-12-30] MEDS: Insulin LISPRO 300 UNITS/3 ML VIAL SUBQ SCH ×4 (08:38→22:54)
[2021-12-30] MEDS: Pregabalin 50 MG CAPSULE PO SCH (11:07)
[2021-12-30] MEDS: Aspirin Enteric Coated 81 MG Tablet PO SCH (11:07)
[2021-12-30] MEDS: SODIUM ZIRCONIUM CYCLOSILICATE 5 GM POWD.PACK PO SCH (11:24)
[2021-12-30] MEDS: Ethyl Chloride Spray Bottle (104 SPRAY/BOTTLE) TP PRN (12:41)
[2021-12-30] MEDS: carvediloL 6.25 MG TABLET PO SCH (16:10)
[2021-12-30] MEDS: *HR* Heparin 5,000 UNIT/ML VIAL SQ SCH (17:20)
[2021-12-30] MEDS: Pregabalin 75 MG CAPSULE PO SCH (23:05)
[2021-12-31 04:48] LABS: Basophils # 0.1 K/mcL (0.0-0.2); Basophils % 0.8 %; Eosinophils # 0.2 K/mcL (0.0-0.6); Eosinophils % 3.8 %; Hemoglobin 12.5 g/dL (11.5-15.4); Immature Granulocytes % 0.5 % (0-4); Lymphocytes # 0.9 K/mcL (0.6-4.6); Lymphocytes % 15.5 %; Mean Corpuscular HGB Conc 29.1 g/dL (31.6-35.5); Mean Corpuscular Hemoglobin 27.2 pg (28.0-33.3); Mean Corpuscular Volume 93.7 fL (83.0-100.0); Mean Platelet Volume 14.3 fL (9.4-12.4); Monocytes # 0.7 K/mcL (0.0-1.3); Monocytes % 12.3 %; Red Blood Count 4.59 M/mcL (3.82-4.97); Red Cell Distribution Width 18.6 % (11.5-14.5); Segmented Neutrophils % 67.1 %
[2021-12-31 04:49] LABS: Platelet Count 84 K/mcL (140-400)
[2021-12-31 05:06] LABS: Calcium 10.1 mg/dL (8.6-10.3); Magnesium 2.4 mg/dL (1.6-2.6); Phosphorous 6.8 mg/dL (2.7-4.5)
[2021-12-31] MEDS: *HR* Heparin 5,000 UNIT/ML VIAL SQ SCH (05:49)
[2021-12-31] MEDS: Ondansetron 4 MG/2 ML VIAL IVP PRN (06:11)
[2021-12-31] MEDS: carvediloL 6.25 MG TABLET PO SCH ×2 (08:18→16:42)
[2021-12-31] MEDS: Aspirin Enteric Coated 81 MG Tablet PO SCH (08:18)
[2021-12-31] MEDS: Renal Vitamin 1 CAP CAPSULE PO SCH (08:18)
[2021-12-31] MEDS: Insulin LISPRO 300 UNITS/3 ML VIAL SUBQ SCH ×4 (08:19→20:31)
[2021-12-31] MEDS ORDERED: Heparin 1,000 UNITS/500 mL 500 ML ONE (13:20)
[2021-12-31] MEDS ORDERED: *HR* Heparin 10,000 UNIT/10 ML VIAL ONE (13:20)
[2021-12-31] MEDS ORDERED: 0.9 % Sodium Chloride 2,000 ML ONE (13:20)
[2021-12-31] MEDS ORDERED: ISOVUE-370 200 ML INFUS..BTL ONE (13:20)
[2021-12-31] MEDS ORDERED: Nitroglycerin 1,000 MCG/5 ML VIAL IV ONE (13:21)
[2021-12-31] MEDS ORDERED: *HR* FentaNYL (PF) 100 MCG/2 ML VIAL ONE (13:29)
[2021-12-31] MEDS ORDERED: *HR* Midazolam HCl 2 MG/2 ML VIAL ONE (13:29)
[2021-12-31] MEDS: Pregabalin 75 MG CAPSULE PO SCH (20:31)
[2022-01-01] MEDS: Acetaminophen 325 MG TABLET PO PRN ×3 (03:27→15:42)
[2022-01-01 07:08] LABS: Immature Granulocytes % 0.3 % (0-4)
[2022-01-01 07:10] LABS: Basophils # 0.1 K/mcL (0.0-0.2); Eosinophils # 0.2 K/mcL (0.0-0.6); Eosinophils % 2.9 %; Hematocrit 38.4 % (35.3-44.9); Hemoglobin 11.9 g/dL (11.5-15.4); Immature Platelets 14.7 % (1.1-6.1); Lymphocytes # 0.8 K/mcL (0.6-4.6); Lymphocytes % 10.9 %; Mean Corpuscular Hemoglobin 28.6 pg (28.0-33.3); Mean Corpuscular Volume 92.3 fL (83.0-100.0); Monocytes # 0.7 K/mcL (0.0-1.3); Monocytes % 10.2 %; Neutrophils # 5.4 K/mcL (1.6-8.9); Red Blood Count 4.16 M/mcL (3.82-4.97); Red Cell Distribution Width 18.7 % (11.5-14.5); Segmented Neutrophils % 74.7 %; White Blood Count 7.2 K/mcL (4.3-11.1)
[2022-01-01 07:17] LABS: Platelet Count 82 K/mcL (140-400)
[2022-01-01 07:28] LABS: Magnesium 2.3 mg/dL (1.6-2.6); Phosphorous 8.1 mg/dL (2.7-4.5); Potassium 5.3 mEq/L (3.5-5.1)
[2022-01-01] MEDS ORDERED: 0.9 % Sodium Chloride 250 ML IVC PRN (08:50)
[2022-01-01] MEDS: carvediloL 6.25 MG TABLET PO SCH ×2 (08:52→15:43)
[2022-01-01] MEDS: Renal Vitamin 1 CAP CAPSULE PO SCH (08:53)
[2022-01-01] MEDS: Aspirin Enteric Coated 81 MG Tablet PO SCH (08:53)
[2022-01-01] MEDS: SODIUM ZIRCONIUM CYCLOSILICATE 5 GM POWD.PACK PO SCH (08:58)
[2022-01-01] MEDS: Insulin LISPRO 300 UNITS/3 ML VIAL SUBQ SCH ×4 (09:01→20:05)
[2022-01-01] MEDS: Ethyl Chloride Spray Bottle (104 SPRAY/BOTTLE) TP PRN (10:35)
[2022-01-01] MEDS: Ondansetron 4 MG/2 ML VIAL IVP PRN (18:54)
[2022-01-01] MEDS: Pregabalin 75 MG CAPSULE PO SCH (20:06)
[2022-01-02 01:36] LABS: Immature Granulocytes % 0.4 % (0-4)
[2022-01-02 01:38] LABS: Basophils # 0.1 K/mcL (0.0-0.2); Basophils % 0.7 %; Eosinophils # 0.3 K/mcL (0.0-0.6); Eosinophils % 3.7 %; Hematocrit 39.5 % (35.3-44.9); Immature Platelets 15.9 % (1.1-6.1); Lymphocytes # 0.8 K/mcL (0.6-4.6); Mean Corpuscular HGB Conc 30.4 g/dL (31.6-35.5); Mean Corpuscular Hemoglobin 28.6 pg (28.0-33.3); Mean Platelet Volume 13.8 fL (9.4-12.4); Monocytes # 0.8 K/mcL (0.0-1.3); Neutrophils # 5.2 K/mcL (1.6-8.9); Red Cell Distribution Width 18.6 % (11.5-14.5); Segmented Neutrophils % 73.2 %; White Blood Count 7.1 K/mcL (4.3-11.1)
[2022-01-02 01:44] LABS: Platelet Count 84 K/mcL (140-400)
[2022-01-02 02:09] LABS: Calcium 9.8 mg/dL (8.6-10.3); Magnesium 2.3 mg/dL (1.6-2.6); Phosphorous 5.6 mg/dL (2.7-4.5); Potassium 4.4 mEq/L (3.5-5.1)
[2022-01-02] MEDS: Aspirin Enteric Coated 81 MG Tablet PO SCH (07:54)
[2022-01-02] MEDS: Renal Vitamin 1 CAP CAPSULE PO SCH (07:55)
[2022-01-02] MEDS: carvediloL 6.25 MG TABLET PO SCH ×2 (07:56→17:42)
[2022-01-02] MEDS: Acetaminophen 325 MG TABLET PO PRN ×2 (07:56→13:59)
[2022-01-02] MEDS: Insulin LISPRO 300 UNITS/3 ML VIAL SUBQ SCH ×4 (07:57→21:41)
[2022-01-02] MEDS: SODIUM ZIRCONIUM CYCLOSILICATE 5 GM POWD.PACK PO SCH (10:29)
[2022-01-02] MEDS: *HR* OxyCODONE/APAP 5/325 TABLET PO PRN (21:39)
[2022-01-02] MEDS: Pregabalin 75 MG CAPSULE PO SCH (21:39)
[2022-01-03 05:16] LABS: Basophils % 0.8 %
[2022-01-03 05:17] LABS: Basophils # 0.1 K/mcL (0.0-0.2); Eosinophils # 0.3 K/mcL (0.0-0.6); Eosinophils % 4.8 %; Hematocrit 39.3 % (35.3-44.9); Hemoglobin 11.7 g/dL (11.5-15.4); Immature Granulocytes % 0.5 % (0-4); Immature Platelets 14.5 % (1.1-6.1); Lymphocytes # 0.8 K/mcL (0.6-4.6); Lymphocytes % 11.7 %; Mean Corpuscular HGB Conc 29.8 g/dL (31.6-35.5); Mean Corpuscular Hemoglobin 27.5 pg (28.0-33.3); Mean Corpuscular Volume 92.3 fL (83.0-100.0); Mean Platelet Volume 14.1 fL (9.4-12.4); Monocytes # 0.7 K/mcL (0.0-1.3); Monocytes % 11.4 %; Neutrophils # 4.6 K/mcL (1.6-8.9); Red Blood Count 4.26 M/mcL (3.82-4.97); Red Cell Distribution Width 18.5 % (11.5-14.5); Segmented Neutrophils % 70.8 %; White Blood Count 6.5 K/mcL (4.3-11.1)
[2022-01-03 05:18] LABS: Platelet Count 84 K/mcL (140-400)
[2022-01-03 05:34] LABS: Calcium 10.1 mg/dL (8.6-10.3); Magnesium 2.5 mg/dL (1.6-2.6); Phosphorous 7.2 mg/dL (2.7-4.5); Potassium 5.2 mEq/L (3.5-5.1)
[2022-01-03] MEDS ORDERED: Isovue-370 500 ML BOTTLE IVP ONE (07:00)
[2022-01-03] MEDS: Insulin LISPRO 300 UNITS/3 ML VIAL SUBQ SCH ×4 (08:45→20:44)
[2022-01-03] MEDS: Aspirin Enteric Coated 81 MG Tablet PO SCH (08:46)
[2022-01-03] MEDS: Renal Vitamin 1 CAP CAPSULE PO SCH (08:46)
[2022-01-03] MEDS: carvediloL 6.25 MG TABLET PO SCH ×2 (08:46→17:25)
[2022-01-03] MEDS: SODIUM ZIRCONIUM CYCLOSILICATE 5 GM POWD.PACK PO SCH (08:49)
[2022-01-03] MEDS: *HR* OxyCODONE/APAP 5/325 TABLET PO PRN ×2 (14:46→20:54)
[2022-01-03] MEDS: Loratadine 10 MG TABLET PO SCH (14:46)
[2022-01-03] MEDS ORDERED: Nitroglycerin 0.4 MG TAB.SUBL SL PRN (15:32)
[2022-01-03] MEDS ORDERED: Morphine Sulfate 2 MG/ML SYRINGE IVP ONE (15:49)
[2022-01-03] MEDS ORDERED: Aspirin 81 MG TAB.CHEW PO ONE (15:54)
[2022-01-03] MEDS ORDERED: Morphine Sulfate 2 MG/ML SYRINGE IVP PRN (15:54)
[2022-01-03 16:13] LABS: ABG Base Excess -1 mEq/L (-2 to 3); ABG HCO3 26 mEq/L (21-27); ABG Oxygen Saturation 85 % (95-98); ABG PCO2 52 mmHg (35-45); ABG PH 7.31 pH Units (7.32-7.45); ABG PO2 56 mmHg (85-104); ABG TCO2 28 mEq/L (20-26)
[2022-01-03 16:48] LABS: Basophils % 0.9 %; Lymphocytes % 7.9 %; Mean Corpuscular Volume 93.2 fL (83.0-100.0); Red Cell Distribution Width 18.3 % (11.5-14.5)
[2022-01-03 16:50] LABS: Basophils # 0.1 K/mcL (0.0-0.2); Eosinophils # 0.3 K/mcL (0.0-0.6); Eosinophils % 3.7 %; Hemoglobin 11.1 g/dL (11.5-15.4); Immature Granulocytes % 0.3 % (0-4); Immature Platelets 14.1 % (1.1-6.1); Lymphocytes # 0.5 K/mcL (0.6-4.6); Monocytes # 0.7 K/mcL (0.0-1.3); Monocytes % 10.3 %; Neutrophils # 5.2 K/mcL (1.6-8.9); Red Blood Count 3.97 M/mcL (3.82-4.97); Segmented Neutrophils % 76.9 %; White Blood Count 6.8 K/mcL (4.3-11.1)
[2022-01-03 17:12] LABS: INR 1.2; Prothrombin Time 13.3 Seconds (9.4-12.1)
[2022-01-03 17:14] LABS: Activated Partial Thrombo Time 37.5 Seconds (26.0-36.0)
[2022-01-03] MEDS: predniSONE 20 MG TABLET PO SCH (17:23)
[2022-01-03 17:53] LABS: Platelet Count 89 K/mcL (140-400)
[2022-01-03] MEDS: Ofloxacin *EAR* Drops 5 ML BOTTLE RIGHT EAR SCH (19:35)
[2022-01-03] MEDS: Pregabalin 75 MG CAPSULE PO SCH (20:54)
[2022-01-03] MEDS ORDERED: *HR* LORazepam 2 MG/ML VIAL IVP ONE (21:24)
[2022-01-04 01:29] LABS: Basophils % 0.3 %; Eosinophils % 0.3 %; Immature Granulocytes % 0.4 % (0-4); Mean Corpuscular Hemoglobin 27.8 pg (28.0-33.3); Monocytes % 1.7 %; Red Cell Distribution Width 18.4 % (11.5-14.5); Segmented Neutrophils % 93.3 %
[2022-01-04 01:31] LABS: Hematocrit 42.3 % (35.3-44.9); Hemoglobin 12.8 g/dL (11.5-15.4); Lymphocytes # 0.3 K/mcL (0.6-4.6); Mean Corpuscular HGB Conc 30.3 g/dL (31.6-35.5); Mean Corpuscular Volume 91.8 fL (83.0-100.0); Monocytes # 0.1 K/mcL (0.0-1.3); Neutrophils # 7.2 K/mcL (1.6-8.9); Red Blood Count 4.61 M/mcL (3.82-4.97); White Blood Count 7.7 K/mcL (4.3-11.1)
[2022-01-04 01:37] LABS: Platelet Count 92 K/mcL (140-400)
[2022-01-04 01:53] LABS: Calcium 10.1 mg/dL (8.6-10.3); Magnesium 2.6 mg/dL (1.6-2.6); Phosphorous 8.3 mg/dL (2.7-4.5)
[2022-01-04] MEDS ORDERED: predniSONE 20 MG TABLET PO ONE (07:00)
[2022-01-04] MEDS ORDERED: Insulin Human Regular 10 UNIT in 0.9 % Sodium Chloride 10 ML IV ONE (07:27)
[2022-01-04] MEDS ORDERED: *HR* Dextrose 50 % in Water (Syg) 50 ML SYRINGE IVP ONE (07:28)
[2022-01-04] MEDS ORDERED: 0.9 % Sodium Chloride 250 ML IVC PRN (07:41)
[2022-01-04] MEDS ORDERED: *HR* Heparin 10,000 UNIT/10 ML VIAL IV PRN (07:41)
[2022-01-04] MEDS: SODIUM ZIRCONIUM CYCLOSILICATE 5 GM POWD.PACK PO SCH (08:29)
[2022-01-04] MEDS: Loratadine 10 MG TABLET PO SCH (08:29)
[2022-01-04] MEDS: Aspirin Enteric Coated 81 MG Tablet PO SCH (08:29)
[2022-01-04] MEDS: predniSONE 20 MG TABLET PO SCH (08:29)
[2022-01-04] MEDS: Renal Vitamin 1 CAP CAPSULE PO SCH (08:29)
[2022-01-04] MEDS: Ofloxacin *EAR* Drops 5 ML BOTTLE RIGHT EAR SCH ×2 (08:31→22:09)
[2022-01-04] MEDS: carvediloL 6.25 MG TABLET PO SCH ×2 (08:50→16:06)
[2022-01-04] MEDS: Insulin LISPRO 300 UNITS/3 ML VIAL SUBQ SCH ×4 (09:25→22:38)
[2022-01-04] MEDS: Ethyl Chloride Spray Bottle (104 SPRAY/BOTTLE) TP PRN (10:26)
[2022-01-04] MEDS: *HR* OxyCODONE/APAP 5/325 TABLET PO PRN (16:16)
[2022-01-04] MEDS: Pregabalin 75 MG CAPSULE PO SCH (22:08)
[2022-01-05 03:07] LABS: Hematocrit 39.7 % (35.3-44.9); Hemoglobin 12.2 g/dL (11.5-15.4); Immature Platelets 13.9 % (1.1-6.1); Mean Corpuscular HGB Conc 30.7 g/dL (31.6-35.5); Mean Corpuscular Hemoglobin 27.9 pg (28.0-33.3); Mean Corpuscular Volume 90.8 fL (83.0-100.0); Mean Platelet Volume 13.5 fL (9.4-12.4); Red Blood Count 4.37 M/mcL (3.82-4.97); Red Cell Distribution Width 18.2 % (11.5-14.5); White Blood Count 8.8 K/mcL (4.3-11.1)
[2022-01-05 03:23] LABS: Calcium 9.6 mg/dL (8.6-10.3); Potassium 4.9 mEq/L (3.5-5.1)
[2022-01-05] MEDS ORDERED: predniSONE 20 MG TABLET PO ONE (06:00)
[2022-01-05] MEDS: Aspirin Enteric Coated 81 MG Tablet PO SCH (09:39)
[2022-01-05] MEDS: SODIUM ZIRCONIUM CYCLOSILICATE 5 GM POWD.PACK PO SCH (09:39)
[2022-01-05] MEDS: Renal Vitamin 1 CAP CAPSULE PO SCH (09:39)
[2022-01-05] MEDS: Loratadine 10 MG TABLET PO SCH (09:39)
[2022-01-05] MEDS: Ofloxacin *EAR* Drops 5 ML BOTTLE RIGHT EAR SCH ×2 (09:40→20:26)
[2022-01-05] MEDS: carvediloL 6.25 MG TABLET PO SCH ×2 (09:44→17:11)
[2022-01-05] MEDS: Insulin LISPRO 300 UNITS/3 ML VIAL SUBQ SCH ×4 (09:44→21:10)
[2022-01-05] MEDS ORDERED: Fluconazole 150 MG TABLET PO ONE (11:30)
[2022-01-05] MEDS: *HR* OxyCODONE/APAP 5/325 TABLET PO PRN (20:25)
[2022-01-05] MEDS: Pregabalin 75 MG CAPSULE PO SCH (20:25)
[2022-01-05] MEDS: Insulin DETEMIR 100 UNIT/ML X5UNITS SUBQ SCH (20:26)
[2022-01-06 04:35] LABS: Hematocrit 38.1 % (35.3-44.9); Hemoglobin 11.8 g/dL (11.5-15.4); Immature Platelets 9.5 % (1.1-6.1); Mean Corpuscular Hemoglobin 27.8 pg (28.0-33.3); Mean Corpuscular Volume 89.6 fL (83.0-100.0); Mean Platelet Volume 12.8 fL (9.4-12.4); Red Blood Count 4.25 M/mcL (3.82-4.97); Red Cell Distribution Width 18.2 % (11.5-14.5); White Blood Count 7.3 K/mcL (4.3-11.1)
[2022-01-06 04:51] LABS: Calcium 9.6 mg/dL (8.6-10.3); Potassium 5.4 mEq/L (3.5-5.1)
[2022-01-06] MEDS: Aspirin Enteric Coated 81 MG Tablet PO SCH (07:59)
[2022-01-06] MEDS: Renal Vitamin 1 CAP CAPSULE PO SCH (07:59)
[2022-01-06] MEDS: carvediloL 6.25 MG TABLET PO SCH ×2 (08:00→16:26)
[2022-01-06] MEDS: Insulin DETEMIR 100 UNIT/ML X5UNITS SUBQ SCH ×2 (08:03→20:16)
[2022-01-06] MEDS: Loratadine 10 MG TABLET PO SCH (08:03)
[2022-01-06] MEDS: Insulin LISPRO 300 UNITS/3 ML VIAL SUBQ SCH ×4 (08:04→21:57)
[2022-01-06] MEDS: Ofloxacin *EAR* Drops 5 ML BOTTLE RIGHT EAR SCH ×2 (08:04→20:19)
[2022-01-06] MEDS: SODIUM ZIRCONIUM CYCLOSILICATE 5 GM POWD.PACK PO SCH (08:05)
[2022-01-06] MEDS ORDERED: Ethyl Chloride Spray Bottle (104 SPRAY/BOTTLE) TP PRN (08:53)
[2022-01-06] MEDS ORDERED: 0.9 % Sodium Chloride 250 ML IVC PRN (08:53)
[2022-01-06] MEDS ORDERED: *HR* Heparin 10,000 UNIT/10 ML VIAL IV PRN (08:53)
[2022-01-06] MEDS: *HR* OxyCODONE/APAP 5/325 TABLET PO PRN (18:30)
[2022-01-06] MEDS: Pregabalin 75 MG CAPSULE PO SCH (20:15)
[2022-01-07] MEDS: Ondansetron 4 MG/2 ML VIAL IVP PRN (02:04)
[2022-01-07 02:47] LABS: Hematocrit 37.6 % (35.3-44.9); Hemoglobin 11.6 g/dL (11.5-15.4); Mean Corpuscular HGB Conc 30.9 g/dL (31.6-35.5); Mean Corpuscular Hemoglobin 28.2 pg (28.0-33.3); Mean Corpuscular Volume 91.3 fL (83.0-100.0); Mean Platelet Volume 12.7 fL (9.4-12.4); Platelet Count 101 K/mcL (140-400); Red Blood Count 4.12 M/mcL (3.82-4.97); Red Cell Distribution Width 18.3 % (11.5-14.5); White Blood Count 6.6 K/mcL (4.3-11.1)
[2022-01-07 02:54] LABS: Calcium 9.3 mg/dL (8.6-10.3); Potassium 4.6 mEq/L (3.5-5.1)
[2022-01-07] MEDS: SODIUM ZIRCONIUM CYCLOSILICATE 5 GM POWD.PACK PO SCH (05:05)
[2022-01-07] MEDS: Insulin LISPRO 300 UNITS/3 ML VIAL SUBQ SCH ×4 (07:28→20:50)
[2022-01-07] MEDS: Insulin DETEMIR 100 UNIT/ML X5UNITS SUBQ SCH ×2 (09:03→21:55)
[2022-01-07] MEDS: Aspirin Enteric Coated 81 MG Tablet PO SCH (09:03)
[2022-01-07] MEDS: Loratadine 10 MG TABLET PO SCH (09:04)
[2022-01-07] MEDS: Renal Vitamin 1 CAP CAPSULE PO SCH (09:04)
[2022-01-07] MEDS: Ofloxacin *EAR* Drops 5 ML BOTTLE RIGHT EAR SCH ×2 (09:04→21:40)
[2022-01-07] MEDS: carvediloL 6.25 MG TABLET PO SCH ×2 (09:04→16:43)
[2022-01-07] MEDS: *HR* OxyCODONE/APAP 5/325 TABLET PO PRN ×2 (09:16→16:48)
[2022-01-07] MEDS: Pregabalin 75 MG CAPSULE PO SCH (21:40)
[2022-01-08 08:05] LABS: Basophils # 0.1 K/mcL (0.0-0.2); Basophils % 0.8 %; Eosinophils # 0.5 K/mcL (0.0-0.6); Hematocrit 38.4 % (35.3-44.9); Hemoglobin 11.7 g/dL (11.5-15.4); Immature Granulocytes % 0.4 % (0-4); Lymphocytes # 1.1 K/mcL (0.6-4.6); Mean Corpuscular HGB Conc 30.5 g/dL (31.6-35.5); Mean Corpuscular Hemoglobin 27.7 pg (28.0-33.3); Mean Platelet Volume 12.6 fL (9.4-12.4); Monocytes # 0.8 K/mcL (0.0-1.3); Monocytes % 10.8 %; Neutrophils # 5.2 K/mcL (1.6-8.9); Nucleated Red Blood Cells 0.4 /100 WBC (0); Platelet Count 116 K/mcL (140-400); Red Blood Count 4.22 M/mcL (3.82-4.97); Red Cell Distribution Width 18.4 % (11.5-14.5); White Blood Count 7.7 K/mcL (4.3-11.1)
[2022-01-08] MEDS: SODIUM ZIRCONIUM CYCLOSILICATE 5 GM POWD.PACK PO SCH (08:06)
[2022-01-08] MEDS: Insulin LISPRO 300 UNITS/3 ML VIAL SUBQ SCH ×4 (08:06→20:51)
[2022-01-08] MEDS: Aspirin Enteric Coated 81 MG Tablet PO SCH (08:10)
[2022-01-08] MEDS: Loratadine 10 MG TABLET PO SCH (08:10)
[2022-01-08] MEDS: Renal Vitamin 1 CAP CAPSULE PO SCH (08:10)
[2022-01-08] MEDS: Ofloxacin *EAR* Drops 5 ML BOTTLE RIGHT EAR SCH ×2 (08:11→20:45)
[2022-01-08] MEDS: carvediloL 6.25 MG TABLET PO SCH ×2 (08:11→17:05)
[2022-01-08] MEDS: Insulin DETEMIR 100 UNIT/ML X5UNITS SUBQ SCH ×2 (08:11→21:00)
[2022-01-08 08:23] LABS: Calcium 9.6 mg/dL (8.6-10.3); Potassium 5.6 mEq/L (3.5-5.1)
[2022-01-08] MEDS ORDERED: Ethyl Chloride Spray Bottle (104 SPRAY/BOTTLE) TP PRN (08:34)
[2022-01-08] MEDS ORDERED: 0.9 % Sodium Chloride 250 ML IVC PRN (08:34)
[2022-01-08] MEDS: *HR* OxyCODONE/APAP 5/325 TABLET PO PRN ×2 (08:51→14:27)
[2022-01-08] MEDS: Ipratropium/Albuterol Neb 3 ML IH PRN (17:45)
[2022-01-08] MEDS: Pregabalin 75 MG CAPSULE PO SCH (20:45)
[2022-01-09] MEDS: Ipratropium/Albuterol Neb 3 ML IH PRN (03:08)
[2022-01-09] MEDS: SODIUM ZIRCONIUM CYCLOSILICATE 5 GM POWD.PACK PO SCH (06:55)
[2022-01-09] MEDS: Loratadine 10 MG TABLET PO SCH (08:17)
[2022-01-09] MEDS: Aspirin Enteric Coated 81 MG Tablet PO SCH (08:17)
[2022-01-09] MEDS: Insulin DETEMIR 100 UNIT/ML X5UNITS SUBQ SCH ×2 (08:17→21:07)
[2022-01-09] MEDS: carvediloL 6.25 MG TABLET PO SCH ×2 (08:17→18:09)
[2022-01-09] MEDS: Insulin LISPRO 300 UNITS/3 ML VIAL SUBQ SCH ×4 (08:18→21:04)
[2022-01-09] MEDS: Renal Vitamin 1 CAP CAPSULE PO SCH (08:26)
[2022-01-09] MEDS: *HR* OxyCODONE/APAP 5/325 TABLET PO PRN ×2 (08:26→21:14)
[2022-01-09] MEDS: Ofloxacin *EAR* Drops 5 ML BOTTLE RIGHT EAR SCH ×2 (09:26→21:07)
[2022-01-09] MEDS: Pregabalin 75 MG CAPSULE PO SCH (21:06)
[2022-01-10] MEDS: Ipratropium/Albuterol Neb 3 ML IH PRN (01:48)
[2022-01-10 02:53] LABS: Red Cell Distribution Width 18.6 % (11.5-14.5)
[2022-01-10 02:55] LABS: Hematocrit 37.2 % (35.3-44.9); Hemoglobin 11.1 g/dL (11.5-15.4); Immature Platelets 14.9 % (1.1-6.1); Mean Corpuscular HGB Conc 29.8 g/dL (31.6-35.5); Mean Corpuscular Hemoglobin 27.3 pg (28.0-33.3); Mean Corpuscular Volume 91.6 fL (83.0-100.0); Mean Platelet Volume 13.1 fL (9.4-12.4); Red Blood Count 4.06 M/mcL (3.82-4.97); White Blood Count 7.3 K/mcL (4.3-11.1)
[2022-01-10 03:01] LABS: Calcium 9.4 mg/dL (8.6-10.3); Potassium 4.9 mEq/L (3.5-5.1)
[2022-01-10] MEDS: SODIUM ZIRCONIUM CYCLOSILICATE 5 GM POWD.PACK PO SCH (06:06)
[2022-01-10 06:59] VITALS: PULSE 83
[2022-01-10] MEDS: Insulin LISPRO 300 UNITS/3 ML VIAL SUBQ SCH ×2 (08:17→12:54)
[2022-01-10] MEDS: Aspirin Enteric Coated 81 MG Tablet PO SCH (08:18)
[2022-01-10] MEDS: Renal Vitamin 1 CAP CAPSULE PO SCH (08:18)
[2022-01-10] MEDS: Insulin DETEMIR 100 UNIT/ML X5UNITS SUBQ SCH (08:18)
[2022-01-10] MEDS: carvediloL 6.25 MG TABLET PO SCH (08:18)
[2022-01-10] MEDS: Loratadine 10 MG TABLET PO SCH (08:18)
[2022-01-10] MEDS: Ofloxacin *EAR* Drops 5 ML BOTTLE RIGHT EAR SCH (08:19)
[2022-01-10] MEDS ORDERED: MethylPREDNISolone 40 MG/ML VIAL IVP ONE (10:10)
[2022-01-10] MEDS ORDERED: Isovue-370 500 ML BOTTLE IVP ONE (10:10)
[2022-01-10] MEDS: *HR* OxyCODONE/APAP 5/325 TABLET PO PRN (12:45)
[2022-01-10] MEDS: Acetaminophen 325 MG TABLET PO PRN (12:45)
[2022-01-10 12:53] VITALS: BP 147/63; TEMP 97.5; O2SAT 98
== END 2022-01-10 16:00 | disposition short-term general hospital (02) | DRG 286 ==
LOC: 2ANU
PROVIDERS: ADMIT Internal Medicine; ATTEND Internal Medicine

== ENCOUNTER 2022-02-18 15:56 | Inpatient (IN) ==
[2022-02-18 16:46] LABS: INR 1.4; Prothrombin Time 15.1 Seconds (9.4-12.1)
[2022-02-18 16:48] LABS: Activated Partial Thrombo Time 36.7 Seconds (26.0-36.0)
[2022-02-18 16:54] LABS: Calcium 8.6 mg/dL (8.6-10.3); Potassium 4.5 mEq/L (3.5-5.1)
[2022-02-18] MEDS ORDERED: Piperacillin/Tazobactam 3.375 GM in 0.9 % Sodium Chloride Mini Bag 100 ML IVPB ONE (16:58)
[2022-02-18] MEDS ORDERED: Vancomycin 1,250 MG/262.5 ML IV.SOLN IVPB ONE (16:58)
[2022-02-18 16:59] LABS: Basophils % 0.6 %; Eosinophils # 0.1 K/mcL (0.0-0.6); Eosinophils % 2.8 %; Hematocrit 33.5 % (35.3-44.9); Hemoglobin 10.4 g/dL (11.5-15.4); Immature Granulocytes % 0.3 % (0-4); Lymphocytes # 0.6 K/mcL (0.6-4.6); Mean Corpuscular Hemoglobin 26.7 pg (28.0-33.3); Mean Corpuscular Volume 85.9 fL (83.0-100.0); Mean Platelet Volume 14.1 fL (9.4-12.4); Monocytes # 0.5 K/mcL (0.0-1.3); Monocytes % 12.9 %; Red Cell Distribution Width 19.2 % (11.5-14.5); Segmented Neutrophils % 67.4 %; White Blood Count 3.6 K/mcL (4.3-11.1)
[2022-02-18] MEDS ORDERED: Tdap (Boostrix) Vaccine 0.5 ML SYRINGE IM ONE (17:03)
[2022-02-18] MEDS ORDERED: 0.9 % Sodium Chloride 500 ML IV ONE (17:03)
[2022-02-18 17:04] LABS: Troponin I 0.16 ng/mL (< 0.04)
[2022-02-18 17:23] LABS: ABG Base Excess 1 mEq/L (-2 to 3); ABG HCO3 26 mEq/L (21-27); ABG Oxygen Saturation 99 % (95-98); ABG PCO2 42 mmHg (35-45); ABG PH 7.39 pH Units (7.32-7.45); ABG PO2 144 mmHg (85-104); ABG TCO2 27 mEq/L (20-26)
[2022-02-18 17:31] LABS: Neutrophils # 2.4 K/mcL (1.6-8.9); Platelet Count 92 K/mcL (140-400)
[2022-02-18 17:38] LABS: Magnesium 2.1 mg/dL (1.6-2.6)
[2022-02-18] MEDS: Norepinephrine 4 MG/254 ML IV.SOLN IVC SCH (18:43)
[2022-02-18] MEDS ORDERED: Naloxone 0.4 MG/ML INJ IVP PRN (20:59)
[2022-02-18] MEDS ORDERED: Melatonin 3 MG TABLET PO PRN (20:59)
[2022-02-18] MEDS ORDERED: Albumin 25% 25gram/100mL 25 GM/100 ML IV.SOLN IVPB ONE (23:07)
[2022-02-18 23:28] LABS: Acetaminophen < 10 mcg/mL (10-20); Ethanol < 10 mg/dL (Less than 10)
[2022-02-18 23:42] LABS: Thyroid Stimulating Hormone 19.031 mcIU/mL (0.340-5.600)
[2022-02-18] MEDS ORDERED: D5% in Water 1,000 ML IVC PRN (23:53)
[2022-02-18] MEDS ORDERED: Dextrose Gel 15 GM/37.5 ML TUBE PO PRN ×2 (23:53)
[2022-02-18] MEDS ORDERED: *HR* Dextrose 50 % in Water (Syg) 50 ML SYRINGE IVP PRN (23:53)
[2022-02-19] MEDS: Insulin LISPRO 300 UNITS/3 ML VIAL SUBQ SCH ×5 (00:01→23:56)
[2022-02-19] MEDS: Norepinephrine 4 MG/254 ML IV.SOLN IVC SCH ×4 (00:49→13:15)
[2022-02-19 01:00] LABS: Folate > 22.3 ng/mL (3.0-16.0); Vitamin B12 480 pg/mL (250-1100)
[2022-02-19 01:18] LABS: Troponin I 0.22 ng/mL (< 0.04)
[2022-02-19 01:31] LABS: Influenza A PCR Negative (Negative); Influenza B PCR Negative (Negative); Resp. Syncytial Virus PCR Negative (Negative)
[2022-02-19 01:35] LABS: SARS-CoV-2 by PCR (In House) Negative (Negative)
[2022-02-19 03:52] LABS: Eosinophils % 5.1 %; Mean Corpuscular Hemoglobin 26.8 pg (28.0-33.3); Red Cell Distribution Width 20.1 % (11.5-14.5)
[2022-02-19 03:53] LABS: Basophils # 0.1 K/mcL (0.0-0.2); Basophils % 0.8 %; Eosinophils # 0.3 K/mcL (0.0-0.6); Hematocrit 36.2 % (35.3-44.9); Immature Granulocytes % 0.5 % (0-4); Lymphocytes # 1.1 K/mcL (0.6-4.6); Lymphocytes % 16.5 %; Mean Corpuscular HGB Conc 30.4 g/dL (31.6-35.5); Mean Corpuscular Volume 88.3 fL (83.0-100.0); Mean Platelet Volume 13.5 fL (9.4-12.4); Monocytes % 15.1 %; Nucleated Red Blood Cells 0.5 /100 WBC (0); Platelet Count 133 K/mcL (140-400); White Blood Count 6.5 K/mcL (4.3-11.1)
[2022-02-19 04:01] LABS: INR 1.4; Prothrombin Time 15.3 Seconds (9.4-12.1)
[2022-02-19 04:04] LABS: Activated Partial Thrombo Time 38.4 Seconds (26.0-36.0)
[2022-02-19 04:12] LABS: Calcium 8.9 mg/dL (8.6-10.3); Phosphorous 8.5 mg/dL (2.7-4.5); Potassium 5.1 mEq/L (3.5-5.1)
[2022-02-19] MEDS ORDERED: 0.9 % Sodium Chloride 1,000 ML ONE (04:14)
[2022-02-19] MEDS ORDERED: Lidocaine 5% OINT 35 APPL/35.44 GM TUBE TP ONE (04:42)
[2022-02-19] MEDS ORDERED: Lidocaine Jelly 6ml 1 APPL/6 ML JEL.PF.APP TP ONE (04:42)
[2022-02-19] MEDS: *HR* Heparin 5,000 UNIT/ML VIAL SQ SCH ×3 (05:47→20:36)
[2022-02-19] MEDS: Piperacillin/Tazobactam 3.375 GM in 0.9 % Sodium Chloride Mini Bag 100 ML IVPB SCH ×2 (05:47→17:20)
[2022-02-19] MEDS: *HR* OxyCODONE/APAP 5/325 TABLET PO PRN (20:37)
[2022-02-20] MEDS: Norepinephrine 4 MG/254 ML IV.SOLN IVC SCH ×2 (00:06→07:47)
[2022-02-20] MEDS: *HR* OxyCODONE/APAP 5/325 TABLET PO PRN (02:48)
[2022-02-20 04:47] LABS: Basophils # 0.1 K/mcL (0.0-0.2); Basophils % 1.2 %; Eosinophils # 0.3 K/mcL (0.0-0.6); Eosinophils % 4.9 %; Hematocrit 34.6 % (35.3-44.9); Hemoglobin 10.4 g/dL (11.5-15.4); Immature Granulocytes % 0.4 % (0-4); Lymphocytes # 1.3 K/mcL (0.6-4.6); Lymphocytes % 25.9 %; Mean Corpuscular HGB Conc 30.1 g/dL (31.6-35.5); Mean Corpuscular Hemoglobin 27.2 pg (28.0-33.3); Mean Corpuscular Volume 90.3 fL (83.0-100.0); Mean Platelet Volume 13.8 fL (9.4-12.4); Monocytes # 0.8 K/mcL (0.0-1.3); Monocytes % 15.8 %; Neutrophils # 2.6 K/mcL (1.6-8.9); Platelet Count 116 K/mcL (140-400); Red Blood Count 3.83 M/mcL (3.82-4.97); Red Cell Distribution Width 20.4 % (11.5-14.5); Segmented Neutrophils % 51.8 %; White Blood Count 5.1 K/mcL (4.3-11.1)
[2022-02-20 04:49] LABS: Calcium 9.1 mg/dL (8.6-10.3); Magnesium 2.1 mg/dL (1.6-2.6); Potassium 5.4 mEq/L (3.5-5.1)
[2022-02-20] MEDS: *HR* Heparin 5,000 UNIT/ML VIAL SQ SCH ×3 (05:09→21:40)
[2022-02-20] MEDS: Piperacillin/Tazobactam 3.375 GM in 0.9 % Sodium Chloride Mini Bag 100 ML IVPB SCH ×2 (05:10→17:51)
[2022-02-20] MEDS: Insulin LISPRO 300 UNITS/3 ML VIAL SUBQ SCH ×4 (05:56→23:30)
[2022-02-20] MEDS ORDERED: Perflutren Lipid Microsphere 1.3 ML in 0.9 % Sodium Chloride 8.7 ML IVP PRN (09:58)
[2022-02-20] MEDS ORDERED: 0.9 % Sodium Chloride 1,000 ML ONE (09:59)
[2022-02-20] MEDS: Albumin 25% 25gram/100mL 25 GM/100 ML IV.SOLN IVPB SCH ×2 (12:30→19:38)
[2022-02-20] MEDS: SODIUM ZIRCONIUM CYCLOSILICATE 5 GM POWD.PACK PO SCH (16:02)
[2022-02-21] MEDS: Albumin 25% 25gram/100mL 25 GM/100 ML IV.SOLN IVPB SCH (03:23)
[2022-02-21 03:31] LABS: Hemoglobin 9.9 g/dL (11.5-15.4)
[2022-02-21 03:33] LABS: Basophils % 0.4 %; Eosinophils # 0.3 K/mcL (0.0-0.6); Eosinophils % 4.7 %; Immature Granulocytes % 0.4 % (0-4); Immature Platelets 8.9 % (1.1-6.1); Lymphocytes # 0.9 K/mcL (0.6-4.6); Lymphocytes % 16.2 %; Mean Corpuscular HGB Conc 29.1 g/dL (31.6-35.5); Mean Corpuscular Hemoglobin 26.1 pg (28.0-33.3); Mean Corpuscular Volume 89.7 fL (83.0-100.0); Monocytes # 0.7 K/mcL (0.0-1.3); Monocytes % 13.1 %; Neutrophils # 3.6 K/mcL (1.6-8.9); Platelet Count 103 K/mcL (140-400); Red Blood Count 3.79 M/mcL (3.82-4.97); Red Cell Distribution Width 20.6 % (11.5-14.5); Segmented Neutrophils % 65.2 %; White Blood Count 5.5 K/mcL (4.3-11.1)
[2022-02-21 03:49] LABS: Calcium 9.3 mg/dL (8.6-10.3); Potassium 5.7 mEq/L (3.5-5.1)
[2022-02-21] MEDS: Insulin LISPRO 300 UNITS/3 ML VIAL SUBQ SCH ×4 (05:07→23:27)
[2022-02-21] MEDS: Piperacillin/Tazobactam 3.375 GM in 0.9 % Sodium Chloride Mini Bag 100 ML IVPB SCH ×2 (05:09→17:04)
[2022-02-21] MEDS: *HR* Heparin 5,000 UNIT/ML VIAL SQ SCH ×3 (05:09→21:14)
[2022-02-21] MEDS: SODIUM ZIRCONIUM CYCLOSILICATE 5 GM POWD.PACK PO SCH (08:24)
[2022-02-21] MEDS ORDERED: *HR* Dextrose 50 % in Water (Syg) 50 ML SYRINGE IVP PRN (08:29)
[2022-02-21] MEDS ORDERED: Melatonin 3 MG TABLET PO PRN (08:29)
[2022-02-21] MEDS ORDERED: Dextrose Gel 15 GM/37.5 ML TUBE PO PRN ×2 (08:29)
[2022-02-21] MEDS ORDERED: D5% in Water 1,000 ML IVC PRN (08:29)
[2022-02-21] MEDS ORDERED: *HR* OxyCODONE/APAP 5/325 TABLET PO PRN (08:29)
[2022-02-21] MEDS ORDERED: Naloxone 0.4 MG/ML INJ IVP PRN (08:29)
[2022-02-21] MEDS ORDERED: SODIUM ZIRCONIUM CYCLOSILICATE 5 GM POWD.PACK PO SCH (09:00)
[2022-02-21] MEDS ORDERED: Ethyl Chloride Spray Bottle (104 SPRAY/BOTTLE) TP PRN (10:16)
[2022-02-21] MEDS ORDERED: 0.9 % Sodium Chloride 250 ML IVC PRN (10:16)
[2022-02-21] MEDS ORDERED: 0.9 % Sodium Chloride 2,000 ML PRIME SCH (10:30)
[2022-02-21] MEDS ORDERED: *HR* FentaNYL (PF) 100 MCG/2 ML VIAL ONE ×2 (12:34→12:55)
[2022-02-21] MEDS ORDERED: *HR* FentaNYL (PF) 100 MCG/2 ML VIAL IVP ONE (14:07)
[2022-02-21] MEDS: Nystatin SUSP 5 ML UD.LIQ PO SCH ×3 (14:13→19:55)
[2022-02-21] MEDS ORDERED: *HR* Heparin 10,000 UNIT/10 ML VIAL IV PRN (16:50)
[2022-02-21 16:55] LABS: Hepatitis B Surface Antibody < 3.10 mIU/mL
[2022-02-21] MEDS: Doxycycline 100 MG in 0.9 % Sodium Chloride Mini Bag 100 ML IVPB SCH (17:04)
[2022-02-21 17:06] LABS: Hepatitis B Surface Antigen Nonreactive (Nonreactive)
[2022-02-21] MEDS ORDERED: Norepinephrine 4 MG/254 ML IV.SOLN IVC SCH (17:15)
[2022-02-22 03:44] LABS: Basophils % 0.8 %; Nucleated Red Blood Cells 0.4 /100 WBC (0)
[2022-02-22 03:45] LABS: Eosinophils # 0.3 K/mcL (0.0-0.6); Eosinophils % 5.9 %; Hematocrit 31.1 % (35.3-44.9); Hemoglobin 9.5 g/dL (11.5-15.4); Immature Granulocytes % 0.6 % (0-4); Immature Platelets 10.9 % (1.1-6.1); Lymphocytes # 0.9 K/mcL (0.6-4.6); Lymphocytes % 17.5 %; Mean Corpuscular HGB Conc 30.5 g/dL (31.6-35.5); Mean Corpuscular Hemoglobin 27.3 pg (28.0-33.3); Mean Corpuscular Volume 89.4 fL (83.0-100.0); Mean Platelet Volume 12.6 fL (9.4-12.4); Monocytes # 0.7 K/mcL (0.0-1.3); Monocytes % 13.5 %; Red Blood Count 3.48 M/mcL (3.82-4.97); Red Cell Distribution Width 20.7 % (11.5-14.5); Segmented Neutrophils % 61.7 %; White Blood Count 5.3 K/mcL (4.3-11.1)
[2022-02-22 03:59] LABS: Neutrophils # 3.3 K/mcL (1.6-8.9); Platelet Count 82 K/mcL (140-400)
[2022-02-22 04:03] LABS: Calcium 9.4 mg/dL (8.6-10.3); Potassium 4.3 mEq/L (3.5-5.1)
[2022-02-22] MEDS: Piperacillin/Tazobactam 3.375 GM in 0.9 % Sodium Chloride Mini Bag 100 ML IVPB SCH ×2 (05:08→17:05)
[2022-02-22] MEDS: Doxycycline 100 MG in 0.9 % Sodium Chloride Mini Bag 100 ML IVPB SCH ×2 (05:09→17:04)
[2022-02-22] MEDS: *HR* Heparin 5,000 UNIT/ML VIAL SQ SCH ×3 (05:10→21:28)
[2022-02-22] MEDS: Insulin LISPRO 300 UNITS/3 ML VIAL SUBQ SCH ×4 (05:10→23:58)
[2022-02-22] MEDS ORDERED: 0.9 % Sodium Chloride 250 ML IVC PRN ×2 (08:57→13:45)
[2022-02-22] MEDS ORDERED: *HR* Heparin 10,000 UNIT/10 ML VIAL IV PRN ×3 (08:57→13:45)
[2022-02-22] MEDS: Nystatin SUSP 5 ML UD.LIQ PO SCH ×3 (13:03→21:28)
[2022-02-22] MEDS ORDERED: *HR* Dextrose 50 % in Water (Syg) 50 ML SYRINGE IVP PRN (13:45)
[2022-02-22] MEDS ORDERED: Melatonin 3 MG TABLET PO PRN (13:45)
[2022-02-22] MEDS ORDERED: Ethyl Chloride Spray Bottle (104 SPRAY/BOTTLE) TP PRN (13:45)
[2022-02-22] MEDS ORDERED: Dextrose Gel 15 GM/37.5 ML TUBE PO PRN ×2 (13:45)
[2022-02-22] MEDS ORDERED: D5% in Water 1,000 ML IVC PRN (13:45)
[2022-02-22] MEDS ORDERED: 0.9 % Sodium Chloride 2,000 ML PRIME SCH (13:45)
[2022-02-22] MEDS ORDERED: *HR* OxyCODONE/APAP 5/325 TABLET PO PRN (13:45)
[2022-02-22] MEDS ORDERED: Naloxone 0.4 MG/ML INJ IVP PRN (13:45)
[2022-02-22] MEDS: Norepinephrine 4 MG/254 ML IV.SOLN IVC SCH (16:48)
[2022-02-22] MEDS: Pantoprazole 40 MG VIAL IVP SCH (17:24)
[2022-02-23 04:21] LABS: Hemoglobin 10.4 g/dL (11.5-15.4); Immature Platelets 13.1 % (1.1-6.1); Mean Corpuscular HGB Conc 29.7 g/dL (31.6-35.5); Mean Corpuscular Hemoglobin 26.9 pg (28.0-33.3); Mean Corpuscular Volume 90.4 fL (83.0-100.0); Mean Platelet Volume 12.4 fL (9.4-12.4); Red Blood Count 3.87 M/mcL (3.82-4.97); Red Cell Distribution Width 21.1 % (11.5-14.5); White Blood Count 5.4 K/mcL (4.3-11.1)
[2022-02-23 04:33] LABS: Calcium 9.9 mg/dL (8.6-10.3); Potassium 4.1 mEq/L (3.5-5.1)
[2022-02-23] MEDS: Doxycycline 100 MG in 0.9 % Sodium Chloride Mini Bag 100 ML IVPB SCH ×2 (05:17→19:19)
[2022-02-23] MEDS: Insulin LISPRO 300 UNITS/3 ML VIAL SUBQ SCH ×3 (05:18→18:49)
[2022-02-23] MEDS: Piperacillin/Tazobactam 3.375 GM in 0.9 % Sodium Chloride Mini Bag 100 ML IVPB SCH ×2 (05:18→19:19)
[2022-02-23] MEDS: *HR* Heparin 5,000 UNIT/ML VIAL SQ SCH ×3 (05:18→20:55)
[2022-02-23] MEDS: Pantoprazole 40 MG VIAL IVP SCH (08:30)
[2022-02-23] MEDS: Nystatin SUSP 5 ML UD.LIQ PO SCH ×4 (08:31→20:55)
[2022-02-23] MEDS ORDERED: Heparin 1,000 UNITS/500 mL 500 ML ONE (09:55)
[2022-02-23] MEDS ORDERED: 0.9 % Sodium Chloride 500 ML ONE (09:55)
[2022-02-23] MEDS ORDERED: Lidocaine/EPI 1:100k 1% 50 ML VIAL ONE (09:56)
[2022-02-23] MEDS: Norepinephrine 4 MG/254 ML IV.SOLN IVC SCH (14:22)
[2022-02-24] MEDS: Insulin LISPRO 300 UNITS/3 ML VIAL SUBQ SCH ×4 (00:39→17:05)
[2022-02-24 05:19] LABS: Hematocrit 35.2 % (35.3-44.9); Hemoglobin 10.6 g/dL (11.5-15.4); Mean Corpuscular HGB Conc 30.1 g/dL (31.6-35.5); Mean Corpuscular Hemoglobin 26.8 pg (28.0-33.3); Mean Corpuscular Volume 89.1 fL (83.0-100.0); Mean Platelet Volume 12.4 fL (9.4-12.4); Platelet Count 108 K/mcL (140-400); Red Blood Count 3.95 M/mcL (3.82-4.97); Red Cell Distribution Width 21.8 % (11.5-14.5); White Blood Count 6.5 K/mcL (4.3-11.1)
[2022-02-24 05:35] LABS: Calcium 9.8 mg/dL (8.6-10.3); Potassium 4.2 mEq/L (3.5-5.1)
[2022-02-24] MEDS: Piperacillin/Tazobactam 3.375 GM in 0.9 % Sodium Chloride Mini Bag 100 ML IVPB SCH ×2 (05:57→17:04)
[2022-02-24] MEDS: Doxycycline 100 MG in 0.9 % Sodium Chloride Mini Bag 100 ML IVPB SCH ×2 (05:58→17:04)
[2022-02-24] MEDS: *HR* Heparin 5,000 UNIT/ML VIAL SQ SCH ×3 (06:00→22:09)
[2022-02-24] MEDS: Aspirin Enteric Coated 81 MG Tablet PO SCH (07:33)
[2022-02-24] MEDS ORDERED: *HR* Heparin 10,000 UNIT/10 ML VIAL IV PRN (08:04)
[2022-02-24] MEDS ORDERED: 0.9 % Sodium Chloride 250 ML IVC PRN (08:04)
[2022-02-24] MEDS ORDERED: Albumin 25% 25gram/100mL 25 GM/100 ML IV.SOLN IVPB ONE (09:00)
[2022-02-24] MEDS: Nystatin SUSP 5 ML UD.LIQ PO SCH ×4 (10:06→22:09)
[2022-02-24] MEDS: Norepinephrine 4 MG/254 ML IV.SOLN IVC SCH (13:41)
[2022-02-24] MEDS: Ondansetron 4 MG/2 ML VIAL IVP PRN (17:03)
[2022-02-24] MEDS ORDERED: methylPREDNISolone 4 MG TABLET PO ONE ×2 (19:30→21:45)
[2022-02-25] MEDS: Insulin LISPRO 300 UNITS/3 ML VIAL SUBQ SCH ×4 (01:56→18:13)
[2022-02-25 03:38] LABS: Hematocrit 36.9 % (35.3-44.9)
[2022-02-25 03:40] LABS: Immature Platelets 11.1 % (1.1-6.1); Mean Corpuscular HGB Conc 29.8 g/dL (31.6-35.5); Mean Corpuscular Hemoglobin 27.3 pg (28.0-33.3); Mean Corpuscular Volume 91.6 fL (83.0-100.0); Mean Platelet Volume 11.8 fL (9.4-12.4); Red Blood Count 4.03 M/mcL (3.82-4.97); White Blood Count 4.8 K/mcL (4.3-11.1)
[2022-02-25 03:51] LABS: Calcium 10.1 mg/dL (8.6-10.3); Potassium 4.2 mEq/L (3.5-5.1)
[2022-02-25] MEDS ORDERED: methylPREDNISolone 4 MG TABLET PO ONE (05:45)
[2022-02-25] MEDS: Doxycycline 100 MG in 0.9 % Sodium Chloride Mini Bag 100 ML IVPB SCH (06:15)
[2022-02-25] MEDS: *HR* Heparin 5,000 UNIT/ML VIAL SQ SCH ×3 (06:16→22:05)
[2022-02-25] MEDS: Piperacillin/Tazobactam 3.375 GM in 0.9 % Sodium Chloride Mini Bag 100 ML IVPB SCH (06:17)
[2022-02-25] MEDS ORDERED: Heparin 1,000 UNITS/500 mL 500 ML ONE (07:52)
[2022-02-25] MEDS ORDERED: 0.9 % Sodium Chloride 500 ML ONE (07:52)
[2022-02-25] MEDS: Aspirin Enteric Coated 81 MG Tablet PO SCH (08:22)
[2022-02-25] MEDS: Nystatin SUSP 5 ML UD.LIQ PO SCH ×4 (08:24→19:54)
[2022-02-25] MEDS ORDERED: Isovue-300 50ML VIAL IVP ONE (09:46)
[2022-02-25] MEDS: *HR* HYDROcodone/Acet 10/325 mg TABLET PO PRN ×2 (12:59→22:05)
[2022-02-25] MEDS ORDERED: Ipratropium/Albuterol Neb 3 ML IH PRN (16:16)
[2022-02-25] MEDS: Norepinephrine 4 MG/254 ML IV.SOLN IVC SCH (16:23)
[2022-02-25] MEDS: Ondansetron 4 MG/2 ML VIAL IVP PRN (19:54)
[2022-02-25 20:28] LABS: Hematocrit 37.4 % (35.3-44.9)
[2022-02-26] MEDS: Insulin LISPRO 300 UNITS/3 ML VIAL SUBQ SCH ×4 (00:20→18:08)
[2022-02-26 05:01] LABS: Hematocrit 37.4 % (35.3-44.9); Mean Corpuscular HGB Conc 29.4 g/dL (31.6-35.5); Mean Corpuscular Hemoglobin 27.2 pg (28.0-33.3); Mean Corpuscular Volume 92.6 fL (83.0-100.0); Mean Platelet Volume 12.9 fL (9.4-12.4); Platelet Count 128 K/mcL (140-400); Red Blood Count 4.04 M/mcL (3.82-4.97); Red Cell Distribution Width 22.9 % (11.5-14.5)
[2022-02-26 05:03] LABS: White Blood Count 11.1 K/mcL (4.3-11.1)
[2022-02-26 05:13] LABS: Calcium 10.5 mg/dL (8.6-10.3); Potassium 4.6 mEq/L (3.5-5.1)
[2022-02-26] MEDS: *HR* Heparin 5,000 UNIT/ML VIAL SQ SCH ×3 (06:42→21:53)
[2022-02-26] MEDS: Ondansetron 4 MG/2 ML VIAL IVP PRN ×3 (06:48→20:59)
[2022-02-26] MEDS ORDERED: 0.9 % Sodium Chloride 250 ML IVC PRN (08:38)
[2022-02-26] MEDS ORDERED: Ethyl Chloride Spray Bottle (104 SPRAY/BOTTLE) TP PRN (08:38)
[2022-02-26] MEDS: *HR* HYDROcodone/Acet 10/325 mg TABLET PO PRN ×2 (08:59→15:47)
[2022-02-26] MEDS: Aspirin Enteric Coated 81 MG Tablet PO SCH (09:00)
[2022-02-26] MEDS: Nystatin SUSP 5 ML UD.LIQ PO SCH ×5 (09:00→21:52)
[2022-02-26] MEDS: Norepinephrine 4 MG/254 ML IV.SOLN IVC SCH (12:16)
[2022-02-27] MEDS: Insulin LISPRO 300 UNITS/3 ML VIAL SUBQ SCH ×4 (00:10→16:03)
[2022-02-27] MEDS: *HR* HYDROcodone/Acet 10/325 mg TABLET PO PRN ×2 (01:00→09:56)
[2022-02-27] MEDS: Ondansetron 4 MG/2 ML VIAL IVP PRN ×3 (03:00→20:28)
[2022-02-27 03:23] LABS: Hematocrit 37.5 % (35.3-44.9); Hemoglobin 11.2 g/dL (11.5-15.4); Mean Corpuscular HGB Conc 29.9 g/dL (31.6-35.5); Mean Corpuscular Volume 93.8 fL (83.0-100.0); Mean Platelet Volume 12.4 fL (9.4-12.4); Platelet Count 120 K/mcL (140-400); Red Cell Distribution Width 23.5 % (11.5-14.5); White Blood Count 9.2 K/mcL (4.3-11.1)
[2022-02-27 03:43] LABS: Calcium 9.9 mg/dL (8.6-10.3); Potassium 3.9 mEq/L (3.5-5.1)
[2022-02-27] MEDS: *HR* Heparin 5,000 UNIT/ML VIAL SQ SCH ×3 (05:10→20:27)
[2022-02-27] MEDS: Aspirin Enteric Coated 81 MG Tablet PO SCH (09:56)
[2022-02-27] MEDS: Nystatin SUSP 5 ML UD.LIQ PO SCH ×4 (09:57→20:31)
[2022-02-27] MEDS: Norepinephrine 4 MG/254 ML IV.SOLN IVC SCH (11:34)
[2022-02-27] MEDS: GI Cocktail 40 ML EACH PO ONE ×2 (12:58→13:03)
[2022-02-27] MEDS ORDERED: Metoclopramide 10 MG/2 ML VIAL IVP ONE (13:06)
[2022-02-28] MEDS: Insulin LISPRO 300 UNITS/3 ML VIAL SUBQ SCH ×4 (00:51→17:27)
[2022-02-28] MEDS: *HR* Heparin 5,000 UNIT/ML VIAL SQ SCH ×3 (04:57→21:25)
[2022-02-28] MEDS: Ondansetron 4 MG/2 ML VIAL IVP PRN ×2 (04:57→17:37)
[2022-02-28 05:24] LABS: Hematocrit 37.9 % (35.3-44.9); Hemoglobin 11.2 g/dL (11.5-15.4); Mean Corpuscular HGB Conc 29.6 g/dL (31.6-35.5); Mean Corpuscular Hemoglobin 27.7 pg (28.0-33.3); Mean Corpuscular Volume 93.8 fL (83.0-100.0); Mean Platelet Volume 12.1 fL (9.4-12.4); Platelet Count 130 K/mcL (140-400); Red Blood Count 4.04 M/mcL (3.82-4.97); Red Cell Distribution Width 23.7 % (11.5-14.5); White Blood Count 9.3 K/mcL (4.3-11.1)
[2022-02-28 05:44] LABS: Calcium 9.3 mg/dL (8.6-10.3); Potassium 3.8 mEq/L (3.5-5.1)
[2022-02-28] MEDS: Aspirin Enteric Coated 81 MG Tablet PO SCH (09:11)
[2022-02-28] MEDS: Nystatin SUSP 5 ML UD.LIQ PO SCH ×4 (09:12→21:10)
[2022-02-28] MEDS: *HR* HYDROcodone/Acet 10/325 mg TABLET PO PRN ×2 (10:35→21:25)
[2022-02-28] MEDS: Simethicone 80 MG TAB.CHEW PO PRN (21:25)
[2022-03-01] MEDS: Insulin LISPRO 300 UNITS/3 ML VIAL SUBQ SCH ×4 (00:33→17:16)
[2022-03-01] MEDS: Ondansetron 4 MG/2 ML VIAL IVP PRN ×3 (00:40→23:14)
[2022-03-01] MEDS ORDERED: Acetaminophen IV 1,000 MG/100 ML BAG IVPB ONE (00:46)
[2022-03-01] MEDS: *HR* HYDROcodone/Acet 10/325 mg TABLET PO PRN ×2 (03:48→20:05)
[2022-03-01] MEDS: *HR* Heparin 5,000 UNIT/ML VIAL SQ SCH ×3 (06:46→23:13)
[2022-03-01] MEDS: Aspirin Enteric Coated 81 MG Tablet PO SCH (07:48)
[2022-03-01] MEDS: Nystatin SUSP 5 ML UD.LIQ PO SCH ×4 (07:48→21:31)
[2022-03-01] MEDS ORDERED: 0.9 % Sodium Chloride 250 ML IVC PRN (08:41)
[2022-03-01] MEDS ORDERED: Ethyl Chloride Spray Bottle (104 SPRAY/BOTTLE) TP PRN (08:41)
[2022-03-01 11:20] LABS: Hematocrit 37.3 % (35.3-44.9); Hemoglobin 11.2 g/dL (11.5-15.4); Mean Corpuscular Hemoglobin 27.7 pg (28.0-33.3); Mean Corpuscular Volume 92.1 fL (83.0-100.0); Mean Platelet Volume 12.5 fL (9.4-12.4); Platelet Count 164 K/mcL (140-400); Red Blood Count 4.05 M/mcL (3.82-4.97); Red Cell Distribution Width 24.4 % (11.5-14.5); White Blood Count 9.7 K/mcL (4.3-11.1)
[2022-03-01 11:38] LABS: Calcium 9.5 mg/dL (8.6-10.3); Potassium 3.5 mEq/L (3.5-5.1)
[2022-03-01] MEDS: carvediloL 6.25 MG TABLET PO SCH (17:14)
[2022-03-01] MEDS: Simethicone 80 MG TAB.CHEW PO PRN (20:06)
[2022-03-01] MEDS ORDERED: *HR* HYDROmorphone (PF) 1 MG/ML SYRINGE IVP ONE (23:03)
[2022-03-02] MEDS: Insulin LISPRO 300 UNITS/3 ML VIAL SUBQ SCH ×3 (00:51→11:30)
[2022-03-02] MEDS: *HR* HYDROcodone/Acet 10/325 mg TABLET PO PRN ×3 (02:52→14:29)
[2022-03-02] MEDS ORDERED: *HR* OxyCODONE Immed Rel 5 MG TABLET PO ONE (05:42)
[2022-03-02] MEDS: *HR* Heparin 5,000 UNIT/ML VIAL SQ SCH ×2 (06:15→13:49)
[2022-03-02] MEDS: carvediloL 6.25 MG TABLET PO SCH (08:27)
[2022-03-02] MEDS: Aspirin Enteric Coated 81 MG Tablet PO SCH (08:27)
[2022-03-02] MEDS: Nystatin SUSP 5 ML UD.LIQ PO SCH ×2 (08:29→12:59)
[2022-03-02 08:40] LABS: Hematocrit 37.1 % (35.3-44.9); Mean Corpuscular HGB Conc 29.6 g/dL (31.6-35.5); Mean Corpuscular Hemoglobin 27.7 pg (28.0-33.3); Mean Corpuscular Volume 93.5 fL (83.0-100.0); Mean Platelet Volume 11.8 fL (9.4-12.4); Platelet Count 127 K/mcL (140-400); Red Blood Count 3.97 M/mcL (3.82-4.97); Red Cell Distribution Width 24.8 % (11.5-14.5)
[2022-03-02 08:52] LABS: Calcium 9.6 mg/dL (8.6-10.3); Potassium 3.8 mEq/L (3.5-5.1)
[2022-03-02 10:50] VITALS: BP 99/53; PULSE 73; TEMP 97.7; O2SAT 89
== END 2022-03-02 14:50 | DRG 871 ==
LOC: EMEROOARM 15:56 → CDU 15:56 → ICNU 22:49 → SUATTDRO 02-19 02:48 → 2NNU 02-23 17:30 → 2ANU 02-24 12:09
PROVIDERS: ADMIT Family Medicine; ATTEND Family Medicine

== ENCOUNTER 2022-03-07 17:32 | Inpatient (IN) ==
[2022-03-07] MEDS ORDERED: Ipratropium/Albuterol Neb 3 ML IH ONE (18:19)
[2022-03-07] MEDS ORDERED: Iopamidol - 370 500 ML MLS IVP ONE (18:21)
[2022-03-07] MEDS ORDERED: 0.9 % Sodium Chloride 500 ML IVC ONE (18:51)
[2022-03-07] MEDS ORDERED: 0.9 % Sodium Chloride 500 ML ONE (18:51)
[2022-03-07] MEDS ORDERED: Norepinephrine 4 MG/254 ML IV.SOLN IVC SCH (19:15)
[2022-03-07 19:21] LABS: VBG HCO3 23 mEq/L (21-27); VBG PCO2 52 mmHg (41-51); VBG PH 7.25 pH Units (7.32-7.42); VBG PO2 51 mmHg (25-50)
[2022-03-07 19:22] LABS: Basophils % 0.6 %; Eosinophils % 1.3 %; Immature Granulocytes % 0.4 % (0-4); Mean Corpuscular HGB Conc 30.1 g/dL (31.6-35.5); Monocytes % 12.6 %
[2022-03-07 19:23] LABS: Basophils # 0.1 K/mcL (0.0-0.2); Eosinophils # 0.1 K/mcL (0.0-0.6); Hematocrit 33.2 % (35.3-44.9); Lymphocytes # 1.1 K/mcL (0.6-4.6); Lymphocytes % 11.8 %; Mean Corpuscular Hemoglobin 29.1 pg (28.0-33.3); Mean Corpuscular Volume 96.5 fL (83.0-100.0); Monocytes # 1.1 K/mcL (0.0-1.3); Neutrophils # 6.5 K/mcL (1.6-8.9); Nucleated Red Blood Cells 0.7 /100 WBC (0); Red Blood Count 3.44 M/mcL (3.82-4.97); Red Cell Distribution Width 25.9 % (11.5-14.5); Segmented Neutrophils % 73.3 %; White Blood Count 8.9 K/mcL (4.3-11.1)
[2022-03-07 19:29] LABS: INR 1.9; Prothrombin Time 20.8 Seconds (9.4-12.1)
[2022-03-07 19:32] LABS: Activated Partial Thrombo Time 35.8 Seconds (26.0-36.0)
[2022-03-07] MEDS ORDERED: Piperacillin/Tazobactam 3.375 GM in 0.9 % Sodium Chloride Mini Bag 100 ML IVPB ONE (19:40)
[2022-03-07 19:46] LABS: Alanine Aminotransferase 175 Units/L (7-52); Albumin 2.9 g/dL (3.5-5.7); Albumin/Globulin Ratio 1.5 (1.1-2.2); Alkaline Phosphatase 119 Units/L (34-104); Aspartate Amino Transferase 226 Units/L (13-39); BUN/Creatinine Ratio 7 (6-26); Bilirubin,Direct 0.7 mg/dL (0.0-0.2); Bilirubin,Indirect 0.6 mg/dL (0.0-1.0); Bilirubin,Total 1.3 mg/dL (0.3-1.0); Blood Urea Nitrogen 48 mg/dL (6-20); Calcium 8.9 mg/dL (8.6-10.3); Carbon Dioxide 22 mEq/L (23-29); Chloride 98 mEq/L (98-107); Ethanol < 10 mg/dL (Less than 10); Globulin 1.9 g/dL (2.4-3.5); Glucose 142 mg/dL (70-105); Magnesium 2.1 mg/dL (1.6-2.6); Osmolality,Calculated 303 (280-300); Phosphorous 9.2 mg/dL (2.7-4.5); Potassium 5.5 mEq/L (3.5-5.1); Sodium 139 mEq/L (136-145); Total Protein 4.8 g/dL (6.4-8.9); eGFR For African Americans 7 (> 60); eGFR For Non-African Americans 6 (> 60)
[2022-03-07 19:51] LABS: Platelet Count 66 K/mcL (140-400)
[2022-03-07 19:52] LABS: Platelet Estimate Decreased (Normal); Reactive Lymphocytes Present (Not Present)
[2022-03-07] MEDS ORDERED: Vancomycin 1,750 MG/517.5 ML IV.SOLN IVPB ONE (20:00)
[2022-03-07 20:01] LABS: Troponin I 0.13 ng/mL (< 0.04)
[2022-03-07 20:08] LABS: Influenza A PCR Negative (Negative); Influenza B PCR Negative (Negative); Resp. Syncytial Virus PCR Negative (Negative)
[2022-03-07 20:08] LABS: Thyroid Stimulating Hormone 22.936 mcIU/mL (0.340-5.600)
[2022-03-07 20:09] LABS: SARS-CoV-2 by PCR (In House) Negative (Negative)
[2022-03-07] MEDS ORDERED: 0.9 % Sodium Chloride 1,000 ML ONE (20:38)
[2022-03-07] MEDS ORDERED: *HR* FentaNYL (PF) 100 MCG/2 ML VIAL ONE (21:18)
[2022-03-07] MEDS ORDERED: *HR* FentaNYL (PF) 1,000 MCG/20 ML VIAL ONE (21:23)
[2022-03-07] MEDS ORDERED: Hydrocortisone Sodium Succ 100 MG/2 ML VIAL IVP ONE (22:55)
[2022-03-07] MEDS: Norepinephrine 32 MG/250 ML IV.SOLN IVC SCH (23:35)
[2022-03-08] MEDS: FentaNYL (PF) 1,000 MCG/100 ML IV.SOLN IVC SCH ×3 (00:54→11:24)
[2022-03-08] MEDS ORDERED: Naloxone 0.4 MG/ML INJ IVP PRN (01:47)
[2022-03-08] MEDS ORDERED: Ondansetron 4 MG/2 ML VIAL IVP PRN (01:52)
[2022-03-08] MEDS ORDERED: Melatonin 3 MG TABLET PO PRN (01:52)
[2022-03-08] MEDS ORDERED: *HR* Promethazine 25 MG/ML VIAL IM PRN (01:52)
[2022-03-08] MEDS ORDERED: Artificial Tears SOLN 15 ML BOTTLE BOTH EYES PRN (02:33)
[2022-03-08 02:42] LABS: ABG Base Excess -4 mEq/L (-2 to 3); ABG HCO3 23 mEq/L (21-27); ABG Oxygen Saturation 92 % (95-98); ABG PCO2 46 mmHg (35-45); ABG PH 7.31 pH Units (7.32-7.45); ABG PO2 69 mmHg (85-104); ABG TCO2 24 mEq/L (20-26); Blood Gas VT 450 cc
[2022-03-08] MEDS ORDERED: *HR* Midazolam HCl 5 MG/5 ML VIAL IVP ONE ×2 (02:42)
[2022-03-08] MEDS ORDERED: Cefepime HCl 1,000 MG in 0.9 % Sodium Chloride 10 ML IVPB ONE (03:00)
[2022-03-08 04:29] LABS: INR 1.8; Prothrombin Time 19.8 Seconds (9.4-12.1)
[2022-03-08] MEDS: Dexmedetomidine HCl 400 MCG/100 ML MLS IVC SCH ×3 (04:31→23:39)
[2022-03-08] MEDS: Artificial Tears SOLN 15 ML BOTTLE BOTH EYES SCH ×5 (04:31→19:25)
[2022-03-08 04:35] LABS: Albumin 3.3 g/dL (3.5-5.7); Albumin/Globulin Ratio 1.4 (1.1-2.2); Bilirubin,Total 2.2 mg/dL (0.3-1.0); Calcium 9.3 mg/dL (8.6-10.3); Globulin 2.4 g/dL (2.4-3.5); Phosphorous 8.5 mg/dL (2.7-4.5); Potassium 5.7 mEq/L (3.5-5.1); Total Protein 5.7 g/dL (6.4-8.9)
[2022-03-08] MEDS: *HR* Heparin 5,000 UNIT/ML VIAL SQ SCH (05:32)
[2022-03-08] MEDS: Norepinephrine 32 MG/250 ML IV.SOLN IVC SCH ×2 (05:33→15:43)
[2022-03-08] MEDS: Chlorhexidine Rinse 15 ML MOUTHWASH MM SCH ×2 (10:06→19:25)
[2022-03-08] MEDS ORDERED: D5% in Water 1,000 ML IVC PRN (10:54)
[2022-03-08] MEDS ORDERED: *HR* Dextrose 50 % in Water (Syg) 50 ML SYRINGE IVP PRN (10:54)
[2022-03-08] MEDS ORDERED: Dextrose Gel 15 GM/37.5 ML TUBE PO PRN ×2 (10:54)
[2022-03-08] MEDS: Pantoprazole 40 MG VIAL IVP SCH (13:18)
[2022-03-08] MEDS: Hydrocortisone Sodium Succ 100 MG/2 ML VIAL IVP SCH ×2 (13:18→19:25)
[2022-03-08] MEDS: Insulin LISPRO 300 UNITS/3 ML VIAL SUBQ SCH ×2 (13:18→17:45)
[2022-03-08] MEDS ORDERED: Heparin 1,000 UNITS/500 mL 500 ML ONE (13:52)
[2022-03-08] MEDS ORDERED: *HR* Heparin 5,000 UNIT/ML VIAL ONE (14:33)
[2022-03-08] MEDS: PrismaSATE BGK 4/2.5 5,000 ML CRRT SCH ×6 (14:38→23:43)
[2022-03-08] MEDS: 0.9 % Sodium Chloride 1,000 ML PRIME SCH ×2 (14:47→15:20)
[2022-03-08] MEDS ORDERED: Cefepime HCl 1,000 MG in 0.9 % Sodium Chloride 10 ML IVP SCH (16:00)
[2022-03-08] MEDS: Cefepime HCl 2,000 MG in 0.9 % Sodium Chloride 10 ML IVP SCH (17:45)
[2022-03-08 18:02] LABS: Vancomycin,Random 22 mcg/mL
[2022-03-09] MEDS: Artificial Tears SOLN 15 ML BOTTLE BOTH EYES SCH ×6 (00:20→19:57)
[2022-03-09] MEDS: Insulin LISPRO 300 UNITS/3 ML VIAL SUBQ SCH ×4 (00:23→17:19)
[2022-03-09 03:43] LABS: Basophils % 0.1 %
[2022-03-09 03:45] LABS: Hematocrit 37.8 % (35.3-44.9); Hemoglobin 11.7 g/dL (11.5-15.4); Immature Granulocytes % 0.7 % (0-4); Immature Platelets 13.6 % (1.1-6.1); Lymphocytes # 0.7 K/mcL (0.6-4.6); Lymphocytes % 4.5 %; Mean Corpuscular Hemoglobin 28.3 pg (28.0-33.3); Mean Corpuscular Volume 91.3 fL (83.0-100.0); Monocytes # 0.7 K/mcL (0.0-1.3); Monocytes % 4.1 %; Nucleated Red Blood Cells 1.1 /100 WBC (0); Platelet Count 100 K/mcL (140-400); Red Blood Count 4.14 M/mcL (3.82-4.97); Red Cell Distribution Width 25.9 % (11.5-14.5); Segmented Neutrophils % 90.6 %; White Blood Count 16.2 K/mcL (4.3-11.1)
[2022-03-09 03:47] LABS: VBG Ionized Calcium 1.11 mmol/L (1.15-1.35)
[2022-03-09] MEDS: Norepinephrine 32 MG/250 ML IV.SOLN IVC SCH ×2 (03:57→17:15)
[2022-03-09 04:00] LABS: Neutrophils # 14.7 K/mcL (1.6-8.9)
[2022-03-09 04:02] LABS: ABG Base Excess -2 mEq/L (-2 to 3); ABG HCO3 23 mEq/L (21-27); ABG Oxygen Saturation 100 % (95-98); ABG PCO2 37 mmHg (35-45); ABG PO2 277 mmHg (85-104); ABG TCO2 24 mEq/L (20-26); Blood Gas VT 450 cc
[2022-03-09 04:09] LABS: Albumin 2.8 g/dL (3.5-5.7); Albumin/Globulin Ratio 1.3 (1.1-2.2); Bilirubin,Direct 1.3 mg/dL (0.0-0.2); Bilirubin,Indirect 0.8 mg/dL (0.0-1.0); Bilirubin,Total 2.1 mg/dL (0.3-1.0); Calcium 8.5 mg/dL (8.6-10.3); Globulin 2.1 g/dL (2.4-3.5); Magnesium 2.1 mg/dL (1.6-2.6); Phosphorous 5.4 mg/dL (2.7-4.5); Potassium 5.4 mEq/L (3.5-5.1); Total Protein 4.9 g/dL (6.4-8.9)
[2022-03-09] MEDS: Cefepime HCl 2,000 MG in 0.9 % Sodium Chloride 10 ML IVP SCH (04:13)
[2022-03-09] MEDS: Hydrocortisone Sodium Succ 100 MG/2 ML VIAL IVP SCH ×3 (04:14→19:58)
[2022-03-09] MEDS: PrismaSATE BGK 4/2.5 5,000 ML CRRT SCH ×10 (04:25→21:10)
[2022-03-09 04:28] LABS: Macrocytosis Present (Not Present); Platelet Estimate Slight Decrease (Normal); Poikilocytosis 1+ (Not Present)
[2022-03-09] MEDS: FentaNYL (PF) 1,000 MCG/100 ML IV.SOLN IVC SCH ×5 (06:37→23:43)
[2022-03-09] MEDS: *HR* Heparin 5,000 UNIT/ML VIAL SQ SCH ×3 (06:43→21:08)
[2022-03-09] MEDS: Pantoprazole 40 MG VIAL IVP SCH (07:12)
[2022-03-09] MEDS: Chlorhexidine Rinse 15 ML MOUTHWASH MM SCH ×2 (07:12→19:58)
[2022-03-09 14:28] LABS: Appearance of Body Fluid Cloudy (Clear); Volume of Body Fluid 30 mL
[2022-03-09 14:52] LABS: Adenovirus Not Detected (Not Detect); Bordetella Pertussis Not Detected (Not Detect); Chlamydophila pneumoniae Not Detected (Not Detect); Coronavirus 229E Not Detected (Not Detect); Coronavirus HKU1 Not Detected (Not Detect); Coronavirus NL63 Not Detected (Not Detect); Coronavirus OC43 Not Detected (Not Detect); Human Metapneumovirus Not Detected (Not Detect); Human Rhinovirus/Enterovirus Not Detected (Not Detect); Influenza A Subtype 2009 H1 Not Detected (Not Detect); Influenza B Not Detected (Not Detect); Mycoplasma pneumoniae Not Detected (Not Detect); Parainfluenza Virus 1 Not Detected (Not Detect); Parainfluenza Virus 2 Not Detected (Not Detect); Parainfluenza Virus 3 Not Detected (Not Detect); Parainfluenza Virus 4 Not Detected (Not Detect); Respiratory Syncytial Virus Not Detected (Not Detect); SARS-CoV-2 Not Detected (Not Detect)
[2022-03-09] MEDS: Piperacillin/Tazobactam 3.375 GM in 0.9 % Sodium Chloride Mini Bag 100 ML IVPB SCH (15:41)
[2022-03-09] MEDS ORDERED: *HR* Heparin 5,000 UNIT/ML VIAL ONE (21:13)
[2022-03-10] MEDS: Insulin LISPRO 300 UNITS/3 ML VIAL SUBQ SCH ×5 (00:10→19:59)
[2022-03-10] MEDS: Artificial Tears SOLN 15 ML BOTTLE BOTH EYES SCH ×6 (00:10→19:44)
[2022-03-10] MEDS: Piperacillin/Tazobactam 3.375 GM in 0.9 % Sodium Chloride Mini Bag 100 ML IVPB SCH ×3 (00:18→15:11)
[2022-03-10] MEDS: PrismaSATE BGK 4/2.5 5,000 ML CRRT SCH ×6 (02:33→18:59)
[2022-03-10] MEDS: FentaNYL (PF) 1,000 MCG/100 ML IV.SOLN IVC SCH ×4 (02:35→21:27)
[2022-03-10 03:50] LABS: Basophils % 0.1 %; Immature Granulocytes % 0.6 % (0-4); Nucleated Red Blood Cells 3.6 /100 WBC (0); Segmented Neutrophils % 91.1 %
[2022-03-10 03:52] LABS: Hematocrit 34.5 % (35.3-44.9); Hemoglobin 10.3 g/dL (11.5-15.4); Immature Platelets 15.9 % (1.1-6.1); Lymphocytes # 0.5 K/mcL (0.6-4.6); Lymphocytes % 3.4 %; Mean Corpuscular HGB Conc 29.9 g/dL (31.6-35.5); Mean Corpuscular Hemoglobin 28.9 pg (28.0-33.3); Mean Corpuscular Volume 96.6 fL (83.0-100.0); Monocytes # 0.7 K/mcL (0.0-1.3); Monocytes % 4.8 %; Red Blood Count 3.57 M/mcL (3.82-4.97); White Blood Count 14.9 K/mcL (4.3-11.1)
[2022-03-10 03:53] LABS: VBG Ionized Calcium 1.14 mmol/L (1.15-1.35)
[2022-03-10 04:01] LABS: Neutrophils # 13.6 K/mcL (1.6-8.9); Platelet Count 76 K/mcL (140-400)
[2022-03-10 04:10] LABS: Calcium 8.3 mg/dL (8.6-10.3); Magnesium 2.1 mg/dL (1.6-2.6); Phosphorous 5.2 mg/dL (2.7-4.5); Potassium 5.5 mEq/L (3.5-5.1)
[2022-03-10 04:12] LABS: ABG Base Excess -6 mEq/L (-2 to 3); ABG HCO3 19 mEq/L (21-27); ABG Oxygen Saturation 98 % (95-98); ABG PCO2 34 mmHg (35-45); ABG PH 7.35 pH Units (7.32-7.45); ABG PO2 107 mmHg (85-104); ABG TCO2 20 mEq/L (20-26); Blood Gas VT 450 cc
[2022-03-10 04:53] LABS: Anisocytosis 2+ (Not Present); Hypochromasia Present (Not Present)
[2022-03-10 04:54] LABS: Platelet Estimate Decreased (Normal)
[2022-03-10] MEDS: Hydrocortisone Sodium Succ 100 MG/2 ML VIAL IVP SCH ×3 (05:10→19:44)
[2022-03-10] MEDS: *HR* Heparin 5,000 UNIT/ML VIAL SQ SCH ×3 (05:11→22:15)
[2022-03-10] MEDS: Dexmedetomidine HCl 400 MCG/100 ML MLS IVC SCH (06:10)
[2022-03-10] MEDS: Norepinephrine 32 MG/250 ML IV.SOLN IVC SCH ×2 (06:11→19:51)
[2022-03-10] MEDS: Pantoprazole 40 MG VIAL IVP SCH (07:51)
[2022-03-10] MEDS: Chlorhexidine Rinse 15 ML MOUTHWASH MM SCH ×2 (07:51→19:46)
[2022-03-10] MEDS ORDERED: *HR* Norepinephrine 4 MG/4 ML VIAL IVC ONE (19:09)
[2022-03-10] MEDS ORDERED: 0.9 % Sodium Chloride 250 ML ONE (19:10)
[2022-03-11] MEDS: Artificial Tears SOLN 15 ML BOTTLE BOTH EYES SCH ×6 (00:37→23:10)
[2022-03-11] MEDS: Piperacillin/Tazobactam 3.375 GM in 0.9 % Sodium Chloride Mini Bag 100 ML IVPB SCH ×2 (00:37→08:15)
[2022-03-11] MEDS: Dexmedetomidine HCl 400 MCG/100 ML MLS IVC SCH (02:46)
[2022-03-11 03:52] LABS: Basophils % 0.1 %; Hemoglobin 11.1 g/dL (11.5-15.4); Mean Corpuscular Hemoglobin 28.7 pg (28.0-33.3); Red Blood Count 3.87 M/mcL (3.82-4.97)
[2022-03-11 03:54] LABS: Hematocrit 38.1 % (35.3-44.9); Immature Granulocytes % 0.6 % (0-4); Immature Platelets 15.9 % (1.1-6.1); Lymphocytes # 0.7 K/mcL (0.6-4.6); Lymphocytes % 3.4 %; Mean Corpuscular HGB Conc 29.1 g/dL (31.6-35.5); Mean Corpuscular Volume 98.4 fL (83.0-100.0); Monocytes # 1.3 K/mcL (0.0-1.3); Monocytes % 6.5 %; Neutrophils # 17.9 K/mcL (1.6-8.9); Nucleated Red Blood Cells 3.8 /100 WBC (0); Red Cell Distribution Width 27.6 % (11.5-14.5); Segmented Neutrophils % 89.4 %
[2022-03-11 03:59] LABS: Platelet Count 80 K/mcL (140-400)
[2022-03-11 04:09] LABS: Calcium 9.2 mg/dL (8.6-10.3); Potassium 6.1 mEq/L (3.5-5.1)
[2022-03-11 04:15] LABS: Anisocytosis 2+ (Not Present); Macrocytosis Present (Not Present); Platelet Estimate Decreased (Normal)
[2022-03-11] MEDS: FentaNYL (PF) 1,000 MCG/100 ML IV.SOLN IVC SCH ×2 (04:28→14:13)
[2022-03-11] MEDS: Hydrocortisone Sodium Succ 100 MG/2 ML VIAL IVP SCH ×2 (04:28→12:16)
[2022-03-11 04:29] LABS: ABG Base Excess -9 mEq/L (-2 to 3); ABG HCO3 16 mEq/L (21-27); ABG Oxygen Saturation 86 % (95-98); ABG PCO2 30 mmHg (35-45); ABG PH 7.33 pH Units (7.32-7.45); ABG PO2 55 mmHg (85-104); ABG TCO2 17 mEq/L (20-26); Blood Gas VT 450 cc
[2022-03-11] MEDS: Norepinephrine 32 MG/250 ML IV.SOLN IVC SCH (04:33)
[2022-03-11] MEDS: *HR* Heparin 5,000 UNIT/ML VIAL SQ SCH (05:36)
[2022-03-11] MEDS: Insulin LISPRO 300 UNITS/3 ML VIAL SUBQ SCH ×2 (05:39→12:16)
[2022-03-11 07:54] VITALS: TEMP 99.5
[2022-03-11] MEDS: Chlorhexidine Rinse 15 ML MOUTHWASH MM SCH (08:15)
[2022-03-11] MEDS: Pantoprazole 40 MG VIAL IVP SCH (08:15)
[2022-03-11] MEDS ORDERED: Calcium Gluconate 1gm/50mL 1 GM/50 ML BAG IVPB ONE (08:26)
[2022-03-11] MEDS ORDERED: *HR* Dextrose 50 % in Water (Syg) 50 ML SYRINGE IVP ONE (08:26)
[2022-03-11] MEDS ORDERED: Insulin Human Regular 10 UNIT in 0.9 % Sodium Chloride 10 ML IV ONE (08:26)
[2022-03-11 11:17] VITALS: O2SAT 96
[2022-03-11 12:17] VITALS: BP 109/59; PULSE 102
[2022-03-11] MEDS ORDERED: Glycopyrrolate 0.2 MG/ML VIAL IVP PRN (13:13)
[2022-03-11] MEDS: *HR* LORazepam 2 MG/ML VIAL IVP PRN ×2 (14:03→15:46)
[2022-03-11] MEDS ORDERED: *HR* FentaNYL (PF) 100 MCG/2 ML VIAL IVP PRN (15:48)
[2022-03-11] MEDS ORDERED: FentaNYL (PF) 1,000 MCG/100 ML IV.SOLN IVC SCH (15:49)
[2022-03-12 15:44] LABS: Influenza A PCR Body Fluid NOT DETECTED; Influenza B PCR Body Fluid NOT DETECTED; RVP Body Fluid Source BAL
[2022-03-13 10:32] LABS: RSV PCR Body Fluid NOT DETECTED
== END 2022-03-11 19:36 | disposition expired | DRG 871 ==
LOC: EMEROOARM 17:32 → ICNU 03-08 01:33 → 2ANU 03-11 16:18
PROVIDERS: ADMIT Family Medicine; ATTEND Family Medicine